=== PATIENT | male | born 1935 | race Caucasian/White ===

== ENCOUNTER 2017-08-07 14:34 | Inpatient (IN) | payer MEDICARE, BC ==
[~2017-08-07 14:34] MED LIST: CHOLEST; DILTI PO; GLIPIZIDE PO; IRON PO; LASIX40 MG PO; LISINOPRIL10 MG PO; VITAMIN D PO
[2017-08-07 16:57] LABS: BASOPHILS 0.2 % (0-2); EOSINOPHILS 2.6 % (0-7); HEMATOCRIT 33.8 % (42.0-54.0); HEMOGLOBIN 10.6 g/dL (13.5-17.5); IMMATURE GRANULOCYTES 1.2 % (0-5); LYMPHOCYTES 6.3 % (15-50); MCHC 31.4 g/dL (31.0-37.0); MCV 98.8 fL (80.0-100.0); MEAN PLATELET VOLUME 11.5 fL (7.4-10.4); MONOCYTES 5.9 % (2-11); NEUTROPHILS 83.8 % (40-80); PLATELET COUNT 120 10x3/uL (130-400); RBC 3.42 10x6/uL (4.20-6.10); RDW 16.4 % (11.5-14.5)
[2017-08-07 17:08] LABS: APTT 23.7 SECONDS (22.8-39.4); INR 1.08 (0.85-1.17); PROTIME 13.9 SECONDS (11.6-15.0)
[2017-08-07 17:19] LABS: ALBUMIN 2.6 g/dL (3.4-5.0); ANION GAP 13.1 mmol/L (8-16); BILIRUBIN - TOTAL 0.24 mg/dL (0.2-1.3); CALCIUM 7.8 mg/dL (8.5-10.1); CARBON DIOXIDE 29.5 mmol/L (21.0-32.0); CREATININE - SERUM 1.5 mg/dL (0.6-1.3); POTASSIUM - SERUM 5.6 mmol/L (3.5-5.1); PROTEIN - SERUM 5.6 g/dL (6.4-8.2)
--- NOTE | 2017-08-07 19:15 | NUR ---
RECEIVED REPORT FROM DAY NURSE. PT IN BED WITH FAMILY AT SIDE. IV INFUSING TO LEFT AC. TRUONG TO GRAVITY. HISTORY, ASSESSMENT, MED LIST COMPLETED. PT TO SURGERY SOON.
[2017-08-07 19:38] LABS: APPEARANCE HAZY (CLEAR); BILIRUBIN NEGATIVE (NEGATIVE); COLOR YELLOW (YELLOW); GLUCOSE NEGATIVE (NEGATIVE); KETONE NEGATIVE (NEGATIVE); NITRITE NEGATIVE (NEGATIVE); PROTEIN 3+ mg/dL (NEGATIVE); UROBILINOGEN NORMAL (NORMAL)
[2017-08-07 19:47] LABS: AMORPHOUS SEDIMENT >1+ /lpf (NONE SEEN); BACTERIA MODERATE /hpf (NONE SEEN); EPITHELIAL CELLS OCC /hpf (0-5); GRANULAR CAST 0-5 /lpf (NONE SEEN); HYALINE CAST OCC /lpf (NONE SEEN); RED CELLS - URINE 0-5 /hpf (0-5); WHITE CELLS - URINE 0-5 /hpf (0-5)
[2017-08-07 19:56] VITALS: BP 118/59; BMI 30.9
--- NOTE | 2017-08-07 20:15 | NUR ---
OFF FLOOR TO SURGERY
[2017-08-07 21:19] VITALS: BP 115/72; BMI 30.9
--- NOTE | 2017-08-07 21:25 | NUR ---
: DR BRICEÑO SPLINTING RIGHT ELBOW. : GRACE PLACING SPINAL.
[2017-08-07] MEDS ORDERED: ZYLOPRIM300 MG PO (21:35)
[2017-08-07] MEDS ORDERED: COREG6.25 MG PO (22:18)
[2017-08-07] MEDS ORDERED: FOLIC ACID1 MG PO (22:19)
[2017-08-07] MEDS ORDERED: GLUCOTROL 5 MG T5 MG PO (22:19)
[2017-08-07] MEDS ORDERED: HYTRIN1 MG PO (22:20)
[2017-08-07] MEDS ORDERED: LASIX40 MG PO (22:21)
[2017-08-07] MEDS ORDERED: VITAMIN D250000 UNIT PO (22:21)
[2017-08-07] MEDS ORDERED: ZESTRIL10 MG PO (22:22)
[2017-08-07] MEDS ORDERED: OMEPRAZOLE40 MG PO (22:22)
[2017-08-07] MEDS ORDERED: LIPITOR10 MG PO (22:23)
[2017-08-07] MEDS ORDERED: CELEXA20 MG PO (22:23)
[2017-08-07] MEDS ORDERED: FERROUS SULFAT325 MG PO (22:24)
[2017-08-07] MEDS ORDERED: FOLTX TABLET1 EACH PO (22:25)
[2017-08-07] MEDS ORDERED: RANEXA1000 MG PO (22:25)
[2017-08-07] MEDS ORDERED: NITROSTAT0.4 MG SL (22:26)
[2017-08-07] MEDS ORDERED: CYCLOBENZAPRINE5 MG PO (22:27)
[2017-08-07] MEDS ORDERED: ACETAMINOPHEN325 MG PO (22:27)
[2017-08-07] MEDS ORDERED: IPRAT-ALBUT 0.5-3 ML UPD (22:29)
[2017-08-07] MEDS ORDERED: BROVANA15 MCG/2 M INH (22:29)
[2017-08-07] MEDS ORDERED: PULMICORT0.25 MG/1 INH (22:30)
--- NOTE | 2017-08-07 22:32 | NUR ---
JYOTI INFORMED ME THAT PT HAS 7CM AAA, SO HE DOES NOT WANT HIS BLOOD PRESSURE TO HIGH.
[2017-08-07 23:00] VITALS: BP 98/52
--- NOTE | 2017-08-07 23:00 | NUR ---
RETURNED TO FLOOR FROM SURGERY. FAMILY AT SIDE. DR BRICEÑO IN ROOM. CONT VITALS INITIATED. IV INFUSING TO LEFT AC. DRESSING TO RIGHT HIP AND LEG CDI. TRUONG TO GRAVITY. ICE TO HIP AND LEG. PLEXI PULSES APPLIED. MULTIPLE X-RAYS PREFORMED. PT REPORTS NO PAIN. OXIMIZER AT 4L FROM SURGERY.
[2017-08-07 23:15] VITALS: BP 101/56
[2017-08-07 23:30] VITALS: BP 82/60
[2017-08-07 23:45] VITALS: BP 90/50
[2017-08-08] VITALS (10 sets, daily range): BP systolic 16–117; BP diastolic 42–61; BMI 30.8
--- NOTE | 2017-08-08 02:18 | NUR ---
PATIENT RESTING IN BED WITH EYES CLOSED, GUEST AT BEDSIDE, AND NO VISIBLE SIGNS OF DISTRESS. BED IN LOWEST POSITION AND CALL LIGHT WITHIN REACH.
--- NOTE | 2017-08-08 04:29 | NUR ---
PT NOT ON WEIGH BED AND UNABLE TO STAND. NO WEIGHT TAKEN.
[2017-08-08 05:50] LABS: BASOPHILS 0.1 % (0-2); EOSINOPHILS 0 % (0-7); HEMATOCRIT 30.5 % (42.0-54.0); HEMOGLOBIN 9.6 g/dL (13.5-17.5); IMMATURE GRANULOCYTES 0.6 % (0-5); LYMPHOCYTES 5.6 % (15-50); MCH 31.4 pg (26.0-34.0); MCHC 31.5 g/dL (31.0-37.0); MCV 99.7 fL (80.0-100.0); MONOCYTES 7.7 % (2-11); PLATELET COUNT 130 10x3/uL (130-400); RBC 3.06 10x6/uL (4.20-6.10); RDW 16.6 % (11.5-14.5); WBC 11.5 10x3/uL (4.8-10.8)
--- NOTE | 2017-08-08 06:00 | NUR ---
PATIENT HAD APPROX 200ML IN TRUONG PRIOR TO SURGERY. POST SURGERY HE CAME BACK WITH A NEW BAG BECAUSE OLD BAG WAS LEAKING. NO OUTPUT POST SURGERY. TRUONG FLUSHED WITH ONLY FLUSH RETURN. TRUONG BULB DEFLATED AND ADVANCED AND RE-INFLATED WITH NO RETURN. BLADDER SCAN PREFORMED AND SHOWED APPROX 45ML. DR. BRICEÑO CALLED, ADVISES THAT DR. PALACIOS WILL ADDRESS ON ROUNDS.
[2017-08-08 06:09] LABS: ALBUMIN 2.4 g/dL (3.4-5.0); BILIRUBIN - TOTAL 0.3 mg/dL (0.2-1.3); CALCIUM 7.8 mg/dL (8.5-10.1); CARBON DIOXIDE 26.4 mmol/L (21.0-32.0); CHOL - HDL RATIO 3.1 ratio (2.3-4.9); PROTEIN - SERUM 5.3 g/dL (6.4-8.2)
[2017-08-08 06:14] LABS: ANION GAP 12.3 mmol/L (8-16); POTASSIUM - SERUM 4.7 mmol/L (3.5-5.1)
--- NOTE | 2017-08-08 07:20 | NUR ---
REPORT RECEIVED FROM NURSE. CALL LIGHT IN REACH.
--- NOTE | 2017-08-08 08:44 | NUR ---
LYING IN BED,WITHOUT DISTRESS.FAMIL AT BEDSIDE
--- NOTE | 2017-08-08 08:47 | OP ---
PATIENT NAME: IVAN MEYER MEDICAL RECORD: [id number] :36 LOCATION:[id number] ADMISSION DATE:08/07/17 SURGEON: TOMA BRICEÑO DO DATE OF OPERATION: 08/07/2017 PROCEDURE PERFORMED: A right hip cephalomedullary nail and right long arm splint application. PREOPERATIVE DIAGNOSES: Right distal humerus fracture and a right intertrochanteric hip fracture, reversed obliquity, both of them were closed. INDICATIONS: Mr. Meyer is an 81-year-old male who fell today onto his right side after eating lunch. He does not walk with a cane. He has several comorbidities including a 7-cm abdominal aortic aneurysm that they are watching. He has been treated by a cardiothoracic surgeon in [place] for that. He has diabetes as well as he has had a CABG, 4-vessel and his left upper lobe removed for lung cancer. He also has COPD. Having reviewed all this and having spoken with the family, decision was made to not surgically fix the elbow or the distal humerus fracture, treated with bag of bones and put him in a splint today and then cast it a few days from now. However, the hip fracture did need to be fixed in order for him to walk. This was discussed with the family and they were in agreement as well as the patient. Once this was done, he has consented for the procedure. SURGEON: Toma Briceño DO. DESCRIPTION OF PROCEDURE: The patient was taken into the operative suite, placed in the supine position, given some light sedation and the splint was placed on the right elbow. A long arm splint from above the elbow to the wrist, just past the wrist, a posterior splint was placed and well padded. Once this was done, the patient was rolled into the right lateral recumbent position and a spinal was placed into the patient's by anesthesia and once this was done, the patient was moved over to the fracture table. Prior to all this, a timeout was performed and everyone has agreed to the correct procedure. The patient, once moved over to the fracture table, was given vancomycin, preoperative antibiotics, placed on the fracture table and the fracture reduced on the fracture table. The site was prepped and draped, the right hip. Once this was done, incision was made just proximal to the trochanter on the right hip and the guide pin was placed in the intramedullary canal. Once confirming good starting point, the opening reamer was used to open the trochanter over the femoral canal. The guide was then placed down the femur and then measurement was taken off of it to be 420 mm in length. Once this was done, reaming commenced starting at 9.5 up to a 13 and once 13, had good chatter, decided for an 11-mm nail down. This was placed down the canal and then put into place confirming on x-ray and once this was done, the lag screw was placed after the skin incision was made. The guides were placed and confirmation of good placement and lag screw measuring 115 was placed. The anti-rotation screw drill bit was then put into place to prevent the internal rotation. That was then removed and compression. Traction was taken off. Compression was made on the lag screw. Once that was done, the anti-rotation screw was placed and there was a 90-mm anti-rotation screw and the jig was taken off and x-rays were taken and seen to be reduced well and in good position and then distally, the perfect circles were made in order to put a distal locking screw in and made a proximal static hole. This was done and a 46-mm, 5-mm screw was placed at the distal locking hole. Once this was done, we removed and the 3 incisions were irrigated well. The IT OPERATIVE REPORT [id number] SYBILIVAN band was closed proximally with 0 Vicryl and then the skin 2-0 Vicryl in both the proximal incisions and then 4-0 Monocryl in the proximal incisions and then an inverted interrupted stitch in the distal locking screw incision and then, a horizontal mattress over that. Dermabond was then placed over each incision and once it was dried, Adaptic, 4 x 4s and Tegaderm was placed over each site. This was done, the patient was moved over and taken to recovery in stable condition. Blood loss was approximately 100 mL. TRANSINT:[id number] Voice Confirmation ID: [id number] DOCUMENT ID: [id number] TOMA BRICEÑO DO at 0847 CC: [id number] DICTATION DATE: 08/07/17 2252 EXPEDITIONARY FIGHTING VEHICLE CREWMAN: 08/08/17 0126 [facility] [address] [place] [address]
--- NOTE | 2017-08-08 09:04 | NUR ---
ASSESSMENT COMPLETED. AM MEDS ADMINISTERED. DILAUDID 0.5 MG SIVP PER C/PO PAIN OF 8. PLEXI-PULSES. ALARM ON. DAUGHTER IN ROOM. CALL LIGHT IN REACH. WILL CONTINUE WITH PLAN OF CARE.
--- NOTE | 2017-08-08 09:42 | NUR ---
INCENTIVE SPIROMETER GIVEN TO PATIENT FOR USE. STATES HE ALREADY KNOWS HOW TO USE IT BUT INSTRUCTED HIM AND DAUGHTER AGAIN.
--- NOTE | 2017-08-08 11:00 | NUR ---
IN CHAIR PER PHYSICAL THERAPY.
--- NOTE | 2017-08-08 12:14 | NUR ---
TRAMADOL PO. TYLENOL IVPB. FSBS 172 SO 2 UNITS HUMALOG SUBQ TO LEFT ARM. REPOSITIONED FOR COMFORT.
--- NOTE | 2017-08-08 14:50 | NUR ---
GLEN RN, CHANGED PATIENT AFTER HE HAD A LARGE BM.
--- NOTE | 2017-08-08 16:17 | NUR ---
BLOOD SUGAR IS 131 SO NO COVERAGE REQUIRED. ZOFRAN 8 MG SIVP AND DILAUDID 0.5 MG SIVP. PROTONIX PO. WILL HOLD COREG. REPOSITIONED FOR COMFORT.
--- NOTE | 2017-08-08 16:40 | NUR ---
TRUONG CATH FLUSHED WITH 60 CC NS. WILL CONTINUE TO MONITOR.
[2017-08-08 18:27] LABS: CREATININE - URINE 25.9 mg/dL (30-125); POTASSIUM - URINE 14.2 MMOL/L (12.0-62.0); PROTEIN - URINE 136.5 mg/dL (0.0-11.9)
--- NOTE | 2017-08-08 18:59 | NUR ---
NO CHANGES IN INITIAL ASSESSMENT. CALL LIGHT IN REACH. WILL CONTINUE WITH PLAN OF CARE.
--- NOTE | 2017-08-08 22:21 | NUR ---
REC'D LYING IN BED. ALERT AND ORIENTED X4. DENIED PAIN AT THIS TIME. DENIED FURTHER NEEDS AT THIS TIME. IV PATENT AND FLUSHES. INSTRUCTED TO CALL IF NEEDED ANYTHING, VERBALIZED UNDERSTANDING. DAUGHTER IS AT BEDSIDE. WILL CONT TO MONITOR. WILL ADMIN PM/AM MEDS PRESCRIBED. NO DISTRESS NOTED.
[2017-08-09] VITALS (15 sets, daily range): BP systolic 115–163; BP diastolic 51–84
--- NOTE | 2017-08-09 02:45 | NUR ---
ASSISTED ERUM COLEY IN TURNING THE PATIENT AND ADJUSTING HIS TELEMETRY. PATIENT DENIES OTHER NEEDS AT THIS TIME. BED IN LOWEST POSITION AND CALL LIGHT WITHIN REACH. ENCOURAGED THE PATIENT AND FAMILY TO CALL IF THEY HAVE FURTHER NEEDS.
[2017-08-09 07:08] LABS: BASOPHILS 0.1 % (0-2); EOSINOPHILS 0.1 % (0-7); HEMATOCRIT 27.6 % (42.0-54.0); HEMOGLOBIN 8.7 g/dL (13.5-17.5); IMMATURE GRANULOCYTES 0.4 % (0-5); LYMPHOCYTES 4.4 % (15-50); MCH 31.3 pg (26.0-34.0); MCHC 31.5 g/dL (31.0-37.0); MCV 99.3 fL (80.0-100.0); MEAN PLATELET VOLUME 11.6 fL (7.4-10.4); PLATELET COUNT 123 10x3/uL (130-400); RBC 2.78 10x6/uL (4.20-6.10); RDW 16.9 % (11.5-14.5)
--- NOTE | 2017-08-09 07:15 | NUR ---
REPORT RECEIVED FROM BIOMEDICAL ANALYTICAL SCIENTIST NURSE. CALL LIGHT IN REACH.
[2017-08-09 07:24] LABS: ALBUMIN 2.3 g/dL (3.4-5.0); ANION GAP 17.5 mmol/L (8-16); BILIRUBIN - TOTAL 0.4 mg/dL (0.2-1.3); CALCIUM 7.3 mg/dL (8.5-10.1); POTASSIUM - SERUM 4.5 mmol/L (3.5-5.1); PROTEIN - SERUM 5.1 g/dL (6.4-8.2)
--- NOTE | 2017-08-09 09:15 | NUR ---
ASSESSMENT COMPLETED. STOMACH STILL DISTENDED IT WAS YESTERDAY. CONFUSED AT THIS TIME. CONTINUES TO TAKE OFF O2 AND TELEMETRY. MORE URINE NOTED IN TRUONG BAG THAN YESTERDAY. FAMILY IN ROOM. CALL LIGHT IN REACH. WILL CONTINUE WITH PLAN OF CARE.
--- NOTE | 2017-08-09 11:15 | NUR ---
Patient Name: IVAN DEVINE Admission Status: ER Accout number: [id number] Admission Date: 08-07-2017 : 1935 Admission Diagnosis:DISPLACED INTERTROCHANTERIC FRACTURE OF RIGHT FEMUR, IN Attending: MADDIE HERNANDEZ Current LOS: 2 Anticipated DC Date: 08-12-2017 Planned Disposition: Home Primary Insurance: MEDICARE A & B Discharge Planning Comments: CM MET WITH PATIENTS SON (ETHAN) REGARDING D/C NEEDS AND PLANS. SON STATED PATIENT LIVES WITH DAUGHTER (DEJUAN). PATIENT HAS 2 STEPS W/O RAILS TO ENTER HOME AND NO STAIRS INSIDE. PATIENT HAS BEEN INDEPENDENT WITH HIS CARE AND HAS OXYGEN, PORTABLE 02, NEBULIZER, CANE, AND GLUCOMETER AT HOME. PATIENTS PCP IS DR. MENDEZ IN [place] AND USES [facility] IN [facility]. CM SPOKE WITH PATIENTS DAUGHTER AND SHE STATED SHE WOULD LIKE HIM TO GO TO REHAB AT DISCHARGE. CM WILL CONTINUE TO FOLLOW PATIENT WITH D/C NEEDS AND PLANS. PCP DR. MENDEZ IN [facility] IN [place]- [phone] DEJUAN (DAUGHTER) [phone] ETHAN (SON) [phone] Co Founder And Chairman: Clover Zaragoza How many steps to enter\exit or inside your home? 2 0 * PCP DR. MENDEZ 0 * Pharmacy [facility] IN [facility] 0 * Preadmission Environment Home with Family 0 * ADLs Partial Dependent 0 * Partial ADLs (Assistance needed) Medication Management 0 * Equipment Cane Glucometer Nebulizer Oxygen 0 * Other Equipment PORTABLE O2 0 * List name and contact numbers for known caregivers / representatives who currently or will assist patient after discharge: DEJUAN (DAUGHTER) [phone] ETHAN (SON) [phone] 0 * Community resources currently utilized None 0 * Additional services required to return to the preadmission environment? Yes 0 * Can the patient safely return to the preadmission environment? Yes 0 * Has this patient been hospitalized within the prior 30 days at any hospital? No 0 Grand Total: 0
--- NOTE | 2017-08-09 11:39 | NUR ---
AM MEDS ADMINISTERED. CALL LIGHT IN REACH.
--- NOTE | 2017-08-09 12:56 | NUR ---
PT RECIEVED TO ROOM 2305 APPROX 1245, SPO2 85 ON 10L OXYMIZER, 143/78,HR118, REPOSITIONED, HOB ELEVATED, SUCTION FOR PRODUCTIVE COUGH WITH DARK BROWN COLOR, SPO2 ELEVATED TO 97%, DR JASMINE PRESENT, WILL CONTINUE TO MONITOR
--- NOTE | 2017-08-09 13:36 | NUR ---
PT TO CT, NGT INSERTED WITH 1500 DARK DRAINAGE COLLECTED
--- NOTE | 2017-08-09 14:36 | NUR ---
PT PULLED OUT NG AND O2, REPLACED BOTH, RECIEVED ORDERS FOR WRIST RESTRAINTS AND APPLIED AT 1430
--- NOTE | 2017-08-09 14:49 | NUR ---
spoke with dr smith about consult related to ileus
--- NOTE | 2017-08-09 16:31 | NUR ---
SPOKE WITH BLOOD BANK, PT HAS HAD TYPE AND CROSS AND WILL RECIEVE 2 UNITS PRBC, SPOKE WITH PHARMACY AND THEY WILL MIX PROTONIX DRIP AND BRING UP, PT REPOSITIONED, VSS, DENIES ALL NEEDS, WILL CONTINUE TO MONITOR
--- NOTE | 2017-08-09 19:30 | NUR ---
SHIFT ASSESSMENT COMPLETE. PT IS CONFUSED/DISORIENTED TO PLACE AND TIME. HIS SPEECH IS CLEAR. PERRLA, 3 MM, BRISK REACTION TO LIGHT. NGT DRAINING DARK BROWN LIQUID FROM L NARE. ORAL CARE PROVIDED. DENTURES ARE IN PLACE. S1S2 AUDIBLE, HR 115 SINUS TACH VIA TELEMETRY. L RADIAL PULSE PALP. R ARM HAS BANDAGE WRAPPED AROUND IT, CDI WITH A SLING. RR IS SHALLOW, DIMINISHED LUNG SOUNDS WITH EXPIRATORY WHEEZE HEARD. KRYSTEN REMOVED. OXIMIZER @ 10 L/MIN, O2 SAT 94%. ABD IS VERY DISTENDED, HARD AND TENDER TO TOUCH. BS ACTIVE X4. R HIP AND R LEG BANDAGES ARE CDI. TRUONG CATH INTACT DRAINING CONCENTRATED URINE. SMALL PINK/RED MUCOUS BM PASSED. PARTIAL LINEN CHANGE COMPLETE. REPOSITIONED FOR COMFORT. CALL LIGHT IN REACH. PLEXI FOOT PUMPS INTACT. WILL CONT TO MONITOR.
--- NOTE | 2017-08-09 21:20 | NUR ---
PT'S FAMILY AT BEDSIDE. UPDATED FAMILY ON PT CONDITION. HE STATES THAT HE IS COMFORTABLE AT THIS TIME. REFILLED REFRESHMENTS PER REQUESTS. WILL CONT WITH POC.
--- NOTE | 2017-08-09 22:35 | NUR ---
STARTED INFUSING PRBC'S
--- NOTE | 2017-08-09 23:30 | NUR ---
REASSESSMENT COMPLETE AT THIS TIME. PRBC'S INFUSING WITH NO S/S OF TRANSFUSION REACTION NOTED. BANDAGES ON R HIP AND R LEG ARE INTACT WITH NO DRAINAGE NOTED. VSS. WILL CONT TO MONITOR.
[2017-08-10] VITALS (24 sets, daily range): BP systolic 100–143; BP diastolic 55–89
--- NOTE | 2017-08-10 01:25 | NUR ---
PT STATES THAT HIS HIP IS HURTING HIM AND THAT HE CAN'T SLEEP. REPOSITIONED FOR COMFORT. ADMINISTERED PRN PAIN MED. REFILLED REFRESHMENTS. NO FURTHER REQUESTS.
--- NOTE | 2017-08-10 03:30 | NUR ---
REASSESSMENT COMPLETE. PRBC'S INFUSING WITH NO S/S OF INFUSION REACTION NOTED. DRESSING ON R HIP IS CDI WITH SOME LIGHT DRAINAGE NOTED. DRESSING ON R LEG CDI WITH NO DRAINAGE NOTED. S1S2 AUDIBLE. RR SHALLOW. VSS. WILL CONT TO MONITOR.
--- NOTE | 2017-08-10 05:00 | NUR ---
REPOSITIONED FOR COMFORT. PT DENIED TURNING AND A BATH. TRIED TO EDUCATE HIM ON WHY THESE THINGS ARE IMPORTANT, BUT HE CONTINUED TO DENY IT. CHANGED IV TUBING. SWAB CAPS IN USE, IV TUBES LABELED. NO SIGNS OF DISTRESS NOTED. PUT BLOOD RECIEPT UNDER THE "LAB REPORTS" TAB IN THE PT'S FILE. SEE SHEETS FOR DETAILS.
--- NOTE | 2017-08-10 07:00 | NUR ---
PT ALERT AND ORIENTED TO PERSON, REORIENTED NEEDED, RESPRIATIONS EVEN AND UNLABORED, O2 10L OXYMIZER, NGT TO RIGHT NARE LIS, PIC TO L HAND AND L FOREARM, SEE IV FLOWSHEET, TRUONG DRAINING CONCENTRATED URINE, DRESSING TO RIGHT HIP AND LEG CDI, RIGHT ARM IN SLING, L WRIST RESTRAINT, DENIES PAIN, VSS, WILL CONTINUE TO MONITOR
[2017-08-10 07:06] LABS: BASOPHILS 0.2 % (0-2); EOSINOPHILS 0 % (0-7); HEMATOCRIT 29.1 % (42.0-54.0); HEMOGLOBIN 9.8 g/dL (13.5-17.5); IMMATURE GRANULOCYTES 1.6 % (0-5); LYMPHOCYTES 6.4 % (15-50); MCHC 33.7 g/dL (31.0-37.0); MEAN PLATELET VOLUME 11.3 fL (7.4-10.4); MONOCYTES 11.4 % (2-11); NEUTROPHILS 80.4 % (40-80); PLATELET COUNT 100 10x3/uL (130-400); RBC 3.16 10x6/uL (4.20-6.10); RDW 16.5 % (11.5-14.5)
[2017-08-10 07:11] LABS: MCV 92.1 fL (80.0-100.0); WBC 6.2 10x3/uL (4.8-10.8)
[2017-08-10 07:13] LABS: KETONE - SERUM NEGATIVE (NEGATIVE)
[2017-08-10 07:20] LABS: ALBUMIN 1.8 g/dL (3.4-5.0); ALKALINE PHOSPHATASE 53 U/L (46-116); ALT (SGPT) 41 U/L (10-68); AMYLASE - SERUM 34 U/L (25-115); CALC OSMOLALITY 294 mosm/kg (275-300); CALCIUM 7.4 mg/dL (8.5-10.1); CARBON DIOXIDE 24.1 mmol/L (21.0-32.0); CHLORIDE - SERUM 100 mmol/L (98-107); CREATININE - SERUM 5.2 mg/dL (0.6-1.3); GLUCOSE 135 mg/dL (74-106); LIPASE 101 U/L (73-393); POTASSIUM - SERUM 4.1 mmol/L (3.5-5.1); PROTEIN - SERUM 5.4 g/dL (6.4-8.2); SODIUM 135 mmol/L (136-145); eGFR NON AFRICAN AMERICAN 11 mL/min (90-120)
[2017-08-10 07:24] LABS: UREA NITROGEN 77 mg/dL (7-18)
--- NOTE | 2017-08-10 09:24 | NUR ---
PT REPOSITIONED, VSS, FAMILY AT BEDSIDE AND QUESTIONS ANSWERED, DENIES PAIN, WILL CONTINUE TO MONITOR
--- NOTE | 2017-08-10 11:09 | NUR ---
PT REPOSITIONED, VSS, DENIES PAIN, NGT TO LIS, WILL CONTINUE TO MONITOR
--- NOTE | 2017-08-10 12:48 | NUR ---
Nutrition Follow Up: Pt was asleep at the time of RD visit. Interview deferred. Pt with NGT to LIS. Pt is eating 33% meal avg on a diabetic diet. +BM 08/10/17. Labs reviewed. Meds noted including Bumex. Rec continue current diet as tolerated. RD following.
--- NOTE | 2017-08-10 13:00 | NUR ---
PT HAD LOOSE DARK STOOL X1, TOTAL LINEN CHANGE AND BED BATH PROVIDED, VSS, CONTIUES ON 10L O2, HEEL PROTECTORS IN PLACE AND HEELS SLIGHTLY BRIDGED DUE TO RECENT HIP SURGERY, REDDENED AREA TO RIGHT HEEL NOTED, SEE ASSESSMENTS, DENIES PAIN AND ALL NEEDS, VSS, WILL CONTINUE TO MONITOR
--- NOTE | 2017-08-10 15:25 | NUR ---
PT REPOSITONED, VSS, DAUGHTER AT BEDSIDE FOR VISITATION, DENIES PAIN, NGT WITH LESS DRAINAGE, WILL CONTINUE TO MO NITOR
--- NOTE | 2017-08-10 17:00 | NUR ---
PT REPOSITIONED, VSS, DENIES PAIN, NO OUTPUT FROM NGT SINCE 1600, PATENT AND IN PLACE PER AUSCULTATION AND ASPIRATION, CALL LIGHT WITHIN REACH WILLL CONTINUE TO MONITOR
[2017-08-10 18:56] LABS: HEMATOCRIT 28.3 % (42.0-54.0); HEMOGLOBIN 9.5 g/dL (13.5-17.5)
--- NOTE | 2017-08-10 19:30 | NUR ---
SHIFT ASSESSMENT COMPLETE. PT IS RESTING ON BACK AT THIS TIME. HE IS CONFUSED BY THE TIME AND SITUATION. PERRLA, 3 MM, BRISK REACTION TO LIGHT. NGT TO L NARE DRAINING BROWN LIQUID. S1S2 AUDIBLE, NORMAL SINUS RHYTHM. SHALLOW RESPIRATIONS WITH WHEEZES HEARD BILAT. ABD IS DISTENDED AND HARD. BS ACTIVE X4. TRUONG CATH INTACT DRAINING CONCENTRATED URINE. L RADIAL PALP, PEDAL PULSES PALP. FOAM FOOT BOOTS ARE INTACT. REDDENED AREA ON R HEEL NOTED. NO SIGNS OF DISTRESS NOTED. WILL CONT WITH POC.
--- NOTE | 2017-08-10 21:15 | NUR ---
PT IS RESTING PEACEFULLY WITH NO SIGNS OF DISTRESS NOTED. VSS. WILL CONT WITH POC
--- NOTE | 2017-08-10 23:00 | NUR ---
REASSESSMENT COMPLETE. NO CHANGES NOTED. PT IS RESTING PEACEFULLY. COMPLETE LINEN CHANGE. ORAL CARE PROVIDED. WILL CONT WITH POC.
[2017-08-11] VITALS (25 sets, daily range): BP systolic 108–168; BP diastolic 51–71
--- NOTE | 2017-08-11 01:00 | NUR ---
RESITED IV TO L FOREARM. D/C'D L HAND IV. REPOSITIONED FOR COMFORT. ORAL CARE PROVIDED. WILL CONT WITH POC.
--- NOTE | 2017-08-11 03:15 | NUR ---
REASSESSMENT COMPLETE. PT WAS A&O X4 AROUND 0100, SO I D/C'D RESTRAINT. HE IS NOW CONFUSED AND STATES THAT HE DOES NOT KNOW WHERE HE IS. HE REORIENTS EASILY AND IS ASKING FOR DEJUAN. EDUCATED HIM ON THE VISITING HOURS AND HE STATES THAT HE IS GOING TO GO BACK TO SLEEP. REFILLED REFRESHMENTS. CALL LIGHT IN REACH. BED IN LOWEST POSITION. WILL CONT TO MONITOR.
[2017-08-11 04:20] LABS: BASOPHILS 0.1 % (0-2); EOSINOPHILS 0.1 % (0-7); HEMATOCRIT 28.1 % (42.0-54.0); HEMOGLOBIN 9.4 g/dL (13.5-17.5); IMMATURE GRANULOCYTES 0.5 % (0-5); LYMPHOCYTES 5.2 % (15-50); MCH 30.8 pg (26.0-34.0); MCHC 33.5 g/dL (31.0-37.0); MCV 92.1 fL (80.0-100.0); MEAN PLATELET VOLUME 11.2 fL (7.4-10.4); MONOCYTES 8.6 % (2-11); NEUTROPHILS 85.5 % (40-80); PLATELET COUNT 113 10x3/uL (130-400); RBC 3.05 10x6/uL (4.20-6.10); RDW 16.8 % (11.5-14.5)
[2017-08-11 04:31] LABS: WBC 9.8 10x3/uL (4.8-10.8)
[2017-08-11 04:41] LABS: ALBUMIN 1.7 g/dL (3.4-5.0); BILIRUBIN - TOTAL 0.5 mg/dL (0.2-1.3); CALCIUM 7.4 mg/dL (8.5-10.1); CARBON DIOXIDE 26.8 mmol/L (21.0-32.0); POTASSIUM - SERUM 3.8 mmol/L (3.5-5.1); PROTEIN - SERUM 5.5 g/dL (6.4-8.2)
--- NOTE | 2017-08-11 05:30 | NUR ---
PT RATES PAIN 10/10. COMPLETE LINEN CHANGE. REPOSITIONED FOR COMFORT. PARITAL BATH. ADMINISTERED PRN PAIN MEDS. WILL CONT WITH POC.
--- NOTE | 2017-08-11 07:00 | NUR ---
REPORT RECIEVED FROM OFF GOING NURSE. PT IN BED. ALERT AND ORIENTEDTO PERSON ONLY. ON AN OXIMIZER AT 4L. WAS TOLD IN REPORT THAT PT RIPPED OUT NGT. RIGHT ARM IN A SOFT CAST AND SLING. RIGHT HIP HAS DRESSING THAT IS C/D/I X3. NO DRAIANGE NOTED. EXPITORY WHEEZING NOTED IN ALL LOBES. ABD DESTENDED AND FIRM. DENIES PAIN AT THIS TIME. 2 IV IN LEFT FOREARM WITH 1 SL AND THE OTHER NS AT 10ML/H BUTMEX AT 5ML/H AND PROTONIX AT 10ML/H. BOTH IV'S PATENT AND C/D/I DRESSING. FC IN NOTED WITH CLEAR YELLOW URINE. CALL LIGHT IN REACH. WILL CONT POC
--- NOTE | 2017-08-11 08:00 | NUR ---
XRAY STAFF AT BED SIDE FOR BARIUM SWALLOW AND ABD SERIES,
--- NOTE | 2017-08-11 08:49 | NUR ---
DR RODRIGUEZ CALLED. UPDATED ON CONDITION. LAST NIGHT FC OUT PUT 1300 AND CREATININ 5. STATED TO CONTINUE BUMEX DRIP.
--- NOTE | 2017-08-11 09:03 | NUR ---
DRESSING TO RIGHT LEG CHANGED X3. INSICION TO RIGHT HIP HAS NO S/SX OF INFECTION NOTED. CLEANSED WITH WOULD CLEANSES PATTED DRY AND 4X4 APPLIED COVERED WITH TEGADERM. MEDIAL DRESSING HAS DRIED BLOOD AND HAS NO S/SX OF INFECTION NOTED. CLEANED AND DRESSED THE SAME WAY. MOST DISTAL INSISION SHOWS NO S/SX OF INFECTION NOTD. CLEANED AND DRESSED THE SAME WAY. WILL CONT POC.
--- NOTE | 2017-08-11 12:16 | NUR ---
SMALL BM NOTED. DIRRAHEA. PERIARE PREFORMED AND NEW LINES TO BED. WILL CONT POC
--- NOTE | 2017-08-11 13:00 | NUR ---
PT HAD AN INCONENT DIARRHEA. ONCE CLANED AND NEW BED LINEN CHANGED, PT HAD ANOTHER LARGE DIRRHEA. NOTIFIED WITH NEW ORDERS FOR A RECTAL TUBE.
--- NOTE | 2017-08-11 13:26 | NUR ---
RECTAL TUBE INSERTED WITH DIARRHEA NOTED. BED LINEN CHANGED. WILL CONT POC
[2017-08-11 16:17] LABS: HEMATOCRIT 26.3 % (42.0-54.0); HEMOGLOBIN 8.8 g/dL (13.5-17.5)
--- NOTE | 2017-08-11 16:45 | NUR ---
PT REFUSING FSBS. PT BECOME AGGITATED BUT CONFUSION REMAINING THE SAME. WILL ALOW PT TO RELAX AND CALM DOWN.
--- NOTE | 2017-08-11 17:00 | NUR ---
PT BECOMING MORE AGGIRVATED. ATTEMPTED TO LEAVE PT ALONE TO CALM HIM DOWN AND HE STARTED RIPPING OFF OXIMIZER. EXPLAINED THAT HE NEEDED HIS O2 TO HELP HIM BREATH AND HE STATED HE DIDNT CARE. PT BECOMING MORE CONFUSED. DR SMITH NOTIFIED AND NEW ORDERS FOR SOFT RESTRAINTS. ONLY ONE RESTRAINT USED ON LUE. PT NOT ABLE TO PULL OUT OXIMIZER. O2 STABLE. PO FLUIDS OFFERED AND CALL LIGHT IN HAD. WILL CONT POC
--- NOTE | 2017-08-11 19:30 | NUR ---
SHIFT ASSESSMENT COMPLETE. PT IS LYING ON HIS BACK WITH NO COMPLAINTS OF PAIN. HE IS A&O X2. REORIENTS EASILY. PERRLA, 3 MM, BRISK REACTION TO LIGHT. HE IS ABLE TO FOLLOW COMMANDS. OXIMIZER @ 3 L/MIN, O2 SAT 95%. S1S2 AUDIBLE, HR 81, NORMAL SINUS RHYTHM. SHALLOW RESPIRATIONS, RR 16, EXPIRATORY WHEEZE HEARD BILAT. L RADIAL PULSE PALP, PEDAL PULSES PALP. ABD IS DISTENDED AND NON TENDER TO TOUCH. BS ACTIVE X4. RECTAL TUBE PATENT DRAINING DARK BROWN, LIQUID STOOL. FOELY CATH INTACT DRAINING CONCENTRATED URINE. MUCOUS MEMBRANES ARE MOIST, ORAL CARE PROVIDED. R HIP & R LEG INCISION DRESSING CDI WITH NO DRAINAGE NOTED. R HEEL HAS A SMALL REDDENED AREA. FOAM BOOTS ON, HEELS BRIDGED. L FOREARM PIV NS INFUSING @ 10 ML/HR, PROTONIX 10 ML/HR, BUMEX 5 ML/HR, PROCALAMIDE 50 ML/HR. REPOSITIONED FOR COMFORT. CALL LIGHT IN REACH. WILL CONT TO MONITOR.
--- NOTE | 2017-08-11 21:00 | NUR ---
DAUGHTER AT BEDSIDE. UPDATED HER ON HER DAD'S CONDITION. PT STATES THAT HE IS IN 8/10 PAIN AFFECTING HIS BACK AND HIP. ADMINISTERED PRN PAIN MED, REPOSITIONED FOR COMFORT. NO FURTHER REQUESTS/QUESTIONS. WILL CONT WITH POC.
--- NOTE | 2017-08-11 23:00 | NUR ---
REASSESSMENT COMPLETE. PT IS ALERT AND ORIENTED X4 AT THIS TIME. HE IS ABLE TO TELL ME WHAT HAPPENED AND WHERE HE IS WHICH IS AN IMPROVEMENT FROM THE SHIFT ASSESSMENT. HE STATES THAT HE IS NOT IN ANY PAIN AT THIS TIME. REPOSITIONED, ORAL CARE PROVIDED. REFILLED REFRESHMENTS. CALL LIGHT IN REACH. NO FURTHER REQUESTS.
[2017-08-12] VITALS (24 sets, daily range): BP systolic 98–213; BP diastolic 58–901
--- NOTE | 2017-08-12 | NUR ---
0000: Pt SBP increased >180's. ER MD called (brickmason supervisor for MD) Orders rec'd and noted. Hydralazine ordered for SBP.
--- NOTE | 2017-08-12 01:00 | NUR ---
PT RESTING PEACEFULLY AT THIS TIME WITH NO COMPLAINTS OF PAIN. REPOSITIONED FOR COMFORT. REFILLED REFRESHMENTS. CALL LIGHT IN REACH. BED IN LOWEST POSITION. WILL CONT WITH POC.
--- NOTE | 2017-08-12 03:00 | NUR ---
REASSESSMENT COMPLETE. NO CHANGES NOTED AT THIS TIME. VSS. REFILLED REFRESHMENTS. ORAL CARE PROVIDED. REPOSITIONED FOR COMFROT. WILL CONT TO MONITOR.
[2017-08-12 04:31] LABS: BASOPHILS 0 % (0-2); EOSINOPHILS 0.2 % (0-7); HEMATOCRIT 27.4 % (42.0-54.0); HEMOGLOBIN 9.2 g/dL (13.5-17.5); IMMATURE GRANULOCYTES 0.8 % (0-5); LYMPHOCYTES 3.4 % (15-50); MCHC 33.6 g/dL (31.0-37.0); MCV 92.3 fL (80.0-100.0); MEAN PLATELET VOLUME 11.3 fL (7.4-10.4); MONOCYTES 8.3 % (2-11); NEUTROPHILS 87.3 % (40-80); PLATELET COUNT 126 10x3/uL (130-400); RBC 2.97 10x6/uL (4.20-6.10); RDW 16.6 % (11.5-14.5); WBC 13.1 10x3/uL (4.8-10.8)
[2017-08-12 04:50] LABS: ALBUMIN 1.8 g/dL (3.4-5.0); ANION GAP 15.4 mmol/L (8-16); BILIRUBIN - TOTAL 0.5 mg/dL (0.2-1.3); CALCIUM 7.4 mg/dL (8.5-10.1); CARBON DIOXIDE 28.8 mmol/L (21.0-32.0); CREATININE - SERUM 4.2 mg/dL (0.6-1.3); PHOSPHOROUS 6.9 mg/dL (2.5-4.9); PROTEIN - SERUM 5.2 g/dL (6.4-8.2)
--- NOTE | 2017-08-12 05:00 | NUR ---
D/C L UPPER FOREARM PIV. RESITED PIV IN ABD, 20 G X1 ATTEMPT BY DEBI BERRY. PT STATES THAT HE IS IN 10/10 PAIN AT THIS TIME AFFECTING HIS BACK AND HIP. REPOSITIONED FOR COMFORT. ADMINISTERED PRN PAIN MED. WILL CONT TO MONITOR.
[2017-08-12 05:08] LABS: POTASSIUM - SERUM 3.2 mmol/L (3.5-5.1)
--- NOTE | 2017-08-12 07:00 | NUR ---
REPORT RECEIVED FROM OFF GOING RN. PT ALERT. INTERMITTED CONFUSION. ON 3L OF O2 VIA OXIMIZER. VSS. ABD DESTENDED AND FIRM. PT STATES THIS IS "NORMAL" FOR HIM. CAST TO RIGHT ARM. ABLE TO WIGGLE FINGERS AND DENIES NUMBNESS AND TINGILING. CAP REFILL <3 SECS. DRESSINGS TO RIGHT LEG C/D/I. NO S/SX OF INFECTION NOTED. HAS A FC WITH CLEAR YELLOW URINE NOTED AND A RECTAL TUBE WITH LIQUID DIARRHEA NOTED. TIM PAIN AT THIS TIME. HOB ELEVATED AND BREAKFAST SPOON FED TO PT. CALL LIGHT IN REACH. WILL CONT POC
--- NOTE | 2017-08-12 09:29 | NUR ---
NUTRITION F/U CHART REVIEWED. FAMILY AT BEDSIDE. NURSING REPORTS PT WITH GOOD INTAKE ADA DIET THIS AM. WILL CONTINUE TO PROVIDE DIET, MONITOR INTAKE. RD FOLLOWING
--- NOTE | 2017-08-12 10:29 | NUR ---
DR BRICEÑO REMOVED SOFT CAST AND APPLIED A FIBERGLASS CAST. PT ABLE TO MOVE FINGERS. CAP REFILL <3 SECS
--- NOTE | 2017-08-12 11:00 | NUR ---
PT RIPPED OUT ABD IV. CATH TIP INTACT. VASCULAR NURSE PAGED. ABRASION NOTED TO LEFT BUTTOCKS. BUTT PASTE APPLIED AND REPOSITIONED. CALL LIGHT IN REACH. WILL CONT POC
--- NOTE | 2017-08-12 16:00 | NUR ---
ABD REMAINS DESTENDED. DR HAINES NOTFIED. PT HAS ORDERS FOR AN NGT HOW EVER HE RIPPED IT OUT A COUPLE DAYS AGO. PT IS NOW RESTRAINED FOR HIS CONFUSION AND RIPPING OUT IV'S. DR HAINES REQUESTED REPLACEMENT OF NGT. NGT PLACMENT CHECKED VIA A&A. INTERMEDIATE SUCTION. WILL CONT POC
--- NOTE | 2017-08-12 16:22 | NUR ---
IV STARTED IN LEFT UPPER ARM. UNABLE TO GET AHOLD OF THE VASCULAR NURSE.
[2017-08-12 17:31] LABS: HEMOGLOBIN 9.8 g/dL (13.5-17.5)
--- NOTE | 2017-08-12 17:54 | NUR ---
RESTING IN BED WITH EYES CLOSED WITH NORMAL UNLABORED BREATHING. CALL LIGHT IN REACH. WILL CONT POC
--- NOTE | 2017-08-12 18:47 | NUR ---
IN BED RESTING WITH NO S/SX OF DISTRESS/DISCOMFORT NOTED. CALL LIGHT IN REACH. WILL CONT POC
--- NOTE | 2017-08-12 19:00 | NUR ---
1900: Pt resting HOB 30 degrees with eyes open. Pupils MARILYN+ bilat. Pt able to move extrem vs gravity. Pt RUE in cast extending from distal shoulder to wrist. Pt c/o back pain. Pt states he has chronic back pain. Pt breathing 023L via Oximizer. Lungs with crackles heard throughout with decreased bases bilaterally. RR24x with SPO2 92-93%. Encouraged DBC. ABD distended and tympanic in sound with percussion in all quadrants. BS active x4. Rectal tube to gravity with dark liquid drainage. Ruiz to gravity with >30 cc/hr dark UOP. All alarms are on and intact.
--- NOTE | 2017-08-12 21:00 | NUR ---
2100: Pt c/o pain. Admin Rx as per EMAR. Pt oriented at this time to person and place, but not time. Verbal reorientation successful. Pt family here and update provided.
--- NOTE | 2017-08-12 22:00 | NUR ---
2200: Ruiz care done at this time.
--- NOTE | 2017-08-12 23:00 | NUR ---
2300: Pt restless in bed at this time. Pt oriented to person, place, and time. Pt c/o back pain. Pt repositioned on side with multiple pillows for support. No change in pt RESP/CV/NV status. Rectal tube output decreased. Patency confimed and remains to gravity drainage. Ruiz >30 cc/hr.
[2017-08-13] VITALS (26 sets, daily range): BP systolic 124–221; BP diastolic 60–117
--- NOTE | 2017-08-13 02:00 | NUR ---
0200: Pt repositioned multiple times. Pt remains oriented, but will pull at NGT if left unrestrained. Pt ABD remains distended and tympanic with percussion. ABD veins visible. NGT remains to LIS with liquid green output in collection cannister.
--- NOTE | 2017-08-13 03:00 | NUR ---
0300: Occasional PACs seen on CM. Pt remains restless at this time. Difficult to obtain accurate NIBP. Pt has multiple IVs in left arm and cast to right arm. NIBP remains on left leg.
--- NOTE | 2017-08-13 05:00 | NUR ---
0500: I/O completed. See flowsheet. Pt UOP >150 cc/hr. Pt remains on Bumex gtt as per IVF flowsheet. Pt continues to be oriented, but pulls at lines without restraints. Remains in left arm soft wrist restraint. Oral care done at this time with moisturizer.
[2017-08-13 06:07] LABS: BASOPHILS 0.2 % (0-2); EOSINOPHILS 0.7 % (0-7); HEMATOCRIT 32.3 % (42.0-54.0); HEMOGLOBIN 10.5 g/dL (13.5-17.5); IMMATURE GRANULOCYTES 6.2 % (0-5); LYMPHOCYTES 6.5 % (15-50); MCH 30.8 pg (26.0-34.0); MCHC 32.5 g/dL (31.0-37.0); MONOCYTES 7.4 % (2-11); PLATELET COUNT 132 10x3/uL (130-400); RBC 3.41 10x6/uL (4.20-6.10); RDW 16.4 % (11.5-14.5); WBC 12.8 10x3/uL (4.8-10.8)
[2017-08-13 06:08] LABS: MCV 94.7 fL (80.0-100.0)
[2017-08-13 06:29] LABS: ALBUMIN 1.9 g/dL (3.4-5.0); ANION GAP 12.5 mmol/L (8-16); BILIRUBIN - TOTAL 0.73 mg/dL (0.2-1.3); CALCIUM 8.4 mg/dL (8.5-10.1); CARBON DIOXIDE 29.7 mmol/L (21.0-32.0); CREATININE - SERUM 2.9 mg/dL (0.6-1.3); POTASSIUM - SERUM 3.2 mmol/L (3.5-5.1); PROTEIN - SERUM 6.1 g/dL (6.4-8.2)
--- NOTE | 2017-08-13 06:40 | NUR ---
0640: Pt restless and yelling out. Pt oriented to person and place, but not time. Verbal reorientation successful. Pt states "just cut me loose, I want out of here" Pt states he is uncomfortable. Pain Rx as per EMAR. Pt repositioned, oral care done, and reassurance provided. Pt calmed at this time. Pt SBP remains elevated.
--- NOTE | 2017-08-13 07:15 | NUR ---
REC'ED REPORT FROM OUTGOING RN - PT LYING SUPINE IN BED, AA&O X 3 (NOT TO TIME), PT RESTING ASKED TO BE RELEASED FROM RESRAINT, ABLE TO RE-ORIENT PT TO SITUCATION. PT VERBALIZED UNDERSTANDING - ASKED FOR DRINK OF WATER - ORAL CARE DONE - CONINUE TO HAVE ELEVATED SPB CPOC
--- NOTE | 2017-08-13 08:32 | NUR ---
PT CALLED OUT TO HAVE PLEXIBOOTS REMOVED - REORIENTED PT TO THE NEED FOR COMPRESSION THERAPY. PT RESTING
--- NOTE | 2017-08-13 09:00 | NUR ---
FAMILY VISIING AT BEDSIDE - PT C/O PAIN 08/30 - GAVE DILAUDID PER MAR - REPOSTTED PT - CPOC
--- NOTE | 2017-08-13 11:45 | NUR ---
butcher meat PAGED DR. LOPEZ - AWAITING CALL BACK
--- NOTE | 2017-08-13 12:00 | NUR ---
FAMILY AT BEDSIDE VISITING PT - PT C/O PAIN 06/30 - GAVE DILAUDED SEE CLAUDY HELLER
--- NOTE | 2017-08-13 12:45 | NUR ---
HEALTH CARE SANITARY TECHNICIAN PAGED DR. LOPEZ - AWAITING CALL BACK.
--- NOTE | 2017-08-13 14:30 | NUR ---
DR. RODRIGUEZ AT BEDSIDE FOR ASSESSMENT - CPOC
--- NOTE | 2017-08-13 14:42 | NUR ---
PAGED DR. LOPEZ - FOR CENTRAL LINE - AWAITING CALL BACK
--- NOTE | 2017-08-13 16:10 | NUR ---
PT C/O PAIN 06/30 - GAve PAIN MED (SEE MAR) - PT RESTING WITH EYES CLOSED, RESPIRATION REG RATE AND RHTHYM. CPOC
--- NOTE | 2017-08-13 16:30 | NUR ---
DR. LOPEZ ON UNIT FOR CENTRAL LINE PLACED - COMPLETED - PT TOLERATED PROCEDURE WELL. ORDER STAT X-RAY FOR CORRECT PLACEMENT
--- NOTE | 2017-08-13 17:30 | NUR ---
XR TECH AT BEDSIDE FOR CXR - AWAITING RESULTS
[2017-08-13 17:47] LABS: HEMATOCRIT 33.6 % (42.0-54.0); HEMOGLOBIN 10.9 g/dL (13.5-17.5)
--- NOTE | 2017-08-13 18:00 | NUR ---
FAMILY AT BEDSIDE VISITING - PT SLEEPY EYED VOICED REQUEST FOR ICE CHIPS - EXPLAINED SITUAION - PT/FAMILY VERBALIED UNDERSTANDING.
--- NOTE | 2017-08-13 19:00 | NUR ---
1900: pt pulling at telemetery at this time. Pillows in floor and pt states he wants to get up and go. Pt not oriented to time or situation at this time.
--- NOTE | 2017-08-13 19:19 | NUR ---
REPORT GIVEN TO ONCOMING RN
--- NOTE | 2017-08-13 20:00 | NUR ---
2000: Pt rec'd resting HOB 30 degrees with eyes open. Pt pupils MARILYN+ bialt. Pt able to move extrem vs gravity. Pt does not follow commands and immediatley attempts to remove telemetry and NGT without restraint. Pt oriented to person and place, but not time or situation. Pt restless in bed and frequent repositioning has been done. Pt pulls out pillows and sheets and throws them on ground. Oral care, Plexi pulse care, NGT johnson replaced, and adjusted right arm sling. Pt remains breathing 023L via Oximizer with RR 26x with SPO2 93%. Left lungs sounds are absent. Right lung with wheezes heard and decreased base with auscultation. MMP and no cyanosis noted. Pt with frequent cough. S1S2 regular SR 80's on CM with SBP 130's. Right jugular CVL intact. CVP transduced, leveled, and zeroed at this time. Measured 2-3. ABD distended and tight to touch. ABD viens engorged and visible. Pt BS x4 active. Right nares NGT to LIS with small amount of light brown liquid output. Pt has rectal tube in place. Drainage bag to gravtiy with liquid BM. Ruiz to gravity with >50 cc/hr out at this time.
--- NOTE | 2017-08-13 23:00 | NUR ---
2300: Pt thrashing in bed and attempting to get OOB. Pt pulling at lines and tubes. pt repositoned with multiple pillows used for support.
[2017-08-14] VITALS (24 sets, daily range): BP systolic 134–195; BP diastolic 58–107
--- NOTE | 2017-08-14 01:00 | NUR ---
0100: Pt resting with eyes clsoed at this time. Allowed pt to cont to rest at this time. Pt remains ST with SBP 130's. No change in IVF/UOP.
--- NOTE | 2017-08-14 02:00 | NUR ---
0200: Pt continues pulling at all lines and tubes. Pt remains confused and not oriented to time and situation. Unable to reorient patient via verbal at this time. Pt remains in SR80's with SBP 130's. No change in IVF/UOP.
[2017-08-14 04:26] LABS: BASOPHILS 0.3 % (0-2); EOSINOPHILS 0.1 % (0-7); HEMATOCRIT 31.1 % (42.0-54.0); HEMOGLOBIN 10.1 g/dL (13.5-17.5); IMMATURE GRANULOCYTES 8.1 % (0-5); MCHC 32.5 g/dL (31.0-37.0); MCV 95.4 fL (80.0-100.0); MEAN PLATELET VOLUME 11.1 fL (7.4-10.4); MONOCYTES 3.4 % (2-11); NEUTROPHILS 80.1 % (40-80); PLATELET COUNT 142 10x3/uL (130-400); RBC 3.26 10x6/uL (4.20-6.10); RDW 16.4 % (11.5-14.5); WBC 11.6 10x3/uL (4.8-10.8)
[2017-08-14 04:42] LABS: ALBUMIN 1.9 g/dL (3.4-5.0); ANION GAP 9.8 mmol/L (8-16); BILIRUBIN - TOTAL 0.75 mg/dL (0.2-1.3); CALCIUM 8.7 mg/dL (8.5-10.1); CARBON DIOXIDE 31.8 mmol/L (21.0-32.0); CREATININE - SERUM 2.4 mg/dL (0.6-1.3); MAGNESIUM - SERUM 2.1 mg/dL (1.8-2.4); PHOSPHOROUS 4.8 mg/dL (2.5-4.9); POTASSIUM - SERUM 3.6 mmol/L (3.5-5.1)
--- NOTE | 2017-08-14 05:00 | NUR ---
0500: Repositioned at this time with right arm elevated on pillow support. Pt remains with elevated BP. Rx admin as per EMAR.
--- NOTE | 2017-08-14 06:00 | NUR ---
0600: Pt family here at bedside. Update provided. Pt c/o pain and remains with HTN. RX admin as per EMAR.
--- NOTE | 2017-08-14 06:20 | NUR ---
0620: pt c/o head itching. Shampoo cap used and pts head massaged. Pt states that it feels better.
--- NOTE | 2017-08-14 09:16 | NUR ---
PO MEDS GAVE VIA NGT AFTER PLACEMENT WAS VERIFIED WITH SMALL AIR BOLUS AUSCULTATED OVER GASTRIC REGION.
--- NOTE | 2017-08-14 09:44 | NUR ---
APRESOLINE GIVEN FOR BP 198/83. SON AT BEDSIDE
[2017-08-14 18:08] LABS: HEMATOCRIT 31.2 % (42.0-54.0); HEMOGLOBIN 10.1 g/dL (13.5-17.5)
--- NOTE | 2017-08-14 19:09 | NUR ---
REPORT RECIEVED. ASSESSMENT COMPLETE PER FLOW SHEET. REPOSITIONED ON L SIDE. ORAL CARE ADM. DENIES FURTHER NEEDS. VSS. WILL CONTINUE TO MONITOR
--- NOTE | 2017-08-14 21:00 | NUR ---
FAMILY AT BEDSIDE. VSS NO NEW CHANGES. WILL CONTINUE TO MONITOR
--- NOTE | 2017-08-14 23:15 | NUR ---
REASSESSMENT COMPLETE PER FLOW SHEET. VSS. NO NEW CHANGES. WILL CONTINUE TO MONITOR
[2017-08-15] VITALS (24 sets, daily range): BP systolic 127–170; BP diastolic 58–98
--- NOTE | 2017-08-15 01:20 | NUR ---
PT INCREASINGLY CONFUSED. REORIENTED TO TIME AND SITUATION. WILL CONTINUE TO MONITOR
--- NOTE | 2017-08-15 03:20 | NUR ---
NO NEW CHANGES AT THIS TIME. REPOSITIONED UP IN BED FOR COMFORT VSS WILL CONTINUE TO MONITOR
[2017-08-15 03:55] LABS: BASOPHILS 0.4 % (0-2); EOSINOPHILS 0.5 % (0-7); HEMATOCRIT 32.4 % (42.0-54.0); HEMOGLOBIN 10.3 g/dL (13.5-17.5); IMMATURE GRANULOCYTES 8.1 % (0-5); LYMPHOCYTES 6.1 % (15-50); MCH 30.8 pg (26.0-34.0); MCHC 31.8 g/dL (31.0-37.0); MEAN PLATELET VOLUME 10.9 fL (7.4-10.4); MONOCYTES 8.4 % (2-11); NEUTROPHILS 76.5 % (40-80); PLATELET COUNT 166 10x3/uL (130-400); RBC 3.34 10x6/uL (4.20-6.10); RDW 16.6 % (11.5-14.5); WBC 10.7 10x3/uL (4.8-10.8)
[2017-08-15 04:11] LABS: ANION GAP 11.1 mmol/L (8-16); BILIRUBIN - TOTAL 0.7 mg/dL (0.2-1.3); CALCIUM 9.2 mg/dL (8.5-10.1); CARBON DIOXIDE 34.5 mmol/L (21.0-32.0); CREATININE - SERUM 2.1 mg/dL (0.6-1.3); MAGNESIUM - SERUM 2.1 mg/dL (1.8-2.4); POTASSIUM - SERUM 3.6 mmol/L (3.5-5.1)
--- NOTE | 2017-08-15 08:00 | NUR ---
SHIFT ASSESSMENT VIA FLOWSHEET, SEE FOR DETAILS.
--- NOTE | 2017-08-15 09:10 | NUR ---
DAUGHTER AT BEDSIDE, UPDATE PROVIDED.
--- NOTE | 2017-08-15 10:42 | NUR ---
NUTRITION F/U CHART REVIEWED. PT CURRENTLY NPO. WILL MONITOR PT PROGRESS. PROVIDE DIET WHEN RESUMED. RD FOLLOWING
--- NOTE | 2017-08-15 11:03 | NUR ---
PHYSICAL THERAPY HERE TO SEE PT.
--- NOTE | 2017-08-15 11:30 | NUR ---
REASSESSMENT VIA FLOWSHEET, SEE FOR DETAILS.
--- NOTE | 2017-08-15 11:30 | NUR ---
REASSESSMENT VIA FLOWSHEET, SEE FOR DETAILS.
--- NOTE | 2017-08-15 13:30 | NUR ---
PHYSICAL THERAPY HERE TO SEE PT.
--- NOTE | 2017-08-15 15:30 | NUR ---
REASSESSMENT VIA FLOWSHEET, SEE FOR DETAILS.
--- NOTE | 2017-08-15 18:04 | NUR ---
FAMILY AT BEDSIDE, UPDATE PROVIDED.
[2017-08-16] VITALS (13 sets, daily range): BP systolic 114–182; BP diastolic 51–90
[2017-08-16 05:40] LABS: BASOPHILS 0.2 % (0-2); EOSINOPHILS 1.5 % (0-7); HEMATOCRIT 30.9 % (42.0-54.0); HEMOGLOBIN 9.7 g/dL (13.5-17.5); IMMATURE GRANULOCYTES 7.3 % (0-5); LYMPHOCYTES 7.6 % (15-50); MCH 30.7 pg (26.0-34.0); MCHC 31.4 g/dL (31.0-37.0); MCV 97.8 fL (80.0-100.0); MEAN PLATELET VOLUME 11.7 fL (7.4-10.4); MONOCYTES 4.7 % (2-11); NEUTROPHILS 78.7 % (40-80); PLATELET COUNT 167 10x3/uL (130-400); RBC 3.16 10x6/uL (4.20-6.10); RDW 16.6 % (11.5-14.5); WBC 9.4 10x3/uL (4.8-10.8)
[2017-08-16 06:11] LABS: ALBUMIN 1.9 g/dL (3.4-5.0); ANION GAP 6.1 mmol/L (8-16); BILIRUBIN - TOTAL 0.7 mg/dL (0.2-1.3); CALCIUM 8.9 mg/dL (8.5-10.1); CREATININE - SERUM 1.6 mg/dL (0.6-1.3); MAGNESIUM - SERUM 1.9 mg/dL (1.8-2.4); POTASSIUM - SERUM 3.1 mmol/L (3.5-5.1); PROTEIN - SERUM 5.5 g/dL (6.4-8.2)
--- NOTE | 2017-08-16 08:24 | NUR ---
AM MEDS GIVEN WITH NO COMPLICATIONS. PT SITTING UP EATING BREAKFAST. NO OTHER NEEDS AT THIS TIME. WILL CONTINUE TO MONITOR.
--- NOTE | 2017-08-16 08:25 | NUR ---
APRESOLINE 10MG GIVEN FOR BP OF 164/70. WILL CONTINUE TO MONITOR.
--- NOTE | 2017-08-16 09:50 | NUR ---
COMPLETE BATH GIVEN. COMPLETE BED CHANGE PROVIDED. DRESSING NOTED ON BUTTOCKS/COCCYX. DRESSING REMOVED AND NEW MEPILEX DRESSING APPLIDED. THE WOUND APPEARED TO BE ABOUT A DOLLAR COIN SIZE. WOUND BED PINK. PT PULLED UP IN BED AND REPOSITONED. R-ARM ELEVATED ON PILLOW. PT DENIES OTHER NEEDS AT THIS TIME.
--- NOTE | 2017-08-16 11:31 | NUR ---
BLOOD SUGAR 200. CALLED PHARMACY TO REQUEST HUMALOG.
--- NOTE | 2017-08-16 16:07 | NUR ---
PT WILL BE TRANSFERRED TO ROOM 2238. REPORT CALLED. BS 147. NO TREATMENT NEEDED PER SLIDING SCALE.
--- NOTE | 2017-08-16 17:38 | NUR ---
PT TRANSPORTED TO FLOOR FROM ICU VIA BED. B/P 122/49 L ARM, PULSE 96 BPM, RESP 18, O2 SAT 90% WITH 3L O2 VIA NASAL CANNULA, TEMP 97.5 F. R ARM CAST IN PLACE. R HIP DRSG IN PLACE, C/D/I. R LOWER THIGH DRSG IN PLACE, C/D/I. TRUONG CATHETER IN PLACE, SECURED TO LEG WITH STAT-LOCK. COCCYX DRSG IN PLACE. PAIN 8/10 "ALL OVER" REPORTED, DILAUDID GIVEN ORDERED. R INTRAJUGULAR IV IN PLACE, PATENT, DRSG C/D/I, INFUSING FLUIDS ORDERED. L FOREARM PERIPHERAL IV IN PLACE, SALINE LOCKED, DRSG C/D/I. BRUISING AND SORES ON BILATERAL ARMS. FAMILY AT BEDSIDE. NO OTHER COMPLAINTS AT THIS TIME. BED IN LOWEST POSITION, SIDE RAILS UP X 2, CALL LIGHT WITHIN REACH.
--- NOTE | 2017-08-16 17:47 | NUR ---
PT TRANSFERRED TO ROOM 2238 VIA BED. BELONGINGS BAG TRANSFERRED WITH HIM. NOTIFIED NURSE OF PT ARRIVAL.
--- NOTE | 2017-08-16 19:25 | NUR ---
RECIEVED SHIFT REPORT. PT IS LYING IN BED. ALERT AND ORIENTED AND ABLE TO VERBALIZE NEEDS. IV IS PATENT AND FLUIDS ARE RUNNING PER ORDER. PT REQUIRES ASSISTANCE TURNING IN BED FOR COMFORT AND SKIN CARE. DRESSING TO RIGHT HIP C/D/I. CAST NOTED TO ENTIRE RIGHT ARM. SCD'S ON. O2 @ 3 PER NASAL CANNULA. PT STATES PAIN IS 9/10. NO NEEDS ARE VERBALIZED AT THIS TIME. WILL CONTINUE TO MONITOR. SIDE RAILS ARE UP X 2. BED IS IN LOWEST POSITION. BED ALARM IS ON FOR SAFETY. CALL LIGHT IS WITHIN REACH.
--- NOTE | 2017-08-16 20:32 | NUR ---
SHIFT ASSESSMENT COMPLETED. NIGHT MEDS GIVEN WITH NO PROBLEMS. PT RECIEVED 2 UNITS INSULIN PER SLIDING SCALE FOR RSCC=284. NO NEEDS ARE VOICED. WILL MONITOR. SIDE RAILS X 2. BED LOW. BED ALARM ON. CALL LIGHT IN REACH.
[2017-08-17 04:00] VITALS: BP 144/62
[2017-08-17 06:07] LABS: BASOPHILS 0.2 % (0-2); EOSINOPHILS 1.8 % (0-7); HEMATOCRIT 29.4 % (42.0-54.0); HEMOGLOBIN 9.4 g/dL (13.5-17.5); IMMATURE GRANULOCYTES 3.9 % (0-5); LYMPHOCYTES 5.8 % (15-50); MEAN PLATELET VOLUME 11.7 fL (7.4-10.4); NEUTROPHILS 83.3 % (40-80); PLATELET COUNT 163 10x3/uL (130-400); RBC 3.03 10x6/uL (4.20-6.10); RDW 16.6 % (11.5-14.5); WBC 9.9 10x3/uL (4.8-10.8)
[2017-08-17 06:36] LABS: ALBUMIN 1.8 g/dL (3.4-5.0); ANION GAP 10.9 mmol/L (8-16); BILIRUBIN - TOTAL 0.77 mg/dL (0.2-1.3); CALCIUM 8.5 mg/dL (8.5-10.1); CARBON DIOXIDE 30.8 mmol/L (21.0-32.0); CREATININE - SERUM 1.4 mg/dL (0.6-1.3); POTASSIUM - SERUM 3.7 mmol/L (3.5-5.1); PROTEIN - SERUM 5.1 g/dL (6.4-8.2)
--- NOTE | 2017-08-17 07:00 | NUR ---
RECIEVED REPORT, ASSUMED CARE OF PT. RESTING WITH EYES SHUT, EASILY AROUSED. NO SIGNS OF ACUTE DISTRESS.
[2017-08-17 08:26] VITALS: BP 159/66
--- NOTE | 2017-08-17 11:01 | NUR ---
Geoff HOLLY CHANGED BY ANDRE LOW.
[2017-08-17 11:51] VITALS: BP 163/77
[2017-08-17 16:04] VITALS: BP 148/62
--- NOTE | 2017-08-17 19:30 | NUR ---
RECIEVED SHIFT REPORT. PT IS LYING IN BED. ALERT AND ORIENTED AND ABLE TO VERBALIZE NEEDS. IV IS PATENT AND FLUIDS ARE RUNNING PER ORDER. O2 @ 3 PER NASAL CANNULA. TRUONG IS DRAINING URINE BY GRAVITY. PT REQUIRES ASSISTANCE TURNING IN BED FOR COMFORT AND SKIN CARE. CAST NOTED TO RIGHT ARM. DRESSINGS TO RIGHT HIP C/D/I. PT STATES PAIN IS 10/10. NO NEEDS ARE VERBALIZED AT THIS TIME. WILL CONTINUE TO MONITOR. SIDE RAILS ARE UP X 2. BED IS IN LOWEST POSITION. BED ALARM IS ON FOR SAFETY. CALL LIGHT IS WITHIN REACH.
[2017-08-17 20:00] VITALS: BP 143/62
--- NOTE | 2017-08-17 20:42 | NUR ---
SHIFT ASSESSMENT COMPLETED. NIGHT MEDS GIVEN WITH NO PROBLEMS. PT RECIEVED NO INSULIN PER SLIDING SCALE FOR RERO=822. PT C/O PAIN 08/30. ADMINISTERED PRESCRIBED PRN DILAUDID PER ORDER. DENIES FURTHER NEEDS. WILL MONITOR. SIDE RAILS X 2. BED LOW. BED ALARM ON. CALL LIGHT IN REACH.
[2017-08-18 04:00] VITALS: BP 149/68
[2017-08-18 05:44] LABS: ALBUMIN 1.8 g/dL (3.4-5.0); ANION GAP 11.8 mmol/L (8-16); BILIRUBIN - TOTAL 0.7 mg/dL (0.2-1.3); CALCIUM 8.3 mg/dL (8.5-10.1); CARBON DIOXIDE 29.6 mmol/L (21.0-32.0); CREATININE - SERUM 1.3 mg/dL (0.6-1.3); MAGNESIUM - SERUM 1.9 mg/dL (1.8-2.4); PROTEIN - SERUM 5.2 g/dL (6.4-8.2)
[2017-08-18 05:45] LABS: BASOPHILS 0.1 % (0-2); EOSINOPHILS 0 % (0-7); HEMATOCRIT 28.1 % (42.0-54.0); HEMOGLOBIN 8.9 g/dL (13.5-17.5); IMMATURE GRANULOCYTES 2.1 % (0-5); LYMPHOCYTES 2.9 % (15-50); MCH 30.5 pg (26.0-34.0); MCHC 31.7 g/dL (31.0-37.0); MCV 96.2 fL (80.0-100.0); MEAN PLATELET VOLUME 11.5 fL (7.4-10.4); MONOCYTES 0.9 % (2-11); PLATELET COUNT 173 10x3/uL (130-400); RBC 2.92 10x6/uL (4.20-6.10); RDW 16.3 % (11.5-14.5); WBC 11.2 10x3/uL (4.8-10.8)
[2017-08-18 05:50] LABS: POTASSIUM - SERUM 4.4 mmol/L (3.5-5.1)
--- NOTE | 2017-08-18 07:00 | NUR ---
PATIENT IN BED WITH IV INTACT RESTING QUIETLY. CALL LIGHT WITHIN REACH.
--- NOTE | 2017-08-18 08:00 | NUR ---
REC'D IN BED AWAKE AND ALERT. RESP EVEN AND UNLABORD WITH NO DISTRESS NOTED. CAN EXPRESS NEEDS AND WANTS. HAVE CAST NOTED TO RIGH ARM. NO C/O NOTED OR VOICED AT THIS TIME. INCONT OF BOWEL WITH RAJAN CARE GIVEN PRN. ASSESSMENT COMPLETED. C/L IN REACH AT BEDSIDE.
[2017-08-18 09:46] VITALS: BP 151/63
--- NOTE | 2017-08-18 11:41 | NUR ---
Rehab Note- Acute Rehab Prescreen order received. The patient has an acute rehab diagnosis and appears to be a good [facility] acute rehab candidate. Will follow at this time. Thank you for this referral! Sharona Coronel RN Clinical Liaison, [facility] Rehab
[2017-08-18 12:36] VITALS: BP 167/72
--- NOTE | 2017-08-18 13:23 | NUR ---
RD f/u note. Pt visited and chart reviewed. Pt is appropriate for inpatient rehab per note. pt reported to have some nausea, diarrhea though no chewing/swallowing problems. BM 08/17. last po intake was 100% on 08/16 all day. Per this morning pt on Clear liquid diet. Asked pt about if he though he could tolerate regular diet, pt was unsure. Rolan 15, pt with pressure ulcer stage II on L heel and Buttocks. Pt with increase protein needs Clear liquid diet does not provide adequate nutrition meterman for wound healing. Plan: send ensure CL for pt twice daily. MD to advance diet when medically feasiable. RD to continue to follow. REC: MVI with mineral
[2017-08-18 16:37] VITALS: BP 152/59
[2017-08-18 20:00] VITALS: BP 143/52
[2017-08-19] VITALS: BP 133/59
[2017-08-19 04:00] VITALS: BP 140/60
--- NOTE | 2017-08-19 05:17 | NUR ---
RN NOTE: PT RESTING QUIETLY IN LOW DARNELL'S POSITION WITH EYES CLOSED AND UNLBORED BREATHING. RIGHT ARM HAS CAST. WILL CONTINUE TO MONITOR FOR NEEDS.
[2017-08-19 06:17] LABS: BASOPHILS 0 % (0-2); EOSINOPHILS 0 % (0-7); HEMATOCRIT 28.2 % (42.0-54.0); IMMATURE GRANULOCYTES 1.5 % (0-5); LYMPHOCYTES 4.7 % (15-50); MCH 30.7 pg (26.0-34.0); MCHC 31.9 g/dL (31.0-37.0); MCV 96.2 fL (80.0-100.0); MEAN PLATELET VOLUME 11.7 fL (7.4-10.4); MONOCYTES 4.3 % (2-11); NEUTROPHILS 89.5 % (40-80); PLATELET COUNT 187 10x3/uL (130-400); RBC 2.93 10x6/uL (4.20-6.10); RDW 16.3 % (11.5-14.5); WBC 9.5 10x3/uL (4.8-10.8)
--- NOTE | 2017-08-19 06:57 | NUR ---
RECIEVED REPORT, ASSUMED CARE OF PT. RESTING IN BED, EASILY AROUSED. 3 L O2 VIA NASAL CANNULA IN PLACE. PT PERFORMING INCENTIVE SPIROMETRY. R ARM CAST IN PLACE, R HIP DRSG IN PLACE, C/D/I. R IJ INFUSING ORDERED, DRSG C/D/I. L FOREARM IV SALINE LOCKED, DRSG C/D/I. BED IN LOWEST POSITION, SIDE RAILS UP X 2, CALL LIGHT WITHIN REACH.
[2017-08-19 07:08] LABS: ALBUMIN 1.7 g/dL (3.4-5.0); ANION GAP 6.5 mmol/L (8-16); BILIRUBIN - TOTAL 0.5 mg/dL (0.2-1.3); CALCIUM 8.7 mg/dL (8.5-10.1); CARBON DIOXIDE 30.3 mmol/L (21.0-32.0); CREATININE - SERUM 1.2 mg/dL (0.6-1.3); MAGNESIUM - SERUM 1.9 mg/dL (1.8-2.4); POTASSIUM - SERUM 3.8 mmol/L (3.5-5.1)
[2017-08-19 08:22] VITALS: BP 164/63
--- NOTE | 2017-08-19 10:39 | NUR ---
PT REPOSITIONED WITH PHYSICAL THERAPY.
--- NOTE | 2017-08-19 11:13 | PN ---
PATIENT:IVAN DEVINE MEDICAL RECORD: [id number] LOCATION:D.MS [place] ADMISSION DATE: 08/07/17 PROGRESS NOTE DATE OF SERVICE: 08/10/2017 Progress Note Addendum CHIEF COMPLAINT: Better. I spoke to the patient's nurse. The patient's family was at the bedside. She has been irrigating the nasogastric tube. She has only gotten out about 400 cc this morning. I am going to order a small bowel follow through in order to determine whether the patient has an ileus or a small-bowel obstruction. I favor that he likely has an ileus. Palpation aggravates. Nothing alleviates. This is a progress note addendum. For the typed portion of the progress note including the past medical and surgical history, allergies, social history, family history, as well as current medications, please see the chart. REVIEW OF SYSTEMS: He still has an altered mentation, although it is somewhat improved. However, I cannot really get an accurate review of systems from him due to this altered mental status. PHYSICAL EXAMINATION: GENERAL: He does appear acutely ill. Also, appears chronically ill. VITAL SIGNS: Reviewed. EARS: External ears appear normal. EYES: Extraocular movements are intact. NECK: Trachea is midline. CHEST: No intercostal retractions. PULMONARY: Nonlabored, no stridor. ABDOMEN: Distended. Tympanitic. GENITOURINARY: No incarcerated inguinal hernias. PSYCHIATRIC: Unable to assess due to an altered mental status. NEUROLOGIC: Unable to assess due to an altered mental status. BACK: No thoracic kyphosis. LYMPHATIC: No lymphangitic streaking of the exposed extremities. IMPRESSION: Probable ileus. PLAN: Small bowel follow through which may be diagnostic and therapeutic in his case. I will start this in the morning. TRANSINT:[id number] Voice Confirmation ID: [id number] DOCUMENT ID: [id number] PROGRESS NOTE [id number] IVAN DEVINE, PATRICK STAUFFER at 1113 CC: [id number] DICTATION DATE: 08/10/171918 FOUNDER AND CHIEF TECHNICAL OFFICER: 08/11/17 0231 ADM IN [facility] [address] [place] [address]
--- NOTE | 2017-08-19 11:13 | PN ---
PATIENT:IVAN DEVINE MEDICAL RECORD: [id number] LOCATION:D.MS Melvin[facility] ADMISSION DATE: 08/07/17 PROGRESS NOTE DATE OF SERVICE: 08/11/2017 Progress Note Addendum CHIEF COMPLAINT: Diarrhea. The patient has been having diarrhea. A rectal tube has been placed. His abdomen is still quite distended. His nausea has abated I am told. Palpation aggravates. Nothing alleviates. Symptoms have diminished. This is a progress note addendum. For the typed portion of the progress note including the past medical and surgical history, allergies, social history, and family history well as current medications, please see the chart. REVIEW OF SYSTEMS: Unreliable due to altered mental status, which is improving. PHYSICAL EXAMINATION: GENERAL: The patient appears acutely ill. Also appears chronically ill. VITAL SIGNS: Reviewed. HEENT: External ears appear normal. EYES: Extraocular movements are intact. NECK: Trachea is midline. CHEST: No intercostal retractions. Mildly labored. ABDOMEN: Obese, distended. INTEGUMENT: No rash. PSYCHIATRIC: Anxious affect. NEUROLOGIC: Confused. BACK: No thoracic kyphosis. LYMPHATIC: No lymphangitic streaking of the exposed extremities. IMPRESSION: Resolving ileus. PLAN: Advancement of diet. TRANSINT:[id number] Voice Confirmation ID: [id number] DOCUMENT ID: [id number] PATRICK LOPEZ MD at 1113 CC: [id number] DICTATION DATE: 08/12/17 1702 BONBON DIPPER: 08/12/172010 ADM IN [facility] [address] [id number]
--- NOTE | 2017-08-19 11:13 | CN ---
PATIENT NAME:IVAN DEVINE MEDICAL RECORD: [id number] : 37 LOCATION:D.MS [place] ADMIT DATE: 08/07/17 ACCOUNT: [id number] CONSULTING PHYSICIAN: PATRICK LOPEZ MD REFERRING PHYSICIAN: MADDIE PALACIOS MD DATE OF CONSULTATION: 08/09/2017 CHIEF COMPLAINT: Ileus versus bowel obstruction. This is a consultation note addendum. For the typed portion of the consult note including review of systems, past medical and surgical history, current medications, allergies as well as family history, please see the chart. The patient has had abdominal distention. I have personally reviewed the CT images. He has multiple medical problems. Palpation aggravates. Nothing alleviates. His abdomen is distended and tympanitic. It is relatively nontender. Review of systems from the patient is limited due to the altered mental status. I favor ileus in this patient rather than small bowel obstruction. PHYSICAL EXAMINATION: GENERAL: The patient does appear acutely ill. Also appears chronically ill. VITAL SIGNS: Reviewed. HEAD: External ears appear normal. EYES: Extraocular movements are intact. NECK: Trachea is midline. CHEST: No intercostal retractions. PULMONARY: Decreased breath sounds at the bases, slightly tachypneic. ABDOMEN: Distended. I note no incarcerated inguinal hernias. : No incarcerated inguinal hernias. EXTREMITIES: No peripheral cyanosis. INTEGUMENT: No rash. PSYCHIATRIC: Unable to evaluate due to altered mental status. NEUROLOGIC: Unable to evaluate due to altered mental status. BACK: No thoracic kyphosis. LYMPHATIC: No lymphangitic streaking of the exposed extremities. IMPRESSION: Small bowel obstruction versus ileus. PLAN: I believe that he has an ileus due to multiple medical problems. If his condition persists, I may order a small bowel followthrough, which may be diagnostic as well as therapeutic. TRANSINT:[id number] Voice Confirmation ID: [id number] DOCUMENT ID: [id number] CONSULT REPORT [id number] IVAN DEVINE ROBERT MD at 1113 CC: [id number] DICTATION DATE: 08/10/171914 DIRECTOR SOFTWARE QUALITY ASSURANCE: 08/10/172014 ADM IN [place] [id number] [place] [address]
--- NOTE | 2017-08-19 11:13 | PN ---
PATIENT:IVAN DEVINE MEDICAL RECORD: [id number] LOCATION:D.MS Melvin[facility] ADMISSION DATE: 08/07/17 PROGRESS NOTE DATE OF SERVICE: 08/12/2017 Progress Note Addendum CHIEF COMPLAINT: Better. The patient was tolerating a regular diet. He is having bowel movements. His abdomen is still distended. Nothing aggravates. Nothing alleviates. Symptoms are moderate. His mentation is somewhat improved. I discussed his case personally with his nurse. This is a progress note addendum. For the typed portion of the progress note, please see the chart. This would include the past medical and surgical history, allergies, family history, and current medications. REVIEW OF SYSTEMS: Unreliable as the patient still has some confusion. PHYSICAL EXAMINATION: GENERAL: The patient appears acutely ill. Also appears chronically ill. VITAL SIGNS: Reviewed. HEAD: External ears appear normal. EYES: Extraocular movements are intact. NECK: Trachea is midline. CHEST: No intercostal retractions. PULMONARY: Mildly labored. No stridor. ABDOMEN: Distended and nontender. EXTREMITIES: No peripheral cyanosis. INTEGUMENT: No rash. PSYCHIATRIC: Normal affect. IMPRESSION: Resolved ileus. PLAN: I will see the patient on a p.r.n. basis. TRANSINT:[id number] Voice Confirmation ID: [id number] DOCUMENT ID: [id number] PATRICK LOPEZ MD at 1113 CC: [id number] DICTATION DATE: 08/12/17 1729 OIL AND GAS WELL TREATMENT OPERATOR: 08/12/17 2308 [place] [address]
--- NOTE | 2017-08-19 11:13 | OP ---
PATIENT NAME: IVAN DEVINE MEDICAL RECORD: [id number] :36 LOCATION:D.MS Melvin2238 ADMISSION DATE:08/07/17 SURGEON: PROSPER LOPEZ MD DATE OF OPERATION: 08/13/2017 PREOPERATIVE DIAGNOSES: Acute malnutrition and need of central venous access for TPN. POSTOPERATIVE DIAGNOSES: Acute malnutrition and need of central venous access for TPN. PROCEDURE: Insertion of right internal jugular triple lumen central venous catheter. SURGEON: Prosper Lopez MD PHOTOGRAPH MOUNTER: None. BLOOD LOSS: Minimal. ANESTHESIA: Local. COMPLICATIONS: None. The entire procedure was performed in the presence of a nurse. The risks, possible complications, and alternatives to the procedure were discussed with the patient. He elected to proceed. OPERATIVE COURSE: The patient was positioned in the Trendelenburg position in his ICU room. The right neck was sterilely prepped and draped. A local anesthetic was used to infiltrate the skin and subcutaneous tissues at the base of the right neck. The right internal jugular vein was percutaneously accessed in an antegrade fashion. A guidewire was passed easily. A small skin bentley was accomplished. A vessel dilator was used to dilate a subcutaneous tract. A 16-cm triple lumen central venous catheter was inserted to the hub. It was sutured in place times 3. All lumens flushed easily and aspirated dark, nonpulsatile blood. The central venous line can be used immediately. A stat portable chest x-ray is pending. TRANSINT:[id number] Voice Confirmation ID: [id number] DOCUMENT ID: [id number] PROSPER LOPEZ MD at 1113 CC: [id number] DICTATION DATE: 08/13/171756 CARGO AND CONTAINER INSPECTOR: 08/13/171941 ADM IN [facility] [address] [place] [address]
[2017-08-19 12:40] VITALS: BP 153/60
[2017-08-19] MEDS ORDERED: MERREM 500 MG/500 MG IV (13:01)
[2017-08-19] MEDS ORDERED: LOVENOX40 MG/0.4 SC (13:01)
[2017-08-19] MEDS ORDERED: PROTONIX40 MG PO (13:02)
[2017-08-19] MEDS ORDERED: LASIX40 MG PO (13:02)
[2017-08-19] MEDS ORDERED: SINGULAIR10 MG PO (13:02)
[2017-08-19] MEDS ORDERED: SENOKOT-S TABLE1 TAB PO (13:03)
--- NOTE | 2017-08-19 13:42 | NUR ---
CM REASSESSMENT NOTE: PATIENT IS DISCHARGING TO IP REHAB TODAY
[2017-08-19 15:59] VITALS: BP 149/62
--- NOTE | 2017-08-19 18:24 | NUR ---
DISCHARGE INSTRUCTIONS GIVEN TO PT AND FAMILY. R HIP/LEG DRSG X 3 CHANGED ORDRED WITH 4 X 4'S AND TEGADERM. ALL QUESTIONS ANSWERED. VERBALIZED UNDERSTANDING OF DISCHARGE TO REHAB.
--- NOTE | 2017-08-19 18:43 | NUR ---
PT TRANSPORTED VIA BED TO REHAB. REPORT CALLED TO [facility].
--- NOTE | 2017-09-05 11:43 | CN ---
PATIENT NAME:IVAN MEYER MEDICAL RECORD: [id number] : 37 LOCATION:[facility] ADMIT DATE: 08/07/17 ACCOUNT: [id number] CONSULTING PHYSICIAN: UZMA JASMINE MD REFERRING PHYSICIAN: MADDIE PALACIOS MD DATE OF CONSULTATION: 08/09/2017 CONSULT REQUESTING PHYSICIAN: Osmar Reyes DO REASON FOR CONSULTATION: Acute hypoxic respiratory failure, questionable pneumonia, left lung pleural effusion. HISTORY OF PRESENT ILLNESS: Mr. Meyer is an 81-year-old gentleman, who was admitted with fracture of the hip and humerus. He underwent surgery. This morning, the patient became very severe short of breath, required 10 liters of oxymizer oxygen. Denies any fever or chills. No night sweats. He is also complaining of distention and pain in the abdomen. REVIEW OF SYSTEMS: Mainly in the history of present illness. PAST MEDICAL HISTORY: 1. COPD. 2. Coronary artery disease. 3. Hypertension. 4. History of abdominal aortic aneurysm. 5. History of CA of the lung, status post left upper lobe lobectomy. PAST SURGICAL HISTORY: 1. CABG. 2. AAA repair. 3. Cholecystectomy. 4. Now he is status post right ORIF and right arm surgery. ALLERGIES: ALLERGIC TO MACROLIDES, PENICILLINS, SULFA, ASPIRIN, GLUTEN, AND LEVOFLOXACIN. PRESENT MEDICATIONS: He is on albuterol/ipratropium nebulizer, Brovana, budesonide nebulizer. His all other medications are reviewed. PERSONAL AND SOCIAL HISTORY: The patient is an ex-smoker. He is a nondrinker. FAMILY HISTORY: Significant for diabetes mellitus and cardiovascular disease. PHYSICAL EXAMINATION: GENERAL: Now, the patient is lying comfortably in bed. He is not in acute distress. He is very lethargic. VITAL SIGNS: The blood pressure 124/51, pulse is 109, respiration is 19, temperature 98.1, and SPO2 is 90% on 10 liter oxymizer. HEENT: Conjunctivae are pale. Sclerae nonicteric. NECK: Neck is supple. No JVD. CHEST: There is absent breath sound at the left base. No wheezing. HEART: Rhythm regular, normal sound, no murmur. ABDOMEN: Distended. It is tense on palpation. No guarding, no rigidity. Bowel sounds are absent. EXTREMITIES: No cyanosis, no clubbing, no pedal edema. CONSULT REPORT [id number] IVAN MEYER RECTAL: Deferred. CENTRAL NERVOUS SYSTEM: The patient is awake and alert. There is no obvious cranial nerve abnormality. The gait was not tested. Chest radiograph: There is left pleural effusion, possible infiltrate. CT of the abdomen showed there is no pleural effusion. There is pericardial fat. There was no ileus. There was gastric distention. The aortic aneurysm has increased in size from 5.5 to 7.2 cm. There is bilateral renal cystic lesion. There was 19-mm mediastinal nodule. OTHER LABORATORY DATA: CBC: WBC 11,000, hemoglobin 8.7, hematocrit 27.6, and platelet count 123. Chemistry: Sodium 136, potassium 4.5, BUN is 55, creatinine is 5, glucose 139. ABG: The pH is 7.32, pCO2 is 47, pO2 is 60, bicarbonate is 24.2, the lactic acid level 1.93. IMPRESSION: 1. Acute hypoxic respiratory failure. 2. Possible medium large left pleural effusion, possible hemothorax. 3. Fracture of the left side of the ribs. 4. Atelectasis, left lower lobe. 5. Acute renal failure, possible acute tubular necrosis. 6. Anuria. 7. Ileus. 8. Status post right ORIF. 9. History of chronic obstructive pulmonary disease without exacerbation. 10. History of cancer of the lung, status post left upper lobe lobectomy. 11. Nodule of the mediastinum. RECOMMENDATION: 1. We will start empiric meropenem, questionable aspiration pneumonia. 2. Continue albuterol/ipratropium nebulizer. 3. Brovana, budesonide nebulizer. 4. Supplemental oxygen. 5. NG tube placement. 6. Consult surgery. 7. Follow up labs and chest radiograph. Dr. Reyes, thank you for involving me in the care of Mr. Meyer. We will get the surgery consult for the ileus. TRANSINT:[id number] Voice Confirmation ID: [id number] DOCUMENT ID: [id number] UZMA JASMINE MD at 1143 CC: [id number] DICTATION DATE: 08/09/17 1355 TEACHER THEATER ARTS: 08/09/17 2789 DIS IN 08/19/17 [facility] [address] [place] [address]
== END 2017-08-19 18:45 | DRG 480 ==
LOC: D.ER 14:34 → D.MS 17:04 → D.ICU 17:04 → D.MS 08-16 17:34
PROVIDERS: Emergency Medicine; Family Medicine; Internal Medicine; Internal Medicine Pulmonary Disease; Orthopaedic Surgery; ADMIT Family Medicine Adult Medicine
PROC: 0QS636Z Reposition Right Upper Femur with Intramedullary Internal Fixation Device, Percutaneous Approach (ICD-10-PCS; principal; 2017-08-07 20:30)
PROC: 2W38X1Z Immobilization of Right Upper Extremity using Splint (ICD-10-PCS; 2017-08-07 20:30)
DX: S72.141A Displaced intertrochanteric fracture of right femur, initial encounter for closed fracture (principal); N17.0 Acute kidney failure with tubular necrosis; J96.01 Acute respiratory failure with hypoxia; J69.0 Pneumonitis due to inhalation of food and vomit; E43 Unspecified severe protein-calorie malnutrition; S42.401A Unspecified fracture of lower end of right humerus, initial encounter for closed fracture; K56.60 Unspecified intestinal obstruction; J44.1 Chronic obstructive pulmonary disease with (acute) exacerbation; I71.4 Abdominal aortic aneurysm, without rupture; E11.9 Type 2 diabetes mellitus without complications; Z95.1 Presence of aortocoronary bypass graft; W17.89XA Other fall from one level to another, initial encounter; E66.01 Morbid (severe) obesity due to excess calories; Z68.30 Body mass index [BMI] 30.0-30.9, adult; R34 Anuria and oliguria; I95.9 Hypotension, unspecified; D69.6 Thrombocytopenia, unspecified; E87.6 Hypokalemia

== ENCOUNTER 2017-08-19 18:45 | Inpatient (IN) | payer MEDICARE, BC ==
[~2017-08-19 18:45] MED LIST changes: +ACETAMINOPHEN325 MG PO; +BROVANA15 MCG/2 M INH; +CELEXA20 MG PO; +COREG6.25 MG PO; +CYCLOBENZAPRINE5 MG PO; +FERROUS SULFAT325 MG PO; +FOLIC ACID1 MG PO; +FOLTX TABLET1 EACH PO; +GLUCOTROL 5 MG T5 MG PO; +HYTRIN1 MG PO; +IPRAT-ALBUT 0.5-3 ML UPD; +LIPITOR10 MG PO; +LOVENOX40 MG/0.4 SC; +MERREM 500 MG/500 MG IV; +NITROSTAT0.4 MG SL; +OMEPRAZOLE40 MG PO; +PROTONIX40 MG PO; +PULMICORT0.25 MG/1 INH; +RANEXA1000 MG PO; +SENOKOT-S TABLE1 TAB PO; +SINGULAIR10 MG PO; +VITAMIN D250000 UNIT PO; +ZESTRIL10 MG PO; +ZYLOPRIM300 MG PO
--- NOTE | 2017-08-19 20:19 | NUR ---
RECIEVED AT 1845. PLEASANT AND COOPERATIVE. HOB ELEVATED AND O2@ 2.5 LITERS PER N/C. DAUGHTER AT BED SIDE. DRESSINGS TO RIGHT HIP X 3. CLEAN, DRY AND INTACT. BRUSING TO BILATERAL FOREARMS AND HANDS. SL TO RIGHT FOREARM PATENT WITH DRESSING CLEAN, DRY AND INTACT. CENTERAL LINE TO RIGHT INTERNAL JUGLER PATENT WITH DRESSING INTACT. CATAPRESS PATCH TO LEFT SHOULDER DATED. BRUISING TO RIGHT POSTERIOR LOWER BACK AND BUTTOCKS AND POSTERIOR RIGHT UPPER THIGH. ALERT AND ORIENTED X4. DENIES ANY PAIN AT THIS TIME. CALL LIGHT AND OVERBED TABLE IN REACH.
--- NOTE | 2017-08-19 22:10 | NUR ---
RESTING IN BED WITH HOB ELEVATED AND O2@ 2.5 LITERS PER N/C. CAST TO RIGHT ARM D/T FX. DENIES ANY PAIN AT THIS TIME. F/C PATENT AND DRAINING CLEAR YELLOW URINE TO BSD SYSTEM.
[2017-08-19 23:07] VITALS: BP 137/64; BMI 30.6
--- NOTE | 2017-08-20 02:04 | NUR ---
RESTING IN BED WITH EYES CLOSED. NO S/S OF DISTRESS OBSERVED. C/O BACK ACHE EARLIER. TYLENOL GIVEN PER ORDER WITH STATED RELIEF. CALL LIGHT AND OVERBED TABLE IN REACH.
[2017-08-20 06:14] LABS: BASOPHILS 0 % (0-2); EOSINOPHILS 0.1 % (0-7); HEMATOCRIT 29.3 % (42.0-54.0); HEMOGLOBIN 9.4 g/dL (13.5-17.5); IMMATURE GRANULOCYTES 0.8 % (0-5); MCHC 32.1 g/dL (31.0-37.0); MCV 96.7 fL (80.0-100.0); MEAN PLATELET VOLUME 10.3 fL (7.4-10.4); MONOCYTES 5.7 % (2-11); NEUTROPHILS 86.4 % (40-80); PLATELET COUNT 181 10x3/uL (130-400); RBC 3.03 10x6/uL (4.20-6.10); RDW 16.3 % (11.5-14.5); WBC 7.6 10x3/uL (4.8-10.8)
[2017-08-20 06:26] LABS: ANION GAP 6.7 mmol/L (8-16); CALCIUM 8.4 mg/dL (8.5-10.1); CARBON DIOXIDE 33.1 mmol/L (21.0-32.0); CREATININE - SERUM 1.2 mg/dL (0.6-1.3); POTASSIUM - SERUM 3.8 mmol/L (3.5-5.1)
--- NOTE | 2017-08-20 07:17 | NUR ---
RESTING QUIETLY IN BED. CALL LIGHT IN REACH. BED IN LOW POSITION. BED ALARM IN PLACE AND IN USE.
--- NOTE | 2017-08-20 07:50 | NUR ---
SITTING UP IN BED ALERT AND ORIENTED X4. FAMILY AT BEDSIDE. NO S/SX OF DISTRESS. CALL LIGHT WITHIN REACH. WILL CONTIUE TO MONITOR
[2017-08-20 08:00] VITALS: BP 130/52
[2017-08-20 13:47] VITALS: BMI 30.5
--- NOTE | 2017-08-20 16:47 | NUR ---
DR GREGORIO GAVE TELEPHONE ORDER FOR NORCO 5/325 Q4 PRN PAIN.
--- NOTE | 2017-08-20 17:57 | NUR ---
LYING IN BED RESTING COMFORTABLY. OFFERS NO COMPLAINTS. CALL LIGHT WITHIN REACH. WILL CONTINUE TO MONITOR
--- NOTE | 2017-08-20 18:51 | NUR ---
RECIEVED UP IN BED WITH EYES OPEN AND TV ON. DAUGHTER AT BEDSIDE. PLEASANT AND COOPERATIVE, DENIES ANY PAIN AT THIS TIME. CALL LIGHT AND OVERBED TABLE IN REACH. IV RUNNING PROCAL AT 50CC/HR.
[2017-08-20 19:40] VITALS: BP 102/45
--- NOTE | 2017-08-20 21:18 | NUR ---
UP IN BED WITH TV ON AND EYES OPEN. PLEASANT AND COOPERATIVE. DENIES ANY PAIN OR DISCOMFORT. SURGICAL INCISIONS OPEN TO AIR. NO REDNESS OR DRAINAGE OBSERVED. IJ LUMEN PATENT AND LFA SL PATENT.
--- NOTE | 2017-08-21 02:16 | NUR ---
RESTING IN BED WITH EYES CLOSED. NO S/S OF DISTRESS OBSERVED. SCD'S ON AND FUNCTIONING PROPERLY. PROCAL RUNNING AT 60CC HR CONTINUOUS. HOB ELEVATED TO 30 DEGREES. O2@ 2.5 LITERS PER N/C. RESP. EVEN AND UNLABORED. CALL LIGHT AND OVERBED TABLE IN REACH.
--- NOTE | 2017-08-21 06:34 | NUR ---
UP IN BED WITH EYES OPEN AND TV ON. PLEASANT AND TALKATIVE. F/C PATENT. SCD'S ON AND FUNCTIONING PROPERLY. BED ALARM ON. CALL LIGHT IN REACH AND OVERBED TABLE IN REACH. CONT TO RECIEVE PROCAL IV. NO ADVERSE EFFECTS OBSERVED.
--- NOTE | 2017-08-21 07:35 | NUR ---
LYING IN BED EYES CLOSED RESTING COMFORTABLY. FAMILY AT BEDSIDE. APPROPRIATE RISE AND FALL OF CHEST. NO S/SX OF RESPIRATORY DISTRESS. CONTINUES ON 2.5L OF O2 VIA NC. CALL LIGHT WITHIN REACH, BED LOW AND ALARM ON. WILL CONTINUE TO MONITOR
[2017-08-21 08:00] VITALS: BP 145/61
--- NOTE | 2017-08-21 13:05 | NUR ---
PERFORMED INCONTIENT CARE DUE TO MED SEMIFORMED BLACK STOOL INCONTIENCE. APPLIED BUTTPASTE TO BUTTOCKS AND SCROTUM DUE TO REDDENED BLANCHABLE AREA. DENIES ANY OTHER NEEDS AT THIS TIME. WILL CONTINUE TO MONITOR
--- NOTE | 2017-08-21 19:31 | NUR ---
RECIEVED UP IN BED WITH HOB ELEVATED TO 30 DEGREES AND O2 @ 3 LITERS PER N/C. RESPIRATIONS EVEN AND UNLABORED. CENTRAL LINE TO RIGHT INTERNAL JUGLAR AND SALINE LOCK TO LEFT FORE ARM. SCD'S IN PLACE AND FUNCTIONING PROPERLY. ALERT AND ORIENTED X4. DENIES ANY PAIN. F/C PATENT WITH CLEAR YELLOWQ URINE DRAINING TO BEDSIDE DRAINAGE SYSTEM. CALL LIGHT AND OVERBED TABLE IN REACH.
[2017-08-21 20:31] VITALS: BP 113/70
--- NOTE | 2017-08-21 21:17 | NUR ---
LAYING IN BED WITH EYES OPEN AND TV ON. ALERT AND ORIENTED. DENIES ANY PAIN. CALL LIGHT AND OVERBED TABLE IN REACH.
--- NOTE | 2017-08-22 00:08 | NUR ---
RESTING IN BED WITH EYES CLOSED. NO S/S OF DISTRESS OBSERVED. CAST TO RIGHT ARM PROPED UP FOR COMFORT. O2 2.5 LITERS PER N/C IN PLACE. CALL LIGHT AND OVERBED TABLE IN REACH.
--- NOTE | 2017-08-22 02:03 | NUR ---
RESTING IN BED WITH EYES CLOSED. NO S/S OF DISTRESOBSERVED. CALL LIGHT AND OVERBED TABLE IN REACH.
[2017-08-22 06:08] LABS: BASOPHILS 0.2 % (0-2); EOSINOPHILS 2.8 % (0-7); HEMATOCRIT 29.1 % (42.0-54.0); HEMOGLOBIN 9.3 g/dL (13.5-17.5); IMMATURE GRANULOCYTES 1.1 % (0-5); LYMPHOCYTES 8.2 % (15-50); MCH 30.8 pg (26.0-34.0); MCV 96.4 fL (80.0-100.0); MEAN PLATELET VOLUME 11.5 fL (7.4-10.4); MONOCYTES 7.6 % (2-11); NEUTROPHILS 80.1 % (40-80); PLATELET COUNT 183 10x3/uL (130-400); RBC 3.02 10x6/uL (4.20-6.10); RDW 16.2 % (11.5-14.5); WBC 6.4 10x3/uL (4.8-10.8)
--- NOTE | 2017-08-22 06:35 | NUR ---
RESTING IN BED WITH EYES OPEN AND TV ON. DENIES ANY PAIN. DAUGHTER AT BEDSIDE. CALL LIGHT IN REACH.
[2017-08-22 06:54] LABS: ANION GAP 9.8 mmol/L (8-16); CALCIUM 8.6 mg/dL (8.5-10.1); CARBON DIOXIDE 31.3 mmol/L (21.0-32.0); POTASSIUM - SERUM 4.1 mmol/L (3.5-5.1)
[2017-08-22 07:03] LABS: CREATININE - SERUM 1.6 mg/dL (0.6-1.3)
[2017-08-22 08:23] VITALS: BP 109/55
--- NOTE | 2017-08-22 08:30 | NUR ---
PT REQ AND REC'D PRN PAIN MEDICATION WITH AM MEDS FOR LOWER BACK PAIN. PT DENIES FURHTER NEEDS AT THIS TIME. BED LOW. CL IN REACH.
--- NOTE | 2017-08-22 10:12 | NUR ---
PT RESTING IN BED WITH EYES OPEN CALL LIGHT IN REACH WILL MONITER
--- NOTE | 2017-08-22 17:51 | NUR ---
PT RESTING IN BED WITH EYES OPEN CALL LIGHT IN REACH NO PROBLEMS WILL MONITER
--- NOTE | 2017-08-22 18:55 | NUR ---
RESTING IN [place] EYES OPEN AND TV ON. PLEASANT AND COOPERATIVE. DENIES ANY PAIN OR NEEDS AT THIS TIME. F/C PATENT AND DRAING CLEAR YELLOW URINE TO BED SIDE DRAINAGE SYSTEM. RIGHT ARM IN CAST. RIGHT INTERNAL JUGLER LINE RUNNING PROCAL AT 50CC/HR. LEFT FORE ARM SL. CALL LIGHT IN REACH.
[2017-08-22 20:12] VITALS: BP 116/48
--- NOTE | 2017-08-22 21:11 | NUR ---
RESTING IN BED WITH EYES OPEN AND TV ON. PLEASANT AND COOPERATIVE. DENIES ANY PAIN. F/C PATENT. CENTRAL LINE FLUSHED AND SL FLUSHED. SURGICAL SITE TO RIGHT HIP. NO REDNESS OR DRAINAGE. CAST TO RIGHT ARM. RIGHT HAND PINK AND WARM ABLE TO WIGGLE FINGERS. CAP. REFILLS TO RIGHT HAND LESS THAN 3.
[2017-08-22 22:32] VITALS: BP 116/48
--- NOTE | 2017-08-23 00:05 | NUR ---
RESTING IN BED WITH EYES CLOSED. NO S/S OF DISTRESS OBSERVED. CALL LIGHT AND OVERBED TABLE IN REACH.
--- NOTE | 2017-08-23 03:52 | NUR ---
RESTING IN BED WITH EYES OPEN AND TV ON. CALLED THIS NURSE IN AND ASKED FOR COFFEE. REORIENTED TO TIME AND THAT HE NEEDED TO REST BECAUSE HE HAS THERAPY IN AM.STATED " OH YEAH AND SHE'S GOOD". CALL LIGHT AND OVERBED TABLE IN REACH.
--- NOTE | 2017-08-23 07:35 | NUR ---
SITTING UP IN BED VISITING FAMILY. DENIES ANY PAIN OR NEEDS. NO S/SX OF RESPIRATORY DISTRESS. ALERT AND ORIENTED X4. CALL LIGHT WITHIN REACH, BED LOW AND ALARM ON. WILL CONTINUE TO MONITOR
[2017-08-23 09:51] VITALS: BP 112/50
--- NOTE | 2017-08-23 10:46 | NUR ---
IN THERAPY GYM WITH PHYSICAL THERAPY. DENIES ANY NEEDS. WILL CONTINUE TO MONITOR
--- NOTE | 2017-08-23 12:00 | NUR ---
IN BED,CL IN REACH.
--- NOTE | 2017-08-23 13:31 | NUR ---
Nutrition Follow Up: Pt is eating 83% meal avg on a renal diabetic diet. +BM 08/21/17. Noted pt with stage II to L heel. Labs reviewed. Meds noted including Lasix, Procalamine. Rec continue current diet. Rec d/c Procalamine. RD following.
--- NOTE | 2017-08-23 13:46 | NUR ---
SITTING UP IN BED WATCHING TV. DENIES ANY NEEDS. CALL LIGHT WITHIN REACH. BED ALARM ON AND BED LOWEST POSITION. WILL CONTINUE TO MONITOR
--- NOTE | 2017-08-23 15:00 | NUR ---
DISCONTINUED LEFT FOREARM IV CATHETER INTACT. APPLIED 2X2 PRESSURE DRESSING. DENIES ANY NEEDS CALL LIGHT WITHIN REACH. WILL CONTINUE TO MONITOR.
--- NOTE | 2017-08-23 16:06 | NUR ---
WOUND CARE CONSULT: NOTED RIGHT HEEL HAS A 2CM X 2CM INTACT BLISTER. IT IS CURRENTLY COVERED WITH DUODERM LITE (NOT REMOVED D/T RISK OF RUPTURING BLISTER). LEFT HEEL HAS A 0.5CM X 0.5CM RUPTURED BLISTER THAT HAS DRIED AND SCABBED. LEFT BUTTOCK HAS 2.5CM X 3.5CM STAGE 2 HEALING PRESSURE INJURY. HEELS ARE BEING ELEVATED ON PILLOWS AND PT TURNED Q2H WHILE IN BED. COVERED BUTTOCKS WITH MEPILEX SACRAL DRESSING TO PROTECT. WOUND CARE WILL CONTINUE TO MONITOR.
--- NOTE | 2017-08-23 16:57 | NUR ---
SITTING UP IN BED VISITING WITH SON IN LAW. DENIES ANY PAIN. CALL LIGHT WITHIN REACH BED ALARM ON . CONTINUES ON 2.5L OF O2 VIA NC. WILL CONTINUE TO MONITOR
--- NOTE | 2017-08-23 19:30 | NUR ---
IN BED, AWAKE. FAMILY MEMBER ASSISTING HIM WITH MENU SELECTIONS.
--- NOTE | 2017-08-23 20:20 | NUR ---
C/O RIGHT HIP PAIN OF 5/10. GAVE HIM NORCO 5/325 X1 TAB PO.
[2017-08-23 22:04] VITALS: BP 114/66
--- NOTE | 2017-08-23 22:45 | NUR ---
ASSESSMENT AND HS MEDS COMPLETE. DENIES CURRENT DISCOMFORT.
--- NOTE | 2017-08-24 00:45 | NUR ---
IN BED, CONTINUES AWAKE, WATCHING TV.
--- NOTE | 2017-08-24 02:15 | NUR ---
PATIENT REMAINS AWAKE, WATCHING TV. REMINDED HIM OF THE TIME.
--- NOTE | 2017-08-24 04:25 | NUR ---
RESTING QUIETLY IN BED AFTER I ENCOURAGED HIM TO TURN HIS TV DOWN AND TRY TO SLEEP. HAS BEEN AWAKE MOST OF THE NIGHT.
--- NOTE | 2017-08-24 05:45 | NUR ---
PERFORMED LINE DRAW FOR LABS. FSBS 129. TOOK PO MEDS WITHOUT DIFFICULTY.
[2017-08-24 06:46] LABS: BASOPHILS 0 % (0-2); EOSINOPHILS 2.3 % (0-7); HEMATOCRIT 28.6 % (42.0-54.0); HEMOGLOBIN 9.2 g/dL (13.5-17.5); IMMATURE GRANULOCYTES 1.1 % (0-5); MCH 30.9 pg (26.0-34.0); MCHC 32.2 g/dL (31.0-37.0); MEAN PLATELET VOLUME 11.7 fL (7.4-10.4); MONOCYTES 10.1 % (2-11); NEUTROPHILS 80.5 % (40-80); PLATELET COUNT 184 10x3/uL (130-400); RBC 2.98 10x6/uL (4.20-6.10); RDW 16.1 % (11.5-14.5); WBC 6.5 10x3/uL (4.8-10.8)
[2017-08-24 07:17] LABS: ANION GAP 11.6 mmol/L (8-16); CALCIUM 8.9 mg/dL (8.5-10.1); CARBON DIOXIDE 27.5 mmol/L (21.0-32.0); CREATININE - SERUM 1.6 mg/dL (0.6-1.3); POTASSIUM - SERUM 4.1 mmol/L (3.5-5.1)
[2017-08-24 08:00] VITALS: BP 127/45
--- NOTE | 2017-08-24 08:00 | NUR ---
PT RESTING IN BED EATING BREAKFAST CALL LIGHT IN REACH WILL MONITER
--- NOTE | 2017-08-24 08:49 | NUR ---
RESTING QUIETLY IN BED. DENIES NEEDS OR C/O. CALL LIGHT IN REACH. BED IN LOWEST POSITION.
--- NOTE | 2017-08-24 14:39 | NUR ---
PT RESTING IN BED WITH EYES OPEN CALL LIGHT IN REACH NO PROBLEMS WILL MONITER
--- NOTE | 2017-08-24 14:40 | NUR ---
PT RESTING IN BED WITH EYES OPEN CALL LIGHT IN REACH WILL MONITER
--- NOTE | 2017-08-24 17:37 | NUR ---
PT EATING SUPPER TOLERATING WELL CALL LIGHT IN REACH
--- NOTE | 2017-08-24 19:20 | NUR ---
PATIENT IN BED, AWAKE. DAUGHTER JUST DEPARTING FOR HOME. PATIENT DENIES NEEDS.
--- NOTE | 2017-08-24 20:05 | NUR ---
AWOKE PATIENT TO CHANGE HIS RIGHT JUGULAR CVL DRESSING USING STERILE PROCEDURE. CHANGED HIS TRUONG CATHETER STAT-LOCK ANCHOR DEVICE TO HIS RIGHT LEG. HEELS REMAIN BRIDGED FOR PRESSURE RELIEF.
[2017-08-24 21:00] VITALS: BP 138/54
--- NOTE | 2017-08-24 21:00 | NUR ---
ASSESSMENT AND HS MEDS COMPLETE. FSBS 87. DENIES CURRENT NEEDS.
--- NOTE | 2017-08-24 22:20 | NUR ---
IN BED, EYES CLOSED. APPEARS A BIT RESTLESS AT PRESENT.
--- NOTE | 2017-08-25 | NUR ---
RESTING QUIETLY IN LEFT SIDELYING POSITION WHERE HER WAS PLACED ABOUT 40 MINUTES AGO.
--- NOTE | 2017-08-25 02:40 | NUR ---
CONTINUES IN BED IN PARTIAL LEFT SIDELYING POSITION. NO DISTRESS EVIDENT.
--- NOTE | 2017-08-25 03:45 | NUR ---
REQUESTED REPOSITIONED TO BACK. C/O PAIN LEVEL OF 7/10 IN LEFT (NON-OPERATED HIP). HEELS BRIDGED FOR PRESSURE RELIEF. GAVE PATIOENT NORCO 5/325 X1 TAB PO FOR HIS PAIN.
--- NOTE | 2017-08-25 04:45 | NUR ---
IN BED, EYES CLOSED. RESPIRATIONS ARE UNLABORED.
--- NOTE | 2017-08-25 06:30 | NUR ---
FSBS 76. GAVE PATIENT PO MEDS. FLUSHED ALL 3 PORTS OF RIGHT JUGULAR CVL. GAVE HIM 4 OZS APPLE JUICE TO SUPPORT FSBS UNTIL BREAKFAST. DENIES NEEDS. DAUGHTER HER VISITING BEFORE WORK.
--- NOTE | 2017-08-25 07:34 | NUR ---
SITTING UP IN BED VISITING WITH FAMILY. ALERT AND ORIENTED X3 REORIENTED TO DATE. CALL LIGHT WITHIN REACH, BED IN LOWEST POSITION AND ALARM ON. NO S/SX OF DISTRESS CONTINUE ON 2.5L OF O2. WILL CONTINUE TO MONITOR
[2017-08-25 07:53] VITALS: BP 116/43
--- NOTE | 2017-08-25 11:32 | NUR ---
IN THERAPY GYM WITH OCCUPATIONAL THERAPY. DENIES ANY NEEDS. NO S/SX OF DISTRESS. WILL CONTINUE TO MONITOR
--- NOTE | 2017-08-25 14:39 | NUR ---
LYING IN BED RESTING QUIETLY. CONTINUES ON 2L OF O2 VIA NC. NO S/SX OF RESPIRATORY DISTRESS. CALL LIGHT WITHIN REACH, BED ALARM ON AND IN LOWEST POSITION. WILL CONTINUE TO MONITOR
--- NOTE | 2017-08-25 18:38 | NUR ---
RESTING QUIETLY IN BED. CALL LIGHT IN REACH. BED IN LOWEST POSITION.
--- NOTE | 2017-08-25 19:25 | NUR ---
IN BED, RESTING QUIETLY. DAUGHTER LEFT FOR HOME ABOUT 10 MINUTES AGO.
--- NOTE | 2017-08-25 20:15 | NUR ---
REMAINS IN BED, RESTING QUIETLY.
[2017-08-25 22:00] VITALS: BP 103/40
--- NOTE | 2017-08-25 22:00 | NUR ---
ASSESSMENT AND HS MEDS COMPLETE. REPOSITIONED PATIENT HIGHER UP IN BED WITH ASSIST FROM MAGDY POWELL. FSBS 105. GAVE PATIENT HS SNACK. FLUSHED RIGHT TLIJ CVL. ALTHOUGH THIS MORNING IT WAS PATENT TO FLUSH AND BLOOD RETURN ON ALL 3 PORTS, TONIGHT IS IS SLUGGISH ON THE BROWN PORT, EXTREMELY SLUGGISH TO FLUSH ON THE BLUE PORT AND WILL NOT RETURN BLOOD. WHITE PORT REMAINS PATENT TO FLUSH AND BLOOD RETURN. WILL RECHECK PATENCY IN AM WHEN PATIENT HAS SCHEDULED BLOOD DRAW FOR LABS.
--- NOTE | 2017-08-25 23:25 | NUR ---
IN BED, AWAKE. C/O PAIN IN HIS CENTRAL CHEST. DENIES IT FEELS LIKE ANGINA. SAYS IT FEELS MORE LIKE SORE MUSCLES FROM USING WALKER. GAVE HIM NORCO 5/325 X1 TAB PO FOR PAIN LEVEL OF 5/10.
--- NOTE | 2017-08-26 00:15 | NUR ---
RESTING IN BED, EYES CLOSED.
--- NOTE | 2017-08-26 02:05 | NUR ---
PATIENT WAS REPOSITIONED UP IN BED FOR COMFORT.
--- NOTE | 2017-08-26 04:35 | NUR ---
BLOOD DRAWN FOR LABS FROM [facility] CVL PORT. ALL 3 PORTS FLUSHED AND ARE PATENT TO BLOOD RETURN THIS MORNING. APPEARS THAY ARE POSITIONAL PATIENT'S HOB POSITION IS ONLY 15 TO 20 DEGREES LOWER THAN LAST NIGHT WHEN PORTS WERE MUCH MORE DIFFICULT TO FLUSHE AND RETURN BLOOD.
[2017-08-26 05:48] LABS: BASOPHILS 0.2 % (0-2); EOSINOPHILS 2.6 % (0-7); HEMATOCRIT 28.6 % (42.0-54.0); HEMOGLOBIN 9.2 g/dL (13.5-17.5); IMMATURE GRANULOCYTES 0.8 % (0-5); LYMPHOCYTES 8.5 % (15-50); MCHC 32.2 g/dL (31.0-37.0); MCV 96.3 fL (80.0-100.0); MEAN PLATELET VOLUME 11.1 fL (7.4-10.4); MONOCYTES 11.6 % (2-11); NEUTROPHILS 76.3 % (40-80); PLATELET COUNT 193 10x3/uL (130-400); RBC 2.97 10x6/uL (4.20-6.10); WBC 6.1 10x3/uL (4.8-10.8)
--- NOTE | 2017-08-26 05:55 | NUR ---
TOOK SCHEDULED PO MEDS AFTER HE WAS ASSISTED TO REPOSITION HIGHER UP IN BED. AWAITING LABS RESULTS FROM EARLIER LINE DRAW.
[2017-08-26 06:09] LABS: ANION GAP 6.9 mmol/L (8-16); CALCIUM 8.6 mg/dL (8.5-10.1); CARBON DIOXIDE 29.1 mmol/L (21.0-32.0)
[2017-08-26 06:12] LABS: CREATININE - SERUM 2.5 mg/dL (0.6-1.3)
[2017-08-26 07:52] VITALS: BP 104/62
--- NOTE | 2017-08-26 08:00 | NUR ---
PATIENT ALERT/ORIENT WITH SOME CONFUSION FAR TIME. SOME SPEECH UNAPROPERATE. ON A KINAIR MATTRESS. CAST TO RIGHT ARM. CALL LIGHT WITHIN REACH. BED ALARM ON. BREAKFAST CUT UP FOR PATIENT AND CARTONS OPENED.
--- NOTE | 2017-08-26 09:45 | NUR ---
Marsha DOMINIQUE SEE PATIENT NEW ORDERS RECEIVED.
--- NOTE | 2017-08-26 12:30 | NUR ---
PATIENT DOWN IN REHAB ROOM. PRN NORCO GIVEN FOR RIGHT ARM PAIN/DISC
--- NOTE | 2017-08-26 14:00 | NUR ---
DR. RODRIGUEZ OFFICE CALLED IN REGARDS TO CONSULT. THIS NURSE TALKED TO ROMERO, OFFICE STAFF.
--- NOTE | 2017-08-26 17:41 | NUR ---
UP IN BED EATING SUPPER.CL IN REACH.
--- NOTE | 2017-08-26 18:11 | NUR ---
DR PATRICK INTO SEE PATIENT. NEW ORDERS RECEIVED.
[2017-08-26 18:55] LABS: ERYTHROCYTE SEDIMENTATION RATE 50 mm/hr (0-20)
--- NOTE | 2017-08-26 19:30 | NUR ---
IN BED, AWAKE. GAVE DAUGHTER PATIENT'S MENU TO ASSIST WITH HIS MEAL SELECTIONS.
--- NOTE | 2017-08-26 20:30 | NUR ---
RESTING QUIETLY IN BED, EYES CLOSED.
[2017-08-26 22:30] VITALS: BP 102/40
--- NOTE | 2017-08-26 22:30 | NUR ---
ASSESSMENT AND HS MEDS COMPLETE. BP LOW @ 102/40. DR. SMALLWOOD CONSULTED EARLIER TODAY. TRUONG CATH DRAIN LINE CLAMPED OFF FOR NEWLY ORDERED URINE LABS. URINE OUTPUT REMAINS POOR (150-200 ML) VERY DARK URINE. WILL DRAW URINE SAMPLE FROM STERILE SAMPLING PORT IN 1-2 HRS TO INSURE SUFFICIENT VOLUME FOR TESTING. INFORMED PATIENT.
--- NOTE | 2017-08-27 00:05 | NUR ---
PATIENT AWAKENED BRIEFLY WHILE I ROUNDED. NO C/O AT THIS TIME.
--- NOTE | 2017-08-27 01:55 | NUR ---
PATIENT AWAKE. OBTAINED URINE FROM TRUONG STERILE SAMPLING PORT AND TOOK IT DIRECTLY TO LAB FOR TESTING. UNCLAPMED CATHETER.
[2017-08-27 02:12] LABS: CREATININE - URINE 42.4 mg/dL (30-125); PRO/CRE RATIO URINE 0.5 mg/g; PROTEIN - URINE 23.2 mg/dL (0.0-11.9)
[2017-08-27 02:18] LABS: APPEARANCE TURBID (CLEAR); BACTERIA FEW /hpf (NONE SEEN); BILIRUBIN NEGATIVE (NEGATIVE); COLOR YELLOW (YELLOW); EPITHELIAL CELLS RARE /hpf (0-5); GLUCOSE NEGATIVE (NEGATIVE); KETONE NEGATIVE (NEGATIVE); NITRITE NEGATIVE (NEGATIVE); PROTEIN 1+ mg/dL (NEGATIVE); SPECIFIC GRAVITY 1.015 (1.005-1.020); UROBILINOGEN NORMAL (NORMAL); WHITE CELLS - URINE 25-50 /hpf (0-5); YEAST >1+ WITH HYPHAE /hpf (NONE SEEN)
--- NOTE | 2017-08-27 04:40 | NUR ---
ASSISTED PATIENT WITH BEDPAN, HOWEVER, AFTER 15 MINUTES HE ONLY PASSED GAS. CLEANSED SORE TO LEFT BUTTOCKS AND APPLIED FRESH BORDERED MEPILEX DRESSING THE CECI ONE HAD COME OFF IN BED. CHANGED PINK BED PAD AND ASSISTED PATIENT UP IN BED WITH THE HELP OF FOUZIA CARRERA.
--- NOTE | 2017-08-27 06:45 | NUR ---
FSBS 94. GAVE PATIENT SCHEDULED MEDS ALONG WITH NORCO 5/325 X1 TAB PO FOR PAIN LEVEL OF 5/10 IN HIS BACK.
--- NOTE | 2017-08-27 08:28 | NUR ---
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 HANNAH,BERNY 0830 AM 08/27/17
--- NOTE | 2017-08-27 08:30 | NUR ---
DR BRICEÑO HERE TALKED WITH PT AND DAUGHTER REGARDING THE FX OF THE ELBOW. SAID ITS NOT HEALED BUT CAN USE TOLERATED, PT NOT STABLE ENOUGH FOR SURGERY. REMOVED THE CAST WITH THE SAW AT BEDSIDE. PT TOLERTED IT WELL, STATED THE SWELLING HAS GONE DOWN BUT STILL VERY TENDER AND WEAK. HE WILL FOLLOW UO WITH HIM IN A COUPLE WEEKS IN THE OFFICE.
--- NOTE | 2017-08-27 10:30 | NUR ---
RENAL TELEVISION JOURNALIST HERE ORDERED STAT LABS TO CHECK LEVELS THIS MORNING, AND DIFLUCAN AND KIDNEY ULTRASOUND. LOTS OF FAMILY HERE VISITING WITH FAMILY. IV STILL INTACT TO RIGHT WITH NS AT 50CC/HR. TRUONG INTAC WITH DARK URINE. GAVE PAIN MEDS WITH MED PASS FOR C/O PAIN IN BACK AND RIGHT ARM FRACTURE. WILL CONT TO MONITOR.
[2017-08-27 11:47] LABS: BASOPHILS 0.2 % (0-2); EOSINOPHILS 2.8 % (0-7); HEMATOCRIT 28.6 % (42.0-54.0); HEMOGLOBIN 9.3 g/dL (13.5-17.5); IMMATURE GRANULOCYTES 0.9 % (0-5); LYMPHOCYTES 13.4 % (15-50); MCH 31.1 pg (26.0-34.0); MCHC 32.5 g/dL (31.0-37.0); MCV 95.7 fL (80.0-100.0); MEAN PLATELET VOLUME 11.3 fL (7.4-10.4); MONOCYTES 5.1 % (2-11); NEUTROPHILS 77.6 % (40-80); PLATELET COUNT 163 10x3/uL (130-400); RBC 2.99 10x6/uL (4.20-6.10); RDW 15.9 % (11.5-14.5)
[2017-08-27 11:48] LABS: WBC 4.3 10x3/uL (4.8-10.8)
[2017-08-27 11:58] LABS: ANION GAP 9.6 mmol/L (8-16); CALCIUM 8.7 mg/dL (8.5-10.1); CARBON DIOXIDE 28.4 mmol/L (21.0-32.0); CREATININE - SERUM 2.1 mg/dL (0.6-1.3)
--- NOTE | 2017-08-27 12:00 | NUR ---
EATING LUNCH.CL IN REACH.
--- NOTE | 2017-08-27 14:25 | NUR ---
LYING IN BED RESTING QUIETLY. DENIES ANY NEEDS OR PAIN. EMPTIED TRUONG 1000ML DARK YELLOW URINE. CALL LIGHT WITHIN REACH, BED ALARM ON AND IN LOWEST POSITION.
--- NOTE | 2017-08-27 19:50 | NUR ---
ASSESSTED PT VITAL SIGNS, SEE FLOWSHEET.
--- NOTE | 2017-08-27 20:08 | NUR ---
PT. IN BED WITH HOB UP SLIGHTLY FOR COMFORT. EYES CLOSED AND RESP. EVEN. TRUONG TO BSD WITHOUT PROBLEMS. CALL LIGHT WITHIN REACH.
[2017-08-27 22:14] VITALS: BP 125/44
--- NOTE | 2017-08-27 22:20 | NUR ---
PT STATE ROOM TEMP TO COLD, ADJUST ROOM TEMP.
--- NOTE | 2017-08-27 22:45 | NUR ---
ASSESSTED VITAL SIGNS, SEE FLOWSHEET.
--- NOTE | 2017-08-28 00:30 | NUR ---
ASSUMED CARE OF PT. AFTER RECEIVING REPORT FROM ANDRE DOWNS. PT. IN BED WITH HOB UP FOR COMFORT AND LE'S ALSO ELEVATED UP ON PILLOWS. PT. RECEIVING N.S. AT 50CC/HR VIA PUMP TO RT. TLSC I.J. SITE WITHOUT ALARMS. EYES CLOSED AND RESP. EVEN. TRUONG TO BSD WITHOUT PROBLEMS. BLADDER TRAINING WILL CONTINUE. CALL LIGHT WITHIN REACH.
--- NOTE | 2017-08-28 02:00 | NUR ---
WHILE PERFORMING BLADDER TRAINING AND INSTRUCTING PT. I NOTICE PT'S TLSC DRESSING TO HIS RIGHT SIDE OF NECK WAS 80% OFF. REMOVED ALL OLD DRESSING AND PER STERILE GLOVES AND PICC LINE KIT APPLIED NEW DRESSING TO TLCS SITE. PT. TOLERATED PROCEDURE WITHOUT ANY C/O AND HIS CALL LIGHT IS WITHIN REACH.
--- NOTE | 2017-08-28 03:08 | NUR ---
PT. IN BED WITH HOB/FOB ELEVATED FOR COMFORT. BLADDER TRAINING CONTINUES AND TRUONG TO BSD WITHOUT PROBLEMS. EYES CLOSED AND RESP. EVEN. CALL LIGHT REMAINS WITHIN HIS REACH.
--- NOTE | 2017-08-28 05:19 | NUR ---
BLOOD SUGAR OF 66. GAVE PT. JAIRON AND TOMASA DUNN. PT. STATES HE DIDN'T EAT A BED TIME SNACK LAST HS. INSTRUCTED PT. HE NEEDS TO HAVE ONE EVERY NIGHT. PT. ACKNOWLEDGED UNDERSTANDING.
--- NOTE | 2017-08-28 07:48 | NUR ---
PT IN BED WITH EYES CLOSED AND CHEST RISING. EASILY AROUSED TO VERBAL STIMULI. NO CONCERNS NOTED. CALL LIGHT IN REACH.
[2017-08-28 08:15] VITALS: BP 154/52
--- NOTE | 2017-08-28 11:47 | NUR ---
PT IN BED WITH EYES OPEN WATCHING TV WITH SON AT BEDSIDE. NO CONCERNS NOTED. CALL LIGHT IN REACH.
[2017-08-28 11:59] LABS: CALCIUM 8.7 mg/dL (8.5-10.1); CARBON DIOXIDE 29.2 mmol/L (21.0-32.0); CREATININE - SERUM 1.6 mg/dL (0.6-1.3); POTASSIUM - SERUM 4.2 mmol/L (3.5-5.1)
--- NOTE | 2017-08-28 15:56 | NUR ---
PT IN BED WITH EYES CLOSED AND CHEST RISING. EASILY AROUSED TO VERBAL STIMULI. NO CONCERNS NOTED. CALL LIGHT IN REACH.
--- NOTE | 2017-08-28 19:40 | NUR ---
PT. IN BED WITH HOB/FOB ELEVATED FOR COMFORT AND PT. HAS A PILLOW UNDER LE'S TO BRIDGE HEELS. ASSESSMENT COMPLETED. NO VOICED NEEDS AT THIS TIME AND PT. HAS NO URGE TO URINATE YET, CATHETER WAS REMOVED THIS EVENING. CALL LIGHT WITHIN REACH.
[2017-08-28 20:00] VITALS: BP 147/52
--- NOTE | 2017-08-28 23:00 | NUR ---
PT. HAS TRIED SEVERAL TIMES TO USE HIS URINAL BUT NO RESULTS. PT. JUST CALLED ME AND REPORTS HE NEEDS HIS BED LINENS CHANGED THEY ARE WET. DID COMPLETE LINEN CHANGE AND PLACED A BRIEF ON PT. FOR TONIGHT HE IS UNABLE TO USE A URINAL SUCCESSFULLY YET.
--- NOTE | 2017-08-28 23:13 | NUR ---
PT. IN BED WITH HOB/FOB ELEVATED FOR COMFORT. BLE HEELS BRIDGED TO KEEP ALL PRESSURE OFF. EYES CLOSED AND RESP. EVEN. CALL LIGHT WITHIN REACH.
--- NOTE | 2017-08-29 02:10 | NUR ---
PT. HAD ANOTHER BLADDER INCONTIENT EPISODE. BED LINENS CHANGED AND PT. CLEANED UP. PT. REQUESTED TO HAVE BRIEF PLACED AGAIN FOR INCONTINENCE.
--- NOTE | 2017-08-29 03:11 | NUR ---
PT. IN BED WITH HOB UP FOR COMFORT. BLE'S ELEVATED ON PILLOW TO BRIDGE HEELS. EYES CLOSED AND RESP. EVEN. CALL LIGHT WITHIN REACH.
[2017-08-29 06:32] LABS: BASOPHILS 0.3 % (0-2); EOSINOPHILS 2.8 % (0-7); HEMATOCRIT 27.6 % (42.0-54.0); HEMOGLOBIN 8.9 g/dL (13.5-17.5); IMMATURE GRANULOCYTES 1.3 % (0-5); MCH 30.8 pg (26.0-34.0); MCHC 32.2 g/dL (31.0-37.0); MCV 95.5 fL (80.0-100.0); MEAN PLATELET VOLUME 11.2 fL (7.4-10.4); MONOCYTES 8.2 % (2-11); NEUTROPHILS 76.4 % (40-80); PLATELET COUNT 135 10x3/uL (130-400); RBC 2.89 10x6/uL (4.20-6.10); RDW 15.6 % (11.5-14.5)
[2017-08-29 06:34] LABS: WBC 3.2 10x3/uL (4.8-10.8)
[2017-08-29 06:35] LABS: ANION GAP 12.1 mmol/L (8-16); CALCIUM 8.7 mg/dL (8.5-10.1); CREATININE - SERUM 1.3 mg/dL (0.6-1.3); POTASSIUM - SERUM 4.1 mmol/L (3.5-5.1)
--- NOTE | 2017-08-29 08:45 | NUR ---
PT AM MEDS ADMINSITERED. PT DENIES NEEDS AT THIS TIME. BED LOW. CL IN REACH. WCTM.
[2017-08-29 09:32] VITALS: BP 156/66
--- NOTE | 2017-08-29 19:20 | NUR ---
IN BED, AWAKE. DENIES NEEDS.
--- NOTE | 2017-08-29 20:00 | NUR ---
REMAINS IN BED, AWAKE. NO COMPLAINTS AT THIS TIME.
--- NOTE | 2017-08-29 21:00 | NUR ---
IN BED, AWAKE. DENIES NEEDS.
--- NOTE | 2017-08-29 22:25 | NUR ---
CONTINUES IN BED ON CONTACT ISOLATION FOR OUTBREAK OF SHINGLES. CURRENTLY BEING ASSISTED BY [facility]UM.
--- NOTE | 2017-08-29 23:00 | NUR ---
ASSESSMENT AND HS MEDS COMPLETE. FSBS 114. APPLIED ANTI-ITCH SPRAY TO SHINGLES LESIONS TO LEFT WAIST AND FLANK. DENIES PAIN OR OTHER NEEDS AT THIS TIME.
[2017-08-29 23:06] VITALS: BP 141/57
--- NOTE | 2017-08-30 00:15 | NUR ---
IN BED, EYES CLOSED. RESTING QUIETLY.
--- NOTE | 2017-08-30 02:10 | NUR ---
IN BED, EYES CLOSED. APPEARS COMFORTABLE.
--- NOTE | 2017-08-30 04:40 | NUR ---
RESTING QUIETLY, EYES CLOSED. WAS CLEANSED AND CHANGED FROM LARGE URINE INCONTINENCE @ 0255. HE WAS THEN ASSISTED TO REPOSITION HIGHER UP IN BED. REMAINS MILDLY CONFUSED.
--- NOTE | 2017-08-30 06:55 | NUR ---
FSBS 80. GAVE PATIENT 4 OZS APPLE JUICE TO BOLSTER BLOOD SUGAR. FLUSHED WHITE PORT OF CVL. DENIES NEEDS.
[2017-08-30 08:00] VITALS: BP 105/54
--- NOTE | 2017-08-30 08:01 | NUR ---
PT EATING BREAKFAST, DENIES NEEDS. WCTM.
--- NOTE | 2017-08-30 08:36 | NUR ---
PT REQ AND REC'D PRN PAIN MEDICATION WITH AM MEDS. PT ASSISTED ONTO BEDPAN. WCTM.
--- NOTE | 2017-08-30 11:30 | NUR ---
PATIENT ADMITTED TO REHAB FROM ACUTE FLOOR. PATIENT LIVES WITH HIS DAUGHTER DEJUAN. HIS PCP IS DR. MENDEZ AND HE USES [facility] IN [place] FOR HIS PHARMACY NEEDS. DME AT HOME: O2, NEBULIZER, AMD A CANE. PATIENT PLANS ON RETURNING HOME WITH HIS DAUGHTER, WILL CONTINUE TO FOLLOW WITH PATIENT
--- NOTE | 2017-08-30 11:58 | NUR ---
VISITED WITH DAUGHTER DEJUAN AND PATIENT AND THEY WOULD LIKE A REFERRAL MADE TO [facility]. WILL CONTINUE TO FOLLOW WITH PATIENT
--- NOTE | 2017-08-30 13:48 | NUR ---
Nutrition Follow Up: Pt was asleep at the time of RD visit. Interview deferred. Pt is eating 69% meal avg on a renal ADA diet. +BM 08/27/17. Wound Care note reviewed. Meds noted. Labs reviewed. Noted Renal has signed off. Will change diet to diabetic. RD following.
[2017-08-30 16:14] LABS: SPE - A/G RATIO 0.8 (0.7-1.7); SPE - ALBUMIN 2.2 g/dL (2.9-4.4); SPE - ALPHA-1 GLOBULIN 0.3 g/dL (0.0-0.4); SPE - ALPHA-2 GLOBULIN 0.9 g/dL (0.4-1.0); SPE - BETA GLOBULIN 0.9 g/dL (0.7-1.3); SPE - GAMMA GLOBULIN 0.6 g/dL (0.4-1.8); SPE - M-SPIKE Not Observed g/dL (Not Observed); SPE - TOTAL PROTEIN 4.9 g/dL (6.0-8.5)
--- NOTE | 2017-08-30 16:31 | NUR ---
REFERRAL FAXED TO [facility] PER PATIENT AND DAUGHTER REQUEST FOR POSSIBLE ADMISSION ON 09/02/17
--- NOTE | 2017-08-30 19:30 | NUR ---
DAUGHTER TALKS TO PT IN ROOM.
--- NOTE | 2017-08-30 20:25 | NUR ---
PT. IN BED WITH HOB UP FOR COMFORT AND IS WATCHING TV. O2 ON AT 2L/MIN VIA N/C WITHOUT ANY S/S DISTRESS. CALL LIGHT WITHIN REACH.
[2017-08-30 22:53] VITALS: BP 132/55
--- NOTE | 2017-08-31 03:06 | NUR ---
REST IN BED, EYE CLOSE, BED LOW, CALL LIGHT IN REACH.
[2017-08-31 05:59] LABS: HEMATOCRIT 28.3 % (42.0-54.0); MCH 30.5 pg (26.0-34.0); MCHC 31.8 g/dL (31.0-37.0); MCV 95.9 fL (80.0-100.0); MEAN PLATELET VOLUME 10.6 fL (7.4-10.4); PLATELET COUNT 129 10x3/uL (130-400); RBC 2.95 10x6/uL (4.20-6.10); RDW 15.7 % (11.5-14.5); WBC 2.7 10x3/uL (4.8-10.8)
[2017-08-31 06:26] LABS: ANION GAP 9.8 mmol/L (8-16); CARBON DIOXIDE 27.3 mmol/L (21.0-32.0); CREATININE - SERUM 1.3 mg/dL (0.6-1.3); POTASSIUM - SERUM 4.1 mmol/L (3.5-5.1)
[2017-08-31 06:41] LABS: EOSINOPHILS 2 % (0-7); LYMPHOCYTES 13 % (15-50); MONOCYTES 2 % (2-11); NEUTROPHILS 74 % (40-80)
[2017-08-31 06:42] LABS: PLATELET ESTIMATE NORMAL
--- NOTE | 2017-08-31 08:03 | NUR ---
PT RESTING IN BED WITH EYES OPEN CALL LIGHT IN REACH WILL MONITER
[2017-08-31 08:24] VITALS: BP 145/50
--- NOTE | 2017-08-31 12:27 | NUR ---
PT UP IN WHEELCHAIR AT BEDSIDE WITH DAUGHTER IN ROOM EATING LUNCH CALL LIGHT IN REACH NO PROBLEMS WILL MONITER
--- NOTE | 2017-08-31 16:07 | NUR ---
PT RESTING IN BED WITH EYES OPEN CALL LIGHT IN REACH WILL MONITER
--- NOTE | 2017-08-31 19:20 | NUR ---
PT. IN BED WITH HOB UP FOR COMFORT AND IS WATCHING TV. ASSESSMENT COMPLETED. CALL LIGHT WITHIN REACH. PT. CONTINUES TO USE URINAL TO VOID IN WITHOUT PROBLEMS.
[2017-08-31 20:00] VITALS: BP 126/59
--- NOTE | 2017-08-31 23:10 | NUR ---
PT. IN BED WITH HOB/FOB ELEVATED FOR COMFORT AND LE'S REMAIN BRIDGED ON A PILLOW. PT. STILL WATCHING TV AND REQUSTED FRESH ICE WATER. COMPLIED WITH REQUEST AND HIS CALL LIGHT REMAINS WITHIN REACH.
--- NOTE | 2017-09-01 03:01 | NUR ---
PT. IN BED WITH HOB UP FOR COMFORT WITH EYES CLOSED AND RESP. DEEP AND EVEN. CALL LIGHT WITHIN REACH.
--- NOTE | 2017-09-01 06:30 | NUR ---
BLOOD SUGAR THIS AM 60. PT. DID EAT HIS BEDTIME SNACK OF APPLESAUCE. GAVE PT. APPLE JUICE AND APPLESAUCE AT HIS REQUEST.
[2017-09-01 08:00] VITALS: BP 105/56
--- NOTE | 2017-09-01 08:05 | NUR ---
PT RESTING IN BED EATING BREAKFAST DAUGHTER AT BEDSIDE CALL LIGHT IN REACH WILL MONITER
--- NOTE | 2017-09-01 14:51 | RHP ---
PATIENT: IVAN DEVINE MEDICAL RECORD: [id number] ACCOUNT: [id number] LOCATION:[facility]1113 : 37 ADMISSION DATE: 08/19/17 REHABILITATION HISTORY AND PHYSICAL EXAMINATION POST ADMISSION PHYSICIAN EXAMINATION Post-admission Physical Examination and History and Physical DATE OF ADMISSION: To the rehab is 08/19/2017. ADMITTING DIAGNOSIS: Disuse myopathy. HISTORY OF PRESENT ILLNESS: The patient is an 81-year-old gentleman admitted to the rehab with disuse myopathy status post right hip cephalomedullary nail placement and right long arm splint application secondary to a right distal humeral fracture and right intertrochanteric subtrochanteric femur fracture. He was admitted in the ER after falling on his right hip and elbow from a standing height on August 07. He has several medical problems including COPD, CAD and abdominal aortic aneurysm of about 7 cm, diabetes, chronic kidney disease, left upper lobe of his lung has been removed secondary to lung cancer. He complains of a right hip and elbow pain. His x-ray showed acute/subtrochanteric intertrochanteric right femoral fracture. His elbow showed an acute subcondylar fracture. On August 07, he went to the OR for a right hip cephalomedullary nail and right long arm splint application. On postop day, he became very short of breath, required 10 liters of O2. He was transferred to the ICU. On postop, he was complicated by acute hypoxic respiratory failure, pneumonia, acute blood loss anemia with an H&H of 8.8 and 26.3. He received 2 units of packed red blood cells. He had acute renal failure with a BUN of 104 and creatinine of 5.3, and nephrology saw him for this. He had postop ileus, malnutrition and lethargy. He remained in the ICU for 7 days on bed rest. Currently, he is back to his mental baseline. His renal functions are stable with a creatinine of 1.2. His H&H are stable; his hematocrit is 28.2. His pneumonia is being treated with IV Merrem. He had supplemental O2. Prior to his admit, he was independent with ADLs and mobility. Currently, he is fatigued, weak and has worsening proximal muscle weakness, difficulty walking with max assist and O2. He cannot get up from chair bed or bedside commode without maximal assist. He fatigues and needs to stop frequently for a rest. He plans to return home hopefully with his daughter after discharging home. COMORBIDITIES: In this patient include hypertension, pneumonia, atelectasis, history of left upper lobe lobectomy, anuria, thrombocytopenia, acute kidney injury, chronic kidney injury, coronary artery disease, history of AAA, diabetes, small bowel postop ileus, upper GI bleed, hyperlipidemia, hypokalemia, debility, fatigue, weakness, depression and anxiety. PAST MEDICAL HISTORY: Significant for diabetes, coronary artery disease, history of VT in the past, AAA, multiple heart caths, left lung cancer, depression and anxiety. PAST SURGICAL HISTORY: Includes gallbladder surgery, coronary artery bypass grafting, multiple heart caths, left lung lobectomy, ORIF and pinning of his left hip. ALLERGIES: PENICILLIN, SULFA, ASPIRIN, MYCINS, LEVAQUIN AND GLUTEN. HISTORY AND PHYSICAL [id number] IVAN DEVINE CURRENT MEDICATIONS: He is on an electrolyte protocol at this time. He is on glipizide 5 mg b.i.d. with meals. He is on a glucose replacement protocol for hypoglycemia, Robitussin as needed. He is on a clonidine TTS patch that he applies weekly, Hytrin 1 mg daily, Protonix 40 mg b.i.d., lisinopril 10 mg daily, furosemide 40 mg b.i.d., folic acid 1 mg daily, enoxaparin 40 mg subQ daily. He is on citalopram 20 mg daily, carvedilol 6.25 mg b.i.d. with meals, Lipitor 20 mg daily, Brovana 15 mcg b.i.d., allopurinol 300 mg daily, polyethylene glycol 17 grams in 8 ounces of water daily, vitamin D 50,000 units 3 times weekly, Senna 2 tabs at bedtime p.r.n., Ranexa 1000 mg b.i.d., Nitrostat p.r.n., Singulair 10 mg at bedtime, DuoNeb updrafts 3 mL t.i.d. He is on ferrous sulfate 325 mg b.i.d., Flexeril 5 mg t.i.d. p.r.n. spasms, budesonide 0.25 mg b.i.d. and Tylenol 650 q.4 hours p.r.n. HABITS: No alcohol or tobacco use. FAMILY HISTORY: Noncontributory. SOCIAL HISTORY: The patient hopes to return back home. He is going to be with his daughter. REVIEW OF SYSTEMS: GENERAL: Does complain of weakness and fatigue. HEENT: He denies cold, cough or congestion. CARDIOVASCULAR: Denies any chest pain. LUNGS: Does complain of shortness of breath. PHYSICAL EXAMINATION: VITAL SIGNS: Stable, afebrile. GENERAL: An elderly gentleman in no acute distress, alert upon exam. HEENT: Normocephalic and atraumatic. Mucosa moist. NECK: Supple, no adenopathy. LUNGS: Clear in upper franks with decreased breath sounds especially in his left base. CARDIOVASCULAR: Regular rate and rhythm. ABDOMEN: Benign. EXTREMITIES: No clubbing, cyanosis or edema. NEUROLOGIC: Intact. LABORATORY DATA: His white count is 7.6, his H&H is 9.4 and 29.3 and platelet count is 181. Sodium 138, potassium 3.8, BUN and creatinine 43 and 1.2, and blood sugar is noted to be 131. ASSESSMENT: This is an 81-year-old gentleman who is admitted to the rehab with a working diagnosis of disuse myopathy secondary to an elongated stay in the ICU and multiple postoperative complications. The patient has potential to make improvement. We instituted the following multidisciplinary therapies including to, but not limited to physical, occupational, respiratory, speech, nutritional services, prosthetics and orthotics. Given his complex condition and risk for more complications, rehabilitation services cannot be provided at a lower level of care such as a care home facility. PLAN: 1. Admit to [facility] rehab for intensive inpatient therapy to include the following disciplines: A. Physical therapy to improve gait, all transfer skills and bed mobility to a HISTORY AND PHYSICAL [id number] IVAN DEVINE modified independent level. B. Occupational therapy to improve activities of daily living to a modified independent level. C. Case management to assist with discharge planning and placement options. D. Nutrition to assist with nutritional needs. E. Rehabilitation nursing to assist in monitoring the patient's underlying medical conditions and to assist with any type of bowel or bladder management. 2. The patient's current medications and medical care will continue. 3. The patient will be placed on standard fall precautions. 4. The patient's estimated length of stay is approximately 7-10 days. 5. Discuss this patient during care team staff meeting this week. TRANSINT:[id number] Voice Confirmation ID: [id number] DOCUMENT ID: [id number] FABIEN notes whether there has been none or any medical/functional change since admission: - FABIEN attests patient continues to be appropriate for IRF: - ANDRAE GREGORIO MD at 1451 CC: [id number] DICTATION DATE: 08/20/17 1550 AFTERNOON NANNY: 08/20/17 1653 ADM IN [place] [id number] [place] [id number]
--- NOTE | 2017-09-01 17:08 | NUR ---
PT ASSYMTOMATIC OF LOW BS PT GIVEN APPLE JUICE AND APPLE SAUCE FOR SNACK
--- NOTE | 2017-09-01 17:47 | NUR ---
RESTING QUIETLY.CL IN REACH.
--- NOTE | 2017-09-01 17:48 | NUR ---
EATING SUPPER.CL IN REACH.
--- NOTE | 2017-09-01 18:22 | NUR ---
PT RESTING IN BED WITH EYES OPEN DAUGHTER IN ROOM CALL LIGHT IN REACH WILL MONITER
--- NOTE | 2017-09-01 19:30 | NUR ---
PT IS RESTING IN BED WATCHING TV AND VISITING WITH HIS SON. SON NOTED HELPING PT TO USE URINAL. SON EDUCATED IN NEED TO WEAR PROTECTIVE ITEMS, SHINGLES ARE CONTAGIOUS. HE VOICED UNDERSTANDING. VSS. NO NEEDS VOICED AT THIS TIME. SR'S ARE UP X 3 IN BED. CALL LIGHT AND BEDSIDE TABLE ARE WITHIN EASY REACH.
--- NOTE | 2017-09-01 20:00 | NUR ---
PATIENT IN BED AWAKE.
--- NOTE | 2017-09-01 21:40 | NUR ---
PT RESTING IN BED WATCHING TV. NO NEEDS VOICED.
--- NOTE | 2017-09-02 00:01 | NUR ---
RESTING IN BED WITH EYES CLOSED.
--- NOTE | 2017-09-02 02:50 | NUR ---
RESTING IN BED WITH EYES CLOSED.
--- NOTE | 2017-09-02 06:29 | NUR ---
PT RESTING IN BED WITH EYES OPEN. NO ACUTE DISTRESS NOTED. URINAL EMPTIED. NO FURTHER NEEDS VOICED.
[2017-09-02 07:13] LABS: BASOPHILS 0.3 % (0-2); EOSINOPHILS 3.4 % (0-7); HEMATOCRIT 27.5 % (42.0-54.0); HEMOGLOBIN 8.8 g/dL (13.5-17.5); IMMATURE GRANULOCYTES 1.7 % (0-5); LYMPHOCYTES 20.7 % (15-50); MCH 30.4 pg (26.0-34.0); MCV 95.2 fL (80.0-100.0); MEAN PLATELET VOLUME 10.3 fL (7.4-10.4); MONOCYTES 9.3 % (2-11); NEUTROPHILS 64.6 % (40-80); PLATELET COUNT 134 10x3/uL (130-400); RBC 2.89 10x6/uL (4.20-6.10); WBC 3.5 10x3/uL (4.8-10.8)
[2017-09-02 07:21] LABS: ANION GAP 10.4 mmol/L (8-16); CALCIUM 8.9 mg/dL (8.5-10.1); CARBON DIOXIDE 26.8 mmol/L (21.0-32.0); CREATININE - SERUM 1.2 mg/dL (0.6-1.3); POTASSIUM - SERUM 4.2 mmol/L (3.5-5.1)
--- NOTE | 2017-09-02 07:35 | NUR ---
RESTING QUIETLY IN BED.CL IN REACH.
--- NOTE | 2017-09-02 08:23 | NUR ---
PT RESTING IN BED WITH EYES OPEN CALL IN REACH WILL MONITER
[2017-09-02] MEDS ORDERED: VALTREX500 MG PO (08:33)
[2017-09-02] MEDS ORDERED: CELEXA20 MG PO (08:34)
[2017-09-02] MEDS ORDERED: HYDROCODON-ACE1 EAC7 PO (08:34)
[2017-09-02] MEDS ORDERED: LIDODERM 5 %1 PATCH TRANSDERM (08:35)
[2017-09-02 09:37] VITALS: BP 139/58
--- NOTE | 2017-09-02 10:02 | NUR ---
PATIENT DISCHARGING TO [facility] AND WILL TRANSPORT THERE VIA FACILITY VAN. NO DME OR HOME HEALTH NEEDED AT THIS TIME. DR. BRICEÑO 09/19/17 @ 2:00, DR. MENDEZ APPOINTMENT WILL BE MADE AT TIME OF DISCHARGE FROM FACILITY. PATIENT CHOICE FOR SNF AND IMFM FORM SIGNED, EXPLIANED AND FILED IN CHART.
[2017-09-02] MEDS ORDERED: ULTRAM50 MG PO (11:08)
--- NOTE | 2017-09-02 11:15 | NUR ---
PT DISCHARGED TO [facility] IN [place] VIA WHEELCHAIR REPORT CALLED TO [facility] SENT DISCHARGE INSTRUCTIONS AND DISCHARGE MEDS AND [facility] PRESCRIPTION WITH THE DIRECTOR OF PRECLINICAL RESEARCH PT TOLERATED TRANSFER WELL
== END 2017-09-02 11:38 | DRG 91 ==
LOC: D.REHAB 18:45
PROVIDERS: Internal Medicine Nephrology; ADMIT Emergency Medicine
DX: G72.89 Other specified myopathies (principal); J18.9 Pneumonia, unspecified organism; E43 Unspecified severe protein-calorie malnutrition; N17.9 Acute kidney failure, unspecified; J98.11 Atelectasis; D62 Acute posthemorrhagic anemia; E11.22 Type 2 diabetes mellitus with diabetic chronic kidney disease; I12.9 Hypertensive chronic kidney disease with stage 1 through stage 4 chronic kidney disease, or unspecified chronic kidney disease; N18.9 Chronic kidney disease, unspecified; I25.10 Atherosclerotic heart disease of native coronary artery without angina pectoris; E78.5 Hyperlipidemia, unspecified; E87.6 Hypokalemia; R53.81 Other malaise; R53.83 Other fatigue; R53.1 Weakness; F41.8 Other specified anxiety disorders; S42.401D Unspecified fracture of lower end of right humerus, subsequent encounter for fracture with routine healing; S72.141D Displaced intertrochanteric fracture of right femur, subsequent encounter for closed fracture with routine healing; W19.XXXD Unspecified fall, subsequent encounter; J44.9 Chronic obstructive pulmonary disease, unspecified; R34 Anuria and oliguria; I71.4 Abdominal aortic aneurysm, without rupture; D69.6 Thrombocytopenia, unspecified; Z68.34 Body mass index [BMI] 34.0-34.9, adult

== ENCOUNTER 2018-10-25 09:07 | Emergency (ER) | payer MEDICARE, BC ==
[~2018-10-25] VITALS: Ht 177.8 cm; Wt 107.7 kg
[2018-10-25 09:07] VITALS: Ht 177.8 cm; Wt 107.7 kg
[~2018-10-25 09:07] MED LIST changes: +HYDROCODON-ACE1 EAC7 PO; +LIDODERM 5 %1 PATCH TRANSDERM; +ULTRAM50 MG PO; +VALTREX500 MG PO
[2018-10-25] MEDS ORDERED: ISORDIL5 MG (09:18)
[2018-10-25] MEDS ORDERED: ENTRESTO 49 MG1 EACH PO (09:18)
[2018-10-25 10:09] LABS: BASOPHILS 0.2 % (0-2); EOSINOPHILS 4.1 % (0-7); HEMATOCRIT 32.5 % (42.0-54.0); HEMOGLOBIN 10.2 g/dL (13.5-17.5); IMMATURE GRANULOCYTES 1.2 % (0-5); LYMPHOCYTES 7.7 % (15-50); MCH 32.1 pg (26.0-34.0); MCHC 31.4 g/dL (31.0-37.0); MCV 102.2 fL (80.0-100.0); MEAN PLATELET VOLUME 11.4 fL (7.4-10.4); MONOCYTES 6.3 % (2-11); NEUTROPHILS 80.5 % (40-80); PLATELET COUNT 110 10x3/uL (130-400); RBC 3.18 10x6/uL (4.20-6.10); RDW 16.1 % (11.5-14.5); WBC 5.8 10x3/uL (4.8-10.8)
[2018-10-25] MEDS ORDERED: NORCO 10-325 TA1 TAB PO (11:04)
[2018-10-25 21:08] VITALS: BP 117/56
[2018-10-26] MEDS ORDERED: ISOSORBIDE MONO30 M1 PO (16:23)
[2018-10-26] MEDS ORDERED: MUCINEX DM ER1 EAC1 PO (16:29)
[2018-10-26] MEDS ORDERED: LASIX40 MG (16:29)
== END 2018-10-25 13:00 | disposition home or self-care (01) ==
LOC: D.ER 09:07
PROVIDERS: Emergency Medicine
DX: S42.301A Unspecified fracture of shaft of humerus, right arm, initial encounter for closed fracture (principal); W18.30XA Fall on same level, unspecified, initial encounter; Y93.89 Activity, other specified; Y92.019 Unspecified place in single-family (private) house as the place of occurrence of the external cause; D64.9 Anemia, unspecified; S00.81XA Abrasion of other part of head, initial encounter; S69.92XA Unspecified injury of left wrist, hand and finger(s), initial encounter; J44.9 Chronic obstructive pulmonary disease, unspecified

== ENCOUNTER 2018-10-26 09:14 | Inpatient (IN) | payer MEDICARE, BC ==
[~2018-10-26] VITALS: Ht 177.8 cm; Wt 107.5 kg
--- NOTE | ~2018-10-26 | MORECARE ---
CASE MANAGEMENT DISCHARGE SUMMARY PATIENT: IVAN DEVINE UNIT: [id number] ADM DATE: 10/26/18 AGE: 82 : 36 SEX: M ROOM/BED: D.2238 AUTHOR: TOMY,DOC PHYSICIAN: REFERRING PHYSICIAN: IZABELLA HARGROVE MD DATE OF SERVICE: 11/01/18 Discharge Plan Patient Name: IVAN DEVINE Facility: [facility]:[place] : 1935 Planned Disposition: Inpatient Rehab Anticipated Discharge Date: Discharge Date: Expected LOS: Initial Reviewer: [email or web address] Initial Review Date: 10/27/2018 Generated: 11/01/18 12:23 pm Comments DCP- Discharge Planning Updated by [id number]: Lali Gonzales on 11/01/18 10:[address] Received order for discharge. He is discharging to inpatient rehab. Patient sitting on side of bed, states he agrees with discharge to inpatient rehab today. States he has already notified his daughter that he is going to rehab today. States she is at work and does not want me to call her. I called Micki in inpt rehab and informed. CM will continue to follow and assist with discharge planning/needs. DCP- Discharge Planning Updated by [id number]: Lali Gonzales on 10/31/18 10:[address] Spoke with Micki in inpatient rehab and new screen placed. Spoke with patient and he is still wanting to go to inpatient rehab here. CM will continue to follow and assist with discharge planning/needs. DCP- Discharge Planning Updated by [email or web address]: Selma Molina on 10/28/18 2:[address] 1510 - IN REVIEW CM NOTED O2 SATS 93%- 86% - 80%. PATIENT'S O2 HAD BEEN INCREASED TO 3/L THIS EARLY PM. NURSING AND RESPIRATORY NOTED IN CHARTING WHEEZING THRU OUT. TC TO RESPIRATORY Therapy . AWAIT CB. SPOKE WITH PATIENT'S PRIMARY NURSE DEN. PATIENT DAUGHTER CAME TO THE DESK STATING HER FATHER SEEMED MORE SHORT OF BREATH. RESPIRATORY THERAPY HAD ARRIVED ON THE UNIT TO ASSESS THE PATIENT. HE HAD AN AERSOL TREATMENT ABOUT 45 MINUTES PRIOR TO THE CALL.. NURSE ALSO AT THE BEDSIDE. DCP- Discharge Planning Updated by [id number]: Lali Gonzales on 10/27/18 11:[address] Patient Name: IVAN DEVINE Admission Status: ER Accout number: [id number] Admission Date: 10-26-2018 : 1935 Admission Diagnosis: Attending: IZABELLA HARGROVE Current LOS: 1 Anticipated DC Date: Planned Disposition: Inpatient Rehab Primary Insurance: MEDICARE A & B Discharge Planning Comments: CM met with patient's daughter to discuss discharge planning. He is in surgery for reverse total shoulder. Daughter states he lives with her. States he has a walker for ambulation, but he doesn't use it all the time. States he has a nebulizer and oxygen that he gets supplies from [facility] in [place]. States he used to have a CPAP, but he wouldn't wear it so she returned it after 3 days. States he has a slide board to get in and out of the tub shower with. I discussed availability of inpatient rehab, SNF and home health. She states "the doctor said we could go to rehab here on the first floor." She is agreeable to inpatient rehab at this time. Rehab screen, PT and OT consults have been ordered. CM will continue to follow and assist with discharge planning/needs. Fish Technologist: Lali Gonzales DCPIA - Discharge Planning Initial Assessment Updated by [email or web address]: Lali Gonzales on 10/27/18 12:23 pm * Is the patient Alert and Oriented? Yes * How many steps to enter\\exit or inside your home? Ramp/0 * PCP Dr. Khanna * Pharmacy [facility] in [place] * Preadmission Environment Home with Family * ADLs Partial Dependent * Partial ADLs (Assistance needed) Ambulation Medication Management * Equipment Glucometer Nebulizer Other Oxygen Walker * Other Equipment Portable oxygen Rollator walker * List name and contact numbers for known caregivers / representatives who currently or will assist patient after discharge: Claribel Corea DTR - [phone] * Verbal permission to speak to the caregivers and representatives has been obtained from the patient. Yes * Community resources currently utilized None * Additional services required to return to the preadmission environment? Yes * Can the patient safely return to the preadmission environment? Yes * Has this patient been hospitalized within the prior 30 days at any hospital? No Coverage Notice Reviewer: [email or web address] - Lali Gonzales Notice Issued Date-Time: 11/01/2018 11:16 Notice Type: IM Discharge Notice Notice Delivered To: Patient Relationship to Patient: Self Head Of Marketing Analytics Name: Delivery Method: HAND - Hand Delivered Kiki Days: Prior Verbal Notification: Recipient Understood Notice: Yes Recipient Signature: Yes Med Rec Note Co-signed by Attending: Coverage Notice Comment: IMM explained, signed, copy given, original placed in MR Last DP export: 10/31/18 10:06 Patient Name: IVAN DEVINE Page [id number] at 1123 All edits/amendments must be made on the electronic document DICTATION DATE: 11/01/181121 MATERIALS DEVELOPMENT ENGINEER: REJI 11/01/181121 RPT#: [id number] DC DATE: STATUS: ADM IN [facility] [address] [place] [address] END OF REPORT
--- NOTE | ~2018-10-26 | MORECARE ---
CASE MANAGEMENT DISCHARGE SUMMARY PATIENT: IVAN DEVINE UNIT: [id number] ADM DATE: 10/26/18 AGE: 82 : 36 SEX: M ROOM/BED: D.2238 AUTHOR: TOMY,DOC PHYSICIAN: REFERRING PHYSICIAN: IZABELLA HARGROVE MD DATE OF SERVICE: 10/28/18 Discharge Plan Patient Name: IVAN DEVINE Facility: [facility]:[place] : 1935 Planned Disposition: Inpatient Rehab Anticipated Discharge Date: Discharge Date: Expected LOS: Initial Reviewer: [email or web address] Initial Review Date: 10/27/2018 Generated: 10/28/18 4:48 pm Comments DCP- Discharge Planning Updated by [email or web address]: Selma Molina on 10/28/18 2:[address] 1510 - IN REVIEW CM NOTED O2 SATS 93%- 86% - 80%. PATIENT'S O2 HAD BEEN INCREASED TO 3/L THIS EARLY PM. NURSING AND RESPIRATORY NOTED IN CHARTING WHEEZING THRU OUT. TC TO RESPIRATORY Therapy . AWAIT CB. SPOKE WITH PATIENT'S PRIMARY NURSE DEN. PATIENT DAUGHTER CAME TO THE DESK STATING HER FATHER SEEMED MORE SHORT OF BREATH. RESPIRATORY THERAPY HAD ARRIVED ON THE UNIT TO ASSESS THE PATIENT. HE HAD AN AERSOL TREATMENT ABOUT 45 MINUTES PRIOR TO THE CALL.. NURSE ALSO AT THE BEDSIDE. DCP- Discharge Planning Updated by [id number]: Lali Radhamanuel on 10/27/18 11:[address] Patient Name: IVAN DEVINE Admission Status: ER Accout number: [id number] Admission Date: 10-26-2018 : 1935 Admission Diagnosis: Attending: IZABELLA HARGROVE Current LOS: 1 Anticipated DC Date: Planned Disposition: Inpatient Rehab Primary Insurance: MEDICARE A & B Discharge Planning Comments: CM met with patient's daughter to discuss discharge planning. He is in surgery for reverse total shoulder. Daughter states he lives with her. States he has a walker for ambulation, but he doesn't use it all the time. States he has a nebulizer and oxygen that he gets supplies from [facility] in [place]. States he used to have a CPAP, but he wouldn't wear it so she returned it after 3 days. States he has a slide board to get in and out of the tub shower with. I discussed availability of inpatient rehab, SNF and home health. She states "the doctor said we could go to rehab here on the first floor." She is agreeable to inpatient rehab at this time. Rehab screen, PT and OT consults have been ordered. CM will continue to follow and assist with discharge planning/needs. Extension Division Director: Lali Gonzales DCPIA - Discharge Planning Initial Assessment Updated by [email or web address]: Lali Janet on 10/27/18 12:23 pm * Is the patient Alert and Oriented? Yes * How many steps to enter\\exit or inside your home? Ramp/0 * PCP Dr. Khanna * Pharmacy [facility] in [place] * Preadmission Environment Home with Family * ADLs Partial Dependent * Partial ADLs (Assistance needed) Ambulation Medication Management * Equipment Glucometer Nebulizer Other Oxygen Walker * Other Equipment Portable oxygen Rollator walker * List name and contact numbers for known caregivers / representatives who currently or will assist patient after discharge: Claribel [facility] - [phone] * Verbal permission to speak to the caregivers and representatives has been obtained from the patient. Yes * Community resources currently utilized None * Additional services required to return to the preadmission environment? Yes * Can the patient safely return to the preadmission environment? Yes * Has this patient been hospitalized within the prior 30 days at any hospital? No Last DP export: 10/27/18 11:31 a Patient Name: IVAN DEVINE Page [id number] at 1549 All edits/amendments must be made on the electronic document DICTATION DATE: 10/28/181547 IRON HANDLER: REJI 10/28/181547 RPT#: [id number] DC DATE: STATUS: ADM IN [facility] [address] [place] [address] END OF REPORT
--- NOTE | ~2018-10-26 | MORECARE ---
CASE MANAGEMENT DISCHARGE SUMMARY PATIENT: IVAN DEVINE UNIT: [id number] ADM DATE: 10/26/18 AGE: 82 : 36 SEX: M ROOM/BED: D.2238 AUTHOR: TOMY,DOC PHYSICIAN: REFERRING PHYSICIAN: IZABELLA HARGROVE MD DATE OF SERVICE: 10/31/18 Discharge Plan Patient Name: IVAN DEVINE Facility: [facility]:[place] : 1935 Planned Disposition: Inpatient Rehab Anticipated Discharge Date: Discharge Date: Expected LOS: Initial Reviewer: [email or web address] Initial Review Date: 10/27/2018 Generated: 10/31/18 12:06 pm Comments DCP- Discharge Planning Updated by [email or web address]: Lali Gonzales on 10/31/18 10:[address] Spoke with Micki in inpatient rehab and new screen placed. Spoke with patient and he is still wanting to go to inpatient rehab here. CM will continue to follow and assist with discharge planning/needs. DCP- Discharge Planning Updated by [email or web address]: Selma Molina on 10/28/18 2:[address] 1510 - IN REVIEW CM NOTED O2 SATS 93%- 86% - 80%. PATIENT'S O2 HAD BEEN INCREASED TO 3/L THIS EARLY PM. NURSING AND RESPIRATORY NOTED IN CHARTING WHEEZING THRU OUT. TC TO RESPIRATORY Therapy . AWAIT CB. SPOKE WITH PATIENT'S PRIMARY NURSE DEN. PATIENT DAUGHTER CAME TO THE DESK STATING HER FATHER SEEMED MORE SHORT OF BREATH. RESPIRATORY THERAPY HAD ARRIVED ON THE UNIT TO ASSESS THE PATIENT. HE HAD AN AERSOL TREATMENT ABOUT 45 MINUTES PRIOR TO THE CALL.. NURSE ALSO AT THE BEDSIDE. DCP- Discharge Planning Updated by [id number]: Lali Gonzales on 10/27/18 11:[address] Patient Name: IVAN DEVINE Admission Status: ER Accout number: [id number] Admission Date: 10-26-2018 : 1935 Admission Diagnosis: Attending: IZABELLA HARGROVE Current LOS: 1 Anticipated DC Date: Planned Disposition: Inpatient Rehab Primary Insurance: MEDICARE A & B Discharge Planning Comments: CM met with patient's daughter to discuss discharge planning. He is in surgery for reverse total shoulder. Daughter states he lives with her. States he has a walker for ambulation, but he doesn't use it all the time. States he has a nebulizer and oxygen that he gets supplies from [place] in [place]. States he used to have a CPAP, but he wouldn't wear it so she returned it after 3 days. States he has a slide board to get in and out of the tub shower with. I discussed availability of inpatient rehab, SNF and home health. She states "the doctor said we could go to rehab here on the first floor." She is agreeable to inpatient rehab at this time. Rehab screen, PT and OT consults have been ordered. CM will continue to follow and assist with discharge planning/needs. Pot Firer: Lali Gonzales DCPIA - Discharge Planning Initial Assessment Updated by [id number]: Lali Gonzales on 10/27/18 12:23 pm * Is the patient Alert and Oriented? Yes * How many steps to enter\\exit or inside your home? Ramp/0 * PCP Dr. Khanna * Pharmacy [facility] in [place] * Preadmission Environment Home with Family * ADLs Partial Dependent * Partial ADLs (Assistance needed) Ambulation Medication Management * Equipment Glucometer Nebulizer Other Oxygen Walker * Other Equipment Portable oxygen Rollator walker * List name and contact numbers for known caregivers / representatives who currently or will assist patient after discharge: Claribel - R - [phone] * Verbal permission to speak to the caregivers and representatives has been obtained from the patient. Yes * Community resources currently utilized None * Additional services required to return to the preadmission environment? Yes * Can the patient safely return to the preadmission environment? Yes * Has this patient been hospitalized within the prior 30 days at any hospital? No Last DP export: 10/28/18 2:48 p Patient Name: IVAN DEVINE Page [id number] at 1106 All edits/amendments must be made on the electronic document DICTATION DATE: 10/31/181104 STORAGE BATTERY INSPECTOR: REJI 10/31/181104 RPT#: [id number] DC DATE: STATUS: ADM IN [facility] [address] [place] [address] END OF REPORT
--- NOTE | ~2018-10-26 | MORECARE ---
CASE MANAGEMENT DISCHARGE SUMMARY PATIENT: IVAN DEVINE UNIT: [id number] ADM DATE: 10/26/18 AGE: 82 : 36 SEX: M ROOM/BED: D.2238 AUTHOR: MARLY HUITRON PHYSICIAN: REFERRING PHYSICIAN: IZABELLA HARGROVE MD DATE OF SERVICE: 10/27/18 Discharge Plan Patient Name: IVAN DEVINE Facility: [facility]:[place] : 1935 Planned Disposition: Inpatient Rehab Anticipated Discharge Date: Discharge Date: Expected LOS: Initial Reviewer: [email or web address] Initial Review Date: 10/27/2018 Generated: 10/27/18 1:31 pm Comments DCP- Discharge Planning Updated by [email or web address]: Lali Gonzales on 10/27/18 11:[address] Patient Name: IVAN DEVINE Admission Status: ER Accout number: [id number] Admission Date: 10-26-2018 : 1935 Admission Diagnosis: Attending: IZABELLA HARGROVE Current LOS: 1 Anticipated DC Date: Planned Disposition: Inpatient Rehab Primary Insurance: MEDICARE A & B Discharge Planning Comments: CM met with patient's daughter to discuss discharge planning. He is in surgery for reverse total shoulder. Daughter states he lives with her. States he has a walker for ambulation, but he doesn't use it all the time. States he has a nebulizer and oxygen that he gets supplies from [facility] in [place]. States he used to have a CPAP, but he wouldn't wear it so she returned it after 3 days. States he has a slide board to get in and out of the tub shower with. I discussed availability of inpatient rehab, SNF and home health. She states "the doctor said we could go to rehab here on the first floor." She is agreeable to inpatient rehab at this time. Rehab screen, PT and OT consults have been ordered. CM will continue to follow and assist with discharge planning/needs. Belt Molder: Lali Gonzales DCPIA - Discharge Planning Initial Assessment Updated by [id number]: Lali Gonzales on 10/27/18 12:23 pm * Is the patient Alert and Oriented? Yes * How many steps to enter\\exit or inside your home? Ramp/0 * PCP Dr. Khanna * Pharmacy [facility] in [place] * Preadmission Environment Home with Family * ADLs Partial Dependent * Partial ADLs (Assistance needed) Ambulation Medication Management * Equipment Glucometer Nebulizer Other Oxygen Walker * Other Equipment Portable oxygen Rollator walker * List name and contact numbers for known caregivers / representatives who currently or will assist patient after discharge: Claribel - DTR - [phone] * Verbal permission to speak to the caregivers and representatives has been obtained from the patient. Yes * Community resources currently utilized None * Additional services required to return to the preadmission environment? Yes * Can the patient safely return to the preadmission environment? Yes * Has this patient been hospitalized within the prior 30 days at any hospital? No Last DP export: 10/27/18 11:23 a Patient Name: IVAN DEVINE Page 14432 at 1232 All edits/amendments must be made on the electronic document DICTATION DATE: 10/27/18 1231 COMPUTER TEACHER: REJI 10/27/18 1231 RPT#: [id number] DC DATE: STATUS: ADM IN [facility] [address] [place] [address] END OF REPORT
--- NOTE | ~2018-10-26 | EC ---
PATIENT:IVAN DEVINE DATE OF SERVICE: 10/26/18 SEX: M MEDICAL RECORD: [id number] DATE OF : 37 LOCATION:[facility] AGE OF PATIENT: 82 ADMISSION DATE: 10/26/18 REFERRING PHYSICIAN: INTERPRETING PHYSICIAN: ROSALIND OSMAN MD ECHOCARDIOGRAM REPORT ECHO CHARGES 4 ECHO COMPLETE Date: 10/28/18 CLINICAL DIAGNOSIS: EVALUATLE LV FUNCTION ECHOCARDIOGRAPHIC MEASUREMENTS (adult normal given) AC root (d.<3.7cm) 4.0 cm LV Septum d (<1.2 cm> 1.6 cm Valve Excursion 1.4 cm LV Septum (systole) 2.0 cm Left Atria (s.<4.0cm> 4.2 cm LVPW d(<1.2cm) 1.9 cm RV (d.<2.3cm) 3.0 cm LVPW (sytole) 2.3 cm LV diastole(<5.6CM) 5.7 cm MV E-F(>70mm/sec) cm LV systole 4.1 cm LVOT Diameter 2.2 cm MV exc.(>10mm) cm Est.ejection fraction (50-75%) % DOPPLER: LVIT cm/sec A 83 cm/sec E 39 cm/sec LA cm/sec RVSP 70.1 mmHg LVOT 104 cm/sec AOP1/2T m/s Asc. Ao 179 cm/sec RVOT 108 cm/sec RA cm/sec PA 115 cm/sec AV Gradient Peak 12.9 mmHg AV Mean 8.1 mmHg AV Area 3.1 cm MV Gradient Peak 4.7 mmHg MV Mean 1.9 mmHg MV Area cm COMMENTS: Linen Tech: Jozef CORDOVAJESSICA MARTY Skates Operator: 1 Dr. Osman TAPE# PACS Pericardial Effusion N DATE OF SERVICE: FINDINGS: 1. Left ventricular chamber size is within normal limits. Left ventricular systolic function is normal. Overall ejection fraction is estimated at 55%. 2. Left atrium is enlarged at 4.3 cm. Right atrium and right ventricle chamber sizes are as well mildly dilated. 3. Valvular structures have normal structure and motion. 4. Doppler interrogation reveals moderate tricuspid regurgitation. No other valvular insufficiency or stenosis; however, pulmonary systolic pressure is ECHOCARDIOGRAM REPORT [id number] IVAN DEVINE elevated, estimated at 70 mmHg. 5. No evidence of pericardial effusion or left ventricular thrombus. TRANSINT:[id number] Voice Confirmation ID: [id number] DOCUMENT ID: [id number] ROSALIND OSMAN MD at 1108 CC: [id number] DICTATION DATE: 10/29/18 1121 FINAL FINISHER: 10/29/18 1341 ADM IN [facility] [address] [place] [address]
--- NOTE | ~2018-10-26 | MORECARE ---
CASE MANAGEMENT DISCHARGE SUMMARY PATIENT: IVAN DEVINE UNIT: [id number] ADM DATE: 10/26/18 AGE: 82 : 36 SEX: M ROOM/BED: D.2238 AUTHOR: MARLY HUITRON PHYSICIAN: REFERRING PHYSICIAN: IZABELLA HARGROVE MD DATE OF SERVICE: 10/27/18 Discharge Plan Patient Name: IVAN DEVINE [facility] [facility] 1935 Planned Disposition: Inpatient Rehab Anticipated Discharge Date: Discharge Date: Expected LOS: Initial Reviewer: [email or web address] Initial Review Date: 10/27/2018 Generated: 10/27/18 1:23 pm DCPIA - Discharge Planning Initial Assessment Updated by [id number]: Lali Gonzales on 10/27/18 12:23 pm * Is the patient Alert and Oriented? Yes * How many steps to enter\exit or inside your home? Ramp/0 * PCP Dr. Khanna * Pharmacy [facility] in [place] * Preadmission Environment Home with Family * ADLs Partial Dependent * Partial ADLs (Assistance needed) Ambulation Medication Management * Equipment Glucometer Nebulizer Other Oxygen Walker * Other Equipment Portable oxygen Rollator walker * List name and contact numbers for known caregivers / representatives who currently or will assist patient after discharge: Claribel - DTR - [phone] * Verbal permission to speak to the caregivers and representatives has been obtained from the patient. Yes * Community resources currently utilized None * Additional services required to return to the preadmission environment? Yes * Can the patient safely return to the preadmission environment? Yes * Has this patient been hospitalized within the prior 30 days at any hospital? No Patient Name: IVAN DEVINE Page 62429 at 1223 All edits/amendments must be made on the electronic document DICTATION DATE: 10/27/18 1223 TUBE DEPATCHER: REJI 10/27/18 1223 RPT#: [id number] DC DATE: STATUS: ADM IN [facility] [address] [place] [address] END OF REPORT
[~2018-10-26 09:14] MED LIST changes: +ENTRESTO 49 MG1 EACH PO; +ISORDIL5 MG; +NORCO 10-325 TA1 TAB PO
[2018-10-26 10:37] LABS: BASOPHILS 0.1 % (0-2); EOSINOPHILS 1.8 % (0-7); HEMATOCRIT 28.8 % (42.0-54.0); HEMOGLOBIN 8.9 g/dL (13.5-17.5); IMMATURE GRANULOCYTES 0.4 % (0-5); MCH 31.8 pg (26.0-34.0); MCHC 30.9 g/dL (31.0-37.0); MCV 102.9 fL (80.0-100.0); MONOCYTES 8.7 % (2-11); PLATELET COUNT 113 10x3/uL (130-400); RDW 16.2 % (11.5-14.5); WBC 7.1 10x3/uL (4.8-10.8)
[2018-10-26 10:42] LABS: APPEARANCE HAZY (CLEAR); BILIRUBIN NEGATIVE (NEGATIVE); COLOR DK YELLOW (YELLOW); GLUCOSE 50 mg/dL (NEGATIVE); KETONE NEGATIVE (NEGATIVE); NITRITE NEGATIVE (NEGATIVE); PROTEIN 3+ mg/dL (NEGATIVE); SPECIFIC GRAVITY 1.015 (1.005-1.020); UROBILINOGEN NORMAL (NORMAL)
[2018-10-26 10:43] LABS: AMORPHOUS SEDIMENT <1+ /lpf (NONE SEEN); BACTERIA MANY /hpf (NONE SEEN); GRANULAR CAST RARE /lpf (NONE SEEN); HYALINE CAST OCC /lpf (NONE SEEN); MUCUS <1+ /lpf (NONE SEEN); WHITE CELLS - URINE RARE /hpf (0-5)
[2018-10-26 10:49] LABS: ALBUMIN 2.5 g/dL (3.4-5.0); BILIRUBIN - TOTAL 0.36 mg/dL (0.2-1.3); CALCIUM 7.9 mg/dL (8.5-10.1); CARBON DIOXIDE 29.1 mmol/L (21.0-32.0); CREATININE - SERUM 3.8 mg/dL (0.6-1.3); POTASSIUM - SERUM 4.1 mmol/L (3.5-5.1); PROTEIN - SERUM 5.8 g/dL (6.4-8.2)
[2018-10-26 14:01] LABS: % SATURATION 19 % (15-55); IRON 46 ug/dl (35-150); TOTAL IRON BIND CAPACITY 241 ug/dl (260-445); UNSAT IRON BIND CAPACITY 195 ug/dl (150-375)
[2018-10-26 15:33] VITALS: BP 116/59; BMI 34.0
[2018-10-26] MEDS ORDERED: ISOSORBIDE MONO30 M1 PO (16:23)
[2018-10-26] MEDS ORDERED: MUCINEX DM ER1 EAC1 PO (16:29)
[2018-10-26] MEDS ORDERED: LASIX40 MG (16:29)
[2018-10-26 20:31] VITALS: BP 130/74
[2018-10-27] VITALS (12 sets, daily range): BP systolic 103–136; BP diastolic 48–82; Ht 177.8 cm; Wt 107.5 kg
[2018-10-27 05:59] LABS: BASOPHILS 0 % (0-2); EOSINOPHILS 0 % (0-7); HEMATOCRIT 32.1 % (42.0-54.0); HEMOGLOBIN 10.3 g/dL (13.5-17.5); IMMATURE GRANULOCYTES 0.5 % (0-5); LYMPHOCYTES 4.9 % (15-50); MCH 31.2 pg (26.0-34.0); MCHC 32.1 g/dL (31.0-37.0); MEAN PLATELET VOLUME 12.4 fL (7.4-10.4); MONOCYTES 3.1 % (2-11); NEUTROPHILS 91.5 % (40-80); PLATELET COUNT 116 10x3/uL (130-400); RDW 17.2 % (11.5-14.5); WBC 7.8 10x3/uL (4.8-10.8)
[2018-10-27 06:12] LABS: MCV 97.3 fL (80.0-100.0)
[2018-10-27 06:17] LABS: ANION GAP 16.9 mmol/L (8-16); CALCIUM 7.8 mg/dL (8.5-10.1); CARBON DIOXIDE 24.4 mmol/L (21.0-32.0); CREATININE - SERUM 3.8 mg/dL (0.6-1.3); POTASSIUM - SERUM 4.3 mmol/L (3.5-5.1)
[2018-10-27 08:21] LABS: FOLATE (FOLIC ACID) - SERUM >20.0 ng/mL (>3.0)
[2018-10-27 13:54] LABS: BASOPHILS 0 % (0-2); EOSINOPHILS 0 % (0-7); HEMOGLOBIN 9.7 g/dL (13.5-17.5); IMMATURE GRANULOCYTES 0.3 % (0-5); LYMPHOCYTES 3.4 % (15-50); MCH 31.7 pg (26.0-34.0); MCHC 32.3 g/dL (31.0-37.0); MEAN PLATELET VOLUME 11.7 fL (7.4-10.4); MONOCYTES 7.4 % (2-11); NEUTROPHILS 88.9 % (40-80); PLATELET COUNT 102 10x3/uL (130-400); RBC 3.06 10x6/uL (4.20-6.10); RDW 17.3 % (11.5-14.5)
[2018-10-27 13:58] LABS: ANION GAP 13.5 mmol/L (8-16); CALCIUM 7.2 mg/dL (8.5-10.1); CARBON DIOXIDE 27.4 mmol/L (21.0-32.0); CREATININE - SERUM 3.8 mg/dL (0.6-1.3); POTASSIUM - SERUM 4.9 mmol/L (3.5-5.1)
[2018-10-28 00:27] VITALS: BP 139/61
[2018-10-28 04:50] VITALS: BP 173/59
[2018-10-28 06:08] LABS: BASOPHILS 0 % (0-2); EOSINOPHILS 0 % (0-7); HEMATOCRIT 28.5 % (42.0-54.0); HEMOGLOBIN 9.2 g/dL (13.5-17.5); IMMATURE GRANULOCYTES 0.4 % (0-5); LYMPHOCYTES 4.4 % (15-50); MCH 31.2 pg (26.0-34.0); MCHC 32.3 g/dL (31.0-37.0); MCV 96.6 fL (80.0-100.0); MEAN PLATELET VOLUME 11.9 fL (7.4-10.4); MONOCYTES 11.1 % (2-11); NEUTROPHILS 84.1 % (40-80); PLATELET COUNT 94 10x3/uL (130-400); RBC 2.95 10x6/uL (4.20-6.10); RDW 17.1 % (11.5-14.5)
[2018-10-28 06:19] LABS: ANION GAP 13.7 mmol/L (8-16); CALCIUM 7.4 mg/dL (8.5-10.1); CARBON DIOXIDE 24.3 mmol/L (21.0-32.0); CREATININE - SERUM 3.6 mg/dL (0.6-1.3)
[2018-10-28 06:31] LABS: WBC 7.1 10x3/uL (4.8-10.8)
[2018-10-28 07:03] LABS: PLATELET ESTIMATE DECREASED
[2018-10-28 08:45] VITALS: BP 151/77
[2018-10-28 12:30] VITALS: BP 156/74
[2018-10-28 16:25] VITALS: BP 169/69
[2018-10-28 19:59] VITALS: BP 160/62
[2018-10-29 05:35] VITALS: BP 131/71
[2018-10-29 06:19] LABS: BASOPHILS 0 % (0-2); EOSINOPHILS 0.8 % (0-7); HEMATOCRIT 28.1 % (42.0-54.0); HEMOGLOBIN 9.1 g/dL (13.5-17.5); IMMATURE GRANULOCYTES 0.5 % (0-5); LYMPHOCYTES 4.6 % (15-50); MCH 31.6 pg (26.0-34.0); MCHC 32.4 g/dL (31.0-37.0); MCV 97.6 fL (80.0-100.0); MEAN PLATELET VOLUME 11.3 fL (7.4-10.4); MONOCYTES 13.5 % (2-11); NEUTROPHILS 80.6 % (40-80); PLATELET COUNT 88 10x3/uL (130-400); RBC 2.88 10x6/uL (4.20-6.10); RDW 16.6 % (11.5-14.5); WBC 6.5 10x3/uL (4.8-10.8)
[2018-10-29 06:40] LABS: CALCIUM 7.4 mg/dL (8.5-10.1); CARBON DIOXIDE 26.3 mmol/L (21.0-32.0); POTASSIUM - SERUM 4.3 mmol/L (3.5-5.1)
[2018-10-29 06:42] LABS: CREATININE - SERUM 2.6 mg/dL (0.6-1.3)
[2018-10-29 07:45] VITALS: BP 98/59
[2018-10-29 07:49] LABS: VANCOMYCIN - RANDOM 12.2 ug/mL (10.0-20.0)
[2018-10-29 08:11] VITALS: BP 152/61
[2018-10-29 12:30] VITALS: BP 140/55
[2018-10-29 15:38] VITALS: BP 147/55
[2018-10-29 23:06] VITALS: BP 148/67; BP 153/62
[2018-10-30 04:27] LABS: BASOPHILS 0 % (0-2); EOSINOPHILS 0 % (0-7); HEMATOCRIT 28.4 % (42.0-54.0); HEMOGLOBIN 9.2 g/dL (13.5-17.5); IMMATURE GRANULOCYTES 0.3 % (0-5); LYMPHOCYTES 4.2 % (15-50); MCHC 32.4 g/dL (31.0-37.0); MEAN PLATELET VOLUME 11.3 fL (7.4-10.4); MONOCYTES 2.3 % (2-11); NEUTROPHILS 93.2 % (40-80); PLATELET COUNT 93 10x3/uL (130-400); RBC 2.97 10x6/uL (4.20-6.10); WBC 5.8 10x3/uL (4.8-10.8)
[2018-10-30 04:28] LABS: MCV 95.6 fL (80.0-100.0)
[2018-10-30 05:00] LABS: ANION GAP 13.6 mmol/L (8-16); CREATININE - SERUM 2.2 mg/dL (0.6-1.3); MAGNESIUM - SERUM 1.7 mg/dL (1.8-2.4); PHOSPHOROUS 3.9 mg/dL (2.5-4.9); POTASSIUM - SERUM 4.6 mmol/L (3.5-5.1)
[2018-10-30 08:14] VITALS: BP 184/76
[2018-10-30 12:38] VITALS: BP 171/74
[2018-10-30 16:13] VITALS: BP 153/62
[2018-10-30 20:33] VITALS: BP 160/64
[2018-10-31 05:01] VITALS: BP 154/60
[2018-10-31 06:07] LABS: BASOPHILS 0 % (0-2); EOSINOPHILS 0.1 % (0-7); HEMATOCRIT 28.5 % (42.0-54.0); HEMOGLOBIN 9.5 g/dL (13.5-17.5); IMMATURE GRANULOCYTES 0.3 % (0-5); LYMPHOCYTES 3.8 % (15-50); MCH 31.6 pg (26.0-34.0); MCHC 33.3 g/dL (31.0-37.0); MCV 94.7 fL (80.0-100.0); MEAN PLATELET VOLUME 11.5 fL (7.4-10.4); MONOCYTES 4.1 % (2-11); NEUTROPHILS 91.7 % (40-80); RBC 3.01 10x6/uL (4.20-6.10); RDW 15.6 % (11.5-14.5); WBC 7.1 10x3/uL (4.8-10.8)
[2018-10-31 06:12] LABS: PLATELET COUNT 120 10x3/uL (130-400)
[2018-10-31 06:25] LABS: ANION GAP 12.1 mmol/L (8-16); CALCIUM 8.3 mg/dL (8.5-10.1); CARBON DIOXIDE 27.8 mmol/L (21.0-32.0); CREATININE - SERUM 2.2 mg/dL (0.6-1.3); POTASSIUM - SERUM 3.9 mmol/L (3.5-5.1)
[2018-10-31 09:21] VITALS: BP 141/81
[2018-10-31 10:02] VITALS: BP 141/81
[2018-10-31 12:03] VITALS: BP 155/74
[2018-10-31 17:12] VITALS: BP 149/64
[2018-10-31 18:03] LABS: CKMB 1.2 U/L (0.0-3.6); CREATINE KINASE 143 UL (21-232); TROPONIN-I 0.058 ng/mL (0.000-0.060)
[2018-10-31 21:01] VITALS: BP 167/76
[2018-10-31 23:56] LABS: CKMB 1.1 U/L (0.0-3.6); CREATINE KINASE 127 UL (21-232)
[2018-10-31 23:57] LABS: TROPONIN-I 0.065 ng/mL (0.000-0.060)
[2018-11-01 01:39] VITALS: BP 129/74
[2018-11-01 05:58] VITALS: BP 154/80
[2018-11-01 06:23] LABS: BASOPHILS 0 % (0-2); EOSINOPHILS 0 % (0-7); HEMATOCRIT 27.5 % (42.0-54.0); HEMOGLOBIN 9.2 g/dL (13.5-17.5); IMMATURE GRANULOCYTES 0.6 % (0-5); LYMPHOCYTES 5.1 % (15-50); MCH 31.6 pg (26.0-34.0); MCHC 33.5 g/dL (31.0-37.0); MCV 94.5 fL (80.0-100.0); MEAN PLATELET VOLUME 12.3 fL (7.4-10.4); MONOCYTES 6.3 % (2-11); PLATELET COUNT 133 10x3/uL (130-400); RBC 2.91 10x6/uL (4.20-6.10); RDW 15.5 % (11.5-14.5); WBC 6.6 10x3/uL (4.8-10.8)
[2018-11-01 06:58] LABS: ALBUMIN 1.9 g/dL (3.4-5.0); ALKALINE PHOSPHATASE 67 U/L (46-116); ALT (SGPT) 23 U/L (10-68); BILIRUBIN - TOTAL 0.48 mg/dL (0.2-1.3); CALC OSMOLALITY 303 mosm/kg (275-300); CALCIUM 7.9 mg/dL (8.5-10.1); CARBON DIOXIDE 25.7 mmol/L (21.0-32.0); CHLORIDE - SERUM 105 mmol/L (98-107); CKMB 1.1 U/L (0.0-3.6); CREATINE KINASE 111 UL (21-232); GLUCOSE 165 mg/dL (74-106); POTASSIUM - SERUM 4.2 mmol/L (3.5-5.1); PROTEIN - SERUM 5.6 g/dL (6.4-8.2); SODIUM 140 mmol/L (136-145); TROPONIN-I 0.055 ng/mL (0.000-0.060); UREA NITROGEN 72 mg/dL (7-18); eGFR NON AFRICAN AMERICAN 34 mL/min (90-120)
[2018-11-01 08:48] VITALS: BP 133/54
[2018-11-01] MEDS ORDERED: MAXIPIME 1 GM/D51 G1 IV (10:53)
[2018-11-01] MEDS ORDERED: NORCO-10 PO (10:57)
[2018-11-01] MEDS ORDERED: FUROSEMIDE10 MG/M1 IV (10:57)
[2018-11-01] MEDS ORDERED: SINGULAIR10 MG PO (10:58)
[2018-11-01] MEDS ORDERED: MUCINEX DM ER1 EAC1 PO (10:58)
[2018-11-01] MEDS ORDERED: HUMULIN R100 U/ML SC (10:58)
[2018-11-01] MEDS ORDERED: FLUTICASONE PRO16 GM NASAL (10:58)
[2018-11-01] MEDS ORDERED: DALIRESP500 MCG PO (10:58)
[2018-11-01] MEDS ORDERED: SOLU-MEDRO40 MG/1 M1 IV (10:58)
[2018-11-01] MEDS ORDERED: CYCLOBENZAPRINE10 MG PO (10:59)
[2018-11-01 12:45] VITALS: BP 167/75; BP 175/92
[2018-11-03 03:10] LABS: IMMUNOGLOBULIN E 59 IU/mL (0-100)
== END 2018-11-01 16:12 | DRG 981 ==
LOC: D.ER 09:14 → D.EDHOLD 11:37 → D.MS 11:37 → D.SDCHOLD 10-27 10:14 → D.MS 10-27 10:49
PROVIDERS: Emergency Medicine; Family Medicine; Internal Medicine Nephrology; Internal Medicine Pulmonary Disease; Orthopaedic Surgery
PROC: 0RRJ00Z Replacement of Right Shoulder Joint with Reverse Ball and Socket Synthetic Substitute, Open Approach (ICD-10-PCS; principal; 2018-10-27 07:30)
DX: N17.9 Acute kidney failure, unspecified (principal); I50.33 Acute on chronic diastolic (congestive) heart failure; J96.21 Acute and chronic respiratory failure with hypoxia; S42.201A Unspecified fracture of upper end of right humerus, initial encounter for closed fracture; J96.11 Chronic respiratory failure with hypoxia; E11.9 Type 2 diabetes mellitus without complications; I10 Essential (primary) hypertension; I25.10 Atherosclerotic heart disease of native coronary artery without angina pectoris; J44.9 Chronic obstructive pulmonary disease, unspecified; D64.9 Anemia, unspecified; M85.80 Other specified disorders of bone density and structure, unspecified site; N40.1 Benign prostatic hyperplasia with lower urinary tract symptoms; R33.8 Other retention of urine

== ENCOUNTER 2018-11-01 14:02 | Inpatient (IN) | payer MEDICARE, BC ==
[~2018-11-01] VITALS: Ht 177.8 cm; Wt 112.0 kg
--- NOTE | ~2018-11-01 | RHP ---
PATIENT: IVAN DEVINE MEDICAL RECORD: [id number] ACCOUNT: [id number] LOCATION:[facility] : [birth year] ADMISSION DATE: 11/01/18 REHABILITATION HISTORY AND PHYSICAL EXAMINATION POST ADMISSION PHYSICIAN EXAMINATION POST-ADMISSION PHYSICAL EXAMINATION AND HISTORY AND PHYSICAL DATE OF ADMISSION: 11/01/2018 ADMITTING DIAGNOSIS: Vepwd-la-ddxlexi hypoxic respiratory failure. HISTORY OF PRESENT ILLNESS: The patient is an elderly gentleman, who presents secondary to hypoxic respiratory failure. He is an 82-year-old gentleman, who has got a history of TIA, diabetes, pulmonary hypertension, heart problems, hypertension, coronary artery disease, coronary artery bypass grafting, COPD with O2 dependence, history of sleep apnea with noncompliance, got a history of bronchogenic carcinoma. He had a right hemiarthroscopy of the shoulder by Dr. Rodriguez on 10/27. He was seen by Dr. Montero for a possible UroLift procedure that was scheduled for 10/31, but canceled. He will be reevaluated after his rehab stay for possible procedure. He has been having some urinary retention, has a Ruiz catheter. He has had a prostate problem for some time. He has got postural hypertension and dizziness when getting up. He has fallen and broken several bones. In spite of his medication, he has nocturia 4-5 times nightly. He has got daytime urinary urgency and frequency and incontinence, hesitancy, slow flow, and a sense of incomplete emptying of his bladder. He has had episodes of UTIs with a significant cardiac history, though has been tough to get anything done with him. His archivist is Dr. Carmona in [place]. He has had TIAs and AAA, which has been treated with endovascular stent, renal failure, and creatinine of 3.8. He is on Eliquis. He has been having increasing shortness of breath. He has been requiring more O2. He has been having increasing wheezing, dyspnea upon activity, paroxysmal nocturnal dyspnea, orthopnea, increased leg edema, has been sleeping in a recliner most of the time. All his comorbidities listed above will require management of a physician at least 3 out of 5 days weekly and also will require rehab nursing to help with supervision and management of his current medical conditions. He is mod-to-max assist for ADLs with occupational therapy. He is total assist with ambulation, only walking 80 feet with PT. He has been seen by speech therapy for aspiration. All these are barriers to his discharge. Prior to his fall, he was moderately independent with rolling walker. He will require intensive therapy in order to return back home to his prior level of function with OT, PT, and speech therapy. Comorbidities in this patient include a fracture of the right shoulder, COPD, severe pulmonary hypertension, obstructive sleep apnea, acute kidney injury, chronic kidney disease, hyperlipidemia, thrombocytopenia, hypoglycemia, diabetes, grade I spondylolisthesis, degenerative disc problems in the past. PAST MEDICAL HISTORY: Significant for TIA, diabetes, hypertension, coronary artery disease, COPD, bronchogenic cancer, aneurysm. PAST SURGICAL HISTORY: Includes gallbladder surgery. He has had a lung lobectomy. He has had multiple cardiac stents and coronary artery bypass grafting. He has had ORIF and pinning to his left hip. ALLERGIES: MYCINS, GLUTEN, PENICILLIN, SULFA, ASPIRIN, MACROLIDES, AND HISTORY AND PHYSICAL [id number] IVAN DEVINE LEVOKYLE. CURRENT MEDICATIONS: Include vitamin D 50,000 units 3 times weekly, Benadryl 25 mg daily as needed. He is on a Solu-Medrol injection at this time with a sliding scale, Imdur 30 mg daily, glipizide 5 mg b.i.d., furosemide 60 mg daily. He is on folate 1 mg daily. He is on Flonase nasal spray daily, Ranexa 250 mg daily, Protonix 40 mg b.i.d., Celexa 20 mg daily. He is on Maxipime 1 gram daily for a total of 5 doses, Lipitor 20 mg daily, allopurinol 300 mg daily, budesonide 0.25 mg b.i.d., Brovana 15 mcg b.i.d., Humulin. He is on a low-resistant sliding scale. He is on Nitrostat 0.4 mg every 5 minutes p.r.n., Singulair 10 mg at bedtime, Atrovent 0.5 mg t.i.d., Mucinex 600 mg b.i.d., ferrous sulfate 325 b.i.d., Flexeril 5 mg t.i.d. p.r.n., Ultram 50 mg every 6 hours p.r.n., Hytrin 1 mg at bedtime. Entresto, he is on the 24/26 dose, 1 tab b.i.d. [place] 1 tab every 6 hours p.r.n., carvedilol 6.25 mg b.i.d. with meals, and Tylenol 650 mg every 4 hours p.r.n. HABITS: No current alcohol or tobacco use. FAMILY HISTORY: Noncontributory. SOCIAL HISTORY: The patient hopes to return back home and get back to his prior level of functioning. REVIEW OF SYSTEMS: GENERAL: Does complain of weakness and fatigue. HEENT: Denies cold, cough, or congestion. CARDIOVASCULAR: Denies chest pain. PHYSICAL EXAMINATION: VITAL SIGNS: Stable, afebrile. GENERAL: A morbidly obese gentleman, in no acute distress upon exam. HEENT: Normocephalic and atraumatic. Mucosa moist. NECK: Supple. No lymphadenopathy. LUNGS: Clear at this time. HEART: Regular rate and rhythm. ABDOMEN: Benign. EXTREMITIES: Does have noted peripheral edema. NEUROLOGIC: He does have noted weakness. LABORATORY DATA: His white count is 5.4, H&H of 8.9 and 27.4, and platelet count is 109. His sodium is 142, potassium 3.7, BUN and creatinine of 67 and 2.0, and blood sugar is noted to be 126. His admit UA did show trace leukocyte esterase, few bacteria. ASSESSMENT: This is an 82-year-old gentleman admitted to the rehab with a working diagnosis of acute exacerbation of chronic obstructive pulmonary disease and associated debility with multiple comorbidities. The patient has potential to make improvement. We will institute the following multidisciplinary therapies including, not limited to, physical, occupational, respiratory, speech, nutritional services, prosthetics and orthotics. Given his complex medical condition and risks for more complications, rehabilitation services cannot be provided at a low level of care such as group home facility. PLAN: 1. Admit to [facility] for intensive inpatient therapy to HISTORY AND PHYSICAL [id number] IVAN DEVINE include the following disciplines: A. Physical therapy to improve gait, all transfer skills and bed mobility to a modified independent level. B. Occupational therapy to improve activities of daily living to a modified independent level. C. Case management to assist with discharge planning and placement options. D. Nutrition to assist with nutritional needs. E. Rehabilitation nursing to assist in monitoring the patient's underlying medical conditions and to assist with any type of bowel or bladder management. 2. The patient's current medications and medical care will be continued. 3. The patient will be placed on standard fall precautions. 4. We will watch his blood pressure closely with Entresto. We will have to adjust diuretics as needed. 5. I am going to follow up in the morning. TRANSINT:[id number] Voice Confirmation ID: [id number] DOCUMENT ID: [id number] FABIEN notes whether there has been none or any medical/functional change since admission: - No change since the PAS FABIEN attests patient continues to be appropriate for IRF: - Remains appropriate for the ARU ANDRAE GREGORIO MD at 1132 CC: [id number] DICTATION DATE: 11/02/18910 BEAUTY DIRECTOR: 11/02/18 1121 ADM IN [facility] [address] [place] [address]
[~2018-11-01 14:02] MED LIST changes: +CYCLOBENZAPRINE10 MG PO; +DALIRESP500 MCG PO; +FLUTICASONE PRO16 GM NASAL; +FUROSEMIDE10 MG/M1 IV; +HUMULIN R100 U/ML SC; +ISOSORBIDE MONO30 M1 PO; +LASIX40 MG; +MAXIPIME 1 GM/D51 G1 IV; +MUCINEX DM ER1 EAC1 PO; +NORCO-10 PO; +SOLU-MEDRO40 MG/1 M1 IV
[2018-11-01 19:00] VITALS: BP 122/56
[2018-11-01 20:10] VITALS: BP 122/56; BMI 35.5
[2018-11-02 00:38] LABS: APPEARANCE HAZY (CLEAR); BILIRUBIN NEGATIVE (NEGATIVE); COLOR YELLOW (YELLOW); GLUCOSE 100 mg/dL (NEGATIVE); KETONE NEGATIVE (NEGATIVE); NITRITE NEGATIVE (NEGATIVE); PROTEIN 3+ mg/dL (NEGATIVE); SPECIFIC GRAVITY 1.015 (1.005-1.020); UROBILINOGEN NORMAL (NORMAL)
[2018-11-02 00:44] LABS: BACTERIA FEW /hpf (NONE SEEN); EPITHELIAL CELLS 0-5 /hpf (0-5); WHITE CELLS - URINE 0-5 /hpf (0-5)
[2018-11-02 06:58] LABS: BASOPHILS 0 % (0-2); EOSINOPHILS 0 % (0-7); HEMATOCRIT 27.4 % (42.0-54.0); HEMOGLOBIN 8.9 g/dL (13.5-17.5); IMMATURE GRANULOCYTES 0.9 % (0-5); LYMPHOCYTES 3.9 % (15-50); MCH 30.5 pg (26.0-34.0); MCHC 32.5 g/dL (31.0-37.0); MCV 93.8 fL (80.0-100.0); MEAN PLATELET VOLUME 10.6 fL (7.4-10.4); MONOCYTES 8.2 % (2-11); PLATELET COUNT 109 10x3/uL (130-400); RBC 2.92 10x6/uL (4.20-6.10); RDW 15.1 % (11.5-14.5); WBC 5.4 10x3/uL (4.8-10.8)
[2018-11-02 07:07] LABS: ANION GAP 12.3 mmol/L (8-16); CALCIUM 7.6 mg/dL (8.5-10.1); CARBON DIOXIDE 27.4 mmol/L (21.0-32.0); POTASSIUM - SERUM 3.7 mmol/L (3.5-5.1)
[2018-11-02 08:00] VITALS: BP 154/61
[2018-11-02 13:31] VITALS: Ht 177.8 cm; Wt 112.0 kg
[2018-11-03 02:29] VITALS: BP 159/72
[2018-11-03 06:58] LABS: BASOPHILS 0 % (0-2); EOSINOPHILS 0 % (0-7); HEMATOCRIT 27.8 % (42.0-54.0); IMMATURE GRANULOCYTES 1.7 % (0-5); LYMPHOCYTES 3.2 % (15-50); MCH 30.4 pg (26.0-34.0); MCHC 32.4 g/dL (31.0-37.0); MCV 93.9 fL (80.0-100.0); MEAN PLATELET VOLUME 11.9 fL (7.4-10.4); MONOCYTES 6.7 % (2-11); NEUTROPHILS 88.4 % (40-80); PLATELET COUNT 122 10x3/uL (130-400); RBC 2.96 10x6/uL (4.20-6.10); RDW 15.1 % (11.5-14.5); WBC 6.3 10x3/uL (4.8-10.8)
[2018-11-03 07:50] LABS: CALCIUM 7.8 mg/dL (8.5-10.1); CARBON DIOXIDE 26.7 mmol/L (21.0-32.0); CREATININE - SERUM 1.7 mg/dL (0.6-1.3); POTASSIUM - SERUM 3.7 mmol/L (3.5-5.1)
[2018-11-03 08:00] VITALS: BP 163/72
[2018-11-03 19:00] VITALS: BP 160/66
[2018-11-04 08:00] VITALS: BP 170/93
[2018-11-04 19:00] VITALS: BP 165/76
[2018-11-05 12:18] VITALS: BP 124/49
[2018-11-05 19:00] VITALS: BP 115/49
[2018-11-06 07:04] LABS: BASOPHILS 0.2 % (0-2); EOSINOPHILS 1.9 % (0-7); HEMATOCRIT 30.3 % (42.0-54.0); HEMOGLOBIN 9.7 g/dL (13.5-17.5); IMMATURE GRANULOCYTES 5.4 % (0-5); LYMPHOCYTES 5.5 % (15-50); MCH 30.8 pg (26.0-34.0); MCV 96.2 fL (80.0-100.0); MEAN PLATELET VOLUME 10.6 fL (7.4-10.4); MONOCYTES 8.9 % (2-11); NEUTROPHILS 78.1 % (40-80); PLATELET COUNT 116 10x3/uL (130-400); RBC 3.15 10x6/uL (4.20-6.10); RDW 15.6 % (11.5-14.5); WBC 9.3 10x3/uL (4.8-10.8)
[2018-11-06 07:23] LABS: ANION GAP 12.4 mmol/L (8-16); CALCIUM 8.2 mg/dL (8.5-10.1); CARBON DIOXIDE 28.3 mmol/L (21.0-32.0); CREATININE - SERUM 2.2 mg/dL (0.6-1.3); POTASSIUM - SERUM 3.7 mmol/L (3.5-5.1)
[2018-11-06 08:13] VITALS: BP 129/45
[2018-11-06 19:00] VITALS: BP 128/59
[2018-11-07 08:35] VITALS: BP 130/51
[2018-11-07 19:00] VITALS: BP 150/60
[2018-11-08 07:19] LABS: BASOPHILS 0 % (0-2); EOSINOPHILS 2.1 % (0-7); HEMATOCRIT 28.2 % (42.0-54.0); HEMOGLOBIN 9.2 g/dL (13.5-17.5); IMMATURE GRANULOCYTES 3.5 % (0-5); LYMPHOCYTES 6.1 % (15-50); MCH 30.8 pg (26.0-34.0); MCHC 32.6 g/dL (31.0-37.0); MCV 94.3 fL (80.0-100.0); MEAN PLATELET VOLUME 12.1 fL (7.4-10.4); MONOCYTES 6.9 % (2-11); NEUTROPHILS 81.4 % (40-80); PLATELET COUNT 123 10x3/uL (130-400); RBC 2.99 10x6/uL (4.20-6.10); RDW 15.5 % (11.5-14.5)
[2018-11-08 07:23] LABS: ANION GAP 11.9 mmol/L (8-16); CALCIUM 8.3 mg/dL (8.5-10.1); POTASSIUM - SERUM 3.9 mmol/L (3.5-5.1)
[2018-11-08 08:00] VITALS: BP 139/52
[2018-11-08 19:00] VITALS: BP 155/58
[2018-11-09 08:00] VITALS: BP 142/50
[2018-11-09 19:00] VITALS: BP 121/56
[2018-11-10 07:11] LABS: BASOPHILS 0 % (0-2); EOSINOPHILS 3.1 % (0-7); HEMATOCRIT 27.8 % (42.0-54.0); HEMOGLOBIN 8.9 g/dL (13.5-17.5); IMMATURE GRANULOCYTES 2.2 % (0-5); LYMPHOCYTES 6.3 % (15-50); MCH 30.7 pg (26.0-34.0); MCV 95.9 fL (80.0-100.0); MEAN PLATELET VOLUME 12.1 fL (7.4-10.4); MONOCYTES 9.8 % (2-11); NEUTROPHILS 78.6 % (40-80); PLATELET COUNT 117 10x3/uL (130-400); RDW 15.8 % (11.5-14.5); WBC 6.8 10x3/uL (4.8-10.8)
[2018-11-10 07:20] LABS: ANION GAP 11.5 mmol/L (8-16); CALCIUM 8.4 mg/dL (8.5-10.1); CARBON DIOXIDE 27.3 mmol/L (21.0-32.0); CREATININE - SERUM 2.1 mg/dL (0.6-1.3); POTASSIUM - SERUM 3.8 mmol/L (3.5-5.1)
[2018-11-10 08:00] VITALS: BP 152/84
[2018-11-10 19:00] VITALS: BP 138/49
[2018-11-11 07:36] LABS: ANION GAP 11.1 mmol/L (8-16); CARBON DIOXIDE 28.7 mmol/L (21.0-32.0); POTASSIUM - SERUM 3.8 mmol/L (3.5-5.1)
[2018-11-11 20:19] VITALS: BP 133/38
[2018-11-12 09:38] VITALS: BP 154/59
[2018-11-12 23:38] VITALS: BP 140/55
[2018-11-13 07:28] VITALS: BP 111/60
[2018-11-13 13:34] LABS: BASOPHILS 0.2 % (0-2); EOSINOPHILS 2.1 % (0-7); HEMATOCRIT 31.3 % (42.0-54.0); IMMATURE GRANULOCYTES 1.6 % (0-5); LYMPHOCYTES 6.8 % (15-50); MCH 30.8 pg (26.0-34.0); MCHC 31.9 g/dL (31.0-37.0); MCV 96.3 fL (80.0-100.0); MEAN PLATELET VOLUME 12.3 fL (7.4-10.4); MONOCYTES 9.1 % (2-11); NEUTROPHILS 80.2 % (40-80); PLATELET COUNT 112 10x3/uL (130-400); RBC 3.25 10x6/uL (4.20-6.10); RDW 15.4 % (11.5-14.5); WBC 5.7 10x3/uL (4.8-10.8)
[2018-11-13 19:02] VITALS: BP 150/61
[2018-11-14 07:55] VITALS: BP 162/66
[2018-11-14 19:50] VITALS: BP 172/67
[2018-11-15 06:13] LABS: BASOPHILS 0.2 % (0-2); EOSINOPHILS 2.2 % (0-7); HEMATOCRIT 28.5 % (42.0-54.0); IMMATURE GRANULOCYTES 0.7 % (0-5); LYMPHOCYTES 8.5 % (15-50); MCH 30.4 pg (26.0-34.0); MCHC 31.6 g/dL (31.0-37.0); MCV 96.3 fL (80.0-100.0); MEAN PLATELET VOLUME 11.9 fL (7.4-10.4); MONOCYTES 9.3 % (2-11); NEUTROPHILS 79.1 % (40-80); PLATELET COUNT 113 10x3/uL (130-400); RBC 2.96 10x6/uL (4.20-6.10); RDW 15.4 % (11.5-14.5); WBC 5.9 10x3/uL (4.8-10.8)
[2018-11-15 06:35] LABS: ANION GAP 12.8 mmol/L (8-16); CALCIUM 8.3 mg/dL (8.5-10.1); CARBON DIOXIDE 28.3 mmol/L (21.0-32.0); CREATININE - SERUM 1.7 mg/dL (0.6-1.3); POTASSIUM - SERUM 3.1 mmol/L (3.5-5.1)
[2018-11-15 08:00] VITALS: BP 156/69
[2018-11-15 20:00] VITALS: BP 126/63
[2018-11-16 08:00] VITALS: BP 154/64
[2018-11-16 19:00] VITALS: BP 151/68
[2018-11-17 08:00] VITALS: BP 168/48
[2018-11-17 08:33] LABS: BASOPHILS 0 % (0-2); EOSINOPHILS 2.9 % (0-7); HEMATOCRIT 25.7 % (42.0-54.0); HEMOGLOBIN 8.1 g/dL (13.5-17.5); LYMPHOCYTES 9.8 % (15-50); MCH 30.3 pg (26.0-34.0); MCHC 31.5 g/dL (31.0-37.0); MCV 96.3 fL (80.0-100.0); MEAN PLATELET VOLUME 11.3 fL (7.4-10.4); MONOCYTES 5.8 % (2-11); NEUTROPHILS 80.5 % (40-80); PLATELET COUNT 97 10x3/uL (130-400); RBC 2.67 10x6/uL (4.20-6.10); RDW 15.5 % (11.5-14.5); WBC 4.8 10x3/uL (4.8-10.8)
[2018-11-17 08:46] LABS: ANION GAP 13.2 mmol/L (8-16); CALCIUM 8.6 mg/dL (8.5-10.1); CARBON DIOXIDE 28.2 mmol/L (21.0-32.0); CREATININE - SERUM 1.7 mg/dL (0.6-1.3); POTASSIUM - SERUM 3.4 mmol/L (3.5-5.1)
[2018-11-17] MEDS ORDERED: LASIX20 MG PO (08:47)
[2018-11-17] MEDS ORDERED: K-DUR20 MEQ PO (08:47)
== END 2018-11-17 11:02 | DRG 947 ==
LOC: D.REHAB 14:02
PROVIDERS: Emergency Medicine
DX: R53.81 Other malaise (principal); J96.21 Acute and chronic respiratory failure with hypoxia; J44.1 Chronic obstructive pulmonary disease with (acute) exacerbation; N17.9 Acute kidney failure, unspecified; E11.22 Type 2 diabetes mellitus with diabetic chronic kidney disease; I12.9 Hypertensive chronic kidney disease with stage 1 through stage 4 chronic kidney disease, or unspecified chronic kidney disease; N18.9 Chronic kidney disease, unspecified; G47.33 Obstructive sleep apnea (adult) (pediatric); E78.5 Hyperlipidemia, unspecified; D69.6 Thrombocytopenia, unspecified; E11.649 Type 2 diabetes mellitus with hypoglycemia without coma; M43.10 Spondylolisthesis, site unspecified; I27.20 Pulmonary hypertension, unspecified; R33.9 Retention of urine, unspecified; Z95.1 Presence of aortocoronary bypass graft; S42.91XD Fracture of right shoulder girdle, part unspecified, subsequent encounter for fracture with routine healing; I25.10 Atherosclerotic heart disease of native coronary artery without angina pectoris; D64.9 Anemia, unspecified; E11.21 Type 2 diabetes mellitus with diabetic nephropathy; E11.40 Type 2 diabetes mellitus with diabetic neuropathy, unspecified

== ENCOUNTER 2019-01-18 07:35 | Day surgery (SDC) | payer MEDICARE, BC ==
[2019-01-16 12:18] LABS: ANION GAP 16.1 mmol/L (8-16); CALCIUM 8.2 mg/dL (8.5-10.1); CARBON DIOXIDE 26.2 mmol/L (21.0-32.0); CREATININE - SERUM 1.5 mg/dL (0.6-1.3); POTASSIUM - SERUM 3.3 mmol/L (3.5-5.1)
[2019-01-16 12:37] LABS: HEMATOCRIT 29.1 % (42.0-54.0); HEMOGLOBIN 8.8 g/dL (13.5-17.5); MCH 28.3 pg (26.0-34.0); MCHC 30.2 g/dL (31.0-37.0); MCV 93.6 fL (80.0-100.0); MEAN PLATELET VOLUME 11.2 fL (7.4-10.4); RBC 3.11 10x6/uL (4.20-6.10); RDW 16.5 % (11.5-14.5); WBC 5.6 10x3/uL (4.8-10.8)
[~2019-01-18] VITALS: Ht 177.8 cm; Wt 91.2 kg
[~2019-01-18 07:35] MED LIST changes: +CRANBERRY PO; +IMODIUM2 MG PO; +K-DUR20 MEQ PO; +LASIX20 MG PO; +VITAMIN B-12500 MC1 PO
--- NOTE | 2019-01-18 08:00 | NUR ---
SHOWED DR GU ABNORMAL EKG, DR GU AT BEDSIDE AT THIS TIME TO SPEAK AND EVALUATE PT. AFTER DISCUSSION WITH PT, DR GU STATES TO PROCEDE WITH PROCEDURE.
[2019-01-18] MEDS ORDERED: HYTRIN1 MG PO (08:30)
[2019-01-18 08:42] VITALS: BP 158/59; Ht 177.8 cm; Wt 91.2 kg
--- NOTE | 2019-01-18 13:10 | OP ---
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 IV access is 23 and quality of life score is 4, on terazosin. PROCEDURE: UroLift times 4 implant. FINDINGS: Bilateral lateral lobe hyperplasia. No median lobe of the prostate. Single ureteral orifices bilaterally with no bladder tumors. ESTIMATED BLOOD LOSS: Minimal. CLINICAL HISTORY: This is an 83-year-old male, who fell and fractured his right humerus. He had a right hemiarthroplasty of the shoulder by Dr. Lee in October of 2018. Since that time, he has been in urinary retention. He has a long history of BPH and he has been on tamsulosin for years. His IPSS score was 23 and quality of life is 4. This was with the patient on terazosin. He did not allow me to perform a rectal examination until he was asleep and today, I did perform a rectal examination, his prostate size is about 30 grams on ROSETTA. HE HAS MULTIPLE DRUG ALLERGIES INCLUDING ASPIRIN, GLUTEN, LEVAQUIN, PENICILLIN, SULFA, AND ERYTHROMYCIN. We gave him clindamycin IV lining ironer to the OR. DESCRIPTION OF PROCEDURE: The patient was given IV sedation. He was placed in the dorsal lithotomy position. His old Ruiz catheter was removed. He was then prepped and draped. We placed the cystoscope in and the findings are as outlined above. About 1.5 cm distal to the bladder neck we placed 1 unit on each side at the anterior lateral lobes. Then, at the level of the verumontanum, we placed 2 more units one on each side. He now has a wide open anterior urethra. The bladder was emptied through the scope and the scope was removed. A 16-[place] Ruiz catheter was reintroduced into the bladder. This is to allow him to get over the effects of anesthesia as well as any tissue edema, which may occur from the surgery. I will see him next week in the office for a voiding trial. TRANSINT:[id number] Voice Confirmation ID: [id number] DOCUMENT ID: [id number] PATRICK SERVIN MD at 1310 CC: [id number] DICTATION DATE: 01/18/19 1044 JOURNAL ENTRY AUDIT CLERK: 01/18/19 1248 [facility] [place] [id number] [place] [id number]
== END 2019-01-18 12:20 | disposition home or self-care (01) ==
LOC: D.OPS 07:35 → D.PAN 11:30 → D.OPS 11:30 → D.PAN 13:00
PROVIDERS: Anesthesiology; ATTEND Urology
DX: N40.1 Benign prostatic hyperplasia with lower urinary tract symptoms (principal); N13.8 Other obstructive and reflux uropathy; R33.8 Other retention of urine; Z53.09 Procedure and treatment not carried out because of other contraindication; Z01.812 Encounter for preprocedural laboratory examination

== ENCOUNTER 2019-01-21 09:06 | Inpatient (IN) | payer MEDICARE, BC ==
[~2019-01-21] VITALS: Ht 177.8 cm; Wt 104.8 kg
[2019-01-21 09:52] LABS: BASOPHILS 0.3 % (0-2); EOSINOPHILS 3.3 % (0-7); HEMATOCRIT 29.1 % (42.0-54.0); IMMATURE GRANULOCYTES 0.7 % (0-5); LYMPHOCYTES 15.5 % (15-50); MCH 28.8 pg (26.0-34.0); MCHC 30.9 g/dL (31.0-37.0); MEAN PLATELET VOLUME 11.2 fL (7.4-10.4); MONOCYTES 10.1 % (2-11); NEUTROPHILS 70.1 % (40-80); PLATELET COUNT 184 10x3/uL (130-400); RBC 3.13 10x6/uL (4.20-6.10); RDW 16.6 % (11.5-14.5); WBC 6.1 10x3/uL (4.8-10.8)
[2019-01-21 10:13] LABS: APPEARANCE CLEAR (CLEAR); BILIRUBIN NEGATIVE (NEGATIVE); COLOR YELLOW (YELLOW); GLUCOSE NEGATIVE (NEGATIVE); KETONE NEGATIVE (NEGATIVE); NITRITE NEGATIVE (NEGATIVE); PROTEIN 2+ mg/dL (NEGATIVE); SPECIFIC GRAVITY 1.015 (1.005-1.020); UROBILINOGEN NORMAL (NORMAL)
[2019-01-21 10:14] LABS: BACTERIA FEW /hpf (NONE SEEN); EPITHELIAL CELLS 0-5 /hpf (0-5); RED CELLS - URINE 0-5 /hpf (0-5)
[2019-01-21 10:29] LABS: ALBUMIN 2.3 g/dL (3.4-5.0); ALKALINE PHOSPHATASE 90 U/L (46-116); ALT (SGPT) 18 U/L (10-68); BILIRUBIN - TOTAL 0.36 mg/dL (0.2-1.3); CALC OSMOLALITY 285 mosm/kg (275-300); CALCIUM 7.9 mg/dL (8.5-10.1); CARBON DIOXIDE 29.6 mmol/L (21.0-32.0); CHLORIDE - SERUM 103 mmol/L (98-107); CREATININE - SERUM 1.6 mg/dL (0.6-1.3); POTASSIUM - SERUM 3.3 mmol/L (3.5-5.1); PROTEIN - SERUM 6.5 g/dL (6.4-8.2); SODIUM 141 mmol/L (136-145); UREA NITROGEN 23 mg/dL (7-18); eGFR NON AFRICAN AMERICAN 44 mL/min (90-120)
[2019-01-21 10:32] LABS: GLUCOSE 118 mg/dL (74-106)
[2019-01-21 10:42] LABS: CREATINE KINASE 59 UL (21-232); TROPONIN-I 0.027 ng/mL (0.000-0.060)
[2019-01-21 10:48] VITALS: BP 149/73
--- NOTE | 2019-01-21 10:49 | NUR ---
PATIENT SLEEPING, RESPIRATIONS EVEN AND UNLABORED. COLOR WNL FOR RACE. FAMILY AT BEDSIDE. UPDATED ON PLAN OF CARE AND DELAYS IN CARE. WILL CONTINUE TO MONITOR.
[2019-01-21 13:29] VITALS: BP 147/69
[2019-01-21 14:28] VITALS: BP 151/74
--- NOTE | 2019-01-21 14:36 | MORECARE ---
CASE MANAGEMENT DISCHARGE SUMMARY PATIENT: IVAN DEVINE UNIT: [id number] ADM DATE: 01/21/19 AGE: 83 : 36 SEX: M ROOM/BED: D.2239 AUTHOR: MARLY HUITRON PHYSICIAN: REFERRING PHYSICIAN: IZABELLA HARGROVE MD DATE OF SERVICE: 01/21/19 Discharge Plan Patient Name: IVAN DEVINE [facility] [facility] 1935 Planned Disposition: Home Anticipated Discharge Date: 01/23/19 Discharge Date: Expected LOS: 2 Initial Reviewer: [email or web address] Initial Review Date: 01/21/2019 Generated: 01/21/19 3:36 pm DCPIA - Discharge Planning Initial Assessment Updated by [email or web address]: Yareli Topete on 01/21/19 2:35 pm * Is the patient Alert and Oriented? Yes * How many steps to enter\exit or inside your home? None * PCP Dr. Khanna in [place] * Pharmacy [facility] in [place] * Preadmission Environment Home with Family * ADLs Partial Dependent * Partial ADLs (Assistance needed) Medication Management * Equipment Oxygen Rolling Walker Wheelchair * List name and contact numbers for known caregivers / representatives who currently or will assist patient after discharge: Claribel Gordon - daughter - [phone] * Verbal permission to speak to the caregivers and representatives has been obtained from the patient. Yes * Community resources currently utilized Home Health * Please name any agencies selected above. Patient can't remember name of her agency. * Additional services required to return to the preadmission environment? No * Can the patient safely return to the preadmission environment? Yes * Has this patient been hospitalized within the prior 30 days at any hospital? No Patient Name: IVAN DEVINE Page [id number] at 1436 All edits/amendments must be made on the electronic document DICTATION DATE: 01/21/19 1435 CLINICAL RESOURCE MANAGER: REJI 01/21/19 1435 RPT#: [id number] DC DATE: STATUS: ADM IN [place] [address] [place] [address] END OF REPORT
--- NOTE | 2019-01-21 14:42 | MORECARE ---
CASE MANAGEMENT DISCHARGE SUMMARY PATIENT: IVAN DEVINE UNIT: [id number] ADM DATE: 01/21/19 AGE: 83 : 36 SEX: M ROOM/BED: D.2239 AUTHOR: MARLY HUITRON PHYSICIAN: REFERRING PHYSICIAN: IZABELLA HARGROVE MD DATE OF SERVICE: 01/21/19 Discharge Plan Patient Name: IVAN DEVINE Facility: [facility]:[place] : 1935 Planned Disposition: Home Anticipated Discharge Date: 01/23/19 Discharge Date: Expected LOS: 2 Initial Reviewer: [email or web address] Initial Review Date: 01/21/2019 Generated: 01/21/19 3:42 pm DCP- Discharge Planning Updated by [email or web address]: Yareli Topete on 01/21/19 1:[address] Patient Name: IVAN DEVINE Admission Status: ER Accout number: [id number] Admission Date: 01-21-2019 : 1935 Admission Diagnosis: Attending: IZABELLA HARGROVE Current LOS: 1 Anticipated DC Date: 01-23-2019 Planned Disposition: Home Primary Insurance: MEDICARE A & B Discharge Planning Comments: CM met with patient to complete initial dc planning assessment. CM educated patient on the CM role and verbal consent given by patient to complete assessment. Patient lives at home with his daughter. He requires assistance with medication and cooking. At discharge patient plans to return home to his daughter's and feels this is a safe discharge. CM discussed availability of home health, rehab services, and medical equipment. He reports he has home health but cant remember the name of his home health agency. Patient denied further known discharge needs at this time. CM will continue to follow and will assist as needed with dc plans/needs. Diesel Motor Mechanic: Yareli Topete RN, [facility] DCPIA - Discharge Planning Initial Assessment Updated by [email or web address]: Yareli Topete on 01/21/19 2:35 pm * Is the patient Alert and Oriented? Yes * How many steps to enter\exit or inside your home? None * PCP Dr. Khanna in [place] * [facility] [place] * Preadmission Environment Home with Family * ADLs Partial Dependent * Partial ADLs (Assistance needed) Medication Management * Equipment Oxygen Rolling Walker Wheelchair * List name and contact numbers for known caregivers / representatives who currently or will assist patient after discharge: Claribel Gordon - daughter - [phone] * Verbal permission to speak to the caregivers and representatives has been obtained from the patient. Yes * Community resources currently utilized Home Health * Please name any agencies selected above. Patient can't remember name of her HH agency. * Additional services required to return to the preadmission environment? No * Can the patient safely return to the preadmission environment? Yes * Has this patient been hospitalized within the prior 30 days at any hospital? No Last DP export: 01/21/19 1:36 pm Patient Name: IVAN DEVINE Page [phone] at 1442 All edits/amendments must be made on the electronic document DICTATION DATE: 01/21/191441 COFFEE ATTENDANT: REJI 01/21/191441 RPT#: [id number] DC DATE: STATUS: ADM IN [facility] [address] [place] [address] END OF REPORT
[2019-01-21 14:59] LABS: % SATURATION 14 % (15-55); IRON 33 ug/dl (35-150); TOTAL IRON BIND CAPACITY 227 ug/dl (260-445); UNSAT IRON BIND CAPACITY 194 ug/dl (150-375)
--- NOTE | 2019-01-21 15:07 | NUR ---
BROUGHT VIA STRETCHER, AAOX4. 02 PRESENT AT 2LPM VIA NC. IV IN LEFT FOREARM, PATENT, SALINE LOCKED, AMBULATORY WITH WALKER AND ASSIST, TRUONG CATHETER, WITH LEG BAG, DENIES ANY CURRENT NEEDS OR DISCOMFORTS, BED LOWERED AND LOCKED, CALL LIGHT WITHIN REACH. CPOC
--- NOTE | 2019-01-21 15:48 | NUR ---
TRUONG CATHTER DISCONTINUED PER VERBAL ORDER FROM DR. SERVIN. INSTRUCTED PT HE NEEDED TO URINATE WITHIN 8 HOURS OR RECATHERIZATION MAY BE REQUIRED. ALSO REQUESTED HE URINATE IN A URINAL SO THAT ACCURATE OUTPUT CAN BE DETERMINED. VERBALIZES UNDERSTANDING. DENIES ANY QUESTIONS. OFF UNIT WITH HOSPTIAL STAFF FOR LUNG SCAN.
--- NOTE | 2019-01-21 17:14 | NUR ---
SITTING UP IN CHAIR, EVEN UNLABORED BREATHING, 02 PRESENT VIA NC AT 2LPM, PROVIDED NON-SKID SOCKS, IV IN LEFT FOREARM, PATENT, SALINE LOCKED, DENIES ANY CURRENT NEEDS OR DISCOMFORTS, BED LOWERED AND LOCKED, CALL LIGHT WITHIN REACH. CPOC
[2019-01-21 17:16] VITALS: BP 182/92
--- NOTE | 2019-01-21 19:15 | NUR ---
RECIEVED CARE FROM DAY NURSE. LYING IN BED. NO DISTRESS NOTED. CALL LIGHT AT SIDE. IV IN PLACE AND INTACT.
[2019-01-21 20:23] VITALS: BP 140/77
[2019-01-22 00:07] VITALS: BP 140/77; BMI 33.2
[2019-01-22 00:18] VITALS: BP 155/73
[2019-01-22 04:27] VITALS: BP 121/76
[2019-01-22 07:31] LABS: BASOPHILS 0.4 % (0-2); EOSINOPHILS 4.1 % (0-7); HEMATOCRIT 28.8 % (42.0-54.0); HEMOGLOBIN 8.7 g/dL (13.5-17.5); LYMPHOCYTES 15.5 % (15-50); MCH 28.2 pg (26.0-34.0); MCHC 30.2 g/dL (31.0-37.0); MCV 93.5 fL (80.0-100.0); MEAN PLATELET VOLUME 11.5 fL (7.4-10.4); MONOCYTES 11.2 % (2-11); NEUTROPHILS 67.8 % (40-80); PLATELET COUNT 190 10x3/uL (130-400); RBC 3.08 10x6/uL (4.20-6.10); RDW 16.8 % (11.5-14.5); WBC 5.2 10x3/uL (4.8-10.8)
--- NOTE | 2019-01-22 07:45 | NUR ---
PATIENT ADMITTED FOR PNEUMONIA, RENAL FAILURE, CHF, COPD. PATIENT ALERT AND ORIENTED. 02 2L NC, RESPIRATIONS NON-LABORED. CL IN REACH
[2019-01-22 07:57] LABS: ALBUMIN 2.2 g/dL (3.4-5.0); ANION GAP 13.9 mmol/L (8-16); BILIRUBIN - TOTAL 0.33 mg/dL (0.2-1.3); CALCIUM 8.2 mg/dL (8.5-10.1); CARBON DIOXIDE 31.6 mmol/L (21.0-32.0); CREATININE - SERUM 1.6 mg/dL (0.6-1.3); POTASSIUM - SERUM 3.5 mmol/L (3.5-5.1); TROPONIN-I 0.024 ng/mL (0.000-0.060)
[2019-01-22 08:22] VITALS: BP 174/79
[2019-01-22 12:28] VITALS: BP 173/69
[2019-01-22 14:59] VITALS: BMI 33.1
[2019-01-22 16:37] VITALS: BP 146/68
[2019-01-22 18:46] VITALS: Ht 177.8 cm; Wt 104.8 kg
[2019-01-23] VITALS: BP 162/78
--- NOTE | 2019-01-23 00:30 | NUR ---
PT REPORTS INABILITY TO SLEEP. REPORTS HE CAN'T SLEEP DUE TO FREQUENT URINATION. INFORMED PT HIS LASIX MEDICATION MAY BE CONTRIBUTING AND THAT MAYBE WE SHOULD MENTION TO DR TO CHANGE TIME OF LASIX. PT VERBALIZED UNDERSTANDING. WILL CONTINUE TO MONITOR.
[2019-01-23 04:00] VITALS: BP 140/97
[2019-01-23 05:47] LABS: BASOPHILS 0.2 % (0-2); EOSINOPHILS 1.4 % (0-7); HEMATOCRIT 29.5 % (42.0-54.0); IMMATURE GRANULOCYTES 1.2 % (0-5); LYMPHOCYTES 11.5 % (15-50); MCH 28.5 pg (26.0-34.0); MCHC 30.5 g/dL (31.0-37.0); MCV 93.4 fL (80.0-100.0); MEAN PLATELET VOLUME 11.7 fL (7.4-10.4); MONOCYTES 7.3 % (2-11); NEUTROPHILS 78.4 % (40-80); PLATELET COUNT 222 10x3/uL (130-400); RBC 3.16 10x6/uL (4.20-6.10); RDW 16.8 % (11.5-14.5)
[2019-01-23 05:51] LABS: WBC 8.3 10x3/uL (4.8-10.8)
[2019-01-23 06:19] LABS: ALBUMIN 2.3 g/dL (3.4-5.0); ANION GAP 17.8 mmol/L (8-16); BILIRUBIN - TOTAL 0.29 mg/dL (0.2-1.3); CALCIUM 8.5 mg/dL (8.5-10.1); CARBON DIOXIDE 25.6 mmol/L (21.0-32.0); CREATININE - SERUM 1.8 mg/dL (0.6-1.3); POTASSIUM - SERUM 3.4 mmol/L (3.5-5.1); PROTEIN - SERUM 6.4 g/dL (6.4-8.2)
--- NOTE | 2019-01-23 08:03 | NUR ---
I have reviewed this patient and I concur with the Shift Assessment completed by the Licensed Practical Nurse today this shift.
[2019-01-23 08:21] LABS: FOLATE (FOLIC ACID) - SERUM >20.0 ng/mL (>3.0)
[2019-01-23 09:24] VITALS: BP 130/54
[2019-01-23 12:00] VITALS: BP 154/74
[2019-01-23 17:43] VITALS: BP 173/80
--- NOTE | 2019-01-23 21:00 | NUR ---
LEFT SIDE-LYING IN BED, SPONTANEOUS EYE OPENING UPON VERBAL STIMULATION. STATES HE FEELS BETTER TONIGHT AND ACTUALLY GOT SOME SLEEP TODAY. DENIES PAIN, 2.5L O2 IN USE. VS STABLE. WILL CONTINUE TO MONITOR.
[2019-01-23 21:48] VITALS: BP 133/70
[2019-01-24 04:00] VITALS: BP 138/68
[2019-01-24 04:58] LABS: BASOPHILS 0.3 % (0-2); EOSINOPHILS 1.6 % (0-7); HEMATOCRIT 29.8 % (42.0-54.0); HEMOGLOBIN 8.9 g/dL (13.5-17.5); IMMATURE GRANULOCYTES 1.3 % (0-5); LYMPHOCYTES 13.3 % (15-50); MCH 28.3 pg (26.0-34.0); MCHC 29.9 g/dL (31.0-37.0); MCV 94.6 fL (80.0-100.0); MEAN PLATELET VOLUME 11.6 fL (7.4-10.4); MONOCYTES 10.3 % (2-11); NEUTROPHILS 73.2 % (40-80); RBC 3.15 10x6/uL (4.20-6.10); RDW 16.8 % (11.5-14.5)
[2019-01-24 05:09] LABS: PLATELET COUNT 176 10x3/uL (130-400); WBC 6.1 10x3/uL (4.8-10.8)
[2019-01-24 05:17] LABS: ALBUMIN 2.4 g/dL (3.4-5.0); ANION GAP 12.6 mmol/L (8-16); BILIRUBIN - TOTAL 0.24 mg/dL (0.2-1.3); CALCIUM 8.4 mg/dL (8.5-10.1); CARBON DIOXIDE 30.5 mmol/L (21.0-32.0); CREATININE - SERUM 1.7 mg/dL (0.6-1.3); POTASSIUM - SERUM 4.1 mmol/L (3.5-5.1); PROTEIN - SERUM 6.1 g/dL (6.4-8.2)
--- NOTE | 2019-01-24 07:57 | NUR ---
I have reviewed this patient and I concur with the Shift Assessment completed by the Licensed Practical Nurse today this shift.
[2019-01-24 08:39] VITALS: BP 147/76
--- NOTE | 2019-01-24 11:30 | MORECARE ---
CASE MANAGEMENT DISCHARGE SUMMARY PATIENT: IVAN DEVINE UNIT: [id number] ADM DATE: 01/21/19 AGE: 83 : 36 SEX: M ROOM/BED: D.2239 AUTHOR: MARLY HUITRON PHYSICIAN: REFERRING PHYSICIAN: IZABELLA HARGROVE MD DATE OF SERVICE: 01/24/19 Discharge Plan Patient Name: IVAN DEVINE Facility: [facility]:[place] : 1935 Planned Disposition: Home Anticipated Discharge Date: 01/23/19 Discharge Date: Expected LOS: 2 Initial Reviewer: [email or web address] Initial Review Date: 01/21/2019 Generated: 01/24/19 12:30 pm Comments DCP- Discharge Planning Updated by [email or web address]: Lali Gonzales on 01/24/19 10:[address] Spoke with patient and his plan is to return home with daughter with home health. I spoke with [facility] and she states he is current with them. Patient states his daughter will be here shortly and she can sign his DUSTIN form for [facility]. PT anya states he is safe for home. CM will continue to follow and assist with discharge planning/needs. DCP- Discharge Planning Updated by [email or web address]: Yareli Topete on 01/21/19 1:[address] Patient Name: IVAN DEVINE Admission Status: ER Accout number: [id number] Admission Date: 01-21-2019 : 1935 Admission Diagnosis: Attending: IZABELLA HARGROVE Current LOS: 1 Anticipated DC Date: 01-23-2019 Planned Disposition: Home Primary Insurance: MEDICARE A & B Discharge Planning Comments: CM met with patient to complete initial dc planning assessment. CM educated patient on the CM role and verbal consent given by patient to complete assessment. Patient lives at home with his daughter. He requires assistance with medication and cooking. At discharge patient plans to return home to his daughter's and feels this is a safe discharge. CM discussed availability of home health, rehab services, and medical equipment. He reports he has home health but cant remember the name of his home health agency. Patient denied further known discharge needs at this time. CM will continue to follow and will assist as needed with dc plans/needs. Scenario Writer: Yareli Topete RN, [facility] DCPIA - Discharge Planning Initial Assessment Updated by [email or web address]: Yareli Topete on 01/21/19 2:35 pm * Is the patient Alert and Oriented? Yes * How many steps to enter\exit or inside your home? None * PCP Dr. Khanna in [place] * [facility]acy [facility] in [place] * Preadmission Environment Home with Family * ADLs Partial Dependent * Partial ADLs (Assistance needed) Medication Management * Equipment Oxygen Rolling Walker Wheelchair * List name and contact numbers for known caregivers / representatives who currently or will assist patient after discharge: Claribel Gordon - daughter - [phone] * Verbal permission to speak to the caregivers and representatives has been obtained from the patient. Yes * Community resources currently utilized Home Health * Please name any agencies selected above. Patient can't remember name of her HH agency. * Additional services required to return to the preadmission environment? No * Can the patient safely return to the preadmission environment? Yes * Has this patient been hospitalized within the prior 30 days at any hospital? No Last DP export: 01/21/19 1:42 pm Patient Name: IVAN DEVINE Page [phone] at 1130 All edits/amendments must be made on the electronic document DICTATION DATE: 01/24/19 113 HORSEBACK EXCAVATOR: REJI 01/24/19 113 RPT#: [id number] DC DATE: STATUS: ADM IN [facility] [address] [place] [address] END OF REPORT
[2019-01-24 13:48] VITALS: BP 155/78
[2019-01-24] MEDS ORDERED: REVATIO20 MG PO ×2 (14:13→16:24)
[2019-01-24] MEDS ORDERED: COREG 3.1253.125 MG PO (14:13)
[2019-01-24] MEDS ORDERED: HYDRALAZINE HCL25 MG PO (14:13)
[2019-01-24] MEDS ORDERED: FLORAJEN3 CAPS460 MG PO (14:14)
[2019-01-24] MEDS ORDERED: K-DUR20 MEQ PO (14:14)
[2019-01-24] MEDS ORDERED: LASIX40 MG PO (14:14)
[2019-01-24] MEDS ORDERED: VIBRAMYCIN 100100 MG PO (14:16)
--- NOTE | 2019-01-24 14:21 | NUR ---
NUTRITION F/U PT SITTING ON SIDE OF BED. TOLERATING RENAL ADA DIET WITH 75% INTAKE RECENT MEALS. WILL CONTINUE TO PROVIDE DIET, MONITOR PO INTAKE. RD FOLLOWING
[2019-01-24] MEDS ORDERED: CIPRO500 MG PO (14:34)
--- NOTE | 2019-01-24 14:46 | MORECARE ---
CASE MANAGEMENT DISCHARGE SUMMARY PATIENT: IVAN DEVINE UNIT: [id number] ADM DATE: 01/21/19 AGE: 83 : 36 SEX: M ROOM/BED: D.2239 AUTHOR: MARLY HUITRON PHYSICIAN: REFERRING PHYSICIAN: IZABELLA HARGROVE MD DATE OF SERVICE: 01/24/19 Discharge Plan Patient Name: IVAN DEVINE Facility: [facility]:[place] : 1935 Planned Disposition: Home Anticipated Discharge Date: 01/23/19 Discharge Date: Expected LOS: 2 Initial Reviewer: [email or web address] Initial Review Date: 01/21/2019 Generated: 01/24/19 3:46 pm Comments DCP- Discharge Planning Updated by [email or web address]: Lali Gonzales on 01/24/19 10:[address] Spoke with patient and his plan is to return home with daughter with home health. I spoke with [facility] and she states he is current with them. Patient states his daughter will be here shortly and she can sign his DUSTIN form for [facility]. PT morrisal states he is safe for home. CM will continue to follow and assist with discharge planning/needs. DCP- Discharge Planning Updated by [email or web address]: Yareli Topete on 01/21/19 1:[address] Patient Name: IVAN DEVINE Admission Status: ER Accout number: [id number] Admission Date: 01-21-2019 : 1935 Admission Diagnosis: Attending: IZABELLA HARGROVE Current LOS: 1 Anticipated DC Date: 01-23-2019 Planned Disposition: Home Primary Insurance: MEDICARE A & B Discharge Planning Comments: CM met with patient to complete initial dc planning assessment. CM educated patient on the CM role and verbal consent given by patient to complete assessment. Patient lives at home with his daughter. He requires assistance with medication and cooking. At discharge patient plans to return home to his daughter's and feels this is a safe discharge. CM discussed availability of home health, rehab services, and medical equipment. He reports he has home health but cant remember the name of his home health agency. Patient denied further known discharge needs at this time. CM will continue to follow and will assist as needed with dc plans/needs. Line Out Worker: Yareli Topete RN, [facility] DCPIA - Discharge Planning Initial Assessment Updated by [email or web address]: Yareli Topete on 01/21/19 2:35 pm * Is the patient Alert and Oriented? Yes * How many steps to enter\exit or inside your home? None * PCP Dr. Khanna in [place] * [facility] [place] * Preadmission Environment Home with Family * ADLs Partial Dependent * Partial ADLs (Assistance needed) Medication Management * Equipment Oxygen Rolling Walker Wheelchair * List name and contact numbers for known caregivers / representatives who currently or will assist patient after discharge: Claribel Gordon - daughter - [phone] * Verbal permission to speak to the caregivers and representatives has been obtained from the patient. Yes * Community resources currently utilized Home Health * Please name any agencies selected above. Patient can't remember name of her agency. * Additional services required to return to the preadmission environment? No * Can the patient safely return to the preadmission environment? Yes * Has this patient been hospitalized within the prior 30 days at any hospital? No External Providers External Provider: [facility] Next Contact Date: Service Request Date: Service Type: Resolution: Reviewer: Comments: Last DP export: 01/24/19 10:30 am Patient Name: IVAN DEVINE Page [id number] at 1446 All edits/amendments must be made on the electronic document DICTATION DATE: 01/24/191444 AGRICULTURE RESEARCH DIRECTOR: REJI 01/24/19 1445 RPT#: [id number] [place] DATE: STATUS: ADM IN [facility] [address] [place] [address] END OF REPORT
--- NOTE | 2019-01-24 14:55 | MORECARE ---
CASE MANAGEMENT DISCHARGE SUMMARY PATIENT: IVAN DEVINE UNIT: [id number] ADM DATE: 01/21/19 AGE: 83 : 36 SEX: M ROOM/BED: D.2239 AUTHOR: MARLY HUITRON PHYSICIAN: REFERRING PHYSICIAN: IZABELLA HARGROVE MD DATE OF SERVICE: 01/24/19 Discharge Plan Patient Name: IVAN DEVINE Facility: [facility]:[place] : 1935 Planned Disposition: Home Anticipated Discharge Date: 01/23/19 Discharge Date: Expected LOS: 2 Initial Reviewer: [email or web address] Initial Review Date: 01/21/2019 Generated: 01/24/19 3:55 pm Comments DCP- Discharge Planning Updated by [email or web address]: Lali Gonzales on 01/24/19 1:[address] Received discharge orders. He is in agreement to discharge with [facility]. I called Rossy at [facility] and they will see him Tuesday. Declines other needs. Home today with [facility]. CM will continue to follow and assist with discharge planning/needs. DCP- Discharge Planning Updated by [email or web address]: Lali Gonzales on 01/24/19 10:[address] Spoke with patient and his plan is to return home with daughter with home health. I spoke with [facility] and she states he is current with them. Patient states his daughter will be here shortly and she can sign his DUSTIN form for [facility]. PT morrisal states he is safe for home. CM will continue to follow and assist with discharge planning/needs. DCP- Discharge Planning Updated by [email or web address]: Yareli Topete on 01/21/19 1:[address] Patient Name: IVAN DEVINE Admission Status: ER Accout number: [id number] Admission Date: 01-21-2019 : 1935 Admission Diagnosis: Attending: IZABELLA HARGROVE Current LOS: 1 Anticipated DC Date: 01-23-2019 Planned Disposition: Home Primary Insurance: MEDICARE A & B Discharge Planning Comments: CM met with patient to complete initial dc planning assessment. CM educated patient on the CM role and verbal consent given by patient to complete assessment. Patient lives at home with his daughter. He requires assistance with medication and cooking. At discharge patient plans to return home to his daughter's and feels this is a safe discharge. CM discussed availability of home health, rehab services, and medical equipment. He reports he has home health but cant remember the name of his home health agency. Patient denied further known discharge needs at this time. CM will continue to follow and will assist as needed with dc plans/needs. Core Blower Operator: Yareli Topete RN, [facility] DCPIA - Discharge Planning Initial Assessment Updated by [email or web address]: Yareli Topete on 01/21/19 2:35 pm * Is the patient Alert and Oriented? Yes * How many steps to enter\exit or inside your home? None * PCP Dr. Khanna in [place] * Pharmacy [facility] in [place] * Preadmission Environment Home with Family * ADLs Partial Dependent * Partial ADLs (Assistance needed) Medication Management * Equipment Oxygen Rolling Walker Wheelchair * List name and contact numbers for known caregivers / representatives who currently or will assist patient after discharge: Claribel Gordon - [facility] - [phone] * Verbal permission to speak to the caregivers and representatives has been obtained from the patient. Yes * Community resources currently utilized Home Health * Please name any agencies selected above. Patient can't remember name of her HH agency. * Additional services required to return to the preadmission environment? No * Can the patient safely return to the preadmission environment? Yes * Has this patient been hospitalized within the prior 30 days at any hospital? No Coverage Notice Reviewer: [email or web address] Nahomy Gonzales Notice Issued Date-Time: 01/24/2019 14:48 Notice Type: IM Discharge Notice Notice Delivered To: Patient Relationship to Patient: Self Wagon Driller Name: Delivery Method: HAND - Hand Delivered Kiki Days: Prior Verbal Notification: Recipient Understood Notice: Yes Recipient Signature: Yes Med Rec Note Co-signed by Attending: Coverage Notice Comment: IMM explained, signed, given, copy placed in MR Last DP export: 01/24/19 1:46 pm Patient Name: IVAN DEVINE Page [phone] at 1932 All edits/amendments must be made on the electronic document DICTATION DATE: 01/24/19 0474 RN INTERN: REJI 01/24/19 8042 RPT#: [id number] DC DATE: STATUS: ADM IN [facility] [address] [place] [address] END OF REPORT
[2019-01-24 16:58] VITALS: BP 125/56
--- NOTE | 2019-01-25 10:33 | MORECARE ---
CASE MANAGEMENT DISCHARGE SUMMARY PATIENT: IVAN DEVINE UNIT: [id number] ADM DATE: 01/21/19 AGE: 83 : 36 SEX: M ROOM/BED: D.2239 AUTHOR: MARLY HUITRON PHYSICIAN: REFERRING PHYSICIAN: IZABELLA HARGROVE MD DATE OF SERVICE: 01/25/19 Discharge Plan Patient Name: IVAN DEVINE Facility: [facility]:[place] : 1935 Planned Disposition: Home Anticipated Discharge Date: 01/23/19 Discharge Date: 01/24/2019 Expected LOS: 2 Initial Reviewer: [email or web address] Initial Review Date: 01/21/2019 Generated: 01/25/19 11:33 am Comments DCP- Discharge Planning Updated by [email or web address]: Lali Gonzales on 01/24/19 1:[address] Received discharge orders. He is in agreement to discharge with [facility]. I called Rossy at [facility] and they will see him Tuesday. Declines other needs. Home today with [facility]. CM will continue to follow and assist with discharge planning/needs. DCP- Discharge Planning Updated by [email or web address]: Lali Gonzales on 01/24/19 10:[address] Spoke with patient and his plan is to return home with daughter with home health. I spoke with [facility] and she states he is current with them. Patient states his daughter will be here shortly and she can sign his DUSTIN form for [facility]. PT eval states he is safe for home. CM will continue to follow and assist with discharge planning/needs. DCP- Discharge Planning Updated by [id number]: Yareli Topete on 01/21/19 1:[address] Patient Name: IVAN DEVINE Admission Status: ER Accout number: [id number] Admission Date: 01-21-2019 : 1935 Admission Diagnosis: Attending: IZABELLA HARGROVE Current LOS: 1 Anticipated DC Date: 01-23-2019 Planned Disposition: Home Primary Insurance: MEDICARE A & B Discharge Planning Comments: CM met with patient to complete initial dc planning assessment. CM educated patient on the CM role and verbal consent given by patient to complete assessment. Patient lives at home with his daughter. He requires assistance with medication and cooking. At discharge patient plans to return home to his daughter's and feels this is a safe discharge. CM discussed availability of home health, rehab services, and medical equipment. He reports he has home health but cant remember the name of his home health agency. Patient denied further known discharge needs at this time. CM will continue to follow and will assist as needed with dc plans/needs. Supervisor Mold Shop: Yareli Topete RN, [facility] DCPIA - Discharge Planning Initial Assessment Updated by [email or web address]: Yareli Topete on 01/21/19 2:35 pm * Is the patient Alert and Oriented? Yes * How many steps to enter\exit or inside your home? None * PCP Dr. Khanna in [place] * [facility]acy [facility] in [place] * Preadmission Environment Home with Family * ADLs Partial Dependent * Partial ADLs (Assistance needed) Medication Management * Equipment Oxygen Rolling Walker Wheelchair * List name and contact numbers for known caregivers / representatives who currently or will assist patient after discharge: Claribel Gordon - [facility] - [phone] * Verbal permission to speak to the caregivers and representatives has been obtained from the patient. Yes * Community resources currently utilized Home Health * Please name any agencies selected above. Patient can't remember name of her HH agency. * Additional services required to return to the preadmission environment? No * Can the patient safely return to the preadmission environment? Yes * Has this patient been hospitalized within the prior 30 days at any hospital? No Coverage Notice Reviewer: [id number] Nahomy Gonzales Notice Issued Date-Time: 01/24/2019 14:48 Notice Type: IM Discharge Notice Notice Delivered To: Patient Relationship to Patient: Self Venereal Disease Investigator Name: Delivery Method: HAND - Hand Delivered Kiki Days: Prior Verbal Notification: Recipient Understood Notice: Yes Recipient Signature: Yes Med Rec Note Co-signed by Attending: Coverage Notice Comment: IMM explained, signed, given, copy placed in MR Last DP export: 01/24/19 1:55 pm Patient Name: IVAN DEVINE Page [phone] at 1033 All edits/amendments must be made on the electronic document DICTATION DATE: 01/25/19 1033 DIE MACHINE OPERATOR: REJI 01/25/19 1033 RPT#: [id number] DC DATE:01/24/19 STATUS: DIS IN [facility] [address] [facility] [place] [address] END OF REPORT
--- NOTE | 2019-01-25 11:54 | EC ---
PATIENT:IVAN DEVINE DATE OF SERVICE: 01/21/19 SEX: M MEDICAL RECORD: [id number] DATE OF : 37 LOCATION:D.[facility] [place] AGE OF PATIENT: 83 ADMISSION DATE: 01/21/19 REFERRING PHYSICIAN: INTERPRETING PHYSICIAN: ROSALIND OSMAN MD ECHOCARDIOGRAM REPORT ECHO CHARGES 5 ECHO LIMITED Date: 01/22/19 CLINICAL DIAGNOSIS: LV FUNCTION ECHOCARDIOGRAPHIC MEASUREMENTS (adult normal given) AC root (d.<3.7cm) 0 cm LV Septum d (<1.2 cm> 0 cm Valve Excursion 0 cm LV Septum (systole) 0 cm Left Atria (s.<4.0cm> 0 cm LVPW d(<1.2cm) 0 cm RV (d.<2.3cm) 0 cm LVPW (sytole) 0 cm LV diastole(<5.6CM) 0 cm MV E-F(>70mm/sec) 0 cm LV systole 0 cm LVOT Diameter 0 cm MV exc.(>10mm) 0 cm Est.ejection fraction (50-75%) % DOPPLER: LVIT cm/sec A 0 cm/sec E 0 cm/sec LA 0 cm/sec RVSP 70.0 mmHg LVOT 0 cm/sec AOP1/2T m/s Asc. Ao 0 cm/sec RVOT 0 cm/sec RA 0 cm/sec PA 0 cm/sec AV Gradient Peak 0 mmHg AV Mean 0 mmHg AV Area 0 cm MV Gradient Peak 0 mmHg MV Mean 0 mmHg MV Area 0 cm COMMENTS: Software Lead: Jozef [facility] Machine Crater: 1 Dr. Osman TAPE# PACS Pericardial Effusion N DATE OF SERVICE: Limited echo for ejection fraction. FINDINGS: 1. Left ventricular chamber size is within normal limits. Left ventricular systolic function is mildly depressed but preserved at 45%. 2. Left atrium, right atrium, and right ventricle chamber sizes are mildly dilated. 3. Valvular structures have normal structure and motion. ECHOCARDIOGRAM REPORT [id number] IVAN DEVINE 4. Doppler interrogation reveals severe mitral regurgitation, moderate tricuspid regurgitation, no other valvular insufficiency or stenosis. Pulmonary systolic pressure is elevated at 70 mmHg. TRANSINT:[id number] Voice Confirmation ID: [id number] DOCUMENT ID: [id number] ROSALIND OSMAN MD at 1154 CC: [id number] DICTATION DATE: 01/22/19 173 PRE SALES ARCHITECT: 01/22/19 2149 DIS IN 01/24/19 [facility] [address] [place] [id number]
== END 2019-01-24 18:33 | disposition home or self-care (01) | DRG 291 ==
LOC: D.ER 09:06 → D.EDHOLD 13:05 → D.MS 13:05
PROVIDERS: Emergency Medicine; Family Medicine; ADMIT Internal Medicine Nephrology; ATTEND Internal Medicine Nephrology
DX: I13.0 Hypertensive heart and chronic kidney disease with heart failure and stage 1 through stage 4 chronic kidney disease, or unspecified chronic kidney disease (principal); J18.9 Pneumonia, unspecified organism; I50.23 Acute on chronic systolic (congestive) heart failure; N39.0 Urinary tract infection, site not specified; J44.0 Chronic obstructive pulmonary disease with (acute) lower respiratory infection; N18.9 Chronic kidney disease, unspecified; D64.9 Anemia, unspecified; I25.10 Atherosclerotic heart disease of native coronary artery without angina pectoris; I71.4 Abdominal aortic aneurysm, without rupture; M85.80 Other specified disorders of bone density and structure, unspecified site; E78.5 Hyperlipidemia, unspecified; I27.20 Pulmonary hypertension, unspecified; R19.5 Other fecal abnormalities

== ENCOUNTER 2020-01-08 13:55 | Inpatient (IN) | payer MEDICARE, BC ==
[~2020-01-08] VITALS: Ht 177.8 cm; Wt 101.2 kg
[~2020-01-08 13:55] MED LIST changes: +CIPRO500 MG PO; +COREG 3.1253.125 MG PO; +FLORAJEN3 CAPS460 MG PO; +HYDRALAZINE HCL25 MG PO; +REVATIO20 MG PO; +VIBRAMYCIN 100100 MG PO
[2020-01-08] MEDS ORDERED: RANEXA1000 MG PO (14:41)
[2020-01-08] MEDS ORDERED: ISOSORBIDE MONO30 M1 PO (14:41)
[2020-01-08] MEDS ORDERED: CELEXA40 MG PO (14:42)
[2020-01-08] MEDS ORDERED: ENTRESTO 49 MG1 EACH PO (14:42)
[2020-01-08 17:23] LABS: BASOPHILS 0.2 % (0-2); EOSINOPHILS 1.8 % (0-7); HEMATOCRIT 31.1 % (42.0-54.0); HEMOGLOBIN 9.8 g/dL (13.5-17.5); IMMATURE GRANULOCYTES 0.7 % (0-5); LYMPHOCYTES 9.4 % (15-50); MCH 29.3 pg (26.0-34.0); MCHC 31.5 g/dL (31.0-37.0); MCV 93.1 fL (80.0-100.0); MEAN PLATELET VOLUME 10.8 fL (7.4-10.4); MONOCYTES 6.7 % (2-11); NEUTROPHILS 81.2 % (40-80); PLATELET COUNT 142 10x3/uL (130-400); RBC 3.34 10x6/uL (4.20-6.10); RDW 14.6 % (11.5-14.5)
[2020-01-08 17:32] LABS: APTT 28.5 SECONDS (22.8-39.4); INR 1.12 (0.85-1.17); PROTIME 14.4 SECONDS (11.6-15.0)
[2020-01-08 17:48] LABS: CALCIUM 7.9 mg/dL (8.5-10.1); CARBON DIOXIDE 27.8 mmol/L (21.0-32.0); CREATININE - SERUM 2.7 mg/dL (0.6-1.3); POTASSIUM - SERUM 4.8 mmol/L (3.5-5.1)
[2020-01-08 17:55] LABS: ALBUMIN 2.8 g/dL (3.4-5.0); BILIRUBIN - TOTAL 0.23 mg/dL (0.2-1.3); PROTEIN - SERUM 5.8 g/dL (6.4-8.2)
[2020-01-08] MEDS ORDERED: COREG25 MG PO (19:44)
[2020-01-08] MEDS ORDERED: CLARITIN 10 MG10 MG PO (19:44)
[2020-01-08 20:06] VITALS: BP 148/67
--- NOTE | 2020-01-08 20:28 | NUR ---
SPOKE WITH JAIR IN REGARDS TO CONTINUING COREG, BREATHING TREATMENTS, AND LASIX. ON-CALL CONTINUED COREG AND BREATHING TREATMENTS.
--- NOTE | 2020-01-08 20:50 | NUR ---
PAGED JAIR, ENVIRONMENTAL PROGRAMS MANAGER FOR DR. MONIQUE, PER PATIENT AND FAMILY REQUEST IN REGARDS TO RESTARTING SOME HOME MEDICATIONS.
--- NOTE | 2020-01-08 21:10 | NUR ---
CHG BATH COMPLETED
[2020-01-08 21:44] LABS: BILIRUBIN NEGATIVE (NEGATIVE); GLUCOSE NEGATIVE (NEGATIVE); KETONE NEGATIVE (NEGATIVE); NITRITE NEGATIVE (NEGATIVE); UROBILINOGEN NORMAL (NORMAL)
--- NOTE | 2020-01-08 23:27 | NUR ---
ADDED PATIENT TO TELE WAIT LIST. NO MONITORS AVAILABLE AT THIS TIME.
[2020-01-08 23:42] VITALS: BP 148/67; BMI 32.0
[2020-01-08 23:52] VITALS: BP 112/59
--- NOTE | 2020-01-09 02:50 | NUR ---
PATIENT RESTING IN WITH EYES CLOSED AND NO S/S OF DISTRESS. BED IN LOWEST POSITION AND CALL LIGHT WITHIN REACH. WILL CONTINUE TO MONITOR.
[2020-01-09 04:09] VITALS: BP 107/47
--- NOTE | 2020-01-09 07:15 | NUR ---
RECEIVED PT IN BED AAOX4 [facility] RESP UNLABORED SKIN W/D COLOR WNL DENIES ANY NEEDS OR DISCOMFORT AT THIS TIME
[2020-01-09 08:00] VITALS: BP 132/42
[2020-01-09 08:59] LABS: BASOPHILS 0.1 % (0-2); EOSINOPHILS 1.5 % (0-7); HEMATOCRIT 29.6 % (42.0-54.0); HEMOGLOBIN 8.9 g/dL (13.5-17.5); IMMATURE GRANULOCYTES 0.9 % (0-5); LYMPHOCYTES 10.2 % (15-50); MCH 28.5 pg (26.0-34.0); MCHC 30.1 g/dL (31.0-37.0); MCV 94.9 fL (80.0-100.0); MEAN PLATELET VOLUME 11.4 fL (7.4-10.4); MONOCYTES 11.8 % (2-11); NEUTROPHILS 75.5 % (40-80); PLATELET COUNT 135 10x3/uL (130-400); RBC 3.12 10x6/uL (4.20-6.10); RDW 14.7 % (11.5-14.5); WBC 8.1 10x3/uL (4.8-10.8)
[2020-01-09 09:08] LABS: ANION GAP 14.9 mmol/L (8-16); CALCIUM 8.1 mg/dL (8.5-10.1); CARBON DIOXIDE 25.9 mmol/L (21.0-32.0); CREATININE - SERUM 3.2 mg/dL (0.6-1.3); POTASSIUM - SERUM 4.8 mmol/L (3.5-5.1)
[2020-01-09 11:39] VITALS: BP 133/36
--- NOTE | 2020-01-09 12:00 | MORECARE ---
CASE MANAGEMENT DISCHARGE SUMMARY PATIENT: IVAN DEVINE UNIT: [id number] ADM DATE: 01/08/20 AGE: 84 : 36 SEX: M ROOM/BED: D.1206 AUTHOR: TOMY,DOC PHYSICIAN: REFERRING PHYSICIAN: ROBYN MONIQUE DO DATE OF SERVICE: 01/09/20 Discharge Plan Patient Name: IVAN DEVINE [facility] [facility] 1935 Planned Disposition: Anticipated Discharge Date: Discharge Date: Expected LOS: Initial Reviewer: [email or web address] Initial Review Date: 01/08/2020 Generated: 01/09/20 1:00 pm Patient Name: IVAN DEVINE Page [id number] All edits/amendments must be made on the electronic document DICTATION DATE: 01/09/201199 COMPUTER LAB ASSISTANT: REJI 01/09/20 1200 RPT#: [id number] DC DATE: STATUS: ADM IN [facility] [address] [place] [address] END OF REPORT
--- NOTE | 2020-01-09 12:14 | MORECARE ---
CASE MANAGEMENT DISCHARGE SUMMARY PATIENT: IVAN DEVINE UNIT: [id number] ADM DATE: 01/08/20 AGE: 84 : 36 SEX: M ROOM/BED: D.1206 AUTHOR: TOMY,DOC PHYSICIAN: REFERRING PHYSICIAN: ROBNY MONIQUE DO DATE OF SERVICE: 01/09/20 Discharge Plan Patient Name: IVAN DEVINE [facility] [facility] 1935 Planned Disposition: Anticipated Discharge Date: Discharge Date: Expected LOS: Initial Reviewer: [email or web address] Initial Review Date: 01/08/2020 Generated: 01/09/20 1:14 pm DCPIA - Discharge Planning Initial Assessment Updated by [email or web address]: Kasey Brothers on 01/09/20 12:09 pm * Is the patient Alert and Oriented? Yes * How many steps to enter\exit or inside your home? * PCP Dr. Pierre * [facility] * Preadmission Environment Home Alone * ADLs Independent * Equipment Rolling Walker Walker Wheelchair * List name and contact numbers for known caregivers / representatives who currently or will assist patient after discharge: Sarah Lau (dtr) [phone] * Verbal permission to speak to the caregivers and representatives has been obtained from the patient. Yes * Community resources currently utilized Meals on Wheels * Please name any agencies selected above. [facility] [place] * Additional services required to return to the preadmission environment? Yes * Can the patient safely return to the preadmission environment? No * Has this patient been hospitalized within the prior 30 days at any hospital? No Last DP export: 01/09/20 11:00 a Patient Name: IVAN DEVINE Page [id number] All edits/amendments must be made on the electronic document DICTATION DATE: 01/09/20 121 LEAF SIZE PICKER: REJI 01/09/201213 RPT#: [id number] DC DATE: STATUS: ADM IN [facility] [address] [place] [address] END OF REPORT
--- NOTE | 2020-01-09 12:22 | MORECARE ---
CASE MANAGEMENT DISCHARGE SUMMARY PATIENT: IVAN DEVINE UNIT: [id number] ADM DATE: 01/08/20 AGE: 84 : 36 SEX: M ROOM/BED: D.1206 AUTHOR: MARLY HUITRON PHYSICIAN: REFERRING PHYSICIAN: ROBYN MONIQUE DO DATE OF SERVICE: 01/09/20 Discharge Plan Patient Name: IVAN EDVINE Facility: [facility]:[place] : 1935 Planned Disposition: Anticipated Discharge Date: Discharge Date: Expected LOS: Initial Reviewer: [email or web address] Initial Review Date: 01/08/2020 Generated: 01/09/20 1:21 pm Comments DCP- Discharge Planning Updated by [email or web address]: Kasey Brothers on 01/09/20 11:[address] CM met with patient to discuss initial discharge planning. Patient is in agreement to proceed with the assessment wit her daughter present. Patient reports that she lives at home alone, independently. Patient is alert/oriented, drowsy. Stairs/steps: 0. PCP: Dr. Pierre. Pharmacy: [facility] Patient states she has been able to obtain all of her prescribed medications. HHS: No. DME: walker, w/c, shower chair. Patient gives permission to speak with family members/care givers. Emergency contact: Sarah Lau (dtr POA) [phone]. Patient is Independen with all ADL's, medication management DIRECTOR OF VOLUNTEER SERVICES. CM discussed the availability of HH, Rehab, DME services. Patient's daughter request [facility] [place]. Patient denies being hospitalized within the past 30 days. Patient denies the use of community resources DIRECTOR OF VOLUNTEER SERVICES. Transportation at time of discharge: Nursing facility. CM will assist PRN with DC needs/plans. DCPIA - Discharge Planning Initial Assessment Updated by [email or web address]: Kasey Brothers on 01/09/20 12:09 pm * Is the patient Alert and Oriented? Yes * How many steps to enter\\exit or inside your home? * PCP Dr. Pierre * Pharmacy [facility] * Preadmission Environment Home Alone * ADLs Independent * Equipment Rolling Walker Walker Wheelchair * List name and contact numbers for known caregivers / representatives who currently or will assist patient after discharge: Sarah Mathewsers (dtr) [phone] * Verbal permission to speak to the caregivers and representatives has been obtained from the patient. Yes * Community resources currently utilized Meals on Wheels * Please name any agencies selected above. [facility] * Additional services required to return to the preadmission environment? Yes * Can the patient safely return to the preadmission environment? No * Has this patient been hospitalized within the prior 30 days at any hospital? No Last DP export: 01/09/20 11:14 a Patient Name: IVAN DEVINE Page [id number] All edits/amendments must be made on the electronic document DICTATION DATE: 01/09/20 1221 ANALYSIS SPECIALIST: REJI 01/09/20 1221 RPT#: [id number] DC DATE: STATUS: ADM IN [facility] [address] [place] [address] END OF REPORT
--- NOTE | 2020-01-09 12:42 | NUR ---
EATING LUNCH NAD NOTED
--- NOTE | 2020-01-09 13:12 | MORECARE ---
CASE MANAGEMENT DISCHARGE SUMMARY PATIENT: IVAN DEVINE UNIT: [id number] ADM DATE: 01/08/20 AGE: 84 : 36 SEX: M ROOM/BED: D.1206 AUTHOR: MARLY HUITRON PHYSICIAN: REFERRING PHYSICIAN: ROBYN MONIQUE DO DATE OF SERVICE: 01/09/20 Discharge Plan Patient Name: IVAN DEVINE [facility] [facility] 1935 Planned Disposition: Anticipated Discharge Date: Discharge Date: Expected LOS: Initial Reviewer: [email or web address] Initial Review Date: 01/08/2020 Generated: 01/09/20 2:11 pm Last DP export: 01/09/20 11:22 a Patient Name: IVAN DEVINE Page [phone] at 1312 All edits/amendments must be made on the electronic document DICTATION DATE: 01/09/20 1311 TRIAL MANAGEMENT ASSOCIATE: REJI 01/09/20 1311 RPT#: [id number] DC DATE: STATUS: ADM IN [facility] [address] [place] [address] END OF REPORT
[2020-01-09 15:37] VITALS: BMI 31.9
--- NOTE | 2020-01-09 16:16 | NUR ---
Rehab Prescreening Consult recieved and the chart has been reviewed. He has a PT, OT eval ordered but not completed. Surgical intervention is not planned at this time. Rehab will see how he does with therapy to determine if he will be able to tolerate the required 3 hrs of therapy every day 5 days a week. Micki Henson RN Clinical liaison, rehab
--- NOTE | 2020-01-09 16:44 | MORECARE ---
CASE MANAGEMENT DISCHARGE SUMMARY PATIENT: IVAN DEVINE UNIT: [id number] ADM DATE: 01/08/20 AGE: 84 : 36 SEX: M ROOM/BED: D.1206 AUTHOR: MARLY HUITRON PHYSICIAN: REFERRING PHYSICIAN: ROBYN MONIQUE DO DATE OF SERVICE: 01/09/20 Discharge Plan Patient Name: IVAN DEVINE [facility] [facility] 1935 Planned Disposition: Anticipated Discharge Date: Discharge Date: Expected LOS: Initial Reviewer: [email or web address] Initial Review Date: 01/08/2020 Generated: 01/09/20 5:43 pm Last DP export: 01/09/20 12:12 p Patient Name: IVAN DEVINE Page 71076 at 1644 All edits/amendments must be made on the electronic document DICTATION DATE: 01/09/201642 LEGAL SUPPORT ASSISTANT: REJI 01/09/201642 RPT#: [id number] DC DATE: STATUS: ADM IN [facility] [address] [place] [address] END OF REPORT
--- NOTE | 2020-01-09 17:01 | MORECARE ---
CASE MANAGEMENT DISCHARGE SUMMARY PATIENT: IVAN DEVINE UNIT: [id number] ADM DATE: 01/08/20 AGE: 84 : 36 SEX: M ROOM/BED: D.1206 AUTHOR: MARLY HUITRON PHYSICIAN: REFERRING PHYSICIAN: ROBYN MONIQUE DO DATE OF SERVICE: 01/09/20 Discharge Plan Patient Name: IVAN DEVINE Facility: [facility]:[place] : 1935 Planned Disposition: Anticipated Discharge Date: Discharge Date: Expected LOS: Initial Reviewer: [id number] Initial Review Date: 01/08/2020 Generated: 01/09/20 6:01 pm Comments DCP- Discharge Planning Updated by [email or web address]: Kasey Brothers on 01/09/20 4:[address] CM met with patient to discuss initial discharge planning. Patient is in agreement to proceed with the assessment with his daughter present. Patient reports that he lives at home with his daughter, partially dependent on his daughter. Patient is alert/oriented, drowsy. Stairs/steps: 0. PCP: [facility]. [facility]acy[facility]. Daughter states they have been able to obtain all of their prescribed medications. HHS: [facility] in past, but not current. DME: O2, RW, W/C, Extended shower bench. Patient gives permission to speak with family members/care givers. Emergency contact: Claribel Gordon (dtr) [phone]. CM discussed the availability of HH, Rehab, DME services. Patient's daughter request in-pt REHAB at [facility]. Patient denies being hospitalized within the past 30 days. Patient denies the use of community resources PLANT PROTECTION GUARD. Transportation at time of discharge: Daughter. CM will assist PRN with DC needs/plans. Daughter would like to use [facility] upon DC from rehab. Last DP export: 01/09/20 3:44 p Patient Name: IVAN DEVINE Page 29071 at 1701 All edits/amendments must be made on the electronic document DICTATION DATE: 01/09/20 170 PRINTING BINDERY ASSISTANT: REJI 01/09/20 1701 RPT#: [id number] DC DATE: STATUS: [facility] [address] [place] [address] END OF REPORT
--- NOTE | 2020-01-09 17:10 | MORECARE ---
CASE MANAGEMENT DISCHARGE SUMMARY PATIENT: IVAN DEVINE UNIT: [id number] ADM DATE: 01/08/20 AGE: 84 : 36 SEX: M ROOM/BED: D.1206 AUTHOR: TOMY,MARLY PHYSICIAN: REFERRING PHYSICIAN: ROBYN MONIQUE DO DATE OF SERVICE: 01/09/20 Discharge Plan Patient Name: IVAN DEVINE [facility]:[place] : 1935 Planned Disposition: Anticipated Discharge Date: Discharge Date: Expected LOS: Initial Reviewer: [email or web address] Initial Review Date: 01/08/2020 Generated: 01/09/20 6:09 pm Comments DCP- Discharge Planning Updated by [email or web address]: Kasey Brothers on 01/09/20 4:[address] Spoke with Micki, Rehab, and awaiting PT/OT evals. DCP- Discharge Planning Updated by [id number]: Kasey Brothers on 01/09/20 4:[address] CM met with patient to discuss initial discharge planning. Patient is in agreement to proceed with the assessment with his daughter present. Patient reports that he lives at home with his daughter, partially dependent on his daughter. Patient is alert/oriented, drowsy. Stairs/steps: 0. PCP: Serene Childers. [facility]acy[facility]. Daughter states they have been able to obtain all of their prescribed medications. HHS: [facility] in past, but not current. DME: O2, RW, W/C, Extended shower bench. Patient gives permission to speak with family members/care givers. Emergency contact: Claribel Gordon (dtr) [phone]. CM discussed the availability of HH, Rehab, DME services. Patient's daughter request in-pt REHAB at [facility]. Patient denies being hospitalized within the past 30 days. Patient denies the use of community resources NEWS ASSISTANT. Transportation at time of discharge: Daughter. CM will assist PRN with DC needs/plans. Daughter would like to use [facility] upon DC from rehab. DCPIA - Discharge Planning Initial Assessment Updated by [id number]: Kasey Brothers on 01/09/20 5:02 pm * Is the patient Alert and Oriented? Yes * How many steps to enter\exit or inside your home? * PCP Serene Childers * [facility] * Preadmission Environment Home with Family * ADLs Partial Dependent * Partial ADLs (Assistance needed) Bathing Dressing Medication Management * Equipment Oxygen Rolling Walker Tub Bench Wheelchair * List name and contact numbers for known caregivers / representatives who currently or will assist patient after discharge: Claribel Gordon (dtr) [phone] * Verbal permission to speak to the caregivers and representatives has been obtained from the patient. Yes * Community resources currently utilized None * Please name any agencies selected above. [facility] * Additional services required to return to the preadmission environment? Yes * Can the patient safely return to the preadmission environment? No * Has this patient been hospitalized within the prior 30 days at any hospital? No Last DP export: 01/09/20 4:01 p Patient Name: IVAN DEVINE Page [id number] at 1710 All edits/amendments must be made on the electronic document DICTATION DATE: 01/09/201708 INFORMATION TECHNOLOGY COORDINATOR: REJI 01/09/201708 RPT#: [id number] DC DATE: STATUS: ADM IN [facility] [address] [place] [address] END OF REPORT
--- NOTE | 2020-01-09 17:12 | NUR ---
TRIED TO DO RENAL U/S. PT HAS LEFT HIP FX AND CANNOT BE ROLLED PER NURSES AND CONFIRMED BY WALLY GROVER. NO U/S WINDOW AVAILABLE AND NONDIAGNOSTIC EVEN FOR RT KIDNEY. DISCUSSED WITH WALLY GROVER WHO IS CANCELLING U/S AND ORDERING CT. / FRANCISCO J, RDMS
[2020-01-09 19:56] VITALS: BP 106/53
--- NOTE | 2020-01-09 20:00 | NUR ---
ALERT RESTING IN BED, DENIES PAIN OR NEEDS AT THIS TIME, HIP BRACE IN PLACE, WITH PT ATTEMPTING TO REMOVE AT TIMES, REMINDED THAT IT IS HELPING HIS BROKEN HIP, SEE SHIFT ASSESSMENT, CALL LIGHT IN REACH
[2020-01-10] VITALS (11 sets, daily range): BP systolic 112–143; BP diastolic 36–52; Ht 177.8 cm; Wt 101.2 kg
[2020-01-10 07:56] LABS: BASOPHILS 0.2 % (0-2); EOSINOPHILS 1.6 % (0-7); HEMATOCRIT 24.8 % (42.0-54.0); HEMOGLOBIN 7.7 g/dL (13.5-17.5); IMMATURE GRANULOCYTES 0.9 % (0-5); LYMPHOCYTES 9.9 % (15-50); MCH 29.4 pg (26.0-34.0); MCV 94.7 fL (80.0-100.0); NEUTROPHILS 77.4 % (40-80); PLATELET COUNT 117 10x3/uL (130-400); RBC 2.62 10x6/uL (4.20-6.10); RDW 14.7 % (11.5-14.5)
[2020-01-10 08:03] LABS: ANION GAP 11.6 mmol/L (8-16); CALCIUM 7.8 mg/dL (8.5-10.1); CARBON DIOXIDE 27.8 mmol/L (21.0-32.0); MAGNESIUM - SERUM 2.3 mg/dL (1.8-2.4); POTASSIUM - SERUM 5.4 mmol/L (3.5-5.1)
--- NOTE | 2020-01-10 08:24 | NUR ---
HE IS CONFUSED THIS MORNING. HIS DAUGHTER IS AT THE BEDSIDE. THE BRACE IS ON, DR. BRICEÑO STATES "THE BRACE CAN BE OFF UNLESS HE IS OUT OF BED". HE HAS NO VOIDED ON THE PM SHIFT. BLADDER SCAN THIS MORNING READS 70 CC.
--- NOTE | 2020-01-10 08:24 | MORECARE ---
CASE MANAGEMENT DISCHARGE SUMMARY PATIENT: IVAN DEVINE UNIT: [id number] ADM DATE: 01/08/20 AGE: 84 : 36 SEX: M ROOM/BED: D.1206 AUTHOR: TOMY,MARLY PHYSICIAN: REFERRING PHYSICIAN: ROBYN MONIQUE DO DATE OF SERVICE: 01/10/20 Discharge Plan Patient Name: IVAN DEVINE [facility]: [facility]:[place] : 1935 Planned Disposition: Anticipated Discharge Date: Discharge Date: Expected LOS: Initial Reviewer: [email or web address] Initial Review Date: 01/08/2020 Generated: 01/10/20 9:23 am Comments DCP- Discharge Planning Updated by [email or web address]: Kasey Brothers on 01/09/20 4:[address] Spoke with Micki, Rehab, and awaiting PT/OT evals. DCP- Discharge Planning Updated by [email or web address]: Kasey Brothers on 01/09/20 4:[address] CM met with patient to discuss initial discharge planning. Patient is in agreement to proceed with the assessment with his daughter present. Patient reports that he lives at home with his daughter, partially dependent on his daughter. Patient is alert/oriented, drowsy. Stairs/steps: 0. PCP: Serene Childers. [facility]acy[facility]. Daughter states they have been able to obtain all of their prescribed medications. HHS: [facility] in past, but not current. DME: O2, RW, W/C, Extended shower bench. Patient gives permission to speak with family members/care givers. Emergency contact: Claribel Gordon (dtr) [phone]. CM discussed the availability of HH, Rehab, DME services. Patient's daughter request in-pt REHAB at [facility]. Patient denies being hospitalized within the past 30 days. Patient denies the use of community resources LUMBER MATERIAL HANDLER. Transportation at time of discharge: Daughter. CM will assist PRN with DC needs/plans. Daughter would like to use [facility] upon DC from rehab. DCPIA - Discharge Planning Initial Assessment Updated by [id number]: Kasey Brothers on 01/09/20 5:02 pm * Is the patient Alert and Oriented? Yes * How many steps to enter\exit or inside your home? * PCP Se[facility] Childers * [facility] * Preadmission Environment Home with Family * ADLs Partial Dependent * Partial ADLs (Assistance needed) Bathing Dressing Medication Management * Equipment Oxygen Rolling Walker Tub Bench Wheelchair * List name and contact numbers for known caregivers / representatives who currently or will assist patient after discharge: Claribel Gordon (dtr) [phone] * Verbal permission to speak to the caregivers and representatives has been obtained from the patient. Yes * Community resources currently utilized None * Please name any agencies selected above. [facility] * Additional services required to return to the preadmission environment? Yes * Can the patient safely return to the preadmission environment? No * Has this patient been hospitalized within the prior 30 days at any hospital? No Coverage Notice Reviewer: [id number] Nahomy Brothers Notice Issued Date-Time: 01/09/2020 17:17 Notice Type: Patient Choice Letter Notice Delivered To: Family Member Relationship to Patient: Daughter Plastic Maker Name: Claribel Gordon Delivery Method: HAND - Hand Delivered Kiki Days: Prior Verbal Notification: Recipient Understood Notice: Yes Recipient Signature: Yes Med Rec Note Co-signed by Attending: Coverage Notice Comment: Patient choice for [facility] signed per daughter. Original given to patient and one placed on the chart. Last DP export: 01/09/20 4:09 p Patient Name: IVAN DEVINE Page [phone] at 0824 All edits/amendments must be made on the electronic document DICTATION DATE: 01/10/20822 COMPUTER SYSTEMS ENGINEER: REJI 01/10/20822 RPT#: [id number] DC DATE: STATUS: [facility] [address] [place] [address] END OF REPORT
--- NOTE | 2020-01-10 08:54 | NUR ---
ABDUCTION PILLOW IN PLACE.
--- NOTE | 2020-01-10 10:43 | NUR ---
PLACED A FOELY, INSERTED WITHOUT ANY DIFFICULTLY. NEW IV TO THE RIGHT ARM, BLOOD RETRUN. DAUGHTER AT THE BEDSIDE.
[2020-01-10 11:31] LABS: CREATININE - URINE 139.5 mg/dL (30-125); PROTEIN - URINE 230.8 mg/dL (0.0-11.9)
--- NOTE | 2020-01-10 12:07 | NUR ---
BLOOD STANSFUSION STARTED, RIGHT ARM 20 G. VS TSAKEN. HE IS AWAKE, TAKING TO ME.
--- NOTE | 2020-01-10 13:13 | NUR ---
OT NOTE: WILL RE ATTEMPT TOMORROW. PT UNABLE TO TOLERATE MOVEMENT TODAY DUE TO PAIN. REESE ROMERO, OTR/L
[2020-01-10 14:27] LABS: BILIRUBIN NEGATIVE (NEGATIVE); GLUCOSE 50 mg/dL (NEGATIVE); KETONE NEGATIVE (NEGATIVE); NITRITE NEGATIVE (NEGATIVE); SPECIFIC GRAVITY 1.025 (1.005-1.020); UROBILINOGEN NORMAL (NORMAL)
[2020-01-10 14:30] LABS: AMORPHOUS SEDIMENT >1+ /lpf (NONE SEEN); BACTERIA FEW /hpf (NEGATIVE); EPITHELIAL CELLS RARE /hpf (0-5); RED CELLS - URINE RARE /hpf (0-5); WHITE CELLS - URINE RARE /hpf (NEGATIVE)
--- NOTE | 2020-01-10 15:27 | NUR ---
THE SECOND UNIT OF BLOOD IS TRANSFUSING. HE IS SLEEPING, HE WAKES UP WHEN I TAKE HIS VS. HIS DAUGHTER IS AT THE BEDSIDE. 0N 2.5 LNC. TRUONG WITH YELLOW URINE.
--- NOTE | 2020-01-10 16:03 | NUR ---
Rehab note- The patient now has a CardioVascular Surgeon consult due to an increased AAA. Will continue to follow at this time. Thank you for this referral! Sharona Coronel RN Clinical Liaison, [facility] Re[facility]
--- NOTE | 2020-01-10 17:55 | MORECARE ---
CASE MANAGEMENT DISCHARGE SUMMARY PATIENT: IVAN DEVINE UNIT: [id number] ADM DATE: 01/08/20 AGE: 84 : 36 SEX: M ROOM/BED: D.1206 AUTHOR: TOMY,DOC PHYSICIAN: REFERRING PHYSICIAN: ROBYN MONIQUE DO DATE OF SERVICE: 01/10/20 Discharge Plan Patient Name: IVAN DEVINE [facility]:[place] : 1935 Planned Disposition: Anticipated Discharge Date: Discharge Date: Expected LOS: Initial Reviewer: [email or web address] Initial Review Date: 01/08/2020 Generated: 01/10/20 6:55 pm DCP- Discharge Planning Updated by [email or web address]: Kasey Brothers on 01/09/20 4:[address] Spoke with Micki, Rehab, and awaiting PT/OT evals. DCP- Discharge Planning Updated by [email or web address]: Kasey Brothers on 01/09/20 4:[address] CM met with patient to discuss initial discharge planning. Patient is in agreement to proceed with the assessment with his daughter present. Patient reports that he lives at home with his daughter, partially dependent on his daughter. Patient is alert/oriented, drowsy. Stairs/steps: 0. PCP: Serene Childers. [facility]acy[facility]. Daughter states they have been able to obtain all of their prescribed medications. HHS: [facility] in past, but not current. DME: O2, RW, W/C, Extended shower bench. Patient gives permission to speak with family members/care givers. Emergency contact: Claribel Gordon (dtr) [phone]. CM discussed the availability of HH, Rehab, DME services. Patient's daughter request in-pt REHAB at [facility]. Patient denies being hospitalized within the past 30 days. 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 Transportation at time of discharge: Daughter. CM will assist PRN with DC needs/plans. Daughter would like to use [facility] upon DC from rehab. DCPIA - Discharge Planning Initial Assessment Updated by [email or web address]: Kasey Brothers on 01/09/20 5:02 pm * Is the patient Alert and Oriented? Yes * How many steps to enter\exit or inside your home? * PCP [facility] Childers * [facility] * Preadmission Environment Home with Family * ADLs Partial Dependent * Partial ADLs (Assistance needed) Bathing Dressing Medication Management * Equipment Oxygen Rolling Walker Tub Bench Wheelchair * List name and contact numbers for known caregivers / representatives who currently or will assist patient after discharge: Claribel Evan (dtr) [phone] * Verbal permission to speak to the caregivers and representatives has been obtained from the patient. Yes * Community resources currently utilized None * Please name any agencies selected above. [facility] * Additional services required to return to the preadmission environment? Yes * Can the patient safely return to the preadmission environment? No * Has this patient been hospitalized within the prior 30 days at any hospital? No Coverage Notice Reviewer: [id number] Nahomy Brothers Notice Issued Date-Time: 01/09/2020 17:17 Notice Type: Patient Choice Letter Notice Delivered To: Family Member Relationship to Patient: Daughter Party Supply Specialist Name: Claribel Gordon Delivery Method: HAND - Hand Delivered Kiki Days: Prior Verbal Notification: Recipient Understood Notice: Yes Recipient Signature: Yes Med Rec Note Co-signed by Attending: Coverage Notice Comment: Patient choice for [facility] signed per daughter. Original given to patient and one placed on the chart. Last DP export: 01/10/20 7:24 a Patient Name: IVAN DEVINE Page 49990 at 1755 All edits/amendments must be made on the electronic document DICTATION DATE: 01/10/201754 SWITCHBOARD OPERATOR RECEPTIONIST: REJI 01/10/201754 RPT#: [id number] DC DATE: STATUS: ADM IN [facility] [address] [place] [address] END OF REPORT
[2020-01-10 17:59] LABS: BASOPHILS 0.1 % (0-2); EOSINOPHILS 1.8 % (0-7); HEMATOCRIT 29.9 % (42.0-54.0); HEMOGLOBIN 9.3 g/dL (13.5-17.5); IMMATURE GRANULOCYTES 0.7 % (0-5); LYMPHOCYTES 8.3 % (15-50); MCH 29.2 pg (26.0-34.0); MCHC 31.1 g/dL (31.0-37.0); MCV 93.7 fL (80.0-100.0); MEAN PLATELET VOLUME 10.7 fL (7.4-10.4); MONOCYTES 10.3 % (2-11); NEUTROPHILS 78.8 % (40-80); PLATELET COUNT 105 10x3/uL (130-400); RBC 3.19 10x6/uL (4.20-6.10); RDW 14.7 % (11.5-14.5); WBC 8.8 10x3/uL (4.8-10.8)
--- NOTE | 2020-01-10 18:10 | NUR ---
HE IS STILL CONFUSED. THE DOCOTR IS ROUNDING, TALKING TO THE DAUGHTER. ALEXI HAS 100 CC ON MY SHIFT.
[2020-01-10 18:31] LABS: ANION GAP 15.4 mmol/L (8-16); CALCIUM 7.9 mg/dL (8.5-10.1); CARBON DIOXIDE 24.5 mmol/L (21.0-32.0); CREATININE - SERUM 5.4 mg/dL (0.6-1.3); POTASSIUM - SERUM 5.9 mmol/L (3.5-5.1)
--- NOTE | 2020-01-10 19:00 | NUR ---
ALERT RESTING IN BED, ABD PILLOW IN PLACE, O2 IN CONTINOUS USE, DENIES PAIN OR NEEDS AT THIS TIME, NOW MEDICATION ORDERS GIVEN BY JANICE CARRERA, ORDERED FOR ELEVATED POTASSIUM, WILL MONITOR BLOOD SUGAR AFTER RECIEVING INSULIN, DAUGHTER AT BEDSIDE, SEE SHIFT ASSESSMENT
--- NOTE | 2020-01-10 19:13 | MORECARE ---
CASE MANAGEMENT DISCHARGE SUMMARY PATIENT: IVAN DEVINE UNIT: [id number] ADM DATE: 01/08/20 AGE: 84 : 36 SEX: M ROOM/BED: D.1206 AUTHOR: TOMY,DOC PHYSICIAN: REFERRING PHYSICIAN: ROBYN MONIQUE DO DATE OF SERVICE: 01/10/20 Discharge Plan Patient Name: IVAN DEVINE Facility: [facility]:[place] : 1935 Planned Disposition: Anticipated Discharge Date: Discharge Date: Expected LOS: Initial Reviewer: [email or web address] Initial Review Date: 01/08/2020 Generated: 01/10/20 8:12 pm DCP- Discharge Planning Updated by [id number]: Kasey Brothers on 01/09/20 4:[address] Spoke with Micki, Rehab, and awaiting PT/OT evals. DCP- Discharge Planning Updated by [id number]: Kasey Brothers on 01/09/20 4:[address] CM met with patient to discuss initial discharge planning. Patient is in agreement to proceed with the assessment with his daughter present. Patient reports that he lives at home with his daughter, partially dependent on his daughter. Patient is alert/oriented, drowsy. Stairs/steps: 0. PCP: [facility]. [facility]. Daughter states they have been able to obtain all of their prescribed medications. [facility]: [facility] in past, but not current. DME: O2, RW, W/C, Extended shower bench. Patient gives permission to speak with family members/care givers. Emergency contact: Claribel Gordon (dtr) [phone]. CM discussed the availability of HH, Rehab, DME services. Patient's daughter request in-pt REHAB at [facility]. Patient denies being hospitalized within the past 30 days. 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 Transportation at time of discharge: Daughter. CM will assist PRN with DC needs/plans. Daughter would like to use [facility] upon DC from rehab. DCPIA - Discharge Planning Initial Assessment Updated by [id number]: Kasey Brothers on 01/09/20 5:02 pm * Is the patient Alert and Oriented? Yes * How many steps to enter\exit or inside your home? * PCP [facility] * [facility]acy [facility] * Preadmission Environment Home with Family * ADLs Partial Dependent * Partial ADLs (Assistance needed) Bathing Dressing Medication Management * Equipment Oxygen Rolling Walker Tub Bench Wheelchair * List name and contact numbers for known caregivers / representatives who currently or will assist patient after discharge: Claribel Gordon (dtr) [phone] * Verbal permission to speak to the caregivers and representatives has been obtained from the patient. Yes * Community resources currently utilized None * Please name any agencies selected above. [facility] * Additional services required to return to the preadmission environment? Yes * Can the patient safely return to the preadmission environment? No * Has this patient been hospitalized within the prior 30 days at any hospital? No Coverage Notice Reviewer: [id number] Nahomy Brothers Notice Issued Date-Time: 01/09/2020 17:17 Notice Type: Patient Choice Letter Notice Delivered To: Family Member Relationship to Patient: Daughter Gold Leaf Layer Name: Claribel Gordon Delivery Method: HAND - Hand Delivered Kiki Days: Prior Verbal Notification: Recipient Understood Notice: Yes Recipient Signature: Yes Med Rec Note Co-signed by Attending: Coverage Notice Comment: Patient choice for [facility] signed per daughter. Original given to patient and one placed on the chart. Reviewer: [id number] Nahomy Topete Notice Issued Date-Time: 01/10/2020 16:00 Notice Type: IM Discharge Notice Notice Delivered To: Family Member Relationship to Patient: Daughter Gold Leaf Layer Name: Claribel Gordon Delivery Method: HAND - Hand Delivered Kiki Days: Prior Verbal Notification: Recipient Understood Notice: Yes Recipient Signature: Yes Med Rec Note Co-signed by Attending: Coverage Notice Comment: Claribel Gordon-DAUGHTER SIGNED IMM FORM. Last DP export: 01/10/20 4:55 p Patient Name: IVAN DEVINE Page [phone] at 1913 All edits/amendments must be made on the electronic document DICTATION DATE: 01/10/201911 ADJUSTO WRITER OPERATOR: REJI 01/10/201911 RPT#: [id number] DC DATE: STATUS: ADM IN [facility] [address] [place] [address] END OF REPORT
--- NOTE | 2020-01-10 20:10 | NUR ---
ACCU CHECK 62 JUICE WITH SUGAR GIVEN, PT IS CONFUSED PULLING OFF TELEMENTRY AND TRYING TO REMOVE ABD PILLOWAND IV, WILL MONITOR
--- NOTE | 2020-01-10 20:45 | NUR ---
ACCU CHECK 84 REMAINING CONFUSED AND ATTEMPTING TO REMOVE ABD PILLOW AND TRUONG REPOSITIONED IN BED WILL MONITOR
--- NOTE | 2020-01-10 21:15 | NUR ---
RESTING QUITELY AT THIS TIME EYES CLOSED RESP UNLABORED WITH O2 IN USE
--- NOTE | 2020-01-10 22:50 | NUR ---
ACCU CHECK AT 110, CONTINUES TO REST QUITELY AT [facility] TIME
[2020-01-10 23:04] LABS: ALBUMIN 2.3 g/dL (3.4-5.0); ANION GAP 15.4 mmol/L (8-16); BILIRUBIN - TOTAL 0.43 mg/dL (0.2-1.3); CARBON DIOXIDE 23.5 mmol/L (21.0-32.0); CREATININE - SERUM 5.6 mg/dL (0.6-1.3); POTASSIUM - SERUM 5.9 mmol/L (3.5-5.1); PROTEIN - SERUM 5.6 g/dL (6.4-8.2)
[2020-01-11 00:33] VITALS: BP 119/48
--- NOTE | 2020-01-11 00:43 | NUR ---
CALLED ANSWERING SERVICE AGAIN GER HAS NOT CALLED BACK,STATES WILL CALL HER
--- NOTE | 2020-01-11 01:14 | NUR ---
CALL BACK RECIEVED FROM DR POLLOCK, ORDERS RECIEVED
--- NOTE | 2020-01-11 04:07 | NUR ---
CALL TO DR POLLOCK REPORTED POTASSIUM OF 5.5, WITH OUTPUT OF 1200 AND IV INTAKE OF 1750, STATES WILL HAVE GER SEE HIM IN AM AND DECIDE IF WILL NEED DIALYSIS
[2020-01-11 07:17] VITALS: BP 134/68
[2020-01-11 07:23] VITALS: BP 145/56
[2020-01-11 07:45] LABS: TOTAL IRON BIND CAPACITY 223 ug/dl (260-445)
[2020-01-11 07:56] LABS: % SATURATION 9 % (15-55); IRON 22 ug/dl (35-150); UNSAT IRON BIND CAPACITY 201 ug/dl (150-375)
[2020-01-11 07:59] LABS: BASOPHILS 0.1 % (0-2); EOSINOPHILS 1.2 % (0-7); HEMATOCRIT 29.6 % (42.0-54.0); HEMOGLOBIN 9.4 g/dL (13.5-17.5); IMMATURE GRANULOCYTES 0.7 % (0-5); LYMPHOCYTES 6.7 % (15-50); MCH 29.2 pg (26.0-34.0); MCHC 31.8 g/dL (31.0-37.0); MCV 91.9 fL (80.0-100.0); MEAN PLATELET VOLUME 11.6 fL (7.4-10.4); MONOCYTES 7.7 % (2-11); NEUTROPHILS 83.6 % (40-80); PLATELET COUNT 110 10x3/uL (130-400); RBC 3.22 10x6/uL (4.20-6.10); RDW 14.6 % (11.5-14.5); WBC 8.4 10x3/uL (4.8-10.8)
--- NOTE | 2020-01-11 08:10 | NUR ---
PT RESTING IN BED WITH HOB ELEVATED. RESP EVEN AND UNLABORED AT THIS TIME. O2 @ 2L NC IN PLACE. IV TO RIGHT FOREARM WITH NS @ 100ML/HR INFUSING VIA PUMP. SITE WITHOUT REDNESS OR EDEMA. ABDUCTION PILLOW NOTED IN PLACE. PT REPORTS PAIN 5/10 AT THIS TIME. TYLENOL ADMINISTERED PER PT AND FAMILY REQUEST FOR PAIN. F/C PATENT TO GRAVITY DRAINING CLEAR YELLOW URINE. PT AND FAMILY DENY FURTHER NEEDS AT THIS TIME. CL WITHIN REACH. ENCOURAGED TO CALL WITH NEEDS. CONTINUE POC
[2020-01-11 08:19] LABS: CALC OSMOLALITY 308 mosm/kg (275-300); CALCIUM 7.9 mg/dL (8.5-10.1); CARBON DIOXIDE 27.5 mmol/L (21.0-32.0); CHLORIDE - SERUM 102 mmol/L (98-107); CREATININE - SERUM 5.7 mg/dL (0.6-1.3); FERRITIN 146 ng/mL (3-244); GLUCOSE 122 mg/dL (74-106); MAGNESIUM - SERUM 2.1 mg/dL (1.8-2.4); POTASSIUM - SERUM 5.4 mmol/L (3.5-5.1); SODIUM 137 mmol/L (136-145); UREA NITROGEN 109 mg/dL (7-18); eGFR NON AFRICAN AMERICAN 10 mL/min (90-120)
--- NOTE | 2020-01-11 10:06 | NUR ---
NUTRITION F/U PT SLEEPING. 25% BREAKFAST CONSUMED. APPEARS PT CONSUMES 75% LUNCH AND DINNER MEALS. WILL CONTINUE TO PROVIDE DIET, MONITOR PO INTAKE. RD FOLLOWING
[2020-01-11 11:20] VITALS: BP 150/50
--- NOTE | 2020-01-11 14:35 | NUR ---
Reviewed patient's chart today for inpatient rehab. According to the PT notes he is very confused and works against therapist. They are recommending transfer training only due to his TTWB status and inability to follow direction. It is doubtful he could tolerate 3 hrs of therapy every day 5 days a week as required by Medicare. He is not medically stable at this time, so rehab will continue to follow his progress to see if his cognition improves. Discussed at length with the CM Kasey Brothers RN. Micki Henson RN Clinical Liaison, Rehab
[2020-01-11 15:17] VITALS: BP 142/78
[2020-01-11 17:21] LABS: ANION GAP 16.4 mmol/L (8-16); CALCIUM 7.7 mg/dL (8.5-10.1); CARBON DIOXIDE 24.8 mmol/L (21.0-32.0); CREATININE - SERUM 5.2 mg/dL (0.6-1.3); PHOSPHOROUS 7.3 mg/dL (2.5-4.9); POTASSIUM - SERUM 5.2 mmol/L (3.5-5.1)
--- NOTE | 2020-01-11 17:28 | MORECARE ---
CASE MANAGEMENT DISCHARGE SUMMARY PATIENT: IVAN DEVINE UNIT: [id number] ADM DATE: 01/08/20 AGE: 84 : 36 SEX: M ROOM/BED: D.1206 AUTHOR: TOMY,DOC PHYSICIAN: REFERRING PHYSICIAN: ROBYN MONIQUE DO DATE OF SERVICE: 01/11/20 Discharge Plan Patient Name: IVAN DEVINE Facility: [facility]:[place] : 1935 Planned Disposition: Anticipated Discharge Date: Discharge Date: Expected LOS: Initial Reviewer: [id number] Initial Review Date: 01/08/2020 Generated: 01/11/20 6:28 pm Comments DCP- Discharge Planning Updated by [email or web address]: Kasey Brothers on 01/11/20 4:[address] Call from Micki with [facility], they will continue to follow progress. Spoke with patient's daughter to make her aware of same and that the patient will need to be able to participate in 3 hrs of therapy/day5 days/week in order to qualify, per Medicare guidelines. CM will follow and assist with alternate care, as his condition stabilizes as needed. DCP- Discharge Planning Updated by [id number]: Kasey Brothers on 01/09/20 4:[address] Spoke with Micki, Rehab, and awaiting PT/OT evals. DCP- Discharge Planning Updated by [email or web address]: Kasey Brothers on 01/09/20 4:[address] CM met with patient to discuss initial discharge planning. Patient is in agreement to proceed with the assessment with his daughter present. Patient reports that he lives at home with his daughter, partially dependent on his daughter. Patient is alert/oriented, drowsy. Stairs/steps: 0. PCP: [facility]. [facility]acy[facility]. Daughter states they have been able to obtain all of their prescribed medications. [facility]: [facility] in past, but not current. DME: O2, RW, W/C, Extended shower bench. Patient gives permission to speak with family members/care givers. Emergency contact: Claribel Gordon (dtr) [phone]. CM discussed the availability of HH, Rehab, DME services. Patient's daughter request in-pt REHAB at [facility]. Patient denies being hospitalized within the past 30 days. 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 Transportation at time of discharge: Daughter. CM will assist PRN with DC needs/plans. Daughter would like to use [facility] upon DC from rehab. DCPIA - Discharge Planning Initial Assessment Updated by [email or web address]: Kasey Brothers on 01/09/20 5:02 pm * Is the patient Alert and Oriented? Yes * How many steps to enter\exit or inside your home? * PCP [facility] * [facility] * Preadmission Environment Home with Family * ADLs Partial Dependent * Partial ADLs (Assistance needed) Bathing Dressing Medication Management * Equipment Oxygen Rolling Walker Tub Bench Wheelchair * List name and contact numbers for known caregivers / representatives who currently or will assist patient after discharge: Claribel Gordon (dtr) [phone] * Verbal permission to speak to the caregivers and representatives has been obtained from the patient. Yes * Community resources currently utilized None * Please name any agencies selected above. [facility] * Additional services required to return to the preadmission environment? Yes * Can the patient safely return to the preadmission environment? No * Has this patient been hospitalized within the prior 30 days at any hospital? No Coverage Notice Reviewer: [id number] - Kasey Deneen Notice Issued Date-Time: 01/09/2020 17:17 Notice Type: Patient Choice Letter Notice Delivered To: Family Member Relationship to Patient: Daughter Jack Winder Name: Claribel Gordon Delivery Method: HAND - Hand Delivered Kiki Days: Prior Verbal Notification: Recipient Understood Notice: Yes Recipient Signature: Yes Med Rec Note Co-signed by Attending: Coverage Notice Comment: Patient choice for [facility] signed per daughter. Original given to patient and one placed on the chart. Reviewer: [id number] Nahomy Topete Notice Issued Date-Time: 01/10/2020 16:00 Notice Type: IM Discharge Notice Notice Delivered To: Family Member Relationship to Patient: Daughter Jack Winder Name: Claribel Gordon Delivery Method: HAND - Hand Delivered Kiki Days: Prior Verbal Notification: Recipient Understood Notice: Yes Recipient Signature: Yes Med Rec Note Co-signed by Attending: Coverage Notice Comment: Claribel Gordon-DAUGHTER SIGNED IMM FORM. Last DP export: 01/10/20 6:13 p Patient Name: IVAN DEVINE Page [phone] at 1728 All edits/amendments must be made on the electronic document DICTATION DATE: 01/11/201727 AGRICULTURAL SALES REPRESENTATIVE: REJI 01/11/201727 RPT#: [id number] DC DATE: STATUS: ADM IN [facility] [address] [place] [address] END OF REPORT
[2020-01-11 20:00] VITALS: BP 153/76
--- NOTE | 2020-01-11 20:20 | NUR ---
CALL TO DR POLLOCK, REPORTED RESULT OF ABD XRAY, NO ORDERS RECIEVED
[2020-01-12 00:42] VITALS: BP 164/78
--- NOTE | 2020-01-12 00:44 | NUR ---
AWAKE CONFUSED PULLING TELEMENTRY OFF AND PULLING AT TRUONG, KEEPS REMOVING OXYGEN, REORIENTIATED O2 REPLACED FREQUENTLY
--- NOTE | 2020-01-12 02:57 | NUR ---
REMAING CONFUSED, REFUSES TO HAVE TELEMENTRY ON AND KEEPS REMOVING OXYGEN
[2020-01-12 04:47] VITALS: BP 168/73
[2020-01-12 05:49] LABS: BASOPHILS 0 % (0-2); EOSINOPHILS 0.5 % (0-7); HEMATOCRIT 29.2 % (42.0-54.0); HEMOGLOBIN 9.3 g/dL (13.5-17.5); LYMPHOCYTES 6.9 % (15-50); MCH 29.2 pg (26.0-34.0); MCHC 31.8 g/dL (31.0-37.0); MCV 91.5 fL (80.0-100.0); MEAN PLATELET VOLUME 11.2 fL (7.4-10.4); MONOCYTES 9.6 % (2-11); PLATELET COUNT 113 10x3/uL (130-400); RBC 3.19 10x6/uL (4.20-6.10); RDW 14.6 % (11.5-14.5); WBC 7.9 10x3/uL (4.8-10.8)
[2020-01-12 05:59] LABS: ANION GAP 9.9 mmol/L (8-16); CALCIUM 8.2 mg/dL (8.5-10.1); CARBON DIOXIDE 29.1 mmol/L (21.0-32.0); CREATININE - SERUM 5.1 mg/dL (0.6-1.3); MAGNESIUM - SERUM 2.3 mg/dL (1.8-2.4)
--- NOTE | 2020-01-12 07:45 | NUR ---
AWAKE AND ALERT. ORIENTED X3. NO C/O AT THIS TIME. LUNGS ARE CLEAR BILATERALLY, NO COUGH NOTED. SKIN IS INTACT WITHOUT REDNESS EXCEPT SKIN TEAR TO RIGHT ELBOW WHICH HAS A DRY DRESSING IN PLACE. SL TO RIGHT FOREARM IS PATENT WITHOUT REDNESS AT INSERTION SITE. TRUONG PATENT WITH CLEAR YELLOW URINE. DENIES NEEDS. DAUGHTER AT BEDSIDE.
[2020-01-12 08:01] VITALS: BP 169/65
--- NOTE | 2020-01-12 09:50 | NUR ---
OFF UNIT VIA BED FOR CT.
--- NOTE | 2020-01-12 10:10 | NUR ---
RETURNED FROM CT. DENIES NEEDS. DAUGHTER AT BEDSIDE.
--- NOTE | 2020-01-12 10:33 | NUR ---
REQUESTED AND GIVEN ONE 50MG ULTRAM PO FOR C/O LEFT LEG PAIN LEVEL 8. WILL MONITOR.
[2020-01-12 12:03] VITALS: BP 185/77
--- NOTE | 2020-01-12 12:30 | NUR ---
TRANSFERRED TO ROOM 2205 VIA BED. FAMILY AT BEDSIDE. DENIES NEEDS.
--- NOTE | 2020-01-12 13:00 | NUR ---
HAD MODERATE DARK BLACK STOOL, SOFT. SKIN CARE PER STAFF.
--- NOTE | 2020-01-12 15:29 | NUR ---
RESTING QUIETLY IN BED WITH EYES CLOSED. FAMILY AT BEDSIDE. DENIES NEEDS.
[2020-01-12 16:19] VITALS: BP 189/76
--- NOTE | 2020-01-12 18:26 | NUR ---
ATE ABOUT HALF OF SUPPER WITH DAUGHTER'S ASSISTANCE. PLACED ON BED AYALA. HAD MODERATE SOFT STOOL. SKIN CARE PER STAFF. DENIES NEEDS. DAUGHTER AT BEDSIDE.
[2020-01-13] VITALS (8 sets, daily range): BP systolic 134–208; BP diastolic 67–86
[2020-01-13 06:07] LABS: BASOPHILS 0.1 % (0-2); EOSINOPHILS 0.6 % (0-7); HEMATOCRIT 29.5 % (42.0-54.0); HEMOGLOBIN 9.5 g/dL (13.5-17.5); IMMATURE GRANULOCYTES 0.6 % (0-5); LYMPHOCYTES 5.1 % (15-50); MCH 29.4 pg (26.0-34.0); MCHC 32.2 g/dL (31.0-37.0); MCV 91.3 fL (80.0-100.0); MEAN PLATELET VOLUME 11.4 fL (7.4-10.4); MONOCYTES 9.1 % (2-11); NEUTROPHILS 84.5 % (40-80); PLATELET COUNT 135 10x3/uL (130-400); RBC 3.23 10x6/uL (4.20-6.10); RDW 14.8 % (11.5-14.5); WBC 8.8 10x3/uL (4.8-10.8)
[2020-01-13 06:37] LABS: ANION GAP 13.2 mmol/L (8-16); CALCIUM 8.3 mg/dL (8.5-10.1); CARBON DIOXIDE 27.1 mmol/L (21.0-32.0); CREATININE - SERUM 3.9 mg/dL (0.6-1.3); MAGNESIUM - SERUM 2.4 mg/dL (1.8-2.4); POTASSIUM - SERUM 4.3 mmol/L (3.5-5.1)
--- NOTE | 2020-01-13 07:10 | NUR ---
PT RESTING IN BED. NO SIGNS OF DISTRESS. IV TO LEFT FORARM PATENT NO REDNESS OR TENDERNESS. HAS TRUONG NO KINKS PATENT. ON 2L NC. COMPLAINS OF PAIN. MEDICATION GIVEN. DENIES ANY FURTHER NEED AT THIS TIME. CALL LIGHT IN REACH. BED LOW POSITION. FAMILY AT BEDSIDE.
--- NOTE | 2020-01-13 18:27 | NUR ---
I have reviewed this patient and I concur with the Shift Assessment completed by the Licensed Practical Nurse today this shift.
[2020-01-14] VITALS: BP 124/73
[2020-01-14 04:00] VITALS: BP 193/8
--- NOTE | 2020-01-14 04:14 | NUR ---
PATIENT REFUSED TO HAVE ABDUCTOR PILLOW ON. BED IN LOW POSITION, RAILS X2. CALL LIGHT AND BEDSIDE TABLE WITHIN REACH.
--- NOTE | 2020-01-14 07:10 | NUR ---
PT RESITING IN BED. NO SIGNS OF DISTRESS. NO IV AT THIS TIME. ON 2L NC. MENTAL STATUS DECREASING. ALL FALL PRECAUTIONS IN PLACE. COMPLAINS OF PAIN. MEDICATIONS GIVEN. DENIES ANY FURTHER NEED AT THIS TIME. CALL LIGHT IN REACH. BED LOW POSITION. FAMILY AT BEDSIDE.
[2020-01-14 09:31] VITALS: BP 200/96
[2020-01-14 10:47] LABS: BASOPHILS 0.3 % (0-2); EOSINOPHILS 2.3 % (0-7); HEMATOCRIT 29.1 % (42.0-54.0); HEMOGLOBIN 9.4 g/dL (13.5-17.5); IMMATURE GRANULOCYTES 1.2 % (0-5); MCH 29.5 pg (26.0-34.0); MCHC 32.3 g/dL (31.0-37.0); MCV 91.2 fL (80.0-100.0); MEAN PLATELET VOLUME 11.1 fL (7.4-10.4); MONOCYTES 10.2 % (2-11); PLATELET COUNT 126 10x3/uL (130-400); RBC 3.19 10x6/uL (4.20-6.10); RDW 14.5 % (11.5-14.5); WBC 7.7 10x3/uL (4.8-10.8)
[2020-01-14 10:55] LABS: ANION GAP 11.7 mmol/L (8-16); CALCIUM 8.4 mg/dL (8.5-10.1); CARBON DIOXIDE 26.3 mmol/L (21.0-32.0)
[2020-01-14 11:01] LABS: ALBUMIN 2.3 g/dL (3.4-5.0); BILIRUBIN - TOTAL 0.53 mg/dL (0.2-1.3); PHOSPHOROUS 4.2 mg/dL (2.5-4.9); PROTEIN - SERUM 5.8 g/dL (6.4-8.2)
[2020-01-14 11:02] LABS: MAGNESIUM - SERUM 2.3 mg/dL (1.8-2.4)
--- NOTE | 2020-01-14 14:03 | NUR ---
OT EVAL: [phone]
[2020-01-14 14:22] VITALS: BP 156/70
[2020-01-14 17:16] VITALS: BP 101/57
--- NOTE | 2020-01-14 18:10 | NUR ---
I have reviewed this patient and I concur with the Shift Assessment completed by the Licensed Practical Nurse today this shift.
--- NOTE | 2020-01-14 18:33 | NUR ---
OT NOTE: PT REQUIRED MAX A WITH BED MOB TASKS. PT COMPLETED UE AROM/AAROM EXS WITHIN AVAILABLE ROM. PT C/O LLE PAIN. NURSING AWARE. [phone] ALYSIA GRAF COTA
[2020-01-14 20:00] VITALS: BP 185/77
[2020-01-15] VITALS: BP 186/72
[2020-01-15 04:00] VITALS: BP 180/81
--- NOTE | 2020-01-15 06:15 | NUR ---
BLOOD BLUCOSE OF 50. GAVE PATIENT APPLE JUICE WITH 2 SUGAR PACKETS IN IT. WILL HAVE DAY SHIFT NURSE RE-CHECK BLOOD SUGAR LEVEL.
[2020-01-15 06:32] LABS: ANION GAP 12.9 mmol/L (8-16); CALCIUM 8.3 mg/dL (8.5-10.1); CARBON DIOXIDE 26.5 mmol/L (21.0-32.0); CREATININE - SERUM 2.8 mg/dL (0.6-1.3); PHOSPHOROUS 4.7 mg/dL (2.5-4.9); POTASSIUM - SERUM 4.4 mmol/L (3.5-5.1)
[2020-01-15 06:33] LABS: BASOPHILS 0.1 % (0-2); HEMATOCRIT 30.1 % (42.0-54.0); HEMOGLOBIN 9.4 g/dL (13.5-17.5); IMMATURE GRANULOCYTES 1.2 % (0-5); LYMPHOCYTES 9.3 % (15-50); MCH 28.5 pg (26.0-34.0); MCHC 31.2 g/dL (31.0-37.0); MCV 91.2 fL (80.0-100.0); MEAN PLATELET VOLUME 10.8 fL (7.4-10.4); MONOCYTES 12.6 % (2-11); NEUTROPHILS 71.8 % (40-80); PLATELET COUNT 142 10x3/uL (130-400); RDW 14.4 % (11.5-14.5); WBC 7.4 10x3/uL (4.8-10.8)
--- NOTE | 2020-01-15 07:38 | NUR ---
REC'D IN ROOM IN BED AWAKE AND ALERT. RESP EVEN AND UNLABORED WITH NO DISTRESS NOTED. CAN EXPRESS NEEDS AND WANTS. PT REFUSED TO WEAR ABD. PILLOW WITH SEVERAL ATTEMPTS MADE BUT WAS UNSUCCESSFUL. ASSESSMENT COMPLETED. C/L IN REACH AT BEDSIDE.
--- NOTE | 2020-01-15 08:00 | NUR ---
BP WAS RECHECKED WITH RESULTS OF 142/80.
[2020-01-15 09:10] VITALS: BP 200/76
[2020-01-15 12:52] VITALS: BP 159/64
[2020-01-15 16:20] VITALS: BP 179/81
--- NOTE | 2020-01-15 17:13 | NUR ---
OT NOTE: PT DOING MUCH BETTER TODAY. MUCH LESS CONFUSSION THAN PAST SEVERAL DAYS. BED MOB WITH MOD ASSIST; GOOD SITTING BALANCE ON EOB; ABLE TO PERFORM SIMPLE ADLS WHILE ON EOB; UE/LE EXS WHILE ON EOB; BACK TO BED WITH MOD ASSIST AND MAX ASSIST TO REPOSITION. EDUCATION ON PREVENTION OF HIP ADD.. PLACED PILLOW BETWEEN LEGS A REMINDER. PT VERY COOPERATIVE AND MUCH LESS PAIN TODAY. REESE ROMERO, OTR/L [phone]
--- NOTE | 2020-01-15 17:45 | NUR ---
OT NOTE: PT COMPLETED BED MOB TASKS WITH MAX A X2. PT COMPLETED EOB SITTING WITH CGA. PT REQUIRED CUES FOR PRECAUTIONS. PT COMPLETED UB HYGIENE TASKS SITTING AT EOB WITH MOD A. [phone] THANK YOU,MADONNA VILLAFUERTE
--- NOTE | 2020-01-15 18:40 | NUR ---
I have reviewed this patient and I concur with the Shift Assessment completed by the Licensed Practical Nurse today this shift.
[2020-01-15 20:00] VITALS: BP 166/76
[2020-01-16] VITALS: BP 179/86
[2020-01-16 04:00] VITALS: BP 180/79
[2020-01-16 04:36] LABS: BASOPHILS 0.1 % (0-2); EOSINOPHILS 4.3 % (0-7); HEMATOCRIT 28.9 % (42.0-54.0); LYMPHOCYTES 8.5 % (15-50); MCH 28.8 pg (26.0-34.0); MCHC 31.1 g/dL (31.0-37.0); MCV 92.3 fL (80.0-100.0); MONOCYTES 8.5 % (2-11); NEUTROPHILS 77.6 % (40-80); PLATELET COUNT 133 10x3/uL (130-400); RBC 3.13 10x6/uL (4.20-6.10); RDW 14.2 % (11.5-14.5); WBC 7.9 10x3/uL (4.8-10.8)
[2020-01-16 04:58] LABS: ANION GAP 9.7 mmol/L (8-16); CALCIUM 8.3 mg/dL (8.5-10.1); CARBON DIOXIDE 26.6 mmol/L (21.0-32.0); CREATININE - SERUM 2.5 mg/dL (0.6-1.3); POTASSIUM - SERUM 4.3 mmol/L (3.5-5.1)
[2020-01-16 08:23] VITALS: BP 189/79
--- NOTE | 2020-01-16 09:36 | NUR ---
NUTRITION F/U CHART REVIEWED. PT TOLERATING ADA GLUTEN FREE DIET. 75% INTAKE RECENT MEALS. FAMILY REPORTS PT USUALLY HAS GOOD APPETITE AND PO INTAKE. RD FOLLOWING
[2020-01-16 12:27] VITALS: BP 154/65
--- NOTE | 2020-01-16 12:32 | NUR ---
I have reviewed this patient and I concur with the Shift Assessment completed by the Licensed Practical Nurse today this shift.
[2020-01-16] MEDS ORDERED: HYDRALAZINE HCL50 MG PO (13:57)
[2020-01-16] MEDS ORDERED: PROCARDIA XL PO (13:58)
[2020-01-16 16:26] VITALS: BP 154/69
[2020-01-16 19:30] VITALS: BP 164/67
--- NOTE | 2020-01-16 19:54 | NUR ---
OT NOTE: PT COMPLETED SIDE ROLLING WITH MIN A. PT REQUIRED MAX A WITH LB HYGIENE TASKS. PT COMPLETED POSITIONING WITH MOD A. PT CAUTIONED NOT TO CROSS LEGS AND PILLOW PUT BETWEEN LEGS. PT COMPLETED BUE AROM EX. PT COMPLETED FACE AND HAND HYGIENE WITH SET UP. [phone] THANK YOU,MADONNA VILLAFUERTE
[2020-01-17] VITALS: BP 172/69
--- NOTE | 2020-01-17 02:37 | NUR ---
I have reviewed this patient and I concur with the Shift Assessment completed by the Licensed Practical Nurse today this shift.
[2020-01-17 04:00] VITALS: BP 160/67
--- NOTE | 2020-01-17 04:34 | NUR ---
PT RESTING IN BED. EYES CLOSED. NO SIGNS OF DISTRESS. BREATHING EVEN AND UNLABORED. NO IV SITE. 2LO2 NASAL CANNULA. LT ELBOW SKIN TEAR. TRUONG IN PLACE. BOWEL SOUNDS ACTIVE. WILL CONTINUE PLAN OF CARE. CALL LIGHT IN REACH. BED LOWERED AND LOCKED. BED RAILS UPX2.
[2020-01-17 06:29] LABS: BASOPHILS 0.1 % (0-2); EOSINOPHILS 3.4 % (0-7); HEMATOCRIT 30.5 % (42.0-54.0); HEMOGLOBIN 9.7 g/dL (13.5-17.5); IMMATURE GRANULOCYTES 1.5 % (0-5); MCH 29.3 pg (26.0-34.0); MCHC 31.8 g/dL (31.0-37.0); MCV 92.1 fL (80.0-100.0); MONOCYTES 8.2 % (2-11); NEUTROPHILS 77.8 % (40-80); PLATELET COUNT 158 10x3/uL (130-400); RBC 3.31 10x6/uL (4.20-6.10); RDW 14.2 % (11.5-14.5); WBC 8.6 10x3/uL (4.8-10.8)
[2020-01-17 06:43] LABS: ANION GAP 14.4 mmol/L (8-16); CALCIUM 8.4 mg/dL (8.5-10.1); CARBON DIOXIDE 24.2 mmol/L (21.0-32.0); CREATININE - SERUM 2.7 mg/dL (0.6-1.3); PHOSPHOROUS 4.3 mg/dL (2.5-4.9); POTASSIUM - SERUM 4.6 mmol/L (3.5-5.1)
--- NOTE | 2020-01-17 08:15 | NUR ---
PT RESTING IN BED WITH HOB ELEVATED. RESP EVEN AND UNLABORED. O2 @ 2L NC IN PLACE. REPORTS PAIN 3/10 AT THIS TIME. ORDERS FOR ABDUCTION PILLOW BETWEEN KNEES. PT BECOMES RESTLESS WITH PILLOW, REMOVING IT. ATTEMPTED TO ENCOURAGE PT TO WEAR ABD PILLOW, BUT CONTINUES TO REFUSE. DENIES FURTHER NEEDS AT THIS TIME. CL WITHIN REACH. DAUGHTER AT BEDSIDE. ENCOURAGED TO CALL WITH NEEDS. CONTINUE POC
[2020-01-17 10:00] VITALS: BP 166/67
[2020-01-17 11:44] VITALS: BP 154/72
--- NOTE | 2020-01-17 13:30 | NUR ---
PT ASSISTED ON BED AYALA. LARGE BM NOTED AT THIS TIME. PROVIDED RAJAN CARE AT THIS TIME, WELL TRUONG CARE. PT ZAY WELL.
[2020-01-17 13:47] VITALS: BP 163/71
--- NOTE | 2020-01-17 15:22 | MORECARE ---
CASE MANAGEMENT DISCHARGE SUMMARY PATIENT: IVAN DEVINE UNIT: [id number] ADM DATE: 01/08/20 AGE: 84 : 36 SEX: M ROOM/BED: D.2205 AUTHOR: MARLY HUITRON PHYSICIAN: REFERRING PHYSICIAN: ROBYN MONIQUE DO DATE OF SERVICE: 01/17/20 Discharge Plan Patient Name: IVAN DEVINE Facility: [facility]:[place] : 1935 Planned Disposition: Anticipated Discharge Date: Discharge Date: Expected LOS: Initial Reviewer: [email or web address] Initial Review Date: 01/08/2020 Generated: 01/17/20 4:21 pm Comments DCP- Discharge Planning Updated by [id number]: Lisbeth Bahena on 01/17/20 2:[address] PATIENT WILL BE DSICHARGING TO INPATIENT REHAB TODAY. IMM SERVED AND EXPLAINED HE WILL BE GOING TO ROOM 1112B. I ASKED IF I COULD CALL ANYONE AND HE SAID THEY ALREADY KNOW. CM WILL CONTINUE TO FOLLOW AND ASSIST NEEDED DCP- Discharge Planning Updated by [id number]: Kasey Brothers on 01/11/20 4:[address] Call from Micki with [facility], they will continue to follow progress. Spoke with patient's daughter to make her aware of same and that the patient will need to be able to participate in 3 hrs of therapy/day5 days/week in order to qualify, per Medicare guidelines. CM will follow and assist with alternate care, as his condition stabilizes as needed. DCP- Discharge Planning Updated by [id number]: Kasey Brothers on 01/09/20 4:[address] Spoke with Micki, Rehab, and awaiting PT/OT evals. DCP- Discharge Planning Updated by [id number]: Kasey Brothers on 01/09/20 4:[address] CM met with patient to discuss initial discharge planning. Patient is in agreement to proceed with the assessment with his daughter present. Patient reports that he lives at home with his daughter, partially dependent on his daughter. Patient is alert/oriented, drowsy. Stairs/steps: 0. PCP: [facility]. [facility]. Daughter states they have been able to obtain all of their prescribed medications. [facility]: [facility] in past, but not current. DME: O2, RW, W/C, Extended shower bench. Patient gives permission to speak with family members/care givers. Emergency contact: Claribel Evan (dtr) [phone]. CM discussed the availability of HH, Rehab, DME services. Patient's daughter request in-pt REHAB at [facility]. Patient denies being hospitalized within the past 30 days. Patient denies the use of community resources RECREATION THERAPY AIDES TEACHER. Transportation at time of discharge: Daughter. CM will assist PRN with DC needs/plans. Daughter would like to use [facility] upon DC from rehab. DCPIA - Discharge Planning Initial Assessment Updated by [email or web address]: Kasey Brothers on 01/09/20 5:02 pm * Is the patient Alert and Oriented? Yes * How many steps to enter\exit or inside your home? * PCP [facility] * [facility] * Preadmission Environment Home with Family * ADLs Partial Dependent * Partial ADLs (Assistance needed) Bathing Dressing Medication Management * Equipment Oxygen Rolling Walker Tub Bench Wheelchair * List name and contact numbers for known caregivers / representatives who currently or will assist patient after discharge: Claribelstacey Gordon (dtr) [phone] * Verbal permission to speak to the caregivers and representatives has been obtained from the patient. Yes * Community resources currently utilized None * Please name any agencies selected above. [facility] * Additional services required to return to the preadmission environment? Yes * Can the patient safely return to the preadmission environment? No * Has this patient been hospitalized within the prior 30 days at any hospital? No Coverage Notice Reviewer: [id number] - Kasey Brothers Notice Issued Date-Time: 01/09/2020 17:17 Notice Type: Patient Choice Letter Notice Delivered To: Family Member Relationship to Patient: Daughter Torsion Spring Coiling Machine Setter Name: Claribel Gordon Delivery Method: HAND - Hand Delivered Kiki Days: Prior Verbal Notification: Recipient Understood Notice: Yes Recipient Signature: Yes Med Rec Note Co-signed by Attending: Coverage Notice Comment: Patient choice for [facility] signed per daughter. Original given to patient and one placed on the chart. Reviewer: [id number] Nahomy Topete Notice Issued Date-Time: 01/10/2020 16:00 Notice Type: IM Discharge Notice Notice Delivered To: Family Member Relationship to Patient: Daughter Torsion Spring Coiling Machine Setter Name: Claribel Gordon Delivery Method: HAND - Hand Delivered Kiki Days: Prior Verbal Notification: Recipient Understood Notice: Yes Recipient Signature: Yes Med Rec Note Co-signed by Attending: Coverage Notice Comment: Claribel Gordon-DAUGHTER SIGNED IMM FORM. Reviewer: [email or web address] Nahomy Bahena Notice Issued Date-Time: 01/17/2020 13:45 Notice Type: IM Discharge Notice Notice Delivered To: Patient Relationship to Patient: Torsion Spring Coiling Machine Setter Name: Delivery Method: HAND - Hand Delivered Kiki Days: Prior Verbal Notification: Recipient Understood Notice: Yes Recipient Signature: Yes Med Rec Note Co-signed by Attending: Coverage Notice Comment: Last DP export: 01/11/20 4:28 p Patient Name: IVAN DEVINE Page [id number] at 1522 All edits/amendments must be made on the electronic document DICTATION DATE: 01/17/20 152 ARABIC LINGUIST: REJI 01/17/20 1521 RPT#: [id number] DC DATE: STATUS: ADM IN [facility] [address] [place] [address] END OF REPORT
--- NOTE | 2020-01-17 16:50 | MORECARE ---
CASE MANAGEMENT DISCHARGE SUMMARY PATIENT: IVAN DEVINE UNIT: [id number] ADM DATE: 01/08/20 AGE: 84 : 36 SEX: M ROOM/BED: D.2205 AUTHOR: MARLY HUITRON PHYSICIAN: REFERRING PHYSICIAN: ROBYN MONIQUE DO DATE OF SERVICE: 01/17/20 Discharge Plan Patient Name: IVAN DEVINE Facility: [facility]:[place] : 1935 Planned Disposition: Anticipated Discharge Date: Discharge Date: 01/17/2020 Expected LOS: 0 Initial Reviewer: [email or web address] Initial Review Date: 01/08/2020 Generated: 01/17/20 5:50 pm Comments DCP- Discharge Planning Updated by [email or web address]: Lisbeth Bahena on 01/17/20 2:[address] PATIENT WILL BE DSICHARGING TO INPATIENT REHAB TODAY. IMM SERVED AND EXPLAINED HE WILL BE GOING TO ROOM 1112B. I ASKED IF I COULD CALL ANYONE AND HE SAID THEY ALREADY KNOW. CM WILL CONTINUE TO FOLLOW AND ASSIST NEEDED DCP- Discharge Planning Updated by [email or web address]: Kasey Brothers on 01/11/20 4:[address] Call from Micki with [facility], they will continue to follow progress. Spoke with patient's daughter to make her aware of same and that the patient will need to be able to participate in 3 hrs of therapy/day5 days/week in order to qualify, per Medicare guidelines. CM will follow and assist with alternate care, as his condition stabilizes as needed. DCP- Discharge Planning Updated by [id number]: Kasey Brothers on 01/09/20 4:[address] Spoke with Micki, Rehab, and awaiting PT/OT evals. DCP- Discharge Planning Updated by [email or web address]: Kasey Brothers on 01/09/20 4:[address] CM met with patient to discuss initial discharge planning. Patient is in agreement to proceed with the assessment with his daughter present. Patient reports that he lives at home with his daughter, partially dependent on his daughter. Patient is alert/oriented, drowsy. Stairs/steps: 0. PCP: Serene Childers. Pharmacy: [facility], [place]. Daughter states they have been able to obtain all of their prescribed medications. HHS: [facility] in past, but not current. DME: O2, RW, W/C, Extended shower bench. Patient gives permission to speak with family members/care givers. Emergency contact: Claribel Evan (dtr) [phone]. CM discussed the availability of HH, Rehab, DME services. Patient's daughter request in-pt REHAB at [facility]. Patient denies being hospitalized within the past 30 days. Patient denies the use of community resources [facility]. Transportation at time of discharge: Daughter. CM will assist PRN with DC needs/plans. Daughter would like to use [facility] upon DC from rehab. DCPIA - Discharge Planning Initial Assessment Updated by [id number]: Kasey Brothers on 01/09/20 5:02 pm * Is the patient Alert and Oriented? Yes * How many steps to enter\exit or inside your home? * PCP Serene Childers * Pharmacy [facility] * Preadmission Environment Home with Family * ADLs Partial Dependent * Partial ADLs (Assistance needed) Bathing Dressing Medication Management * Equipment Oxygen Rolling Walker Tub Bench Wheelchair * List name and contact numbers for known caregivers / representatives who currently or will assist patient after discharge: Claribel Gordon (dtr) [phone] * Verbal permission to speak to the caregivers and representatives has been obtained from the patient. Yes * Community resources currently utilized None * Please name any agencies selected above. [facility] * Additional services required to return to the preadmission environment? Yes * Can the patient safely return to the preadmission environment? No * Has this patient been hospitalized within the prior 30 days at any hospital? No Coverage Notice Reviewer: [email or web address] Nahomy Brothers Notice Issued Date-Time: 01/09/2020 17:17 Notice Type: Patient Choice Letter Notice Delivered To: Family Member Relationship to Patient: Daughter Environmental Planning Engineer Name: Claribel Gordon Delivery Method: HAND - Hand Delivered Kiki Days: Prior Verbal Notification: Recipient Understood Notice: Yes Recipient Signature: Yes Med Rec Note Co-signed by Attending: Coverage Notice Comment: Patient choice for [facility] signed per daughter. Original given to patient and one placed on the chart. Reviewer: [id number] Nahomy Topete Notice Issued Date-Time: 01/10/2020 16:00 Notice Type: IM Discharge Notice Notice Delivered To: Family Member Relationship to Patient: Daughter Environmental Planning Engineer Name: Claribel Gordon Delivery Method: HAND - Hand Delivered Kiki Days: Prior Verbal Notification: Recipient Understood Notice: Yes Recipient Signature: Yes Med Rec Note Co-signed by Attending: Coverage Notice Comment: Claribel Gordon-DAUGHTER SIGNED IMM FORM. Reviewer: [id number] Nahomy Bahena Notice Issued Date-Time: 01/17/2020 13:45 Notice Type: IM Discharge Notice Notice Delivered To: Patient Relationship to Patient: Environmental Planning Engineer Name: Delivery Method: HAND - Hand Delivered Kiki Days: Prior Verbal Notification: Recipient Understood Notice: Yes Recipient Signature: Yes Med Rec Note Co-signed by Attending: Coverage Notice Comment: Last DP export: 01/17/20 2:22 p Patient Name: IVAN DEVINE Page [phone] at 1650 All edits/amendments must be made on the electronic document DICTATION DATE: 01/17/20 165 CARD HAND: REJI 01/17/201649 RPT#: [id number] DC DATE:01/17/20 STATUS: DIS IN [facility] [address] [place] [address] END OF REPORT
--- NOTE | 2020-01-17 17:30 | NUR ---
OT NOTE: PT COMPLETED BED MOB TASKS WITH MIN/MOD A. PT COMPLETED SUPINE TO SIT WITH MIN A. PT COMPLETED EOB SITTING BALANCE WITH SBA. PT COMPLETED FACE WASH WITH SET UP. [phone] THAN YOU,MADONNA VILLAFUERTE
== END 2020-01-17 16:00 | DRG 535 ==
LOC: D.ER 13:55 → D.M3 17:12 → D.MS 01-12 12:12
PROVIDERS: Family Medicine; Internal Medicine; Internal Medicine Nephrology; ADMIT Family Medicine; ATTEND Family Medicine
DX: S72.112A Displaced fracture of greater trochanter of left femur, initial encounter for closed fracture (principal); I50.43 Acute on chronic combined systolic (congestive) and diastolic (congestive) heart failure; G93.41 Metabolic encephalopathy; N17.9 Acute kidney failure, unspecified; I13.0 Hypertensive heart and chronic kidney disease with heart failure and stage 1 through stage 4 chronic kidney disease, or unspecified chronic kidney disease; W19.XXXA Unspecified fall, initial encounter; E11.65 Type 2 diabetes mellitus with hyperglycemia; I25.10 Atherosclerotic heart disease of native coronary artery without angina pectoris; J44.9 Chronic obstructive pulmonary disease, unspecified; E11.22 Type 2 diabetes mellitus with diabetic chronic kidney disease; N18.3 Chronic kidney disease, stage 3 (moderate); I08.1 Rheumatic disorders of both mitral and tricuspid valves; D50.9 Iron deficiency anemia, unspecified; I71.4 Abdominal aortic aneurysm, without rupture

== ENCOUNTER 2020-01-17 14:58 | Inpatient (IN) | payer MEDICARE, BC ==
[~2020-01-17] VITALS: Ht 177.8 cm; Wt 101.9 kg
[~2020-01-17 14:58] MED LIST changes: +CELEXA40 MG PO; +CLARITIN 10 MG10 MG PO; +COREG25 MG PO; +HYDRALAZINE HCL50 MG PO; +PROCARDIA XL PO
--- NOTE | 2020-01-17 17:00 | NUR ---
RECIEVED FROM ACUTE FLOOR.ORIENTED TO ROOM AND CL WITH FAMILY.
--- NOTE | 2020-01-17 18:34 | NUR ---
OT NOTE: PT PLEASANTLY CONFUSED. PT WAS DISORIENTED BUT WAS ABLE TO REMEMBER THERAPIST PLACING PILLOW BETWEEN LEGS VS THE WEDGE. PT REPORTED THAT HE LIKED THE PILLOW BETTER BUT WAS COOPERATIVE WITH USE OF WEDGE. ABLE TO PERFORM SUPINE TO SIT WITH MOD ASSIST; GOOD STATIC SITTING ON EOB. TOLERATED SITTING UP APPROX 5 MIN BEFORE NURSING CAME TO TRANSFER TO REHAB. BACK TO BED WITH MOD ASSIST; MAX ASSIST TO SCOOT UP AND REPOSITION IN BED. REESE ROMERO, OTR/L [phone]
--- NOTE | 2020-01-17 18:35 | NUR ---
PT RESTING IN BED WITH EYES OPEN CALL LIGHT IN REACH WILL MONITER
[2020-01-17 19:00] VITALS: BP 160/68
--- NOTE | 2020-01-17 19:07 | NUR ---
GREETED PATIENT AND INTRODUCED MYSELF HIS NURSE. PATIENT IS ALERT TO SELF ONLY AT THIS TIME. PT. TRYING TO CLIMB OUT OF BED AND PULL OUT TRUONG CATHETER. ATTEMPTED TO REORIENT PATIENT AND HAVE PATIENT ON BED ALARM AND ACTIVE. CALL LIGHT IN REACH.
[2020-01-17 21:36] VITALS: BP 160/68; BMI 32.0
--- NOTE | 2020-01-18 01:42 | NUR ---
PT. AWAKE LAYING IN BED WATCHING TV. O2 AT 2L IN USE VIA NC. RESPIRATIONS EVEN. NO S/S OF DISTRESS. CALL LIGHT IN REACH.
[2020-01-18 01:52] LABS: BILIRUBIN NEGATIVE (NEGATIVE); GLUCOSE NEGATIVE (NEGATIVE); KETONE NEGATIVE (NEGATIVE); NITRITE NEGATIVE (NEGATIVE); UROBILINOGEN NORMAL (NORMAL)
[2020-01-18 01:54] LABS: BACTERIA MANY /hpf (NEGATIVE); EPITHELIAL CELLS 0-5 /hpf (0-5); RED CELLS - URINE 0-5 /hpf (0-5); TRIPLE PHOSPHATE CRYSTALS 0-5 /hpf (NONE SEEN); WHITE CELLS - URINE 0-5 /hpf (NEGATIVE)
--- NOTE | 2020-01-18 04:36 | NUR ---
PT. RESTING QUIETLY WITH EYES CLOSED. RESPIRATIONS EVEN. NO S/S OF DISTRESS. O2 AT 2L IN USE VIA NC. CALL LIGHT IN REACH.
[2020-01-18 07:26] LABS: BASOPHILS 0.1 % (0-2); EOSINOPHILS 2.1 % (0-7); LYMPHOCYTES 9.4 % (15-50); MCH 28.9 pg (26.0-34.0); MCHC 31.3 g/dL (31.0-37.0); MCV 92.5 fL (80.0-100.0); MEAN PLATELET VOLUME 10.9 fL (7.4-10.4); MONOCYTES 5.6 % (2-11); NEUTROPHILS 81.8 % (40-80); PLATELET COUNT 174 10x3/uL (130-400); RBC 3.46 10x6/uL (4.20-6.10); RDW 14.7 % (11.5-14.5)
[2020-01-18 07:35] LABS: ANION GAP 14.2 mmol/L (8-16); CALCIUM 8.8 mg/dL (8.5-10.1); CARBON DIOXIDE 25.1 mmol/L (21.0-32.0); CREATININE - SERUM 2.7 mg/dL (0.6-1.3); POTASSIUM - SERUM 4.3 mmol/L (3.5-5.1)
[2020-01-18 10:04] VITALS: Ht 177.8 cm; Wt 101.9 kg
[2020-01-18 11:25] VITALS: BP 145/64
--- NOTE | 2020-01-18 18:37 | NUR ---
PT RESTING IN BED, YOLANDA NEEDS. WCTM.
--- NOTE | 2020-01-18 20:10 | NUR ---
PATIENT RECEIVED SITTING UP IN BED. ASSESSMENT & VITAL SIGNS DONE. TRUONG PATENT WIH YELLOW COLOR URINE. PAIN MEDICATION EFFECTIVE. BED LOW. ALARM ON. CALL LIGHT WITHIN REACH. WILL CONTINUE TO BLADDER TRAIN & MONITOR.
--- NOTE | 2020-01-19 02:49 | NUR ---
PATIENT EYES CLOSED. RESPIRATIONS 18 & EVEN. BED LOW. ALARM ON. CALL LIGHT WITHIN REACH. WILL CONTINUE TO MONITOR.
--- NOTE | 2020-01-19 06:06 | NUR ---
I have reviewed this patient and I concur with the Shift Assessment completed by the Licensed Practical Nurse today this shift.
--- NOTE | 2020-01-19 07:55 | NUR ---
PT RESTING IN BED WITH EYES OPEN CALL LIGHT IN REACH WILL MONITER
--- NOTE | 2020-01-19 16:29 | NUR ---
PT RESTING IN BED WITH EYES OPEN VISITOR AT BED SIDE NO PROBLEMS QUESTIONS OR CONCERNS AT THIS TIME WILL MONITER
--- NOTE | 2020-01-19 19:20 | NUR ---
PT SITTING UP IN BED WATCHING TV. VISITOR IN ROOM. CL IN REACH. DENIES NEEDS OR PAIN AT THIS TIME. BED IN LOW SIDE RAILS X2. A.O X4. LUNGS CLEAR. BOWEL ACTIVE X4. RESP EVEN AND UNLABORED. WILL CONTINUE TO MONITOR.
[2020-01-19 20:00] VITALS: BP 114/46
--- NOTE | 2020-01-20 01:33 | NUR ---
I have reviewed this patient and I concur with the Shift Assessment completed by the Licensed Practical Nurse today this shift.
--- NOTE | 2020-01-20 08:00 | NUR ---
PT RESTING IN BED WITH EYES OPEN CALL LIGHT IN REACH NO PROBLEMS WILL MONITER
--- NOTE | 2020-01-20 17:00 | NUR ---
PT RESTING IN BED WITH EYES OPEN CALL LIGHT IN REACH WILL MONITER
--- NOTE | 2020-01-20 19:15 | NUR ---
PT SITTING UP IN BED WATCHING TV. CL IN REACH. DENIES NEEDS AT THIS TIME. BED IN LOW SIDE RAILS X2. LUNGS CLEAR. BOWEL ACTIVE X4. A/O X4. RESP EVEN AND UNLABORED. TRUONG INTACT. WILL CONTINUE TO MONITOR.
[2020-01-20 20:00] VITALS: BP 126/46
--- NOTE | 2020-01-21 03:24 | NUR ---
I have reviewed this patient and I concur with the Shift Assessment completed by the Licensed Practical Nurse today this shift.
[2020-01-21 06:41] LABS: BASOPHILS 0.1 % (0-2); EOSINOPHILS 2.8 % (0-7); HEMOGLOBIN 9.3 g/dL (13.5-17.5); IMMATURE GRANULOCYTES 0.4 % (0-5); LYMPHOCYTES 6.1 % (15-50); MCH 28.7 pg (26.0-34.0); MCV 92.6 fL (80.0-100.0); MEAN PLATELET VOLUME 10.2 fL (7.4-10.4); MONOCYTES 6.9 % (2-11); NEUTROPHILS 83.7 % (40-80); PLATELET COUNT 142 10x3/uL (130-400); RBC 3.24 10x6/uL (4.20-6.10); RDW 14.5 % (11.5-14.5); WBC 9.9 10x3/uL (4.8-10.8)
[2020-01-21 06:50] LABS: ANION GAP 12.9 mmol/L (8-16); CALCIUM 8.4 mg/dL (8.5-10.1); CARBON DIOXIDE 23.8 mmol/L (21.0-32.0); CREATININE - SERUM 3.4 mg/dL (0.6-1.3); POTASSIUM - SERUM 4.7 mmol/L (3.5-5.1)
--- NOTE | 2020-01-21 07:33 | NUR ---
RESTING WITH EYES CLOSED. NO DISTRESS NOTED. RESP EVEN ADN UNLABORED. CL IN REACH.
[2020-01-21 09:48] VITALS: BP 166/55
--- NOTE | 2020-01-21 14:56 | NUR ---
NO DISTRESS NOTED. RESTING IN BED AT THIS TIME. CL IN REACH. RESP EVEN AND UNLABORED.
--- NOTE | 2020-01-21 15:13 | NUR ---
PATIENT ADMITTED TO REHAB FROM ACUTE FLOOR. DR. MENDEZ IS PATIENT PCP IN [facility], HIS [facility] IS [facility]. DME AT HOME IS O2, ROLLING WALKER, WHEELCHAIR AND A SHOWER BENCH. DISCHARGE PLANS ARE FOR PATIENT TO RETURN HOME. WILL CONTINUE TO FOLLOW WITH PATIENT.
--- NOTE | 2020-01-21 17:11 | NUR ---
NO CHANGE IN ASSESSMENT. NO C/O PAIN. DAUGHTER AT BS. CL IN REACH.
--- NOTE | 2020-01-21 19:16 | NUR ---
PATIENT RECEIVED SITTING UP IN BED. ASSESSMENT & VITAL SIGNS DONE. NO C/O PAIN OR DISTRESS. BED LOW. ALARM ON. CALL LGT WITHIN REACH. WILL CONTINUE TO MONITOR.
[2020-01-21 20:41] VITALS: BP 126/50
--- NOTE | 2020-01-22 00:45 | NUR ---
PATIENT WANTED TO SIT ON SIDE OF BED. PATIENT THEN DECIDED TO SIT IN WHEELCHAIR. THIS NURSE & MALE NURSE MAX ASSIST INTO WHEELCHAIR. PATIENT IN WHEELCHAIR BESIDE BED. CALL LGITH WITHIN REACH. WILL CONTIMUE TO MONITOR.
--- NOTE | 2020-01-22 01:12 | NUR ---
I have reviewed this patient and I concur with the Shift Assessment completed by the Licensed Practical Nurse today this shift.
--- NOTE | 2020-01-22 02:03 | NUR ---
PATIENT 2 PERSON MAX INTO BED. BED LOW. ALARM ON. CALL LIGHT WITHIN REACH. WILL CONTINUE TO MONITOR.
--- NOTE | 2020-01-22 02:21 | NUR ---
PATIENT C/O LEFT HIP & BACK PAIN. PATIENT REQUEST FOR TYLENOL. TYLENOL 650 MG GIVEN. BED LOW. ALARM ON. CALL LIGHT WITHIN REACH. WILL CONTINUE TO MONITOR.
--- NOTE | 2020-01-22 03:06 | NUR ---
PATIENT EYES CLOSED. RESPIRATIONS 18 & EVEN. BED LOW. ALARM ON. CALL LIGHT WITHIN REACH. WILL CONTINUE TO MONITOR.
--- NOTE | 2020-01-22 11:07 | NUR ---
I have reviewed this patient and I concur with the Shift Assessment completed by the Licensed Practical Nurse today this shift.
--- NOTE | 2020-01-22 13:56 | NUR ---
Nutrition Follow-up: Diet: Cardiac Gluten-Free PO intake: 90-100% x all meals; states that his appetite is "great!" Reports last BM was this AM. No BM recorded since admit. WT: 223# (01/18/20), no new WT Meds noted: glipizide, lasix Labs noted: Glu 76(WNL), BUN 99(H), Cr 3.4(H), GFR 18(L) Recommend continue current diet. RD following.
[2020-01-22 15:02] VITALS: BP 146/52
--- NOTE | 2020-01-22 16:14 | NUR ---
PT TRUONG CATH DCD REMOVED 10CC SALINE FROM BULB. BULB WAS INTACT PT TOLERATED WELL KIAN ROMERO
--- NOTE | 2020-01-22 16:18 | RHP ---
PATIENT: IVAN DEVINE MEDICAL RECORD: [id number] ACCOUNT: [id number] [facility] ADMISSION DATE: 01/17/20 REHABILITATION HISTORY AND PHYSICAL EXAMINATION POST ADMISSION PHYSICIAN EXAMINATION ADMITTING DIAGNOSIS: Metabolic encephalopathy. HISTORY OF PRESENT ILLNESS: The patient is an 84-year-old gentleman who has got a history of diabetes, coronary artery disease, coronary artery bypass grafting and WI, who presented to the ED via EMS status post a fall at home. He reported he had been stumbling backwards and fell with inability to ambulate and pain to his left lower extremity. He is admitted with a left femoral greater trochanteric fracture and had orthopedic consult, found no need for surgical intervention. He has had prolonged hospitalizations found to have an increase in his abdominal aortic aneurysm when compared to a previous endovascular stent that he had placed over in [place]. He has had cardiovascular surgery consult, but is too weak at this time for any type of surgical intervention. Stent grafts appear to be in place; however, the aneurysm sac is enlarged and now 8 cm in diameter. He was found to have [id number] renal failure with creatinine of 5 and had nephrology consult, been followed during his stay. His creatinine is currently 2.7. He has had some acute kidney injury in the past and been seen by urology for urinary retention and underwent 4 UroLift implants on 01/18. Currently, has Ruiz catheter, he had been seen by PT and OT during his acute hospital stay and recommended acute inpatient rehab stay prior to being discharged home. He has had some confusion, respiratory complications requiring supplemental O2. He needs to be monitored closely for increased blood pressure, medication changes, monitoring his aortic aneurysm. His blood sugars have also been up and down. The patient has acute pain to his left hip. He has a recent fall, weakness, balance deficits, decreased activity tolerance, decreased range of motion state, decreased strength and gait disturbance. He has got limited safety awareness. He has got a risk for falls. He has low endurance. He has got an unsteady gait and balance, fatigues easily, inability to care for himself and lives with his daughter, so he has self-care deficit. These are all reasons for him not being discharged home directly at this time. He is currently set up for max assist for ADLs, mod to max assist for his mobility. He and his daughter plan for him to return home at his prior level of functioning or as close to possible this if needed. COMORBIDITIES: In this patient include greater trochanteric fracture, enlarging AAA, acute metabolic encephalopathy, acute blood loss anemia, CHF, mitral regurg, pulmonary systolic pressure, this is elevated, diabetes, coronary artery disease, history of coronary artery bypass grafting, history of WI, COPD. PAST MEDICAL HISTORY: Significant for diabetes, coronary artery bypass grafting, stents and angioplasty in the past, WI, lung cancer. He has got an aneurysm. He has got a fracture to his right shoulder and hip. PAST SURGICAL HISTORY: Includes gallbladder surgery, coronary artery bypass grafting. He has had multiple heart caths, left lobe lobectomy. He has had pinning of his left hip, hemiarthroscopy of his shoulder. ALLERGIES: MACROBID, PENICILLIN, SULFA, ASPIRIN, GLUTEN, MYCINS AND LEVAQUIN. CURRENT MEDICATIONS: Include isosorbide mononitrate 30 mg daily. He is on HISTORY AND PHYSICAL [id number] IVAN DEVINE folic acid 1 mg daily, Flonase nasal spray daily. He is on B12 500 mcg daily, Celexa 40 mg daily, carvedilol 12.5 mg b.i.d. with meals, glipizide 5 mg b.i.d. He is on Revatio 20 mg t.i.d., Entresto one tab b.i.d. He is on Ranexa 1000 mg b.i.d., Protonix 40 mg b.i.d., Kylah 60 mg at bedtime, Atrovent as needed, Apresoline 50 mg t.i.d., guaifenesin 600 mg b.i.d. He is on ferrous sulfate 325 b.i.d., polyethylene glycol 17 grams in 8 ounces of water daily. He is on Brovana 15 mcg b.i.d., vitamin D 5000 units Tuesday, Tuesday and Tuesday. He is on Nitrostat p.r.n., Imodium p.r.n., and Tylenol p.r.n. HABITS: No alcohol or tobacco use. FAMILY HISTORY: Noncontributory. SOCIAL HISTORY: The patient hopes to return back home and get back to his prior level of functioning. REVIEW OF SYSTEMS: GENERAL: Does complain of weakness and fatigue. HEENT: Denies cold, cough, or congestion. CARDIOVASCULAR: Denies any chest pain. PHYSICAL EXAMINATION: VITAL SIGNS: Stable, afebrile. GENERAL: A somewhat obese gentleman in no acute distress upon exam. HEENT: Normocephalic and atraumatic. Mucosa moist. NECK: Supple. No lymphadenopathy. LUNGS: Clear in upper franks. HEART: Regular rate and rhythm. He does have a holosystolic murmur. ABDOMEN: Soft, benign, and nondistended. Positive bowel sounds times 4. EXTREMITIES: No clubbing, cyanosis or edema. NEUROLOGIC: He does have noted proximal muscle weakness. LABORATORY DATA: White count is 9000, H&H 10 and 32 and platelet count was noted to be 174. Sodium is 141, potassium 4.3, BUN and creatinine of 68 and 2.7, blood sugars is noted to be 128. ASSESSMENT: This is an 84-year-old gentleman admitted to the rehab with a working diagnosis of acute metabolic encephalopathy. The patient has potential to make improvement. We instituted the following multidisciplinary therapies including, but not limited to physical, occupational, respiratory, speech, nutritional services, prosthetics and orthotics. Given his complex medical condition and risks for more complications, rehabilitation services cannot be provided at a low level of care at skilled nurse facility. PLAN: 1. Admit to [facility] for the following disciplines: A. Physical therapy to improve gait, all transfer skills and bed mobility to a modified independent level. B. Occupational therapy to improve activities of daily living. C. Case management to assist with discharge planning and placement options. D. Nutrition to assist with nutritional needs. E. Rehabilitation nursing to assist in monitoring the patient's underlying medical conditions and to assist with any type of bowel or bladder management. 2. The patient's current medication and medical care will be continued. 3. The patient will be placed on standard fall precautions. HISTORY AND PHYSICAL [id number] IVAN DEVINE 4. The patient's estimated length of stay is approximately 7-10 days. 5. We will discuss this patient during care team staff meeting this week. TRANSINT:[id number] Voice Confirmation ID: [id number] DOCUMENT ID: [id number] 01/22/2020 Edited for jennifer CONN. FABIEN notes whether there has been none or any medical/functional change since admission: - No change since preadmission screen. FABIEN attests patient continues to be appropriate for IRF: - Continues to be appropriate. WILFREDO GREGORIO MD at 1618 CC: [id number] DICTATION DATE: 01/18/20 0844 MACHINE SHOP HELPER: 01/18/20 0928 ADM IN [place] [id number] [place] [id number]
--- NOTE | 2020-01-22 16:35 | NUR ---
PT RESTING IN BED WITH EYES OPEN CALL LIGHT IN REACH NO PROBLEMS WILL MONITER
--- NOTE | 2020-01-22 19:35 | NUR ---
PATIENT RECEIVED SITTING UP IN BED. DAUGHTER AT BEDSIDE. ASSESSMENT & VITAL SIGNS DONE. NO C/O PAIN OR DISTRESS. ABDUCTOR PILLOW IN USE. BED LOW. ALARM ON. CALL LIGHT & URINAL WITHIN REACH. WILL CONTINUE TO MONITOR.
[2020-01-22 22:51] VITALS: BP 147/52
[2020-01-22 23:55] LABS: BACTERIA FEW /hpf (NEGATIVE); BILIRUBIN NEGATIVE (NEGATIVE); GLUCOSE NEGATIVE (NEGATIVE); KETONE NEGATIVE (NEGATIVE); NITRITE NEGATIVE (NEGATIVE); SPECIFIC GRAVITY 1.015 (1.005-1.020); UROBILINOGEN NORMAL (NORMAL)
[2020-01-23 00:07] VITALS: BP 147/52
--- NOTE | 2020-01-23 03:43 | NUR ---
PATIENT EYES CLOSED. RESPIRATIONS 18 & EVEN. BED LOW. URINAL & CALL LIGHT WITHIN REACH. WILL CONTINUE TO MONITOR.
--- NOTE | 2020-01-23 07:55 | NUR ---
PT RESTING IN BED WITH EYES OPEN CALL LIGHT IN REACH WILL MONITER
[2020-01-23 08:56] LABS: BASOPHILS 0.1 % (0-2); EOSINOPHILS 2.9 % (0-7); HEMATOCRIT 30.6 % (42.0-54.0); HEMOGLOBIN 9.6 g/dL (13.5-17.5); IMMATURE GRANULOCYTES 0.8 % (0-5); LYMPHOCYTES 8.8 % (15-50); MCH 28.8 pg (26.0-34.0); MCHC 31.4 g/dL (31.0-37.0); MCV 91.9 fL (80.0-100.0); MEAN PLATELET VOLUME 10.7 fL (7.4-10.4); MONOCYTES 7.4 % (2-11); RBC 3.33 10x6/uL (4.20-6.10); RDW 14.5 % (11.5-14.5); WBC 7.8 10x3/uL (4.8-10.8)
[2020-01-23 09:06] LABS: ANION GAP 11.7 mmol/L (8-16); CALCIUM 8.7 mg/dL (8.5-10.1); CREATININE - SERUM 3.4 mg/dL (0.6-1.3); POTASSIUM - SERUM 4.7 mmol/L (3.5-5.1)
[2020-01-23 09:23] LABS: PLATELET COUNT 180 10x3/uL (130-400)
[2020-01-23 09:36] VITALS: BP 149/55
--- NOTE | 2020-01-23 12:00 | NUR ---
I have reviewed this patient and I concur with the Shift Assessment completed by the Licensed Practical Nurse today this shift.
--- NOTE | 2020-01-23 16:23 | NUR ---
CARE TEAM MEETING: PATIENT IS PROGRESSING IN THERAPY AND HER TENATIVE DISCHARGE DATE IS 02/01/2020. WILL CONTINUE TO FOLLOW WITH PATIENT.
--- NOTE | 2020-01-23 17:07 | NUR ---
PT RESTING IN BED WITH EYES OPEN CALL LIGHT IN REACH WILL MONITER
--- NOTE | 2020-01-23 18:47 | NUR ---
BEDSIDE REPORT COMPLETE. PT LYING IN BED SUPINE WATCHING TV. ALERT AND ORIENTED X4. DENIES ANY NEEDS OR PAIN. NO SIGNS OF ACUTE DISTRESS NOTED. CL IN REACH. FALL PRECAUTIONS IN PLACE. WILL CONTINUE TO MONITOR
[2020-01-23 21:20] VITALS: BP 143/48
--- NOTE | 2020-01-24 01:20 | NUR ---
PT LYING IN BED WATCHING TV. DENIES ANY PAIN. NO SIGNS OF ACUTE DISTRESS NOTED. CL IN REACH
--- NOTE | 2020-01-24 04:31 | NUR ---
PT LYING IN BED EYES CLOSED RESTING COMFORTABLY. RR EVEN AND UNLABORED. CL IN REACH
--- NOTE | 2020-01-24 07:21 | NUR ---
A/A/OX4/ SITTING UP IN CHAIR AT BEDSIDE AND DAUGHTER WITH PT. DENIES ANY PAIN AT PRESENT TIME. CALL LIGHT IN REACH. RESP EVEN AND UNLABORED WITH 02 OFF. SP02 IS 95%.
[2020-01-24 09:21] VITALS: BP 164/59
--- NOTE | 2020-01-24 18:40 | NUR ---
BEDSIDE REPORT COMPLETE. PT LYING IN BED WATCHING TV. ALERT AND ORIENTED X4. DENIES ANY NEEDS OR PAIN. NO SIGNS OF ACUTE DISTRESS NOTED. CL IN REACH. FALL PRECAUTIONS IN PLACE. WILL CONTINUE TO MONITOR
[2020-01-24 20:08] VITALS: BP 131/50
[2020-01-24 22:57] VITALS: BP 147/68
--- NOTE | 2020-01-24 23:35 | NUR ---
PT LYING IN BED EYES CLOSED RESTING. RR EVEN AND UNLABORED. CL IN REACH
--- NOTE | 2020-01-25 03:58 | NUR ---
PT LYING IN BED ON RIGHT SIDE EYES CLOSED RESTING. RR EVEN AND UNLABORED. CL IN REACH
--- NOTE | 2020-01-25 05:24 | NUR ---
ASSISTED PT WITH GETTING DRESSED AND TRANSFERED TO W/C WITH HEAVY MOD ASSIST. CALL LIGHT, URINAL, AND WATER WITHIN REACH.
[2020-01-25 07:44] LABS: BASOPHILS 0.1 % (0-2); EOSINOPHILS 1.3 % (0-7); HEMATOCRIT 30.7 % (42.0-54.0); HEMOGLOBIN 9.9 g/dL (13.5-17.5); IMMATURE GRANULOCYTES 0.6 % (0-5); LYMPHOCYTES 6.5 % (15-50); MCH 29.6 pg (26.0-34.0); MCHC 32.2 g/dL (31.0-37.0); MCV 91.6 fL (80.0-100.0); MEAN PLATELET VOLUME 10.4 fL (7.4-10.4); NEUTROPHILS 82.5 % (40-80); PLATELET COUNT 171 10x3/uL (130-400); RBC 3.35 10x6/uL (4.20-6.10); RDW 14.5 % (11.5-14.5)
[2020-01-25 07:47] LABS: WBC 10.4 10x3/uL (4.8-10.8)
--- NOTE | 2020-01-25 08:00 | NUR ---
PT UP IN BED EATING BREAKFAST TOLERATING WELL WILL MONITER
[2020-01-25 08:08] LABS: ANION GAP 15.2 mmol/L (8-16); CALCIUM 8.7 mg/dL (8.5-10.1); CARBON DIOXIDE 24.4 mmol/L (21.0-32.0); CREATININE - SERUM 3.4 mg/dL (0.6-1.3); POTASSIUM - SERUM 4.6 mmol/L (3.5-5.1)
[2020-01-25 09:52] VITALS: BP 149/57
--- NOTE | 2020-01-25 18:17 | NUR ---
PT RESTING IN BED WITH EYES OPEN CALL LIGHT IN REACH WILL MONITER
--- NOTE | 2020-01-25 18:42 | NUR ---
BEDSIDE REPORT COMPLETE. PT LYING IN BED EYES CLOSED RESTING. RR EVEN AND UNLABORED. CL IN REACH. FALL PRECAUTIONS IN PLACE. WILL CONTINUE TO MONITOR
--- NOTE | 2020-01-25 22:28 | NUR ---
PT LYING IN BED HEELS FLOATED, MEDS GIVEN, NO OTHER NEEDS NOTED
--- NOTE | 2020-01-26 02:05 | NUR ---
PT LYING IN BED EYES CLOSED RESTING. NO SIGNS OF ACUTE DISTRESS NOTED. CONTINUES ON 2L VIA NC. CL IN REACH
[2020-01-26 02:18] VITALS: BP 135/44
--- NOTE | 2020-01-26 04:46 | NUR ---
PT IN BED SLEEPING, FALL PRECAUTIONS IN PLACE, NO NEEDS NOTED
--- NOTE | 2020-01-26 07:30 | NUR ---
RECEIVED POSITION ON BACK WITH EYES CLOSED AND RESP EVEN AND UNLABORED WITH 02 ON AT 2L/M PER N/C. SIDERAILS UP X 2, CALL LIGHT IN REACH AND BED IN LOW, LOCKED POSITION. WILL CPOC.
[2020-01-26 08:13] VITALS: BP 163/94
--- NOTE | 2020-01-26 11:00 | NUR ---
I have reviewed this patient and I concur with the Shift Assessment completed by the Licensed Practical Nurse today this shift.
[2020-01-26 12:46] LABS: ANION GAP 12.9 mmol/L (8-16); CALCIUM 8.8 mg/dL (8.5-10.1); CREATININE - SERUM 3.4 mg/dL (0.6-1.3); POTASSIUM - SERUM 4.9 mmol/L (3.5-5.1)
--- NOTE | 2020-01-26 14:00 | NUR ---
BED BATH GIVEN TO PT AND CLEAN CLOTHES ON. STATES HE FEELS MUCH BETTER. NO REQUESTS VOICED.
--- NOTE | 2020-01-26 19:05 | NUR ---
GREETED PATIENT AND INTRODUCED MYSELF HIS NURSE. PATIENT IS LAYING IN BED RESTING QUIETLY AT THIS TIME. FAMILY MEMBER AT BEDSIDE VISITING. O2 AT 2L IN USE VIA NC. RESPIRATIONS EVEN. NO S/S OF DISTRESS. CALL LIGHT IN REACH.
[2020-01-26 20:13] VITALS: BP 139/51
--- NOTE | 2020-01-27 03:27 | NUR ---
PT. RESTING QUIETLY WITH EYES CLOSED. RESPIRATIONS EVEN. NO S/S OF DISTRESS. O2 AT 2L IN USE VIA NC. CALL LIGHT IN REACH.
--- NOTE | 2020-01-27 07:15 | NUR ---
POSITIONED ON BACK WITH EYES CLOSED. RESP EVEN AND UNLABORED WITH 02 ON PER N/C AT 2 L/M. CALL LIGHT IN REACH, SIDERAILS UP X 2 AND BED IN LOW LOCKED POSITION. NO APPARENT PROBLEMS AT THIS TIME.
--- NOTE | 2020-01-27 07:15 | NUR ---
PT POSITIONED ON BACK WITH EYES CLOSED. RESP EVEN AND UNLABORED WITH 02 0J -E4
[2020-01-27 12:14] VITALS: BP 164/87
--- NOTE | 2020-01-27 14:16 | NUR ---
I have reviewed this patient and I concur with the Shift Assessment completed by the Licensed Practical Nurse today this shift.
--- NOTE | 2020-01-27 19:20 | NUR ---
GREETED PATIENT AND INTROUDUCED MYSELF HIS NURSE. PATIENT IS LAYING IN BED RESTING AT THIS TIME VISITING WITH FAMILY MEMBER THAT IS AT BEDSIDE. O2 AT 2L IN USE VIA NC. RESPIRATIONS EVEN. NO S/S OF DISTRESS. CALL LIGHT IN REACH.
[2020-01-27 19:41] VITALS: BP 125/65
--- NOTE | 2020-01-28 00:04 | NUR ---
PT. AWAKE LAYING IN BED WATCHING TV. DENIES ANY NEEDS AT THIS TIME. CALL LIGHT IN REACH.
--- NOTE | 2020-01-28 03:42 | NUR ---
PT RESTING QUIETLY WITH EYES CLOSED. RESPIRATIONS EVEN. NO S/S OF DISTRESS. O2 AT 2L IN USE VIA NC. CALL LIGHT IN REACH.
--- NOTE | 2020-01-28 04:23 | NUR ---
PT AWAKE AND CLEANED OF INCONTINENT URINE AND BM. COMPLETE LINEN CHANGE. PT REPOSTIONED FOR COMFORT. CALL LIGHT IN REACH.
[2020-01-28 06:50] LABS: BASOPHILS 0 % (0-2); EOSINOPHILS 3.1 % (0-7); HEMATOCRIT 30.4 % (42.0-54.0); HEMOGLOBIN 9.5 g/dL (13.5-17.5); IMMATURE GRANULOCYTES 1.2 % (0-5); LYMPHOCYTES 8.5 % (15-50); MCH 28.8 pg (26.0-34.0); MCHC 31.3 g/dL (31.0-37.0); MCV 92.1 fL (80.0-100.0); MEAN PLATELET VOLUME 10.5 fL (7.4-10.4); MONOCYTES 7.3 % (2-11); NEUTROPHILS 79.9 % (40-80); PLATELET COUNT 169 10x3/uL (130-400); RDW 14.4 % (11.5-14.5); WBC 7.3 10x3/uL (4.8-10.8)
--- NOTE | 2020-01-28 07:50 | NUR ---
ALERT AND ORIENTED. EATING BREAKFAST. NO C/O PAIN. RESP EVEN AND UNLABORED. CL IN REACH.
[2020-01-28 08:00] VITALS: BP 150/46
[2020-01-28 08:49] LABS: ANION GAP 11.7 mmol/L (8-16); CALCIUM 8.9 mg/dL (8.5-10.1); CARBON DIOXIDE 23.8 mmol/L (21.0-32.0); CREATININE - SERUM 2.9 mg/dL (0.6-1.3); POTASSIUM - SERUM 4.5 mmol/L (3.5-5.1)
--- NOTE | 2020-01-28 12:16 | NUR ---
PARTICIPATED IN THERAPY TODAY. EATING LUNCH AT THIS TIME.
--- NOTE | 2020-01-28 13:42 | NUR ---
Nutrition Follow-up: Diet: Cardiac Gluten-free PO intake: ~69% average x last 10 meals; he reports and "okay" appetite. He did not like the chicken that was served for lunch, states that it was dry. Last BM: 01/28/20 x 2. WT: 225# (01/23/20) Meds noted: glipizide, lasix Labs noted: BUN 96(H), Cr 2.9(H), GFR 22(L), Glu 100(WNL) Recommend continue current diet. Encouraged PO intake. RD following.
--- NOTE | 2020-01-28 15:16 | NUR ---
NO CHANGE IN ASSESSMENT. ASSISTED TO BED USING SLIDE BOARD. RESTING WO DISTRESS. CL IN REACH.
--- NOTE | 2020-01-28 19:15 | NUR ---
PT LYING IN BED. VISITOR IN ROOM. DENIES NEEDS OR PAIN AT THIS TIME. BED IN LOW SIDE RAILS X2. LUNGS CLEAR. BOWEL ACTIVE X4. A/O X4. RESP EVEN AND UNLABORED. WILL CONTINUE TO MONITOR.
[2020-01-28 20:00] VITALS: BP 136/57
--- NOTE | 2020-01-29 02:24 | NUR ---
I have reviewed this patient and I concur with the Shift Assessment completed by the Licensed Practical Nurse today this shift.
--- NOTE | 2020-01-29 07:15 | NUR ---
RESTING QUIETLY POSITIONED ON BACK WITH EYES CLOSED. RESP EVEN AND UNLABORED WITH 02 ON PER N/C A 2L/M. BED IN LOW LOCKED POSITION, CALL LIGHT IN REACH AND SIDERAILS UP X 2. NO APPARENT PROBLEMS WILL CONTINUE POC.
[2020-01-29 08:03] VITALS: BP 143/54
--- NOTE | 2020-01-29 18:55 | NUR ---
BEDSIDE REPORT COMPLETE. PT LYING IN BED EYES CLOSED RESTING COMFORTABLY. EASILY AROUSED WITH VERBAL STIMULI. DENIES ANY NEEDS OR PAIN. NO SIGNS OF ACUTE DISTRESS NOTED. CONTINUES ON 2L VIA NC. CL AND URINAL IN REACH. FALL PRECAUTIONS IN PLACE. WILL CONTINUE TO MONITOR
[2020-01-29 20:00] VITALS: BP 127/42
--- NOTE | 2020-01-29 23:16 | NUR ---
PT LYING IN BED SUPINE EYES CLOSED RESTING COMFORTABLY. CONTINUES ON 2L VIA NC. RR EVEN AND UNLABORED. CL IN REACH
--- NOTE | 2020-01-30 01:17 | NUR ---
PT LYING IN BED SUPINE AWAKE AND ALERT. DENIES ANY NEEDS OR PAIN. CONTINUES ON 2L VIA NC. CL IN REACH
--- NOTE | 2020-01-30 04:25 | NUR ---
PT LYING IN BED SUPINE EYES CLOSED RESTING. CL IN REACH
[2020-01-30 07:52] LABS: BASOPHILS 0.2 % (0-2); EOSINOPHILS 3.8 % (0-7); HEMATOCRIT 29.6 % (42.0-54.0); HEMOGLOBIN 9.3 g/dL (13.5-17.5); IMMATURE GRANULOCYTES 1.1 % (0-5); MCH 28.8 pg (26.0-34.0); MCHC 31.4 g/dL (31.0-37.0); MCV 91.6 fL (80.0-100.0); MEAN PLATELET VOLUME 10.2 fL (7.4-10.4); MONOCYTES 8.3 % (2-11); NEUTROPHILS 75.6 % (40-80); PLATELET COUNT 146 10x3/uL (130-400); RBC 3.23 10x6/uL (4.20-6.10); RDW 14.5 % (11.5-14.5); WBC 6.3 10x3/uL (4.8-10.8)
[2020-01-30 08:07] LABS: ANION GAP 13.9 mmol/L (8-16); CALCIUM 8.9 mg/dL (8.5-10.1); CARBON DIOXIDE 24.8 mmol/L (21.0-32.0); POTASSIUM - SERUM 4.7 mmol/L (3.5-5.1)
--- NOTE | 2020-01-30 10:31 | NUR ---
PARTICIPATING IN THERAPY. DAUGHTER IN ROOM. NO C/O PAIN. LINENS CHANGED ON BED.
--- NOTE | 2020-01-30 12:45 | NUR ---
SITTING IN WC. FAMILY IN ROOM. NO DISTRESS NOTED.
--- NOTE | 2020-01-30 14:25 | NUR ---
CARE TEAM MEETING: PATIENT FAMILY ATTENDED THE MEETING. THEIR QUESTIONS AND CONCERNS WERE ADDRESSED. THEY WOULD LIKE A REFERRAL FAXED TO [facility] FOR POSSIBLE ADMISSION. WILL CONTINUE TO FOLLOW WITH PATIENT AND WILL MAKE THE REFERRAL.
--- NOTE | 2020-01-30 17:02 | NUR ---
REFERRAL HAS BEEN FAXED TO [facility] FOR POSSIBLE ADMISSION ON 02/01/20. WILL CONTINUE TO FOLLOW WITH PATIENT.
--- NOTE | 2020-01-30 18:20 | NUR ---
SET UP BED BATH. PATIENT ASSISTED. NO CHANGE IN ASSESSMENT. CL IN REACH. REPOSITIONED UP IN BED.
--- NOTE | 2020-01-30 18:52 | NUR ---
BEDSIDE REPORT COMPLETE. PT SITTING UP IN BED VISITING WITH DAUGHTER DEJUAN. DENIES ANY NEEDS OR PAIN. CONTINUES ON 2L VIA NC. NO SIGNS OF ACUTE DISTRESS NOTED. HEELS BRIDGED. CL IN REACH. FALL PRECAUTIONS IN PLACE. WILL CONTINUE TO MONITOR
[2020-01-30 20:20] VITALS: BP 134/47
--- NOTE | 2020-01-31 01:06 | NUR ---
PT LYING IN BED SUPINE EYES CLOSED RESTING COMFORTABLY. RR EVEN AND UNLABORED. CONTINUES ON 2L VIA NC. CL IN REACH
--- NOTE | 2020-01-31 04:34 | NUR ---
PT LYING IN BED WATCHING TV. DENIES ANY NEEDS. C/O LEFT HIP PAIN 3/10 ACHING. CL IN REACH
[2020-01-31 07:37] VITALS: BP 156/57
--- NOTE | 2020-01-31 07:56 | NUR ---
PATIENT IS ALERT/ORIENT. SITTING UP IN BED TO EAT BREAKFAST. CALL LIGHT WITHIN REACH. WILL CONTINUE WITH PLAN OF CARE
--- NOTE | 2020-01-31 11:42 | NUR ---
I have reviewed this patient and I concur with the Shift Assessment completed by the Licensed Practical Nurse today this shift.
--- NOTE | 2020-01-31 14:56 | NUR ---
Nutrition Follow-up: Chart reviewed, patient continues to be followed by nephrology. Discharging to [facility] in [place] tomorrow. Diet: Cardiac Gluten-free PO intake: ~64% average x last 9 meals; spoke with patient's dtr who states that pt's appetite has improved. Last BM: 01/28/20 x 3. WT: 225# (01/23/20), no new WT Meds noted: glipizide, lasix Labs noted: POC Glu 108, GFR 21(L), BUN 91(H), Cr 3.0(H). Recommend continue current diet. RD following.
--- NOTE | 2020-01-31 18:06 | NUR ---
PT IN BED WATCHING TV, 2L O2 NC ON FLOWING, MENU GIVEN, NO NEEDS NOTED
[2020-02-01 02:53] VITALS: BP 142/52
--- NOTE | 2020-02-01 04:19 | NUR ---
PT ASLEEP IN BED, NO NEEDS NOTED, FLUIDS AND CALL LIGHT WITHIN REACH, AROUSES TO VOICE
[2020-02-01 08:26] VITALS: BP 171/67
--- NOTE | 2020-02-01 09:32 | NUR ---
PATIENT HAS BEEN ACCEPTED TO [facility] AND WILL DISCHARGE THERE TODAY VIA FACILITY VAN. NO HOME HEALTH OR DME NEEDED AT THIS TIME. AN APPOINTMENT WITH DR. MENDEZ WILL BE MADE AT TIME OF DISCHARGE FROM FACILITY. DR. BRICEÑO 02/04/2020 @ 3:20, DR. POLLOCK 02/18 @ 3:00. PATIENT CHOICE FORM SIGNED FOR SNF , ONE GIVEN TO PATIENT AND ONE FILED IN CHART. PATIENT AND FAMILY VOICED UNDERSTANDING THEY DECLINED COMPARE DATA. [facility] FORM SIGNED AND EXPLAINED, ONE FILED IN CHART AND ONE GIVEN TO PATIENT. DSICHARGE INSTRUCTIONS FAXED TO PCP, SNF AND REVIEWED WITH PATIENT AND FAMILY.
== END 2020-02-01 12:12 | disposition home or self-care (01) | DRG 70 ==
LOC: D.REHAB 14:58
PROVIDERS: Internal Medicine Nephrology; ADMIT Emergency Medicine; ATTEND Emergency Medicine
DX: G93.41 Metabolic encephalopathy (principal); N17.0 Acute kidney failure with tubular necrosis; I50.23 Acute on chronic systolic (congestive) heart failure; D62 Acute posthemorrhagic anemia; N17.9 Acute kidney failure, unspecified; S72.112D Displaced fracture of greater trochanter of left femur, subsequent encounter for closed fracture with routine healing; W19.XXXD Unspecified fall, subsequent encounter; I34.0 Nonrheumatic mitral (valve) insufficiency; J44.9 Chronic obstructive pulmonary disease, unspecified; Z95.1 Presence of aortocoronary bypass graft; I25.10 Atherosclerotic heart disease of native coronary artery without angina pectoris; E11.9 Type 2 diabetes mellitus without complications; I71.4 Abdominal aortic aneurysm, without rupture; N18.9 Chronic kidney disease, unspecified; D50.9 Iron deficiency anemia, unspecified; E11.65 Type 2 diabetes mellitus with hyperglycemia

== ENCOUNTER 2020-04-06 12:24 | Inpatient (IN) | payer MEDICARE, BC ==
[~2020-04-06] VITALS: Ht 177.8 cm; Wt 95.7 kg
[2020-04-06 13:27] LABS: BASOPHILS 0.2 % (0-2); EOSINOPHILS 0 % (0-7); HEMATOCRIT 32.3 % (42.0-54.0); HEMOGLOBIN 9.5 g/dL (13.5-17.5); LYMPHOCYTES 7.3 % (15-50); MCH 29.1 pg (26.0-34.0); MCHC 29.4 g/dL (31.0-37.0); MCV 98.8 fL (80.0-100.0); MONOCYTES 4.8 % (2-11); NEUTROPHILS 86.7 % (40-80); RBC 3.27 10x6/uL (4.20-6.10); RDW 15.9 % (11.5-14.5); WBC 5.2 10x3/uL (4.8-10.8)
[2020-04-06 13:28] LABS: PLATELET COUNT 115 10x3/uL (130-400)
[2020-04-06 13:36] LABS: ANION GAP 10.5 mmol/L (8-16); CALCIUM 8.2 mg/dL (8.5-10.1); CARBON DIOXIDE 29.3 mmol/L (21.0-32.0); POTASSIUM - SERUM 3.8 mmol/L (3.5-5.1)
[2020-04-06 13:49] LABS: ALBUMIN 2.7 g/dL (3.4-5.0); BILIRUBIN - TOTAL 0.48 mg/dL (0.2-1.3); PROTEIN - SERUM 6.2 g/dL (6.4-8.2); TROPONIN-I 0.041 ng/mL (0.000-0.060)
[2020-04-06 15:16] LABS: AMORPHOUS SEDIMENT >1+ /lpf (NONE SEEN); BACTERIA MODERATE /hpf (NEGATIVE); BILIRUBIN NEGATIVE (NEGATIVE); EPITHELIAL CELLS OCC /hpf (0-5); GLUCOSE 100 mg/dL (NEGATIVE); HYALINE CAST 0-5 /lpf (NONE SEEN); KETONE NEGATIVE (NEGATIVE); NITRITE NEGATIVE (NEGATIVE); RED CELLS - URINE RARE /hpf (0-5); SPECIFIC GRAVITY 1.015 (1.005-1.020); UROBILINOGEN NORMAL (NORMAL); WHITE CELLS - URINE OCC /hpf (NEGATIVE)
[2020-04-06 15:30] VITALS: BP 159/79
--- NOTE | 2020-04-06 15:33 | NUR ---
DR. MONIQUE HERE TO SEE PT. INFORM THAT PTS DAUGHTER IS CONCERNED BECAUSE PT IS DUE TO HAVE A IRON INFUSION TOMORROW IN [place] AND ASKED IF HE COULD HAVE ONE HERE. DR. MONIQUE STATES HE WILL CONSULT DR. CAVAZOS.
[2020-04-06 16:45] LABS: APTT 29.3 SECONDS (22.8-39.4); INR 1.13 (0.85-1.17); PROTIME 14.4 SECONDS (11.6-15.0)
--- NOTE | 2020-04-06 16:45 | NUR ---
ROCEPHIN IN PRIOR TO GOING TO THE FLOOR.
[2020-04-06 16:50] LABS: D-DIMER-QUANTITATIVE 3.66 ug/mLFEU (0.20-0.54)
--- NOTE | 2020-04-06 16:53 | NUR ---
PROVIDED VERBAL AND WRITTEN DISCHARGE TEACHING TO PT, WHO VERBALIZED UNDERSTANDING REGARDING TEACHING. D/C LT FA IV WITH CATHETER TIP INTACT. HEART MONITOR REMOVED AND TAKEN TO STONE CLEANER. 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 HE WILL BE HERE AROUND 1730.
[2020-04-06 17:09] VITALS: BP 161/90; BMI 32.3
--- NOTE | 2020-04-06 17:51 | NUR ---
PT IN ROOM LYING IN BED. STATES AT HOME HE WALKS WITH A WALKER AND IS CONTINENT OF B/B, BUT THAT HE IS FEELING WEAK IN HIS CURRENT STATE. NO COMPLAINTS OR CONCERNS ATATED AT THIS TIME. STATES I WILL NEED TO TALK TO HIS DAUGTHER FOR HIS HX. ATTEMTPED A CALL, NO ANSWER AT THIS TIME. CL IN REACH, SRX2. BED ALARM ON (PT HAS HX OF DEMENTIA).
[2020-04-06 20:00] VITALS: BP 152/81
[2020-04-07] VITALS (7 sets, daily range): BP systolic 106–189; BP diastolic 57–109; BMI 32.2
[2020-04-07 05:04] LABS: BASOPHILS 0.1 % (0-2); EOSINOPHILS 0.6 % (0-7); HEMOGLOBIN 9.4 g/dL (13.5-17.5); IMMATURE GRANULOCYTES 0.6 % (0-5); LYMPHOCYTES 7.2 % (15-50); MCHC 29.4 g/dL (31.0-37.0); MCV 98.8 fL (80.0-100.0); MEAN PLATELET VOLUME 11.2 fL (7.4-10.4); MONOCYTES 7.7 % (2-11); NEUTROPHILS 83.8 % (40-80); PLATELET COUNT 124 10x3/uL (130-400); RBC 3.24 10x6/uL (4.20-6.10); RDW 15.8 % (11.5-14.5)
[2020-04-07 05:36] LABS: WBC 6.7 10x3/uL (4.8-10.8)
[2020-04-07 05:44] LABS: ALBUMIN 2.5 g/dL (3.4-5.0); ANION GAP 10.7 mmol/L (8-16); BILIRUBIN - TOTAL 0.46 mg/dL (0.2-1.3); CALCIUM 8.2 mg/dL (8.5-10.1); CARBON DIOXIDE 31.3 mmol/L (21.0-32.0); MAGNESIUM - SERUM 1.5 mg/dL (1.8-2.4); PROTEIN - SERUM 5.9 g/dL (6.4-8.2); TROPONIN-I 0.036 ng/mL (0.000-0.060)
--- NOTE | 2020-04-07 07:12 | NUR ---
PT AWAKE AND ORIENTED, SITTING ON SIDE OF BED. CYLINDRICAL MIXER NURSE STATES THAT HE WAS UP WITH STANDBY ASSIST AND DID WELL. C/O ROOM BEING HOT, REPORTS AIR CONDITIONER KNOB IS MISSING/BROKEN, NURSE OPTICAL EFFECTS LAYOUT PERSON DEEPAK BLACED A WORK ORDER. NO OTHER COMPLAINTS OR CONCERNS STATED AT THIS TIME. CL IN REACH, SRX2.
--- NOTE | 2020-04-07 07:30 | NUR ---
SPOKE WITH DAUGHTER ON THE PHONE, SHE STATES HE WAS SUPOSED TO HAVE I/V IRON TODAY (TUESDAY). WILL INFORM SANITATION ENGINEER. PT DAUGHTER STATES THAT THEY HAVE SEEN SEVERAL SPECIALISTS REGARDING THE ENLARGING TRIPPLE A AND THEY HAVE DECIDED NOTHING ELSE CAN BE DONE ABOUT IT. PT HAS REQUESTSED IT BE LEFT ALONE. WILL INFROM DR. GRAVES THIS AM. TRANSFERED DAUGHTER INTO ROOM, PT ANSWERED.
--- NOTE | 2020-04-07 09:36 | NUR ---
PT AWAKE AND ORIENTED, LYING DOWN IN BED. MODERATE ASSIST WITH MOVING, PT STATES HE HAS A BAD LEG AND AT HOME HE USES A WALKER TO SHUFFLE AROUND. NO BM. NO COMPLAINT SOR CONCERNS AT THIS TIME. CL IN REACH, SRX2.
--- NOTE | 2020-04-07 10:28 | NUR ---
SPOKE WITH PT ABOUT CODE STATUS AND LIVING ARRANGMENTS. HE STATES HE'S A FULL CODE (MADE SURE PT WAS FULLY INFORMED ON THE TERMINOLOGY AND WHAT IT ENTAILS) AND THAT HE LIVES WITH HIS DAUGHTER. PHYSICAL THERAPY IN ROOM ASSESSING AT THIS TIME.
--- NOTE | 2020-04-07 10:31 | NUR ---
DENISHA WANTS ME TO VERIFY WITH FAMILY THAT PT IS A FULL CODE, SPOKE WITH DAUGHTER WHO PT LIVES WITH, POWER OF ATTORNY, AND SHE STATES PT IS A DNR. FOUND APPRORIATE PAPEROWRK, INFORMED DENISHA.
[2020-04-07 11:47] LABS: % SATURATION 17 % (15-55); IRON 43 ug/dl (35-150); TOTAL IRON BIND CAPACITY 245 ug/dl (260-445); UNSAT IRON BIND CAPACITY 202 ug/dl (150-375)
[2020-04-07 12:13] LABS: FERRITIN 103 ng/mL (3-244)
--- NOTE | 2020-04-07 14:37 | NUR ---
PT AWAKE AND ORIENTED, CHANGED IN TO PAJAMAS HE BROUGHT FROM HOME. HAD SEVERAL LARGE BOWEL MOVEMENTS. CL IN REACH,S RX2
--- NOTE | 2020-04-07 15:07 | NUR ---
PT COMPLAINED OF PAIN IN HIS CHEST BUT DESCRIBES IT JUST TROUBLE BREATHING, IT WAS EASED BY REPOSITIONING. PT REQUESTS THAT HE GET HIM HOME DOSE OF NITRO, INFORMED DENISHA HUMMEL, WILL ADMINISTER PER PROTOCOL IF ORDERED. CL IN REACH,SRX2, UP IN RECLINER BY BEDSIDE.
--- NOTE | 2020-04-07 15:56 | NUR ---
OT NOTE: PT COMPLETED SIT TO STAND WITH MOD A. PT COMPLETED BUE AROM EX TOLERATED. PT COMPLETED FACE AND HAND HYGIENE WITH SET UP. PT REQUIRED FREQUENT REST BREAKS. 128-2 ALYSIA GRAF COTA
[2020-04-07 16:32] LABS: CKMB 1.6 U/L (0.0-3.6); CREATINE KINASE 40 UL (21-232); TROPONIN-I 0.048 ng/mL (0.000-0.060)
--- NOTE | 2020-04-07 17:00 | NUR ---
I have reviewed this patient and I concur with the Shift Assessment completed by the Licensed Practical Nurse today this shift.
--- NOTE | 2020-04-07 17:15 | NUR ---
PT HAS BEEN IT TELECOM TECHNICIAN LIGHT REPEATED GEORGE 5-15 MINUTES FOR THE MAGORITY OF THE DAY. DAUGHTER SAYS THIS IS TYPICAL BEHAVIOR HE BECOMES MORE CONFUSED AT NIGHT. PLESANTLY CONFUSED ABOUT SITUATION. WANTS UP AND DOWN FREQUENTLY BUT IS GETTING INCREASINGLY WEAKER WITH THE MOVEMENTS, CAUSING IT TO BE MORE AND MORE DIFFICULT FOR STAFF TO ACCOMIDATE. PT DOES NOT WANT TO USE THE URINAL BECAUSE HE DOESN'T LIKE IT, BUT WHEN HE USES THE BEDSIDE COMMODE HE MISSES COMPLETELY URINATING ON THE FLOOR. CL IN REACH, SRX2, UP IN RECLINER.
--- NOTE | 2020-04-07 18:00 | NUR ---
PT ON CL FOR ASSISTANCE BACK TO BED. PT THEN CHANGED HIS MIND AND REQUESTED SUPPER FIRST. PT PREVIOUSLY REFUSED TO EAT STATING HE WASN'T HUNGRY. PT UP IN CHAIR EATING. CL IN REAHC, SRX2, CHAIR ALARM ON AND WORKING WNL.
--- NOTE | 2020-04-07 18:43 | NUR ---
PT ON CL FOR ASSISTANCE BACK TO BED. STATES HE'S FINSISHED EATING. USED URINAL FIRST. CL INR EACH, SRX2, BED ALARM ON AND ACTIVE WNL.
--- NOTE | 2020-04-07 18:43 | NUR ---
PT LYING IN BED ON BACK, REQUESTS URINAL TO BE EMPTIED. NO OTHER OCMPLAINTS OR CONCERNS AT THIS TIME, CL IN REACH, SRX2.
--- NOTE | 2020-04-07 19:15 | NUR ---
ASSISTED PT TO CHAIR FROM BED WITH MINIMAL ASSISTANCE. HE IS ON 2L NC AND HIS O2 SAT IS 94%. RHONDA ALARM ON FOR SAFETY AND CHAIR IS LOCKED. HE CALL LIGHT IS WITHIN REACH. HE DENIES NEEDS OR PAIN.
[2020-04-07 22:17] LABS: CKMB 1.5 U/L (0.0-3.6); CREATINE KINASE 41 UL (21-232); TROPONIN-I 0.057 ng/mL (0.000-0.060)
[2020-04-08 04:34] LABS: BASOPHILS 0.3 % (0-2); EOSINOPHILS 0.6 % (0-7); HEMATOCRIT 34.9 % (42.0-54.0); IMMATURE GRANULOCYTES 0.7 % (0-5); LYMPHOCYTES 13.1 % (15-50); MCH 28.3 pg (26.0-34.0); MCHC 28.7 g/dL (31.0-37.0); MCV 98.9 fL (80.0-100.0); MEAN PLATELET VOLUME 11.1 fL (7.4-10.4); MONOCYTES 10.1 % (2-11); NEUTROPHILS 75.2 % (40-80); RBC 3.53 10x6/uL (4.20-6.10); RDW 15.9 % (11.5-14.5); WBC 6.9 10x3/uL (4.8-10.8)
[2020-04-08 04:47] LABS: PLATELET COUNT 160 10x3/uL (130-400)
[2020-04-08 05:07] LABS: ALBUMIN 2.7 g/dL (3.4-5.0); ALKALINE PHOSPHATASE 97 U/L (30-120); BILIRUBIN - TOTAL 0.37 mg/dL (0.2-1.3); CALC OSMOLALITY 301 mosm/kg (275-300); CALCIUM 8.5 mg/dL (8.5-10.1); CHLORIDE - SERUM 108 mmol/L (98-107); CKMB 2.1 U/L (0.0-3.6); CREATINE KINASE 47 UL (21-232); CREATININE - SERUM 2.3 mg/dL (0.6-1.3); GLUCOSE 113 mg/dL (74-106); MAGNESIUM - SERUM 1.6 mg/dL (1.8-2.4); POTASSIUM - SERUM 4.3 mmol/L (3.5-5.1); PROTEIN - SERUM 6.3 g/dL (6.4-8.2); SODIUM 145 mmol/L (136-145); UREA NITROGEN 47 mg/dL (7-18); eGFR NON AFRICAN AMERICAN 29 mL/min (90-120)
[2020-04-08 05:19] LABS: ALT (SGPT) 36 U/L (10-68)
[2020-04-08 05:20] LABS: TROPONIN-I 0.089 ng/mL (0.000-0.060)
[2020-04-08 05:23] VITALS: BP 176/95
--- NOTE | 2020-04-08 06:04 | NUR ---
RECEIVED CRITICAL TROPONIN OF 0.089 FROM LAB. PTS PREVIOUS ONE WAS 0.057. WILL LET DAYSHIFT KNOW.
[2020-04-08 06:08] VITALS: BP 162/90
[2020-04-08 09:21] VITALS: BP 150/86
--- NOTE | 2020-04-08 09:44 | NUR ---
PT'S FAMILY ASKING ABOUT IRON INFUSION HE SHOULD HAVE RECEIVED AT OFFICE YESTERDAY BUT WAS HERE. DR AYALA OFFICE (HIS ONCOLOGIST) CALLED ALSO AND VERIFIED DOSE USUALLY GIVEN 700 MG IV.
[2020-04-08 13:03] VITALS: BP 165/93
--- NOTE | 2020-04-08 14:09 | NUR ---
OT NOTE: PT DOING BETTER TODAY; ABLE TO TRANSFER WITH USE OF WALKER AND MIN ASSIST; SIT TO STAND WITH MIN ASSIST; ABLE TO WASH FACE AND HANDS WITH SET UP; MAX ASSIST WITH PERINEAL CARE AND LE DRESSING/BATHING. PT WITH STANDING TOLERANCE OF APPROX 4-5 MIN X 2 SETS WITH 5 MIN REST BREAK IN BETWEEN. AROM EXS WITH UES TO IMPROVE STRENGTH REESE ROMERO, OTR/L [phone]
[2020-04-08 16:49] VITALS: Ht 177.8 cm; Wt 95.7 kg
[2020-04-08 17:38] VITALS: BP 144/90
[2020-04-08 21:31] VITALS: BP 137/91
[2020-04-09 04:39] VITALS: BP 137/82
[2020-04-09 06:28] LABS: BASOPHILS 0.5 % (0-2); EOSINOPHILS 1.4 % (0-7); HEMATOCRIT 34.9 % (42.0-54.0); HEMOGLOBIN 10.1 g/dL (13.5-17.5); IMMATURE GRANULOCYTES 0.9 % (0-5); LYMPHOCYTES 9.3 % (15-50); MCH 28.8 pg (26.0-34.0); MCHC 28.9 g/dL (31.0-37.0); MCV 99.4 fL (80.0-100.0); MEAN PLATELET VOLUME 11.3 fL (7.4-10.4); MONOCYTES 9.2 % (2-11); NEUTROPHILS 78.7 % (40-80); PLATELET COUNT 148 10x3/uL (130-400); RBC 3.51 10x6/uL (4.20-6.10); RDW 15.7 % (11.5-14.5); WBC 5.7 10x3/uL (4.8-10.8)
[2020-04-09 06:38] LABS: ALBUMIN 2.8 g/dL (3.4-5.0); ANION GAP 9.9 mmol/L (8-16); BILIRUBIN - TOTAL 0.39 mg/dL (0.2-1.3); CALCIUM 8.7 mg/dL (8.5-10.1); CARBON DIOXIDE 31.8 mmol/L (21.0-32.0); CREATININE - SERUM 2.2 mg/dL (0.6-1.3); MAGNESIUM - SERUM 1.8 mg/dL (1.8-2.4); POTASSIUM - SERUM 4.7 mmol/L (3.5-5.1); PROTEIN - SERUM 6.3 g/dL (6.4-8.2)
[2020-04-09 07:59] VITALS: BP 146/79
[2020-04-09 11:41] VITALS: BP 148/82
--- NOTE | 2020-04-09 13:14 | NUR ---
OT NOTE: IN ROOM AMBULATION WITH WALKER AND MIN ASSIST; SIMPLE GROOMING TASK AT SINK IN STANDING WITH USE OF WALKER. REST BREAK TO FOLLOW DUE TO REPORTED BACK PAIN. UE AROM EXS WHILE SITTING IN CHAIR. REESE ROMERO, OTR/L [phone]
--- NOTE | 2020-04-09 15:27 | NUR ---
OT NOTE: PT COMPLETED SIT TO STAND WITH MIN A. PT COMPLETED ADL MOB WITH MIN A. PT COMPLETED FACE AND HAND HYGIENE WITH SETUP. [phone] ALYSIA GRAF COTA
--- NOTE | 2020-04-10 08:04 | EC ---
PATIENT:IVAN DEVINE DATE OF SERVICE: 04/06/20 SEX: M MEDICAL RECORD: [id number] DATE OF : 37 LOCATION:D.M2 D.213 AGE OF PATIENT: 84 ADMISSION DATE: 04/06/20 REFERRING PHYSICIAN: INTERPRETING PHYSICIAN: AMOS MCCLOUD MD ECHOCARDIOGRAM REPORT ECHO CHARGES 4 ECHO COMPLETE Date: 04/07/20 CLINICAL DIAGNOSIS: CHF ECHOCARDIOGRAPHIC MEASUREMENTS (adult normal given) AC root (d.<3.7cm) 3.4 cm LV Septum d (<1.2 cm> 1.5 cm Valve Excursion 1.8 cm LV Septum (systole) 2.3 cm Left Atria (s.<4.0cm> 5.7 cm LVPW d(<1.2cm) 1.5 cm RV (d.<2.3cm) 4.7 cm LVPW (sytole) 2.0 cm LV diastole(<5.6CM) 7.1 cm MV E-F(>70mm/sec) cm LV systole 5.2 cm LVOT Diameter 2.1 cm MV exc.(>10mm) cm Est.ejection fraction (50-75%) % DOPPLER: LVIT cm/sec A 104 cm/sec E 138 cm/sec LA cm/sec RVSP 61.1 mmHg LVOT 77.0 cm/sec AOP1/2T m/s Asc. Ao 191 cm/sec RVOT 67.0 cm/sec RA cm/sec PA 104 cm/sec AV Gradient Peak 15.0 mmHg AV Mean 7.3 mmHg AV Area 1.5 cm MV Gradient Peak 6.1 mmHg MV Mean 2.4 mmHg MV Area cm COMMENTS: Sql Analyst: 1 SYDNEE MICHELOE Technology Methodology Consultant: 3 Dr. Galan TAPE# PACS Pericardial Effusion N DATE OF SERVICE: Adequate 2D, color flow imaging, spectral Doppler, and M-Mode. LVH is present. LV internal dimension are dilated. LV is globally hypokinetic with reduced EF, estimated EF 30%. Aortic valve is tricuspid. No evidence of stenosis by Doppler interrogation. Left atrium is dilated at 5.7 cm. Mitral valve shows no prolapse. Moderate to severe MR. Right-sided chambers are grossly normal. Moderate to severe TR. ECHOCARDIOGRAM REPORT [id number] IVAN DEVINE TRANSINT:[id number] Voice Confirmation ID: [id number] DOCUMENT ID: [id number] AMOS MCCLOUD MD at 0804 CC: [id number] DICTATION DATE: 04/08/201309 SENIOR INFRASTRUCTURE ARCHITECT: 04/08/201902 DIS IN 04/09/20 [facility] [address] [place] [id number]
== END 2020-04-09 14:09 | disposition home or self-care (01) | DRG 291 ==
LOC: D.ER 12:24 → D.M2 15:33
PROVIDERS: Family Medicine; Internal Medicine Nephrology; ADMIT Family Medicine; ATTEND Family Medicine
DX: I13.2 Hypertensive heart and chronic kidney disease with heart failure and with stage 5 chronic kidney disease, or end stage renal disease (principal); I50.43 Acute on chronic combined systolic (congestive) and diastolic (congestive) heart failure; J18.9 Pneumonia, unspecified organism; N18.5 Chronic kidney disease, stage 5; N17.9 Acute kidney failure, unspecified; J98.11 Atelectasis; J96.11 Chronic respiratory failure with hypoxia; I08.1 Rheumatic disorders of both mitral and tricuspid valves; E11.22 Type 2 diabetes mellitus with diabetic chronic kidney disease; I25.10 Atherosclerotic heart disease of native coronary artery without angina pectoris; I71.4 Abdominal aortic aneurysm, without rupture; F03.90 Unspecified dementia, unspecified severity, without behavioral disturbance, psychotic disturbance, mood disturbance, and anxiety; Z66 Do not resuscitate; D50.9 Iron deficiency anemia, unspecified; D63.1 Anemia in chronic kidney disease; J44.9 Chronic obstructive pulmonary disease, unspecified; E11.65 Type 2 diabetes mellitus with hyperglycemia; K57.90 Diverticulosis of intestine, part unspecified, without perforation or abscess without bleeding; Z86.73 Personal history of transient ischemic attack (TIA), and cerebral infarction without residual deficits